=== PATIENT | female | born 1965 | race Caucasian/White ===

== ENCOUNTER 2016-11-06 19:28 | Inpatient (IN) | payer BC ==
[~2016-11-06] VITALS: Ht 154.9 cm; Wt 106.7 kg
[~2016-11-06 19:28] MED LIST: /ADVA50050 IN; /ALEN70TA OR; /PANT40TA OR; ABIL5TAB5 PO; ALBU17IN2 IN; CETI10TA OR; DUONSOL IN; HYDR-4274 PO; HYDR25TAB PO; LIPI20TA OR; LISI20TA5 OR; METF500T PO; MOTR200T4 OR; PAXI40TA OR; PERC5TAB8 OR; PERCOCET PO; TIZA4CAP3 PO; TYLE500T53 OR; VALS1TAB46 PO; XANA0.5T OR; XANA0.5T PO
[2016-11-06] MEDS ORDERED: METOCLOPRAMIDE INJ 10MG/2ML VIAL (J2765) As Ordered ONE (21:33)
[2016-11-06 22:38] LABS: BASO # 0.2 K/mm3 (0.0-0.2); EOS % 0.1 % (0.0-3.0); LARGE UNSTAINED CELL # 0.3 K/mm3 (0.0-0.4); LARGE UNSTAINED CELL % 1.2 % (0.0-4.0); MEAN CORPUSCULAR HGB CONC 33.7 g/dl (32.0-36.5); MEAN CORPUSCULAR VOLUME 89.1 fl (80.0-96.0); MONO # 1.1 K/mm3 (0.0-0.8); MONO % 5.5 % (0.0-5.0); NEUTROPHILS # 16.7 K/mm3 (1.8-7.7); NEUTROPHILS % 83.2 % (36.0-66.0); PLATELET COUNT, AUTOMATED 305 k/mm3 (150-450); RED CELL DISTRIBUTION WIDTH 15.9 % (11.5-14.5)
[2016-11-06 22:46] LABS: ALBUMIN 3.5 GM/DL (3.2-5.2); ALBUMIN/GLOBULIN RATIO 0.97 (1.00-1.93); ALKALINE PHOSPHATASE 103 U/L (45-117); ALT/SGPT 12 U/L (12-78); AMYLASE 31 U/L (25-115); ANION GAP 12 MEQ/L (8-16); AST/SGOT 13 U/L (15-37); BILIRUBIN,DIRECT 0.1 MG/DL (0.0-0.2); BILIRUBIN,TOTAL 0.5 MG/DL (0.2-1.0); BLOOD UREA NITROGEN 13 MG/DL (7-18); CALCIUM LEVEL 9.1 MG/DL (8.5-10.1); CARBON DIOXIDE LEVEL 29 MEQ/L (21-32); CHLORIDE LEVEL 100 MEQ/L (98-107); CREATININE FOR GFR 0.93 MG/DL (0.55-1.02); GLOMERULAR FILTRATION RATE > 60.0 (>51); GLUCOSE, FASTING 121 MG/DL (70-105); POTASSIUM SERUM 2.9 MEQ/L (3.5-5.1); SODIUM LEVEL 141 MEQ/L (136-145); TOTAL PROTEIN 7.1 GM/DL (6.4-8.2)
[2016-11-06] MEDS ORDERED: ISOVUE-370 76% 100ML VIAL (Q9967) As Ordered ONE (22:58)
[2016-11-06 23:04] LABS: MAGNESIUM LEVEL 2.6 MG/DL (1.8-2.4)
[2016-11-07] MEDS ORDERED: KCL 10MEQ IN STERILE WATER 100ML As Ordered ONE (00:27)
--- NOTE | 2016-11-07 00:30 | REPUSA ---
CLINICAL HISTORY: Abdominal pain. TECHNIQUE: Multiple axial, sagittal and coronal CT images were obtained through the abdomen and pelvi s after administration of intravenous contrast material. COMMENTS: Compared to 11/04/16 study. The liver is of uniform attenuation without mass or defect. There is no intra or extrahepatic biliary ductal dilatation. The spleen is normal. The gallbladder is within normal limits. The pancreas is of normal contour and attenuation characteristics. There is no evidence of adrenal mass. Both kidneys demonstrate prompt and equal nephrograms. The kidneys are normal in size, shape and conf iguration. There is no evidence of renal or ureteral mass. No renal or ureteral calculi are identifie d. There is no hydroureter or hydronephrosis. No evidence for appendicitis. There is nodular wall thickening involving sigmoid colon, malignancy i s suspected. Proximal to that the colon is markedly dilated measuring up to 9 cm in caliber compatibl e with mechanical large bowel obstruction. There is marked interval exacerbation. There is no evidence of intrinsic or extrinsic bladder mass. There is pelvic ascites noted. Images of the lung bases show no evidence of pleural or parenchymal mass. There are no pleural effusi ons. The bony structures are free of lytic or blastic lesions. Multilevel degenerative changes are seen in volving the thoracolumbar spine. Scattered calcifications are seen involving the aorta and major bran ches compatible with atherosclerosis. IMPRESSION: Nodular wall thickening involving sigmoid colon, malignancy is suspected. Proximal to that the colon is markedly dilated measuring up to 9 cm in caliber compatible with mechanical large bowel obstructio n. There is marked interval exacerbation. Consider follow up with colonoscopy. Thank you for your kind referral of this patient.
[2016-11-07] MEDS ORDERED: PROT1TAB2 PO (01:34)
[2016-11-07] MEDS ORDERED: FLAG500T PO (01:34)
[2016-11-07] MEDS ORDERED: VALS1TAB47 PO (01:34)
[2016-11-07] MEDS ORDERED: HYDR62TA PO (01:34)
[2016-11-07] MEDS ORDERED: CIPR500T89 PO (01:34)
[2016-11-07] MEDS ORDERED: ATOR1TAB18 PO (01:34)
[2016-11-07] MEDS ORDERED: PAXI40TA2 PO (01:41)
[2016-11-07] MEDS ORDERED: ABIL1TAB5 PO (01:41)
[2016-11-07] MEDS ORDERED: TIZA2CAP3 PO (01:41)
[2016-11-07] MEDS ORDERED: HYDR25TAB PO (01:41)
[2016-11-07] MEDS ORDERED: TIZA4CAP3 PO (01:41)
[2016-11-07] MEDS ORDERED: ADV250INH INH (02:22)
[2016-11-07] MEDS ORDERED: HYDR-4274 PO (02:22)
[2016-11-07] MEDS: LR 1,000 ML IV SCH ×3 (02:48→12:48)
[2016-11-07] MEDS ORDERED: ACETAMINOPHEN TAB 650MG DOSE (2X325MG) PO PRN (03:00)
[2016-11-07] MEDS ORDERED: KCL 10MEQ IN 100ML SWI (KRUN) 10 MEQ in APPROPRIATE DILUENT 1 EA IV ONE ×2 (03:00)
[2016-11-07] MEDS ORDERED: PERCOCET 5MG/325MG TAB As Ordered ONE (04:28)
[2016-11-07] MEDS: metroNIDAZOLE 500 MG in APPROPRIATE DILUENT 1 EA IV SCH ×3 (06:00→21:03)
[2016-11-07 06:20] VITALS: BP 143/73
--- NOTE | 2016-11-07 06:32 | EDDOCDS ---
Nurse's Notes [facility] Name: Georgia Rene Age: 51 yrs Sex: Female : 1965 Arrival Date: 11/06/2016 Time: 19:28 Bed Admit Hold Private MD: Verónica Betancur PA-C Diagnosis: Other and unspecified intestinal obstruction-MECHANICAL LARGE BOWEL OBSTRUCTION;Abnormal findings on diagnostic imaging of other parts of digestive tract-SIGMOID COLON ;Hypokalemia Presentation: 11/06 19:39 Presenting complaint: Patient states: Seen twice on Wednesday for nausea and abdominal jo3 pain. Diagnosed with colitis. Reports intractable vomiting now and is unable to keep medication down. Adult Sepsis Screening: The patient does not have new or worsening altered mentation. Patient's respiratory rate is less than 22. Systolic blood pressure is greater than 100. Patient has a qSOFA score of 0- Negative Sepsis Screen. Suicide/Homicide risk assessment- the patient denies having any suicidal and/or homicidal ideations and does not present with any other emotional, behavioral or mental health complaints. Status: Patient is not a chief of service or dependent. Transition of care: patient was not received from another setting of care. 19:39 Acuity: JOSE MANUEL Level 3 jo3 19:39 Method Of Arrival: Walkin/Carried/Asstd jo3 Triage Assessment: 19:43 General: Appears in no apparent distress, Behavior is cooperative. Pain: Pain currently jo3 is 8 out of 10 on a pain scale. HIV screening NA for this visit Offered previously. The patient is triaged at the bedside. See Assessment in Nurses Notes section of ED record. Neurological: Level of Consciousness is awake, alert, Oriented to person, place, time. Cardiovascular: No deficits noted. Respiratory: Airway is patent. GI: Reports nausea, vomiting. Derm: Skin is pink, warm & dry. SUEDE CLEANER: 19:44 LMP N/A - Hysterectomy jo3 Historical: - Allergies: Bactrim (Swelling); Morphine (Swelling); Zoloft (nightmares); - Home Meds: 1. Cipro 500 mg Oral tab 1 tab every 12 hours (Last dose: 11/06/2016 17:00) 2. Flagyl 500 mg Oral tab 1 tab every 8 hours (Last dose: 11/06/2016 17:00) 3. hydrochlorothiazide 12.5 mg Oral cap 1 cap once daily (Last dose: 11/04/2016) 4. metformin 500 mg Oral tab 1 tab 2 times per day (Last dose: 11/04/2016) 5. Percocet 5-325 mg Oral tab 1 tab three times a day as needed (Last dose: 11/04/2016) 6. Protonix 40 mg Oral TbEC 1 tab once daily (Last dose: 11/04/2016) 7. Reglan 10 mg Oral tab 1 tab every 6 hours (Last dose: 11/04/2016) 8. simvastatin 10 mg Oral tab 1 tab nightly (Last dose: 11/04/2016) 9. valsartan 40 mg oral tab 1 tab once daily (Last dose: 11/04/2016) - PMHx: Chronic Back pain; Diabetes - NIDDM: controlled; Diverticulitis; Hypercholesterolemia; Hypertension; - PSHx: Hysterectomy; - Social history: Smoking status: Patient uses tobacco products, light tobacco smoker. No barriers to communication noted, The patient speaks fluent Fijian, Speaks appropriately for age. - Family history: Not pertinent. - : The pt / caregiver states he / she is not on anticoagulants. Home medication list is obtained from the patient. - Exposure Risk Screening:: None identified. Screenin/31 00:12 Screening information is obtained from the patient. Fall risk: No risks identified. mcp Assistance ADL's: requires no assistance with activities of daily living. Abuse/DV Screen: The patient / caregiver reports he/she is: not in a situation that causes fear, pain or injury. Nutritional screening: No deficits noted. Advance Directives: There is no active DNR order. home support is adequate. Assessment: 11/06 22:01 General: Appears uncomfortable, Behavior is cooperative. Pain: Location: right lower ld5 quadrant and left lower quadrant Pain currently is 8 out of 10 on a pain scale. Neurological: Level of Consciousness is awake, alert. Respiratory: Airway is patent Respiratory effort is even, unlabored. GI: Abdomen is obese, Bowel sounds present X 4 quads. Abd is tender to palpation in left lower quadrant Reports lower abdominal pain, nausea, vomiting, intolerance of food, intolerance of fluids. : Denies burning with urination, pain with urination. Derm: Skin is intact, Skin is dry, flaky Bruising that is dark purple, on dorsum of right hand. 22:24 General: Pt reports several episodes of emesis. Reglan infusion completed. Will ld5 continue to monitor. 23:11 General: Pt returned from CT. Tolerated well. Fluids remain infusing. Will continue to ld5 monitor. 11/07 00:12 General: Appears in no apparent distress, Behavior is cooperative. Neurological: Level mcp of Consciousness is awake, alert. Respiratory: Airway is patent Respiratory effort is even, unlabored. Derm: Skin is pink, warm & dry. 01:39 Reassessment: pt states nausea is slighlty better but just doesn't feel good. General: jp6 Appears uncomfortable, Behavior is appropriate for age, cooperative. Pain: Location: abdomen Pain currently is 4 out of 10 on a pain scale. Neurological: No deficits noted. EENT: No deficits noted. Cardiovascular: Rhythm is sinus rhythm No ectopy. Respiratory: Airway is patent Respiratory effort is even, unlabored, Respiratory pattern is regular, symmetrical. 02:30 Reassessment: Patient states symptoms have improved. General: Appears in no apparent jp6 distress, uncomfortable, Behavior is appropriate for age, cooperative. Neurological: No deficits noted. Cardiovascular: No deficits noted. Rhythm is sinus rhythm No ectopy. Respiratory: Airway is patent Respiratory effort is even, unlabored, Respiratory pattern is regular, symmetrical. GI: Denies vomiting. 03:30 Reassessment: Patient appears in no apparent distress at this time. General: Appears in jp6 no apparent distress. Cardiovascular: No deficits noted. Rhythm is sinus rhythm No ectopy. Respiratory: Airway is patent Respiratory effort is even, unlabored, Respiratory pattern is regular, symmetrical. 04:30 Reassessment: Patient appears in no apparent distress at this time. jp6 05:30 Reassessment: Patient appears in no apparent distress at this time. Patient states jp6 symptoms have improved. General: Appears in no apparent distress, Behavior is appropriate for age, cooperative. Pain: Pain currently is 3 out of 10 on a pain scale. Neurological: No deficits noted. EENT: No deficits noted. Cardiovascular: Rhythm is sinus rhythm No ectopy. Respiratory: Airway Respiratory effort is even, unlabored, Respiratory pattern is regular, symmetrical. GI: Abdomen is obese. : No deficits noted. Derm: Skin is intact, Skin is dry, Skin is pink, warm & dry. Musculoskeletal: No deficits noted. Vital Signs: 11/06 19:29 BP 149 / 84; Pulse 85; Resp 18 S; Temp 98.5(O); Pulse Ox 95% on R/A; Weight 101.6 kg dd6 (R); Height 5 ft. 1 in. (154.94 cm) (R); 11/07 00:12 BP 135 / 78; Pulse 64; Resp 16; Temp 100.1; Pulse Ox 98% ; Pain 5/10; ajs 00:35 BP 122 / 63 (auto/); jp6 00:35 Pulse 76 MON; Pulse Ox 91% ; jp6 00:50 BP 127 / 67 (auto/); jp6 00:50 Pulse 78 MON; Pulse Ox 93% ; jp6 01:05 BP 126 / 68 (auto/); jp6 01:05 Pulse 80 MON; Pulse Ox 88% ; jp6 01:20 BP 127 / 71 (auto/); jp6 01:20 Pulse 70 MON; Pulse Ox 90% ; jp6 01:35 BP 134 / 69 (auto/); jp6 01:35 Pulse Ox 92% ; jp6 01:46 Pulse 70 MON; Pulse Ox 91% ; jp6 01:50 BP 126 / 69 (auto/); jp6 02:05 BP 123 / 63 (auto/); jp6 02:05 Pulse Ox 92% ; jp6 02:07 Pulse 72 MON; Pulse Ox 92% ; jp6 02:20 Pulse 72 MON; Pulse Ox 93% ; jp6 02:20 BP 129 / 68 (auto/); jp6 02:35 BP 128 / 69 (auto/); jp6 02:35 Pulse 68 MON; Pulse Ox 93% ; jp6 02:50 BP 129 / 73 (auto/); jp6 02:50 Pulse 70 MON; Pulse Ox 92% ; jp6 02:58 Pulse 68 MON; Pulse Ox 92% ; jp6 02:59 Pulse 82 MON; Pulse Ox 90% ; jp6 03:05 BP 130 / 68 (auto/); jp6 03:05 Pulse Ox 90% ; jp6 03:20 BP 139 / 74 (auto/); jp6 03:20 Pulse Ox 93% ; jp6 03:35 BP 139 / 74 (auto/); jp6 03:35 Pulse Ox 94% ; jp6 03:49 Pulse Ox 93% ; jp6 03:57 BP 144 / 74 (auto/); jp6 03:59 Pulse 68 MON; jp6 04:35 BP 142 / 79 (auto/); jp6 04:35 Pulse 70 MON; jp6 04:50 BP 152 / 92 (auto/); jp6 04:59 Pulse 92 MON; jp6 05:05 BP 145 / 72 (auto/); jp6 05:13 Pulse 88 MON; jp6 05:20 BP 142 / 69 (auto/); jp6 05:35 Pulse 94 MON; jp6 05:35 Resp 16; Temp 98.8; Pulse Ox 95% on R/A; jp6 11/06 19:29 Body Mass Index 42.32 (101.60 kg, 154.94 cm) dd6 Vitals: 11/06 19:29 Log In Time: November 06, 2016 at 19:27. dd6 ED Course: 19:29 Patient visited by Jeovany Bond PCA. dd6 19:29 Verónica Beatncur is Private Physician. dd6 19:29 Patient moved to Waiting dd6 19:29 Patient moved to Pre RCE dd6 19:40 Triage Initiated jo3 19:45 Patient visited by Tammy Schmitt RN. jo3 21:04 Mendez Earl RPA-C is PHCP. ck7 21:04 Leighton Esqueda DO is Attending Physician. ck7 21:04 Patient visited by Mendez Earl RPA-C. ck7 21:04 Patient moved to I2 / M2 lf1 21:36 Urinalysis Sent. slm 21:36 Urine Culture Sent. slm 21:39 Patient visited by Mendez Earl RPA-C. ck7 22:00 Amylase Sent. ld5 22:00 Basic Metabolic Profile Sent. ld5 22:00 CBC with Diff Sent. ld5 22:00 Lipase Sent. ld5 22:00 Liver Profile Sent. ld5 22:00 Inserted saline lock: 20 gauge in right antecubital area and blood collected. The mcp patient tolerated the procedure well. Labs drawn. (by ED staff). Sent per order to lab. 22:03 Patient visited by Lucy Murray,ARIAN. ld5 22:24 Patient visited by Lucy Murray,ARIAN. ld5 22:55 Patient visited by Mendez Earl RPA-C. ck7 22:56 The patient / caregiver is instructed regarding the plan of care and ED course. ld5 Accompanied by Significant Other, Patient has correct armband on for positive identification. Placed in gown. Bed in low position. Call light in reach. 22:57 Notified physician's web production assistant of K of 2.9. ld5 22:58 Patient visited by Lucy Murray,RN. ld5 23:11 Patient visited by Lucy Murray,ARIAN. ld5 23:44 [facility] Payment Agreement was scanned into [employer] and attached to record. ks16 23:51 Patient visited by Mendez Earl RPA-C. ck7 11/07 00:13 Patient visited by Анна Aguilar. ajs 00:13 Patient visited by Greer Tyson, ARIAN. mcp 00:13 Tram Louise RN is Primary Nurse. jp6 00:13 Patient moved to 17 ld5 00:45 Patient visited by Mendez Earl RPA-C. ck7 00:50 CT ABD & PELVIS: IV Contrast Only Returned. EDMS 01:18 Patient visited by Mendez Earl RPA-C. ck7 01:35 monitor and storage bin tender on. Pulse ox on. NIBP on. jp6 01:35 No procedures done that require assistance. jp6 01:36 Alex Richardson is Hospitalizing Provider. ck7 03:53 Patient moved to Admit Hold kmg1 05:33 T-Sheet-- Draft Copy was scanned into [employer] and attached to record. lja 06:31 Inserted saline lock: 20 gauge in left antecubital area. jp6 Administered Medications: 11/06 21:59 Drug: Metoclopramide 10 mg [metoclopramide 5 mg/mL injection solution] Route: IV; Rate: mcp 40 mg/hr; Infused Over: 15 mins; Site: right antecubital; 22:23 Follow up: IV Status: Completed infusion ld5 21:59 Drug: NS 0.9% 1000 ml [sodium chloride 0.9 % intravenous solution] Route: IV; Rate: mcp bolus; Site: right antecubital; 11/07 01:00 Drug: Potassium Chloride in 100cc sterile water 10 mEq [potassium chloride 10 mEq/100 jp6 mL intravenous piggyback] {Co-Signature: kmg1 (Aleida Ward RN).} Route: IV; Rate: 100 mL/hr; Infused Over: 1 hrs; Site: left wrist; Point of Care Testing: Blood Glucose: 11/06 21:09 Blood Glucose: 120 mg/dL; [facility] Ranges: Order Results: Lab Order: Amylase; [facility] 11/06/16 21:37 Test: AMYLASE; Value: 31; Range: 25-115; Units: U/L; Status: F Lab Order: Basic Metabolic Profile; [facility] 11/06/16 21:37 Test: GLUCOSE, FASTING; Value: 121; Range: 70-105; Abnormal: Above high normal; Units: MG/DL; Status: F Test: BLOOD UREA NITROGEN; Value: 13; Range: 7-18; Units: MG/DL; Status: F Test: CREATININE FOR GFR; Value: 0.93; Range: 0.55-1.02; Units: MG/DL; Status: F Test: GLOMERULAR FILTRATION RATE; Value: > 60.0; Range: >51; Status: F Test: SODIUM LEVEL; Value: 141; Range: 136-145; Units: MEQ/L; Status: F Test: POTASSIUM SERUM; Value: 2.9; Range: 3.5-5.1; Abnormal: Critical Low; Units: MEQ/L; Status: F Test: CHLORIDE LEVEL; Value: 100; Range: 98-107; Units: MEQ/L; Status: F Test: CARBON DIOXIDE LEVEL; Value: 29; Range: 21-32; Units: MEQ/L; Status: F Test: ANION GAP; Value: 12; Range: 8-16; Units: MEQ/L; Status: F Test: CALCIUM LEVEL; Value: 9.1; Range: 8.5-10.1; Units: MG/DL; Status: F Test Note: ; Units are mL/min/1.73 m2 Chronic Kidney Disease Staging per NKF: Stage I & II GFR >=60 Normal to Mildly Decreased Stage III GFR 30-59 Moderately Decreased Stage IV GFR 15-29 Severely Decreased Stage V GFR <15 Very Little GFR Left ESRD GFR <15 on 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 Lab Order: CBC with Diff; [facility] 11/06/16 21:37 Test: WHITE BLOOD COUNT; Value: 20.0; Range: 4.0-10.0; Abnormal: Above high normal; Units: K/mm3; Status: F Test: RED BLOOD COUNT; Value: 4.99; Range: 4.00-5.40; Units: M/mm3; Status: F Test: HEMOGLOBIN; Value: 15.0; Range: 12.0-16.0; Units: g/dl; Status: F Test: HEMATOCRIT; Value: 44.4; Range: 36.0-47.0; Units: %; Status: F Test: MEAN CORPUSCULAR VOLUME; Value: 89.1; Range: 80.0-96.0; Units: fl; Status: F Test: MEAN CORPUSCULAR HEMOGLOBIN; Value: 30.0; Range: 27.0-33.0; Units: pg; Status: F Test: MEAN CORPUSCULAR HGB CONC; Value: 33.7; Range: 32.0-36.5; Units: g/dl; Status: F Test: RED CELL DISTRIBUTION WIDTH; Value: 15.9; Range: 11.5-14.5; Abnormal: Above high normal; Units: %; Status: F Test: PLATELET COUNT, AUTOMATED; Value: 305; Range: 150-450; Units: k/mm3; Status: F Test: NEUTROPHILS %; Value: 83.2; Range: 36.0-66.0; Abnormal: Above high normal; Units: %; Status: F Test: LYMPH %; Value: 9.0; Range: 24.0-44.0; Abnormal: Below low normal; Units: %; Status: F Test: MONO %; Value: 5.5; Range: 0.0-5.0; Abnormal: Above high normal; Units: %; Status: F Test: EOS %; Value: 0.1; Range: 0.0-3.0; Units: %; Status: F Test: BASO %; Value: 1.0; Range: 0.0-1.0; Units: %; Status: F Test: LARGE UNSTAINED CELL %; Value: 1.2; Range: 0.0-4.0; Units: %; Status: F Test: NEUTROPHILS #; Value: 16.7; Range: 1.8-7.7; Abnormal: Above high normal; Units: K/mm3; Status: F Test: LYMPH #; Value: 2.0; Range: 1.5-4.5; Units: K/mm3; Status: F Test: MONO #; Value: 1.1; Range: 0.0-0.8; Abnormal: Above high normal; Units: K/mm3; Status: F Test: EOS #; Value: 0.0; Range: 0.0-0.50; Units: K/mm3; Status: F Test: BASO #; Value: 0.2; Range: 0.0-0.2; Units: K/mm3; Status: F Test: LARGE UNSTAINED CELL #; Value: 0.3; Range: 0.0-0.4; Units: K/mm3; Status: F Lab Order: Lipase; [facility] 11/06/16 21:37 Test: LIPASE; Value: 147; Range: 73-393; Units: U/L; Status: F Lab Order: Liver Profile; [facility] 11/06/16 21:37 Test: AST/SGOT; Value: 13; Range: 15-37; Abnormal: Below low normal; Units: U/L; Status: F Test: ALT/SGPT; Value: 12; Range: 12-78; Units: U/L; Status: F Test: ALKALINE PHOSPHATASE; Value: 103; Range: 45-117; Units: U/L; Status: F Test: BILIRUBIN,TOTAL; Value: 0.5; Range: 0.2-1.0; Units: MG/DL; Status: F Test: BILIRUBIN,DIRECT; Value: 0.1; Range: 0.0-0.2; Units: MG/DL; Status: F Test: TOTAL PROTEIN; Value: 7.1; Range: 6.4-8.2; Units: GM/DL; Status: F Test: ALBUMIN; Value: 3.5; Range: 3.2-5.2; Units: GM/DL; Status: F Test: ALBUMIN/GLOBULIN RATIO; Value: 0.97; Range: 1.00-1.93; Abnormal: Below low normal; Status: F Lab Order: Urinalysis; [facility] 11/06/16 21:34 Test: APPEARANCE, URINE; Value: HAZY; Range: CLEAR; Status: F Test: COLOR, URINE; Value: BRIANA; Range: YELLOW; Status: F Test: PH,URINE; Value: 5.0; Range: 5.0-9.0; Units: UNITS; Status: F Test: SPECIFIC GRAVITY URINE AUTO; Value: 1.029; Range: 1.002-1.035; Status: F Test: PROTEIN, URINE AUTO; Value: 1+; Range: NEGATIVE; Abnormal: Above high normal; Units: mg/dL; Status: F Test: GLUCOSE, URINE (UA) AUTO; Value: NEGATIVE; Range: NEGATIVE; Units: mg/dL; Status: F Test: KETONE, URINE AUTO; Value: TRACE; Range: NEGATIVE; Abnormal: Above high normal; Units: mg/dL; Status: F Test: UROBILINOGEN, URINE AUTO; Value: 4.0; Range: 0.0-2.0; Abnormal: Above high normal; Units: mg/dL; Status: F Test: BILIRUBIN, URINE AUTO; Value: 1+; Range: NEGATIVE; Abnormal: Above high normal; Status: F Test: NITRITE, URINE AUTO; Value: NEGATIVE; Range: NEGATIVE; Status: F Test: LEUKOCYTE ESTERASE, URINE AUTO; Value: 1+; Range: NEGATIVE; Abnormal: Above high normal; Status: F Test: BLOOD, URINE BLOOD; Value: NEGATIVE; Range: NEGATIVE; Status: F Test: WBC, URINE AUTO; Value: 8; Range: 0-3; Abnormal: Above high normal; Units: /HPF; Status: F Test: RBC, URINE AUTO; Value: 18; Range: 0-3; Abnormal: Above high normal; Units: /HPF; Status: F Test: BACTERIA, URINE AUTO; Value: 2+; Range: NEGATIVE; Abnormal: Above high normal; Status: F Test: SQUAMOUS EPITHELIAL CELL UR AU; Value: 3; Range: 0-6; Units: /HPF; Status: F Test: MUCUS, URINE; Value: SMALL; Range: NEGATIVE; Status: F Test: HYALINE CAST, URINE AUTO; Value: 0; Range: 0-1; Units: /LPF; Status: F Test: AMORPHOUS SEDIMENT; Value: SMALL; Range: NEGATIVE; Abnormal: Above high normal; Status: F Lab Order: Fingerstick Blood Sugar; [facility] 11/06/16 21:09 Test: BEDSIDE GLUCOSE; Value: 120; Range: 70-105; Abnormal: Above high normal; Units: MG/DL; Status: F Test Note: ; Doctor Notified Lab Order: MAGNESIUM LEVEL; [facility] 11/06/16 21:37 Test: MAGNESIUM LEVEL; Value: 2.6; Range: 1.8-2.4; Abnormal: Above high normal; Units: MG/DL; Status: F Radiology Order: CT ABD & PELVIS: IV Contrast Only Test: CT ABD & PELVIS: IV Contrast Only REASON FOR EXAMINATION: ABD PAIN, DX WITH COLITIS, PAIN WORSE; ; CLINICAL HISTORY: Abdominal pain.; TECHNIQUE: Multiple axial, sagittal and coronal CT images were obtained through the abdomen and pelvi; s after administration of intravenous contrast material.; COMMENTS: Compared to 11/04/16 study.; The liver is of uniform attenuation without mass or defect. There is no intra or extrahepatic biliary; ductal dilatation. The spleen is normal. The gallbladder is within normal limits. The pancreas is of; normal contour and attenuation characteristics. There is no evidence of adrenal mass.; Both kidneys demonstrate prompt and equal nephrograms. The kidneys are normal in size, shape and conf; iguration. There is no evidence of renal or ureteral mass. No renal or ureteral calculi are identifie; d. There is no hydroureter or hydronephrosis.; No evidence for appendicitis. There is nodular wall thickening involving sigmoid colon, malignancy i; s suspected. Proximal to that the colon is markedly dilated measuring up to 9 cm in caliber compatibl; e with mechanical large bowel obstruction. There is marked interval exacerbation.; There is no evidence of intrinsic or extrinsic bladder mass. There is pelvic ascites noted.; Images of the lung bases show no evidence of pleural or parenchymal mass. There are no pleural effusi; ons.; The bony structures are free of lytic or blastic lesions. Multilevel degenerative changes are seen in; volving the thoracolumbar spine. Scattered calcifications are seen involving the aorta and major bran; ches compatible with atherosclerosis.; IMPRESSION:; Nodular wall thickening involving sigmoid colon, malignancy is suspected. Proximal to that the colon; is markedly dilated measuring up to 9 cm in caliber compatible with mechanical large bowel obstructio; n. There is marked interval exacerbation. Consider follow up with colonoscopy.; Thank you for your kind referral of this patient.; ; Outcome: 11/07 01:37 Decision to Hospitalize by Provider. ck7 05:35 Discharge Assessment: Patient awake, alert and oriented x 3. No cognitive and/or jp6 functional deficits noted. Patient verbalized understanding of disposition instructions. patient administered narcotics - yes. Patient was admitted to the hospital or transferred to another facility. The following High Risk Discharge criteria are identified: None. Admitted to PCU accompanied by nurse, accompanied by tech, on monitor, with chart. Condition: improved. CT Study completed. Property :Personal belongings accompany Pt. 06:32 Patient left the ED. jp6 Signatures: Dispatcher [employer] EDMS Aleida Ward, RN RN kmg1 Greer Tyson, RN RN Tammy Truong,RN RN jon3 Shelbie Field,RN RN lf1 Jeovany Bond, [employer] SALES REPRESENTATIVE [employer] SALES REPRESENTATIVE dd6 Lucy Murray,RN RN ld5 Анна Aguilar Christopher, RPA-C [id number] Vivi Piper,WOOD CHOPPER WOOD CHOPPER slruel Subramanian, Sue Lind, Reg Reg ks16 Tram Louise,RN RN jp6 Aleida Ward RN kmg1 [facility]
--- NOTE | 2016-11-07 06:32 | EDDOCDS ---
Physician Documentation [facility] Name: Georgia Rene Age: 51 yrs Sex: Female : 1965 Arrival Date: 11/06/2016 Time: 19:28 Bed Admit Hold Private MD: Verónica Betancur PA-C Disposition: 11/07/16 01:37 Hospitalization ordered by Alex Richardson for Inpatient Admission. Preliminary diagnosis are Other and unspecified intestinal obstruction - MECHANICAL LARGE BOWEL OBSTRUCTION, Abnormal findings on diagnostic imaging of other parts of digestive tract - SIGMOID COLON , Hypokalemia. - Bed requested for PCU. - Status is Inpatient Admission. jp6 - Condition is Stable. - Problem is new. - Symptoms are unchanged. Historical: - Allergies: Bactrim (Swelling); Morphine (Swelling); Zoloft (nightmares); - Home Meds: 1. Cipro 500 mg Oral tab 1 tab every 12 hours (Last dose: 11/06/2016 17:00) 2. Flagyl 500 mg Oral tab 1 tab every 8 hours (Last dose: 11/06/2016 17:00) 3. hydrochlorothiazide 12.5 mg Oral cap 1 cap once daily (Last dose: 11/04/2016) 4. metformin 500 mg Oral tab 1 tab 2 times per day (Last dose: 11/04/2016) 5. Percocet 5-325 mg Oral tab 1 tab three times a day as needed (Last dose: 11/04/2016) 6. Protonix 40 mg Oral TbEC 1 tab once daily (Last dose: 11/04/2016) 7. Reglan 10 mg Oral tab 1 tab every 6 hours (Last dose: 11/04/2016) 8. simvastatin 10 mg Oral tab 1 tab nightly (Last dose: 11/04/2016) 9. valsartan 40 mg oral tab 1 tab once daily (Last dose: 11/04/2016) - PMHx: Chronic Back pain; Diabetes - NIDDM: controlled; Diverticulitis; Hypercholesterolemia; Hypertension; - PSHx: Hysterectomy; - Social history: Smoking status: Patient uses tobacco products, light tobacco smoker. No barriers to communication noted, The patient speaks fluent [place], Speaks appropriately for age. - Family history: Not pertinent. - : The pt / caregiver states he / she is not on anticoagulants. Home medication list is obtained from the patient. - Exposure Risk Screening:: None identified. FACE BOSS: 11/06 19:44 LMP N/A - Hysterectomy jo3 Vital Signs: 19:29 BP 149 / 84; Pulse 85; Resp 18 S; Temp 98.5(O); Pulse Ox 95% on R/A; Weight 101.6 kg / dd6 223.99 lbs (R); Height 5 ft. 1 in. (154.94 cm) (R); 11/07 00:12 BP 135 / 78; Pulse 64; Resp 16; Temp 100.1; Pulse Ox 98% ; Pain 5/10; ajs 00:35 BP 122 / 63 (auto/); jp6 00:35 Pulse 76 MON; Pulse Ox 91% ; jp6 00:50 BP 127 / 67 (auto/); jp6 00:50 Pulse 78 MON; Pulse Ox 93% ; jp6 01:05 BP 126 / 68 (auto/); jp6 01:05 Pulse 80 MON; Pulse Ox 88% ; jp6 01:20 BP 127 / 71 (auto/); jp6 01:20 Pulse 70 MON; Pulse Ox 90% ; jp6 01:35 BP 134 / 69 (auto/); jp6 01:35 Pulse Ox 92% ; jp6 01:46 Pulse 70 MON; Pulse Ox 91% ; jp6 01:50 BP 126 / 69 (auto/); jp6 02:05 BP 123 / 63 (auto/); jp6 02:05 Pulse Ox 92% ; jp6 02:07 Pulse 72 MON; Pulse Ox 92% ; jp6 02:20 Pulse 72 MON; Pulse Ox 93% ; jp6 02:20 BP 129 / 68 (auto/); jp6 02:35 BP 128 / 69 (auto/); jp6 02:35 Pulse 68 MON; Pulse Ox 93% ; jp6 02:50 BP 129 / 73 (auto/); jp6 02:50 Pulse 70 MON; Pulse Ox 92% ; jp6 02:58 Pulse 68 MON; Pulse Ox 92% ; jp6 02:59 Pulse 82 MON; Pulse Ox 90% ; jp6 03:05 BP 130 / 68 (auto/); jp6 03:05 Pulse Ox 90% ; jp6 03:20 BP 139 / 74 (auto/); jp6 03:20 Pulse Ox 93% ; jp6 03:35 BP 139 / 74 (auto/); jp6 03:35 Pulse Ox 94% ; jp6 03:49 Pulse Ox 93% ; jp6 03:57 BP 144 / 74 (auto/); jp6 03:59 Pulse 68 MON; jp6 04:35 BP 142 / 79 (auto/); jp6 04:35 Pulse 70 MON; jp6 04:50 BP 152 / 92 (auto/); jp6 04:59 Pulse 92 MON; jp6 05:05 BP 145 / 72 (auto/); jp6 05:13 Pulse 88 MON; jp6 05:20 BP 142 / 69 (auto/); jp6 05:35 Pulse 94 MON; jp6 05:35 Resp 16; Temp 98.8; Pulse Ox 95% on R/A; jp6 11/06 19:29 Body Mass Index 42.32 (101.60 kg, 154.94 cm) dd6 MDM: 11/06 20:00 Accucheck ordered. btw 21:14 Undress patient appropriately for examination ordered. ck7 21:14 IV Saline Lock ordered. ck7 21:14 Metoclopramide 10 mg IV at 40 mg/hr once over 15 mins ordered. ck7 21:14 NS 0.9% 1000 ml IV at bolus once ordered. ck7 21:15 Amylase Ordered. EDMS 21:15 Basic Metabolic Profile Ordered. EDMS 21:15 CBC with Diff Ordered. EDMS 21:15 Lipase Ordered. EDMS 21:15 Liver Profile Ordered. EDMS 21:15 Urinalysis Ordered. EDMS 21:15 Urine Culture Ordered. EDMS 21:16 NOTHING BY MOUTH+DIET ordered. EDMS 22:28 Urinalysis Reviewed. ck7 22:28 Fingerstick Blood Sugar Reviewed. ck7 22:43 CBC with Diff Reviewed. ck7 22:45 CT ABD & PELVIS: IV Contrast Only Ordered. EDMS 22:56 Potassium Chloride in 100cc sterile water 10 mEq IV at 100 mL/hr once over 1 hrs ck7 ordered. 22:58 Financial registration complete. gjb 23:01 Basic Metabolic Profile Reviewed. ck7 23:01 Liver Profile Reviewed. ck7 23:01 Amylase Reviewed. ck7 23:01 Lipase Reviewed. ck7 23:01 MAGNESIUM LEVEL Ordered. EDMS 23:04 MAGNESIUM LEVEL Reviewed. ck7 23:04 Basic Metabolic Profile Reviewed. ck7 23:04 Liver Profile Reviewed. ck7 23:04 Amylase Reviewed. ck7 23:04 Lipase Reviewed. ck7 23:08 Clinical Data Associate/Pulse Ox/q 15 min VS ordered. ck7 23:08 Basic Metabolic Profile Reviewed. ck7 23:08 Liver Profile Reviewed. ck7 23:08 MAGNESIUM LEVEL Reviewed. ck7 23:08 Amylase Reviewed. ck7 23:08 Lipase Reviewed. ck7 23:44 [facility] [place] Agreement was scanned into [employer] and attached to record. [email or web address] 11/07 00:51 CT ABD & PELVIS: IV Contrast Only Reviewed. ck7 01:37 BED REQUEST+ADM ordered. EDMS 03:00 BASIC METABOLIC PROFILE Ordered. EDMS 03:00 CBC WITH DIFFERENTIAL Ordered. EDMS 03:02 Abdomen,Flat Plate KUB Ordered. EDMS 03:02 Admission / Observation Status ordered. EDMS 03:02 NPO DIET ordered. EDMS 05:33 T-Sheet-- Draft Copy was scanned into [employer] and attached to record. narayan Point of Care Testing: Blood Glucose: 11/06 21:09 Blood Glucose: 120 mg/dL; mcp Ranges: Administered Medications: 21:59 Drug: Metoclopramide 10 mg [metoclopramide 5 mg/mL injection solution] Route: IV; Rate: mcp 40 mg/hr; Infused Over: 15 mins; Site: right antecubital; 22:23 Follow up: IV Status: Completed infusion ld5 21:59 Drug: NS 0.9% 1000 ml [sodium chloride 0.9 % intravenous solution] Route: IV; Rate: mcp bolus; Site: right antecubital; 11/07 01:00 Drug: Potassium Chloride in 100cc sterile water 10 mEq [potassium chloride 10 mEq/100 jp6 mL intravenous piggyback] {Co-Signature: kmg1 (Aleida Ward RN).} Route: IV; Rate: 100 mL/hr; Infused Over: 1 hrs; Site: left wrist; Signatures: Dispatcher [employer] EDMT Catalina Orozco RN RN Tammy CallahanRN RN jon3 Toan Love PA PA btw Dickerson, Laura, RN RN ld5 Mendez Earl, KIMBER-C [id number]-[id number] Marilynn, Holly Deleon Kimberly, Reg Reg [email or web address] Tram LouiseRN RN jp6 Greer Tyson RN [facility] Aleida Ward RN [email or web address] The chart was reviewed and I authenticate all verbal orders and agree with the evaluation and treatment provided.Corrections: (The following items were deleted from the chart) 11/06 23:00 22:56 MAGNESIUM LEVEL+LAB ordered. EDMS EDMS Attachments: 23:44 [facility] Payment Agreement [email or web address] 11/07 05:33 T-Sheet-- Draft Copy lja MTDD
[2016-11-07] MEDS: CIPROFLOXACIN 400 MG in APPROPRIATE DILUENT 1 EA IV SCH ×2 (06:38→17:17)
[2016-11-07] MEDS: PERCOCET 5MG/325MG TAB PO PRN ×5 (06:48→23:50)
[2016-11-07] MEDS: ONDANSETRON 4MG/2ML VIAL (J2405) IV PRN ×3 (07:47→21:03)
[2016-11-07 08:00] VITALS: BP 140/76
--- NOTE | 2016-11-07 08:29 | REP ---
Clinical: Abdominal distension. Comparison: 04/16/2008. Findings: Distended loops of colon noted throughout the abdomen and pelvis. Small bowel distension cannot definitively be excluded. No obvious pneumoperitoneum. No organomegaly. Skeletal structures demonstrate age-related changes. Contrast within the renal collecting system and bladder from prior CT. Impression: Colonic distension. Cannot exclude small bowel distension. No obvious free air. Signed by Clemente Moreland MD 11/07/2016 08:20 A
[2016-11-07] MEDS: PANTOPRAZOLE 40MG INJ (PROTONIX) (C9113) IV SCH (08:55)
[2016-11-07] MEDS: DOCUSATE SODIUM 100 MG CAP PO SCH ×2 (08:55→21:03)
[2016-11-07 09:30] LABS: BASO % 0.2 % (0.0-1.0); EOS % 0.2 % (0.0-3.0); LARGE UNSTAINED CELL # 0.2 K/mm3 (0.0-0.4); LARGE UNSTAINED CELL % 1.7 % (0.0-4.0); LYMPH # 1.4 K/mm3 (1.5-4.5); LYMPH % 10.1 % (24.0-44.0); MEAN CORPUSCULAR HEMOGLOBIN 31.2 pg (27.0-33.0); MEAN CORPUSCULAR HGB CONC 34.6 g/dl (32.0-36.5); MEAN CORPUSCULAR VOLUME 90.1 fl (80.0-96.0); MONO # 0.8 K/mm3 (0.0-0.8); MONO % 5.3 % (0.0-5.0); NEUTROPHILS # 11.7 K/mm3 (1.8-7.7); NEUTROPHILS % 82.5 % (36.0-66.0); PLATELET COUNT, AUTOMATED 246 k/mm3 (150-450); RED CELL DISTRIBUTION WIDTH 15.1 % (11.5-14.5); WHITE BLOOD COUNT 14.2 K/mm3 (4.0-10.0)
[2016-11-07 10:15] LABS: ANION GAP 9 MEQ/L (8-16); BLOOD UREA NITROGEN 11 MG/DL (7-18); CALCIUM LEVEL 8.3 MG/DL (8.5-10.1); CARBON DIOXIDE LEVEL 29 MEQ/L (21-32); CHLORIDE LEVEL 103 MEQ/L (98-107); CREATININE FOR GFR 0.76 MG/DL (0.55-1.02); GLOMERULAR FILTRATION RATE > 60.0 (>51); GLUCOSE, FASTING 127 MG/DL (70-105); SODIUM LEVEL 141 MEQ/L (136-145)
[2016-11-07 12:00] VITALS: BP 143/72
[2016-11-07 16:00] VITALS: BP 143/88
[2016-11-07] MEDS: POTASSIUM CHLORIDE INJ 40 MEQ in LR 1,000 ML IV SCH (17:17)
[2016-11-07 18:00] VITALS: BP 164/84
[2016-11-07 22:00] VITALS: BP 150/82
[2016-11-08 02:00] VITALS: BP 146/76
[2016-11-08] MEDS: KETOROLAC 30 MG/ML VIAL (J1885) IV PRN (03:07)
[2016-11-08] MEDS: CIPROFLOXACIN 400 MG in APPROPRIATE DILUENT 1 EA IV SCH ×2 (04:20→17:14)
[2016-11-08] MEDS: POTASSIUM CHLORIDE INJ 40 MEQ in LR 1,000 ML IV SCH ×2 (05:23→15:30)
[2016-11-08] MEDS: metroNIDAZOLE 500 MG in APPROPRIATE DILUENT 1 EA IV SCH ×3 (05:23→21:56)
[2016-11-08 06:00] VITALS: BP 132/85
[2016-11-08 06:39] LABS: BASO % 0.2 % (0.0-1.0); EOS # 0.1 K/mm3 (0.0-0.50); EOS % 0.8 % (0.0-3.0); LARGE UNSTAINED CELL # 0.2 K/mm3 (0.0-0.4); LARGE UNSTAINED CELL % 1.7 % (0.0-4.0); LYMPH # 1.8 K/mm3 (1.5-4.5); LYMPH % 13.9 % (24.0-44.0); MEAN CORPUSCULAR HGB CONC 33.1 g/dl (32.0-36.5); MEAN CORPUSCULAR VOLUME 90.6 fl (80.0-96.0); MONO # 0.7 K/mm3 (0.0-0.8); MONO % 5.5 % (0.0-5.0); NEUTROPHILS # 10.2 K/mm3 (1.8-7.7); NEUTROPHILS % 77.9 % (36.0-66.0); PLATELET COUNT, AUTOMATED 243 k/mm3 (150-450); RED CELL DISTRIBUTION WIDTH 15.1 % (11.5-14.5); WHITE BLOOD COUNT 13.1 K/mm3 (4.0-10.0)
[2016-11-08 06:50] LABS: ANION GAP 9 MEQ/L (8-16); BLOOD UREA NITROGEN 12 MG/DL (7-18); CALCIUM LEVEL 8.1 MG/DL (8.5-10.1); CARBON DIOXIDE LEVEL 23 MEQ/L (21-32); CHLORIDE LEVEL 107 MEQ/L (98-107); CREATININE FOR GFR 0.73 MG/DL (0.55-1.02); GLOMERULAR FILTRATION RATE > 60.0 (>51); GLUCOSE, FASTING 89 MG/DL (70-105); SODIUM LEVEL 139 MEQ/L (136-145)
[2016-11-08] MEDS: PANTOPRAZOLE 40MG INJ (PROTONIX) (C9113) IV SCH (08:21)
[2016-11-08] MEDS: PERCOCET 5MG/325MG TAB PO PRN ×4 (08:22→21:56)
[2016-11-08] MEDS: DOCUSATE SODIUM 100 MG CAP PO SCH ×2 (08:22→19:53)
[2016-11-08 10:00] VITALS: BP 169/88
--- NOTE | 2016-11-08 10:13 | REP ---
Clinical: Colonic distension. Comparison: 11/07/2016. Findings: Distended air filled large bowel is appreciated without obvious small bowel obstruction. Findings are unchanged. No organomegaly. Skeletal structures stable. Impression: Large bowel distension cannot exclude obstruction. Findings are essentially unchanged compared to prior examination. Signed by Clemente Moreland MD 11/08/2016 10:04 A
[2016-11-08 14:00] VITALS: BP 154/84
[2016-11-08 18:00] VITALS: BP 142/80
[2016-11-08] MEDS: LR 1,000 ML IV SCH (19:33)
[2016-11-08] MEDS ORDERED: FLEET ENEMA PR ONE (20:00)
[2016-11-08 22:00] VITALS: BP 135/96
[2016-11-09] VITALS (11 sets, daily range): BP systolic 136–168; BP diastolic 76–89
[2016-11-09] MEDS: KETOROLAC 30 MG/ML VIAL (J1885) IV PRN (01:56)
[2016-11-09] MEDS: CIPROFLOXACIN 400 MG in APPROPRIATE DILUENT 1 EA IV SCH ×2 (04:10→16:48)
[2016-11-09] MEDS: metroNIDAZOLE 500 MG in APPROPRIATE DILUENT 1 EA IV SCH ×3 (05:18→21:31)
[2016-11-09] MEDS ORDERED: FLEET ENEMA PR ONE (06:00)
--- NOTE | 2016-11-09 07:33 | EDDOCDS ---
Nurse's Notes [facility] Name: Georgia Rene Age: 51 yrs Sex: Female : 1965 Arrival Date: 11/06/2016 Time: 19:28 Bed Admit Hold Private MD: Verónica Betancur PA-C Diagnosis: Other and unspecified intestinal obstruction-MECHANICAL LARGE BOWEL OBSTRUCTION;Abnormal findings on diagnostic imaging of other parts of digestive tract-SIGMOID COLON ;Hypokalemia Presentation: 11/06 19:39 Presenting complaint: Patient states: Seen twice on Wednesday for nausea and abdominal jo3 pain. Diagnosed with colitis. Reports intractable vomiting now and is unable to keep medication down. Adult Sepsis Screening: The patient does not have new or worsening altered mentation. Patient's respiratory rate is less than 22. Systolic blood pressure is greater than 100. Patient has a qSOFA score of 0- Negative Sepsis Screen. Suicide/Homicide risk assessment- the patient denies having any suicidal and/or homicidal ideations and does not present with any other emotional, behavioral or mental health complaints. Status: Patient is not a emergency medical service manager or dependent. Transition of care: patient was not received from another setting of care. 19:39 Acuity: JOSE MANUEL Level 3 jo3 19:39 Method Of Arrival: Walkin/Carried/Asstd jo3 Triage Assessment: 19:43 General: Appears in no apparent distress, Behavior is cooperative. Pain: Pain currently jo3 is 8 out of 10 on a pain scale. HIV screening NA for this visit Offered previously. The patient is triaged at the bedside. See Assessment in Nurses Notes section of ED record. Neurological: Level of Consciousness is awake, alert, Oriented to person, place, time. Cardiovascular: No deficits noted. Respiratory: Airway is patent. GI: Reports nausea, vomiting. Derm: Skin is pink, warm & dry. RERECORDING MIXER: 19:44 LMP N/A - Hysterectomy jo3 Historical: - Allergies: Bactrim (Swelling); Morphine (Swelling); Zoloft (nightmares); - Home Meds: 1. Cipro 500 mg Oral tab 1 tab every 12 hours (Last dose: 11/06/2016 17:00) 2. Flagyl 500 mg Oral tab 1 tab every 8 hours (Last dose: 11/06/2016 17:00) 3. hydrochlorothiazide 12.5 mg Oral cap 1 cap once daily (Last dose: 11/04/2016) 4. metformin 500 mg Oral tab 1 tab 2 times per day (Last dose: 11/04/2016) 5. Percocet 5-325 mg Oral tab 1 tab three times a day as needed (Last dose: 11/04/2016) 6. Protonix 40 mg Oral TbEC 1 tab once daily (Last dose: 11/04/2016) 7. Reglan 10 mg Oral tab 1 tab every 6 hours (Last dose: 11/04/2016) 8. simvastatin 10 mg Oral tab 1 tab nightly (Last dose: 11/04/2016) 9. valsartan 40 mg oral tab 1 tab once daily (Last dose: 11/04/2016) - PMHx: Chronic Back pain; Diabetes - NIDDM: controlled; Diverticulitis; Hypercholesterolemia; Hypertension; - PSHx: Hysterectomy; - Social history: Smoking status: Patient uses tobacco products, light tobacco smoker. No barriers to communication noted, The patient speaks fluent Japanese, Speaks appropriately for age. - Family history: Not pertinent. - : The pt / caregiver states he / she is not on anticoagulants. Home medication list is obtained from the patient. - Exposure Risk Screening:: None identified. Screenin/31 00:12 Screening information is obtained from the patient. Fall risk: No risks identified. mcp Assistance ADL's: requires no assistance with activities of daily living. Abuse/DV Screen: The patient / caregiver reports he/she is: not in a situation that causes fear, pain or injury. Nutritional screening: No deficits noted. Advance Directives: There is no active DNR order. home support is adequate. Assessment: 11/06 22:01 General: Appears uncomfortable, Behavior is cooperative. Pain: Location: right lower ld5 quadrant and left lower quadrant Pain currently is 8 out of 10 on a pain scale. Neurological: Level of Consciousness is awake, alert. Respiratory: Airway is patent Respiratory effort is even, unlabored. GI: Abdomen is obese, Bowel sounds present X 4 quads. Abd is tender to palpation in left lower quadrant Reports lower abdominal pain, nausea, vomiting, intolerance of food, intolerance of fluids. : Denies burning with urination, pain with urination. Derm: Skin is intact, Skin is dry, flaky Bruising that is dark purple, on dorsum of right hand. 22:24 General: Pt reports several episodes of emesis. Reglan infusion completed. Will ld5 continue to monitor. 23:11 General: Pt returned from CT. Tolerated well. Fluids remain infusing. Will continue to ld5 monitor. 11/07 00:12 General: Appears in no apparent distress, Behavior is cooperative. Neurological: Level mcp of Consciousness is awake, alert. Respiratory: Airway is patent Respiratory effort is even, unlabored. Derm: Skin is pink, warm & dry. 01:39 Reassessment: pt states nausea is slighlty better but just doesn't feel good. General: jp6 Appears uncomfortable, Behavior is appropriate for age, cooperative. Pain: Location: abdomen Pain currently is 4 out of 10 on a pain scale. Neurological: No deficits noted. EENT: No deficits noted. Cardiovascular: Rhythm is sinus rhythm No ectopy. Respiratory: Airway is patent Respiratory effort is even, unlabored, Respiratory pattern is regular, symmetrical. 02:30 Reassessment: Patient states symptoms have improved. General: Appears in no apparent jp6 distress, uncomfortable, Behavior is appropriate for age, cooperative. Neurological: No deficits noted. Cardiovascular: No deficits noted. Rhythm is sinus rhythm No ectopy. Respiratory: Airway is patent Respiratory effort is even, unlabored, Respiratory pattern is regular, symmetrical. GI: Denies vomiting. 03:30 Reassessment: Patient appears in no apparent distress at this time. General: Appears in jp6 no apparent distress. Cardiovascular: No deficits noted. Rhythm is sinus rhythm No ectopy. Respiratory: Airway is patent Respiratory effort is even, unlabored, Respiratory pattern is regular, symmetrical. 04:30 Reassessment: Patient appears in no apparent distress at this time. jp6 05:30 Reassessment: Patient appears in no apparent distress at this time. Patient states jp6 symptoms have improved. General: Appears in no apparent distress, Behavior is appropriate for age, cooperative. Pain: Pain currently is 3 out of 10 on a pain scale. Neurological: No deficits noted. EENT: No deficits noted. Cardiovascular: Rhythm is sinus rhythm No ectopy. Respiratory: Airway Respiratory effort is even, unlabored, Respiratory pattern is regular, symmetrical. GI: Abdomen is obese. : No deficits noted. Derm: Skin is intact, Skin is dry, Skin is pink, warm & dry. Musculoskeletal: No deficits noted. Vital Signs: 11/06 19:29 BP 149 / 84; Pulse 85; Resp 18 S; Temp 98.5(O); Pulse Ox 95% on R/A; Weight 101.6 kg dd6 (R); Height 5 ft. 1 in. (154.94 cm) (R); 11/07 00:12 BP 135 / 78; Pulse 64; Resp 16; Temp 100.1; Pulse Ox 98% ; Pain 5/10; ajs 00:35 BP 122 / 63 (auto/); jp6 00:35 Pulse 76 MON; Pulse Ox 91% ; jp6 00:50 BP 127 / 67 (auto/); jp6 00:50 Pulse 78 MON; Pulse Ox 93% ; jp6 01:05 BP 126 / 68 (auto/); jp6 01:05 Pulse 80 MON; Pulse Ox 88% ; jp6 01:20 BP 127 / 71 (auto/); jp6 01:20 Pulse 70 MON; Pulse Ox 90% ; jp6 01:35 BP 134 / 69 (auto/); jp6 01:35 Pulse Ox 92% ; jp6 01:46 Pulse 70 MON; Pulse Ox 91% ; jp6 01:50 BP 126 / 69 (auto/); jp6 02:05 BP 123 / 63 (auto/); jp6 02:05 Pulse Ox 92% ; jp6 02:07 Pulse 72 MON; Pulse Ox 92% ; jp6 02:20 Pulse 72 MON; Pulse Ox 93% ; jp6 02:20 BP 129 / 68 (auto/); jp6 02:35 BP 128 / 69 (auto/); jp6 02:35 Pulse 68 MON; Pulse Ox 93% ; jp6 02:50 BP 129 / 73 (auto/); jp6 02:50 Pulse 70 MON; Pulse Ox 92% ; jp6 02:58 Pulse 68 MON; Pulse Ox 92% ; jp6 02:59 Pulse 82 MON; Pulse Ox 90% ; jp6 03:05 BP 130 / 68 (auto/); jp6 03:05 Pulse Ox 90% ; jp6 03:20 BP 139 / 74 (auto/); jp6 03:20 Pulse Ox 93% ; jp6 03:35 BP 139 / 74 (auto/); jp6 03:35 Pulse Ox 94% ; jp6 03:49 Pulse Ox 93% ; jp6 03:57 BP 144 / 74 (auto/); jp6 03:59 Pulse 68 MON; jp6 04:35 BP 142 / 79 (auto/); jp6 04:35 Pulse 70 MON; jp6 04:50 BP 152 / 92 (auto/); jp6 04:59 Pulse 92 MON; jp6 05:05 BP 145 / 72 (auto/); jp6 05:13 Pulse 88 MON; jp6 05:20 BP 142 / 69 (auto/); jp6 05:35 Pulse 94 MON; jp6 05:35 Resp 16; Temp 98.8; Pulse Ox 95% on R/A; jp6 11/06 19:29 Body Mass Index 42.32 (101.60 kg, 154.94 cm) dd6 Vitals: 11/06 19:29 Log In Time: November 06, 2016 at 19:27. dd6 ED Course: 19:29 Patient visited by Jeovany Bond PCA. dd6 19:29 Verónica Betancur is Private Physician. dd6 19:29 Patient moved to Waiting dd6 19:29 Patient moved to Pre RCE dd6 19:40 Triage Initiated jo3 19:45 Patient visited by Tammy Schmitt RN. jo3 21:04 Mendez Earl RPA-C is PHCP. ck7 21:04 Leighton Esqueda DO is Attending Physician. ck7 21:04 Patient visited by Mendez Earl RPA-C. ck7 21:04 Patient moved to I2 / M2 lf1 21:36 Urinalysis Sent. slm 21:36 Urine Culture Sent. slm 21:39 Patient visited by Mendez Earl RPA-C. ck7 22:00 Amylase Sent. ld5 22:00 Basic Metabolic Profile Sent. ld5 22:00 CBC with Diff Sent. ld5 22:00 Lipase Sent. ld5 22:00 Liver Profile Sent. ld5 22:00 Inserted saline lock: 20 gauge in right antecubital area and blood collected. The mcp patient tolerated the procedure well. Labs drawn. (by ED staff). Sent per order to lab. 22:03 Patient visited by Lucy Murray,ARIAN. ld5 22:24 Patient visited by Lucy Murray,ARIAN. ld5 22:55 Patient visited by Mendez Earl RPA-C. ck7 22:56 The patient / caregiver is instructed regarding the plan of care and ED course. ld5 Accompanied by Significant Other, Patient has correct armband on for positive identification. Placed in gown. Bed in low position. Call light in reach. 22:57 Notified physician's activity assistant of K of 2.9. ld5 22:58 Patient visited by Lucy Murray,RN. ld5 23:11 Patient visited by Lucy Murray,ARIAN. ld5 23:44 [facility] Payment Agreement was scanned into [employer] and attached to record. ks16 23:51 Patient visited by Mendez Earl RPA-C. ck7 11/07 00:13 Patient visited by Анна Aguilar. ajs 00:13 Patient visited by Greer Tyson, ARIAN. mcp 00:13 Tram Louise RN is Primary Nurse. jp6 00:13 Patient moved to 17 ld5 00:45 Patient visited by Mendez Earl RPA-C. ck7 00:50 CT ABD & PELVIS: IV Contrast Only Returned. EDMS 01:18 Patient visited by Mendez Earl RPA-C. ck7 01:35 secured entrance monitor on. Pulse ox on. NIBP on. jp6 01:35 No procedures done that require assistance. jp6 01:36 Alex Richardson is Hospitalizing Provider. ck7 03:53 Patient moved to Admit Hold kmg1 05:33 T-Sheet-- Draft Copy was scanned into [employer] and attached to record. lja 06:31 Inserted saline lock: 20 gauge in left antecubital area. jp6 Administered Medications: 11/06 21:59 Drug: Metoclopramide 10 mg [metoclopramide 5 mg/mL injection solution] Route: IV; Rate: mcp 40 mg/hr; Infused Over: 15 mins; Site: right antecubital; 22:23 Follow up: IV Status: Completed infusion ld5 21:59 Drug: NS 0.9% 1000 ml [sodium chloride 0.9 % intravenous solution] Route: IV; Rate: mcp bolus; Site: right antecubital; 11/07 01:00 Drug: Potassium Chloride in 100cc sterile water 10 mEq [potassium chloride 10 mEq/100 jp6 mL intravenous piggyback] {Co-Signature: kmg1 (Aleida Ward RN).} Route: IV; Rate: 100 mL/hr; Infused Over: 1 hrs; Site: left wrist; Point of Care Testing: Blood Glucose: 11/06 21:09 Blood Glucose: 120 mg/dL; [facility] Ranges: Order Results: Lab Order: Amylase; [facility]' 11/06/16 21:37 Test: AMYLASE; Value: 31; Range: 25-115; Units: U/L; Status: F Lab Order: Basic Metabolic Profile; [facility] 11/06/16 21:37 Test: GLUCOSE, FASTING; Value: 121; Range: 70-105; Abnormal: Above high normal; Units: MG/DL; Status: F Test: BLOOD UREA NITROGEN; Value: 13; Range: 7-18; Units: MG/DL; Status: F Test: CREATININE FOR GFR; Value: 0.93; Range: 0.55-1.02; Units: MG/DL; Status: F Test: GLOMERULAR FILTRATION RATE; Value: > 60.0; Range: >51; Status: F Test: SODIUM LEVEL; Value: 141; Range: 136-145; Units: MEQ/L; Status: F Test: POTASSIUM SERUM; Value: 2.9; Range: 3.5-5.1; Abnormal: Critical Low; Units: MEQ/L; Status: F Test: CHLORIDE LEVEL; Value: 100; Range: 98-107; Units: MEQ/L; Status: F Test: CARBON DIOXIDE LEVEL; Value: 29; Range: 21-32; Units: MEQ/L; Status: F Test: ANION GAP; Value: 12; Range: 8-16; Units: MEQ/L; Status: F Test: CALCIUM LEVEL; Value: 9.1; Range: 8.5-10.1; Units: MG/DL; Status: F Test Note: ; Units are mL/min/1.73 m2 Chronic Kidney Disease Staging per NKF: Stage I & II GFR >=60 Normal to Mildly Decreased Stage III GFR 30-59 Moderately Decreased Stage IV GFR 15-29 Severely Decreased Stage V GFR <15 Very Little GFR Left ESRD GFR <15 on [employer] Lab Order: CBC with Diff; [facility] 11/06/16 21:37 Test: WHITE BLOOD COUNT; Value: 20.0; Range: 4.0-10.0; Abnormal: Above high normal; Units: K/mm3; Status: F Test: RED BLOOD COUNT; Value: 4.99; Range: 4.00-5.40; Units: M/mm3; Status: F Test: HEMOGLOBIN; Value: 15.0; Range: 12.0-16.0; Units: g/dl; Status: F Test: HEMATOCRIT; Value: 44.4; Range: 36.0-47.0; Units: %; Status: F Test: MEAN CORPUSCULAR VOLUME; Value: 89.1; Range: 80.0-96.0; Units: fl; Status: F Test: MEAN CORPUSCULAR HEMOGLOBIN; Value: 30.0; Range: 27.0-33.0; Units: pg; Status: F Test: MEAN CORPUSCULAR HGB CONC; Value: 33.7; Range: 32.0-36.5; Units: g/dl; Status: F Test: RED CELL DISTRIBUTION WIDTH; Value: 15.9; Range: 11.5-14.5; Abnormal: Above high normal; Units: %; Status: F Test: PLATELET COUNT, AUTOMATED; Value: 305; Range: 150-450; Units: k/mm3; Status: F Test: NEUTROPHILS %; Value: 83.2; Range: 36.0-66.0; Abnormal: Above high normal; Units: %; Status: F Test: LYMPH %; Value: 9.0; Range: 24.0-44.0; Abnormal: Below low normal; Units: %; Status: F Test: MONO %; Value: 5.5; Range: 0.0-5.0; Abnormal: Above high normal; Units: %; Status: F Test: EOS %; Value: 0.1; Range: 0.0-3.0; Units: %; Status: F Test: BASO %; Value: 1.0; Range: 0.0-1.0; Units: %; Status: F Test: LARGE UNSTAINED CELL %; Value: 1.2; Range: 0.0-4.0; Units: %; Status: F Test: NEUTROPHILS #; Value: 16.7; Range: 1.8-7.7; Abnormal: Above high normal; Units: K/mm3; Status: F Test: LYMPH #; Value: 2.0; Range: 1.5-4.5; Units: K/mm3; Status: F Test: MONO #; Value: 1.1; Range: 0.0-0.8; Abnormal: Above high normal; Units: K/mm3; Status: F Test: EOS #; Value: 0.0; Range: 0.0-0.50; Units: K/mm3; Status: F Test: BASO #; Value: 0.2; Range: 0.0-0.2; Units: K/mm3; Status: F Test: LARGE UNSTAINED CELL #; Value: 0.3; Range: 0.0-0.4; Units: K/mm3; Status: F Lab Order: Lipase; [facility] 11/06/16 21:37 Test: LIPASE; Value: 147; Range: 73-393; Units: U/L; Status: F Lab Order: Liver Profile; [facility] 11/06/16 21:37 Test: AST/SGOT; Value: 13; Range: 15-37; Abnormal: Below low normal; Units: U/L; Status: F Test: ALT/SGPT; Value: 12; Range: 12-78; Units: U/L; Status: F Test: ALKALINE PHOSPHATASE; Value: 103; Range: 45-117; Units: U/L; Status: F Test: BILIRUBIN,TOTAL; Value: 0.5; Range: 0.2-1.0; Units: MG/DL; Status: F Test: BILIRUBIN,DIRECT; Value: 0.1; Range: 0.0-0.2; Units: MG/DL; Status: F Test: TOTAL PROTEIN; Value: 7.1; Range: 6.4-8.2; Units: GM/DL; Status: F Test: ALBUMIN; Value: 3.5; Range: 3.2-5.2; Units: GM/DL; Status: F Test: ALBUMIN/GLOBULIN RATIO; Value: 0.97; Range: 1.00-1.93; Abnormal: Below low normal; Status: F Lab Order: Urinalysis; [facility] 11/06/16 21:34 Test: APPEARANCE, URINE; Value: HAZY; Range: CLEAR; Status: F Test: COLOR, URINE; Value: BRIANA; Range: YELLOW; Status: F Test: PH,URINE; Value: 5.0; Range: 5.0-9.0; Units: UNITS; Status: F Test: SPECIFIC GRAVITY URINE AUTO; Value: 1.029; Range: 1.002-1.035; Status: F Test: PROTEIN, URINE AUTO; Value: 1+; Range: NEGATIVE; Abnormal: Above high normal; Units: mg/dL; Status: F Test: GLUCOSE, URINE (UA) AUTO; Value: NEGATIVE; Range: NEGATIVE; Units: mg/dL; Status: F Test: KETONE, URINE AUTO; Value: TRACE; Range: NEGATIVE; Abnormal: Above high normal; Units: mg/dL; Status: F Test: UROBILINOGEN, URINE AUTO; Value: 4.0; Range: 0.0-2.0; Abnormal: Above high normal; Units: mg/dL; Status: F Test: BILIRUBIN, URINE AUTO; Value: 1+; Range: NEGATIVE; Abnormal: Above high normal; Status: F Test: NITRITE, URINE AUTO; Value: NEGATIVE; Range: NEGATIVE; Status: F Test: LEUKOCYTE ESTERASE, URINE AUTO; Value: 1+; Range: NEGATIVE; Abnormal: Above high normal; Status: F Test: BLOOD, URINE BLOOD; Value: NEGATIVE; Range: NEGATIVE; Status: F Test: WBC, URINE AUTO; Value: 8; Range: 0-3; Abnormal: Above high normal; Units: /HPF; Status: F Test: RBC, URINE AUTO; Value: 18; Range: 0-3; Abnormal: Above high normal; Units: /HPF; Status: F Test: BACTERIA, URINE AUTO; Value: 2+; Range: NEGATIVE; Abnormal: Above high normal; Status: F Test: SQUAMOUS EPITHELIAL CELL UR AU; Value: 3; Range: 0-6; Units: /HPF; Status: F Test: MUCUS, URINE; Value: SMALL; Range: NEGATIVE; Status: F Test: HYALINE CAST, URINE AUTO; Value: 0; Range: 0-1; Units: /LPF; Status: F Test: AMORPHOUS SEDIMENT; Value: SMALL; Range: NEGATIVE; Abnormal: Above high normal; Status: F Lab Order: Fingerstick Blood Sugar; SPEC'M 11/06/16 21:09 Test: BEDSIDE GLUCOSE; Value: 120; Range: 70-105; Abnormal: Above high normal; Units: MG/DL; Status: F Test Note: ; Doctor Notified Lab Order: MAGNESIUM LEVEL; SPEC'M 11/06/16 21:37 Test: MAGNESIUM LEVEL; Value: 2.6; Range: 1.8-2.4; Abnormal: Above high normal; Units: MG/DL; Status: F Radiology Order: CT ABD & PELVIS: IV Contrast Only Test: CT ABD & PELVIS: IV Contrast Only REASON FOR EXAMINATION: ABD PAIN, DX WITH COLITIS, PAIN WORSE; ; CLINICAL HISTORY: Abdominal pain.; TECHNIQUE: Multiple axial, sagittal and coronal CT images were obtained through the abdomen and pelvi; s after administration of intravenous contrast material.; COMMENTS: Compared to 11/04/16 study.; The liver is of uniform attenuation without mass or defect. There is no intra or extrahepatic biliary; ductal dilatation. The spleen is normal. The gallbladder is within normal limits. The pancreas is of; normal contour and attenuation characteristics. There is no evidence of adrenal mass.; Both kidneys demonstrate prompt and equal nephrograms. The kidneys are normal in size, shape and conf; iguration. There is no evidence of renal or ureteral mass. No renal or ureteral calculi are identifie; d. There is no hydroureter or hydronephrosis.; No evidence for appendicitis. There is nodular wall thickening involving sigmoid colon, malignancy i; s suspected. Proximal to that the colon is markedly dilated measuring up to 9 cm in caliber compatibl; e with mechanical large bowel obstruction. There is marked interval exacerbation.; There is no evidence of intrinsic or extrinsic bladder mass. There is pelvic ascites noted.; Images of the lung bases show no evidence of pleural or parenchymal mass. There are no pleural effusi; ons.; The bony structures are free of lytic or blastic lesions. Multilevel degenerative changes are seen in; volving the thoracolumbar spine. Scattered calcifications are seen involving the aorta and major bran; ches compatible with atherosclerosis.; IMPRESSION:; Nodular wall thickening involving sigmoid colon, malignancy is suspected. Proximal to that the colon; is markedly dilated measuring up to 9 cm in caliber compatible with mechanical large bowel obstructio; n. There is marked interval exacerbation. Consider follow up with colonoscopy.; Thank you for your kind referral of this patient.; ; Outcome: 11/07 01:37 Decision to Hospitalize by Provider. ck7 05:35 Discharge Assessment: Patient awake, alert and oriented x 3. No cognitive and/or jp6 functional deficits noted. Patient verbalized understanding of disposition instructions. patient administered narcotics - yes. Patient was admitted to the hospital or transferred to another facility. The following High Risk Discharge criteria are identified: None. Admitted to PCU accompanied by nurse, accompanied by tech, on monitor, with chart. Condition: improved. CT Study completed. Property :Personal belongings accompany Pt. 06:32 Patient left the ED. jp6 Signatures: Dispatcher [employer] EDMS Aleida Ward, RN RN kmg1 Greer Tyson, RN RN Tammy Truong,RN RN jo3 Shelbie Field,RN RN lf1 Jeovany Bond, BUSINESS OFFICE ASSISTANT BUSINESS OFFICE ASSISTANT dd6 Lucy Murray,RN RN ld5 Анна Aguilar Christopher, RPA-C [id number] Vivi Piper,TILER'S ASSISTANT TILER'S ASSISTANT slruel Subramanian, Sue Lind, Reg Reg ks16 Tram Louise,RN RN jp6 Aleida Ward RN kmg1 Chart Complete [facility]
--- NOTE | 2016-11-09 07:33 | EDDOCDS ---
Physician Documentation [facility] Name: Georgia Rene Age: 51 yrs Sex: Female : 1965 Arrival Date: 11/06/2016 Time: 19:28 Bed Admit Hold Private MD: Verónica Betancur PA-C Disposition: 11/07/16 01:37 Hospitalization ordered by Alex Richardson for Inpatient Admission. Preliminary diagnosis are Other and unspecified intestinal obstruction - MECHANICAL LARGE BOWEL OBSTRUCTION, Abnormal findings on diagnostic imaging of other parts of digestive tract - SIGMOID COLON , Hypokalemia. - Bed requested for PCU. - Status is Inpatient Admission. jp6 - Condition is Stable. - Problem is new. - Symptoms are unchanged. Historical: - Allergies: Bactrim (Swelling); Morphine (Swelling); Zoloft (nightmares); - Home Meds: 1. Cipro 500 mg Oral tab 1 tab every 12 hours (Last dose: 11/06/2016 17:00) 2. Flagyl 500 mg Oral tab 1 tab every 8 hours (Last dose: 11/06/2016 17:00) 3. hydrochlorothiazide 12.5 mg Oral cap 1 cap once daily (Last dose: 11/04/2016) 4. metformin 500 mg Oral tab 1 tab 2 times per day (Last dose: 11/04/2016) 5. Percocet 5-325 mg Oral tab 1 tab three times a day as needed (Last dose: 11/04/2016) 6. Protonix 40 mg Oral TbEC 1 tab once daily (Last dose: 11/04/2016) 7. Reglan 10 mg Oral tab 1 tab every 6 hours (Last dose: 11/04/2016) 8. simvastatin 10 mg Oral tab 1 tab nightly (Last dose: 11/04/2016) 9. valsartan 40 mg oral tab 1 tab once daily (Last dose: 11/04/2016) - PMHx: Chronic Back pain; Diabetes - NIDDM: controlled; Diverticulitis; Hypercholesterolemia; Hypertension; - PSHx: Hysterectomy; - Social history: Smoking status: Patient uses tobacco products, light tobacco smoker. No barriers to communication noted, The patient speaks fluent Algerian, Speaks appropriately for age. - Family history: Not pertinent. - : The pt / caregiver states he / she is not on anticoagulants. Home medication list is obtained from the patient. - Exposure Risk Screening:: None identified. 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 1 in. (154.94 cm) (R); 11/07 00:12 BP 135 / 78; Pulse 64; Resp 16; Temp 100.1; Pulse Ox 98% ; Pain 5/10; ajs 00:35 BP 122 / 63 (auto/); jp6 00:35 Pulse 76 MON; Pulse Ox 91% ; jp6 00:50 BP 127 / 67 (auto/); jp6 00:50 Pulse 78 MON; Pulse Ox 93% ; jp6 01:05 BP 126 / 68 (auto/); jp6 01:05 Pulse 80 MON; Pulse Ox 88% ; jp6 01:20 BP 127 / 71 (auto/); jp6 01:20 Pulse 70 MON; Pulse Ox 90% ; jp6 01:35 BP 134 / 69 (auto/); jp6 01:35 Pulse Ox 92% ; jp6 01:46 Pulse 70 MON; Pulse Ox 91% ; jp6 01:50 BP 126 / 69 (auto/); jp6 02:05 BP 123 / 63 (auto/); jp6 02:05 Pulse Ox 92% ; jp6 02:07 Pulse 72 MON; Pulse Ox 92% ; jp6 02:20 Pulse 72 MON; Pulse Ox 93% ; jp6 02:20 BP 129 / 68 (auto/); jp6 02:35 BP 128 / 69 (auto/); jp6 02:35 Pulse 68 MON; Pulse Ox 93% ; jp6 02:50 BP 129 / 73 (auto/); jp6 02:50 Pulse 70 MON; Pulse Ox 92% ; jp6 02:58 Pulse 68 MON; Pulse Ox 92% ; jp6 02:59 Pulse 82 MON; Pulse Ox 90% ; jp6 03:05 BP 130 / 68 (auto/); jp6 03:05 Pulse Ox 90% ; jp6 03:20 BP 139 / 74 (auto/); jp6 03:20 Pulse Ox 93% ; jp6 03:35 BP 139 / 74 (auto/); jp6 03:35 Pulse Ox 94% ; jp6 03:49 Pulse Ox 93% ; jp6 03:57 BP 144 / 74 (auto/); jp6 03:59 Pulse 68 MON; jp6 04:35 BP 142 / 79 (auto/); jp6 04:35 Pulse 70 MON; jp6 04:50 BP 152 / 92 (auto/); jp6 04:59 Pulse 92 MON; jp6 05:05 BP 145 / 72 (auto/); jp6 05:13 Pulse 88 MON; jp6 05:20 BP 142 / 69 (auto/); jp6 05:35 Pulse 94 MON; jp6 05:35 Resp 16; Temp 98.8; Pulse Ox 95% on R/A; jp6 11/06 19:29 Body Mass Index 42.32 (101.60 kg, 154.94 cm) dd6 MDM: 11/06 20:00 Accucheck ordered. btw 21:14 Undress patient appropriately for examination ordered. ck7 21:14 IV Saline Lock ordered. ck7 21:14 Metoclopramide 10 mg IV at 40 mg/hr once over 15 mins ordered. ck7 21:14 NS 0.9% 1000 ml IV at bolus once ordered. ck7 21:15 Amylase Ordered. EDMS 21:15 Basic Metabolic Profile Ordered. EDMS 21:15 CBC with Diff Ordered. EDMS 21:15 Lipase Ordered. EDMS 21:15 Liver Profile Ordered. EDMS 21:15 Urinalysis Ordered. EDMS 21:15 Urine Culture Ordered. EDMS 21:16 NOTHING BY MOUTH+DIET ordered. EDMS 22:28 Urinalysis Reviewed. ck7 22:28 Fingerstick Blood Sugar Reviewed. ck7 22:43 CBC with Diff Reviewed. ck7 22:45 CT ABD & PELVIS: IV Contrast Only Ordered. EDMS 22:56 Potassium Chloride in 100cc sterile water 10 mEq IV at 100 mL/hr once over 1 hrs ck7 ordered. 22:58 Financial registration complete. gjb 23:01 Basic Metabolic Profile Reviewed. ck7 23:01 Liver Profile Reviewed. ck7 23:01 Amylase Reviewed. ck7 23:01 Lipase Reviewed. ck7 23:01 MAGNESIUM LEVEL Ordered. EDMS 23:04 MAGNESIUM LEVEL Reviewed. ck7 23:04 Basic Metabolic Profile Reviewed. ck7 23:04 Liver Profile Reviewed. ck7 23:04 Amylase Reviewed. ck7 23:04 Lipase Reviewed. ck7 23:08 Pipeline Welder/Pulse Ox/q 15 min VS ordered. ck7 23:08 Basic Metabolic Profile Reviewed. ck7 23:08 Liver Profile Reviewed. ck7 23:08 MAGNESIUM LEVEL Reviewed. ck7 23:08 Amylase Reviewed. ck7 23:08 Lipase Reviewed. ck7 23:44 [facility] Payment Agreement was scanned into [employer] and attached to record. [email or web address] 11/07 00:51 CT ABD & PELVIS: IV Contrast Only Reviewed. ck7 01:37 BED REQUEST+ADM ordered. EDMS 03:00 BASIC METABOLIC PROFILE Ordered. EDMS 03:00 CBC WITH DIFFERENTIAL Ordered. EDMS 03:02 Abdomen,Flat Plate KUB Ordered. EDMS 03:02 Admission / Observation Status ordered. EDMS 03:02 NPO DIET ordered. EDMS 05:33 T-Sheet-- Draft Copy was scanned into [employer]rooms and attached to record. narayan Point of Care Testing: Blood Glucose: 11/06 21:09 Blood Glucose: 120 mg/dL; mcp Ranges: Administered Medications: 21:59 Drug: Metoclopramide 10 mg [metoclopramide 5 mg/mL injection solution] Route: IV; Rate: mcp 40 mg/hr; Infused Over: 15 mins; Site: right antecubital; 22:23 Follow up: IV Status: Completed infusion ld5 21:59 Drug: NS 0.9% 1000 ml [sodium chloride 0.9 % intravenous solution] Route: IV; Rate: mcp bolus; Site: right antecubital; 11/07 01:00 Drug: Potassium Chloride in 100cc sterile water 10 mEq [potassium chloride 10 mEq/100 jp6 mL intravenous piggyback] {Co-Signature: [email or web address] (Aleida Ward RN).} Route: IV; Rate: 100 mL/hr; Infused Over: 1 hrs; Site: left wrist; Signatures: Dispatcher [employer] EDSD Catalina Orozco RN RN Tammy CallahanRN RN jon3 Toan Love PA PA btw Dickerson, Laura, RN RN ld5 Mendez Earl, KIMBER-C RPA-Cck7 Marilynn, Holly Deleon Kimberly, Reg Reg ks16 Tram LouiseRN RN jp6 Greer Tyson RN [facility] Aleida Ward RN kmg1 The chart was reviewed and I authenticate all verbal orders and agree with the evaluation and treatment provided.Corrections: (The following items were deleted from the chart) 11/06 23:00 22:56 MAGNESIUM LEVEL+LAB ordered. EDMS EDMS Attachments: 23:44 [facility] Payment Agreement [email or web address] 11/07 05:33 T-Sheet-- Draft Copy lja Chart Complete MTDD
--- NOTE | 2016-11-09 07:34 | EDDOCDS ---
Physician Documentation [facility] Name: Georgia Rene Age: 51 yrs Sex: Female : 1965 Arrival Date: 11/06/2016 Time: 19:28 Bed Admit Hold Private MD: Verónica Betancur PA-C Disposition: 11/07/16 01:37 Hospitalization ordered by Alex Richardson for Inpatient Admission. Preliminary diagnosis are Other and unspecified intestinal obstruction - MECHANICAL LARGE BOWEL OBSTRUCTION, Abnormal findings on diagnostic imaging of other parts of digestive tract - SIGMOID COLON , Hypokalemia. - Bed requested for PCU. - Status is Inpatient Admission. jp6 - Condition is Stable. - Problem is new. - Symptoms are unchanged. Historical: - Allergies: Bactrim (Swelling); Morphine (Swelling); Zoloft (nightmares); - Home Meds: 1. Cipro 500 mg Oral tab 1 tab every 12 hours (Last dose: 11/06/2016 17:00) 2. Flagyl 500 mg Oral tab 1 tab every 8 hours (Last dose: 11/06/2016 17:00) 3. hydrochlorothiazide 12.5 mg Oral cap 1 cap once daily (Last dose: 11/04/2016) 4. metformin 500 mg Oral tab 1 tab 2 times per day (Last dose: 11/04/2016) 5. Percocet 5-325 mg Oral tab 1 tab three times a day as needed (Last dose: 11/04/2016) 6. Protonix 40 mg Oral TbEC 1 tab once daily (Last dose: 11/04/2016) 7. Reglan 10 mg Oral tab 1 tab every 6 hours (Last dose: 11/04/2016) 8. simvastatin 10 mg Oral tab 1 tab nightly (Last dose: 11/04/2016) 9. valsartan 40 mg oral tab 1 tab once daily (Last dose: 11/04/2016) - PMHx: Chronic Back pain; Diabetes - NIDDM: controlled; Diverticulitis; Hypercholesterolemia; Hypertension; - PSHx: Hysterectomy; - Social history: Smoking status: Patient uses tobacco products, light tobacco smoker. No barriers to communication noted, The patient speaks fluent Senegalese, Speaks appropriately for age. - Family history: Not pertinent. - : The pt / caregiver states he / she is not on anticoagulants. Home medication list is obtained from the patient. - Exposure Risk Screening:: None identified. 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 1 in. (154.94 cm) (R); 11/07 00:12 BP 135 / 78; Pulse 64; Resp 16; Temp 100.1; Pulse Ox 98% ; Pain 5/10; ajs 00:35 BP 122 / 63 (auto/); jp6 00:35 Pulse 76 MON; Pulse Ox 91% ; jp6 00:50 BP 127 / 67 (auto/); jp6 00:50 Pulse 78 MON; Pulse Ox 93% ; jp6 01:05 BP 126 / 68 (auto/); jp6 01:05 Pulse 80 MON; Pulse Ox 88% ; jp6 01:20 BP 127 / 71 (auto/); jp6 01:20 Pulse 70 MON; Pulse Ox 90% ; jp6 01:35 BP 134 / 69 (auto/); jp6 01:35 Pulse Ox 92% ; jp6 01:46 Pulse 70 MON; Pulse Ox 91% ; jp6 01:50 BP 126 / 69 (auto/); jp6 02:05 BP 123 / 63 (auto/); jp6 02:05 Pulse Ox 92% ; jp6 02:07 Pulse 72 MON; Pulse Ox 92% ; jp6 02:20 Pulse 72 MON; Pulse Ox 93% ; jp6 02:20 BP 129 / 68 (auto/); jp6 02:35 BP 128 / 69 (auto/); jp6 02:35 Pulse 68 MON; Pulse Ox 93% ; jp6 02:50 BP 129 / 73 (auto/); jp6 02:50 Pulse 70 MON; Pulse Ox 92% ; jp6 02:58 Pulse 68 MON; Pulse Ox 92% ; jp6 02:59 Pulse 82 MON; Pulse Ox 90% ; jp6 03:05 BP 130 / 68 (auto/); jp6 03:05 Pulse Ox 90% ; jp6 03:20 BP 139 / 74 (auto/); jp6 03:20 Pulse Ox 93% ; jp6 03:35 BP 139 / 74 (auto/); jp6 03:35 Pulse Ox 94% ; jp6 03:49 Pulse Ox 93% ; jp6 03:57 BP 144 / 74 (auto/); jp6 03:59 Pulse 68 MON; jp6 04:35 BP 142 / 79 (auto/); jp6 04:35 Pulse 70 MON; jp6 04:50 BP 152 / 92 (auto/); jp6 04:59 Pulse 92 MON; jp6 05:05 BP 145 / 72 (auto/); jp6 05:13 Pulse 88 MON; jp6 05:20 BP 142 / 69 (auto/); jp6 05:35 Pulse 94 MON; jp6 05:35 Resp 16; Temp 98.8; Pulse Ox 95% on R/A; jp6 11/06 19:29 Body Mass Index 42.32 (101.60 kg, 154.94 cm) dd6 MDM: 11/06 20:00 Accucheck ordered. btw 21:14 Undress patient appropriately for examination ordered. ck7 21:14 IV Saline Lock ordered. ck7 21:14 Metoclopramide 10 mg IV at 40 mg/hr once over 15 mins ordered. ck7 21:14 NS 0.9% 1000 ml IV at bolus once ordered. ck7 21:15 Amylase Ordered. EDMS 21:15 Basic Metabolic Profile Ordered. EDMS 21:15 CBC with Diff Ordered. EDMS 21:15 Lipase Ordered. EDMS 21:15 Liver Profile Ordered. EDMS 21:15 Urinalysis Ordered. EDMS 21:15 Urine Culture Ordered. EDMS 21:16 NOTHING BY MOUTH+DIET ordered. EDMS 22:28 Urinalysis Reviewed. ck7 22:28 Fingerstick Blood Sugar Reviewed. ck7 22:43 CBC with Diff Reviewed. ck7 22:45 CT ABD & PELVIS: IV Contrast Only Ordered. EDMS 22:56 Potassium Chloride in 100cc sterile water 10 mEq IV at 100 mL/hr once over 1 hrs ck7 ordered. 22:58 Financial registration complete. gjb 23:01 Basic Metabolic Profile Reviewed. ck7 23:01 Liver Profile Reviewed. ck7 23:01 Amylase Reviewed. ck7 23:01 Lipase Reviewed. ck7 23:01 MAGNESIUM LEVEL Ordered. EDMS 23:04 MAGNESIUM LEVEL Reviewed. ck7 23:04 Basic Metabolic Profile Reviewed. ck7 23:04 Liver Profile Reviewed. ck7 23:04 Amylase Reviewed. ck7 23:04 Lipase Reviewed. ck7 23:08 Card Maker/Pulse Ox/q 15 min VS ordered. ck7 23:08 Basic Metabolic Profile Reviewed. ck7 23:08 Liver Profile Reviewed. ck7 23:08 MAGNESIUM LEVEL Reviewed. ck7 23:08 Amylase Reviewed. ck7 23:08 Lipase Reviewed. ck7 23:44 [facility] Payment Agreement was scanned into [employer] and attached to record. [email or web address] 11/07 00:51 CT ABD & PELVIS: IV Contrast Only Reviewed. ck7 01:37 BED REQUEST+ADM ordered. EDMS 03:00 BASIC METABOLIC PROFILE Ordered. EDMS 03:00 CBC WITH DIFFERENTIAL Ordered. EDMS 03:02 Abdomen,Flat Plate KUB Ordered. EDMS 03:02 Admission / Observation Status ordered. EDMS 03:02 NPO DIET ordered. EDMS 05:33 T-Sheet-- Draft Copy was scanned into [employer] and attached to record. narayan Point of Care Testing: Blood Glucose: 11/06 21:09 Blood Glucose: 120 mg/dL; mcp Ranges: Administered Medications: 21:59 Drug: Metoclopramide 10 mg [metoclopramide 5 mg/mL injection solution] Route: IV; Rate: mcp 40 mg/hr; Infused Over: 15 mins; Site: right antecubital; 22:23 Follow up: IV Status: Completed infusion ld5 21:59 Drug: NS 0.9% 1000 ml [sodium chloride 0.9 % intravenous solution] Route: IV; Rate: mcp bolus; Site: right antecubital; 11/07 01:00 Drug: Potassium Chloride in 100cc sterile water 10 mEq [potassium chloride 10 mEq/100 jp6 mL intravenous piggyback] {Co-Signature: kmg1 (Aleida Ward RN).} Route: IV; Rate: 100 mL/hr; Infused Over: 1 hrs; Site: left wrist; Signatures: Dispatcher [employer] EDOR Catalina Orozco RN RN Tammy CallahanRN RN jon3 Toan Love PA PA btw Dickerson, Laura, RN RN ld5 Mendez Earl, KIMBER-C RPA-Cck7 Marilynn, Holly Deleon Kimberly, Reg Reg ks16 Tram LouiseRN RN jp6 Greer Tyson RN [facility] Aleida Ward RN kmg1 The chart was reviewed and I authenticate all verbal orders and agree with the evaluation and treatment provided.Corrections: (The following items were deleted from the chart) 11/06 23:00 22:56 MAGNESIUM LEVEL+LAB ordered. EDMS EDMS Attachments: 23:44 [facility] Payment Agreement [email or web address] 11/07 05:33 T-Sheet-- Draft Copy lja Chart Complete MTDD
--- NOTE | 2016-11-09 08:26 | HPE ---
DATE OF ADMISSION: 11/07/2016 ADMISSION DIAGNOSIS: Partial colonic obstruction most likely secondary to diverticulitis. HISTORY OF PRESENT ILLNESS: The patient is a pleasant 51-year-old woman who presented to the emergency department today with increasing abdominal pain. The patient reports that about 2 weeks ago, she had some diarrhea which lasted for several days at least. This eventually went away perhaps a week ago. She has continued to have some looser bowel movements. She had a bowel movement yesterday. She did pass some flatus yesterday. She had some abdominal pain with some nausea and vomiting which began on November 03. She was seen in the emergency department on the and had a CT scan which was interpreted as showing colitis. She was started on ciprofloxacin and Flagyl orally and discharged home. She was unable to keep medications down and had persistent abdominal pain and vomiting. She returned to the emergency department on Wednesday the . She received some medication for nausea and was again discharged. She has not improved, and in fact, finds that her abdominal discomfort has worsened. She has had continued vomiting and returned to the emergency department on the at 192. She had repeat laboratory studies and had a repeat CT scan of the abdomen and pelvis. CT suggested some increased dilation of the colon which was filled with air and suggested the possibility of an obstruction in the region of the junction of the descending and sigmoid colons. I was consulted to evaluate the patient. She does report a history of diverticulitis about a year ago and had a CT scan at that point. She has not reported fevers or chills. She has had no melena or hematochezia. She denies any history of peptic ulcer disease, hepatitis or pancreatitis. She is unsure if she passed any gas today. ALLERGIES: The patient reports that BACTRIM leads to swelling and hives. MORPHINE causes hives as well and ZOLOFT she reports leads to nightmares. Her medications currently include: - ciprofloxacin 500 mg by mouth twice daily and the Flagyl 500 mg by mouth three times daily that were prescribed on the . Her normal medications include: - hydrochlorothiazide 12.5 mg by mouth daily - metformin 500 mg by mouth twice daily - Percocet 5/325 tablets one tablet three times a day as needed - Protonix 40 mg by mouth daily - Reglan 10 mg by mouth every 6 hours as needed - simvastatin 10 mg by mouth nightly - Valsartan 40 mg by mouth daily SURGICAL HISTORY: Significant for: Hysterectomy done as an open procedure. Her ovaries remain in place. Her medical history is significant for: Diabetes. She has hypercholesterolemia. She has a history of hypertension. She has some chronic back pain. She reports a history of chronic obstructive pulmonary disease and continues to smoke. She has had diverticulitis. SOCIAL HISTORY: The patient is accompanied by her to the emergency department. She does smoke cigarettes daily. She denies excessive alcohol use. FAMILY HISTORY: Is not relevant. REVIEW OF SYSTEMS: Reveals no history of seizure or stroke. She has no history of chest pain, palpitations or shortness of breath. She denies any cough or wheezing currently. She is not having a cough at this time. She denies any melena or hematochezia. She has had no dysuria or hematuria, though the reports that her urine was red the other day. She denies any major bone or joint issues other than her chronic back pain. There is no history of deep venous thrombosis (DVT) or pulmonary embolus. PHYSICAL EXAMINATION: The patient is a pleasant obese woman lying quietly on the hospital stretcher. She is alert, oriented, cooperative. Most recent vital signs show blood pressure of 135/78 with a pulse of 64, respirations 16, temperature of 100.1. Sclerae are anicteric. Mucous membranes are moist. Neck is supple without mass or bruit. Heart: Exam shows a regular rate and rhythm. The lungs are clear though her breath sounds may be slightly distant. Abdomen is somewhat protuberant. She has an old low transverse suprapubic scar. There is no sign of hernia. She does have some bowel sounds present. There is some tympany to percussion, particularly in the right midabdomen and right upper quadrant. There is no tenderness to percussion. On palpation, the abdomen is somewhat full throughout and mildly tender in the left lower quadrant. Extremities: Show palpable radial and dorsalis pedis pulses with no peripheral edema. Her laboratory studies include a CBC showing white count of 20,000 with a hemoglobin of 15, hematocrit of 44 and a platelet count of 305,000. Differential count shows 83% neutrophils, lymphocytes are 9 with monocytes of 5.5. I do note that her white blood cell count was 22,000 with a similar differential on November 04. Her chemistry profile includes a glucose of 121, sodium 141, potassium 2.9, chloride 100, CO2 of 29, BUN of 13 and a creatinine of 0.9. Amylase was 31. Lipase is also normal and her liver function tests are normal. A urinalysis showed maria guadalupe urine with pH of 5.0, specific gravity 1.029, 1+ bilirubin, 1+ leukocyte esterase, 8 white cells and 18 red cells per high-power field with 2+ bacteria. I reviewed her CT scan from the as well as CT scan from today and also looked at her CT scan from October 2015. The radiologist today had been concerned about increased gaseous dilation of the colon all the way from the cecum to the sigmoid. Today the radiologist reported some thickening in the wall of the sigmoid colon and indicated that they felt malignancy was suspected. There seems to be a narrowing in the same area of the sigmoid colon which does not appear significantly changed from a year ago. The diameter of the colon has increased somewhat from the until the and both of these are enlarged relative to 1 year ago when the colon appeared normal. There does appear to be some slight fairly diffuse thickening of the colon wall. There is no small bowel dilation on the current study. There is no free fluid or free air. On the current study, the area of the cecum is dilated to perhaps 9 cm maximally. There is no evidence of pneumatosis intestinalis. IMPRESSION: 1. Partial colonic obstruction at the sigmoid level likely related to diverticulitis. 2. Hypokalemia. 3. Hypertension. 4. Hypercholesterolemia. 6. Chronic back pain. 7. Ongoing tobacco use. 8. Nausea and vomiting. PLAN: The patient will be admitted to the hospital. I suspect that her diarrhea of several weeks ago was due to diverticulitis leading to increased narrowing and now some dilation of her colon. It may be that her diarrhea was actually a manifestation or a result of her narrowing and that this just represents a chronic stricture. I cannot absolutely rule out the possibility of a malignancy, but I believe the CT scan looks very similar to what it did a year ago in this area in particular. She has some significant hypokalemia at this time and this may also contribute. She does not have any small bowel or gastric dilatation so this would not account for her nausea or vomiting. The patient will be hydrated with some Ringer's lactate. She will receive intravenous doses of potassium chloride until such time as her nausea and vomiting resolve. She will be started on intravenous ciprofloxacin and Flagyl to address the possibility of diverticulitis in that abnormal sigmoid segment. I do not think there is any significant evidence for colitis in the sense of a diffuse colonic inflammation. She will have repeat laboratory studies and a repeat KUB obtained approximately 12 hours after her most recent studies. If she shows evidence of progressive dilation of the colon, then we will need to assess the colon with endoscopy. The patient had an opportunity to ask questions. She desires to proceed with the plan as I have outlined it. MTDD
[2016-11-09] MEDS ORDERED: PROPOFOL 500 MG/50 ML VIAL As Ordered ONE (08:33)
[2016-11-09] MEDS ORDERED: PROPOFOL 200 MG/20 ML VIAL As Ordered ONE ×2 (08:57→09:15)
[2016-11-09] MEDS ORDERED: LR 1,000 ML IV SCH (09:45)
[2016-11-09] MEDS ORDERED: ONDANSETRON 4MG/2ML VIAL (J2405) IV PRN (09:45)
--- NOTE | 2016-11-09 10:20 | REP ---
Clinical: Status post colonoscopy with abdominal pain. Comparison: 11/08/2016. Findings: Colonic and small bowel distension is appreciated relatively similar to prior examination. No obvious free air is identified. Skeletal structures are intact and stable. Impression: Small bowel and large bowel distension likely related to colonoscopy and prior obstruction. Findings appear relatively similar to 11/08/2016. No obvious free air. Signed by Clemente Moreland MD 11/09/2016 10:12 A
[2016-11-09] MEDS: DOCUSATE SODIUM 100 MG CAP PO SCH ×2 (10:32→21:00)
[2016-11-09] MEDS: PANTOPRAZOLE 40MG INJ (PROTONIX) (C9113) IV SCH (10:32)
[2016-11-09] MEDS: MIRALAX *UNIT DOSE* 17GM PACKET PO SCH ×3 (10:33→12:51)
[2016-11-09] MEDS: LR 1,000 ML IV SCH (10:33)
--- NOTE | 2016-11-09 11:11 | ROOR ---
Patient Name: Georgia Rene Procedure Date: 11/09/2016 8:09 AM Date of : 1965 Age: 51 Room: Main OR Gender: Female Note Status: Finalized Procedure: Colonoscopy Indications: Colon mass, CT consistent with obstructing mass of sigmoid colon. Colon diffusely distended. Providers: Alex Richardson MD Referring MD: Alex Richardson MD Requesting Provider: Medicines: Monitored Anesthesia Care Complications: No immediate complications. Procedure: Pre-Anesthesia Assessment: - Prior to the procedure, a History and Physical was performed, and patient medications and allergies were reviewed. The patient is competent. The risks and benefits of the procedure and the sedation options and risks were discussed with the patient. All questions were answered and informed consent was obtained. Patient identification and proposed procedure were verified by the physician, the nurse and the missile control pilot in the procedure room. Mental Status Examination: alert and oriented. Airway Examination: normal oropharyngeal airway and neck mobility. Respiratory Examination: clear to auscultation. CV Examination: regular rate and rhythm. Prophylactic Antibiotics: The patient does not require prophylactic antibiotics. Prior Anticoagulants: The patient has taken no previous anticoagulant or antiplatelet agents. ASA Grade Assessment: III - A patient with severe systemic disease. After reviewing the risks and benefits, the patient was deemed in satisfactory condition to undergo the procedure. The anesthesia plan was to use monitored anesthesia care (MAC). Immediately prior to administration of medications, the patient was re-assessed for adequacy to receive sedatives. The heart rate, respiratory rate, oxygen saturations, blood pressure, adequacy of pulmonary ventilation, and response to care were monitored throughout the procedure. The physical status of the patient was re-assessed after the procedure. The Colonoscope was introduced through the anus and advanced to the splenic flexure. The colonoscopy was performed with difficulty due to bowel stenosis, inadequate bowel prep and poor endoscopic visualization. Findings: The perianal and digital rectal examinations were normal. A benign-appearing, intrinsic moderate stenosis was found in the sigmoid colon and was traversed. I was able to advance the scope through the area of narrowing. There was diverticulosis in this area as well as several sessile polyps. There was some patchy redness around some of the tics. I did not see evidence for an obstructing tumor. Above the narrowed area the colon was filled with air and liquid stool. A large amount of semi-liquid stool was found in the descending colon. A few sessile polyps were found in the sigmoid colon. The polyps were 5 to 15 mm in size. Polypectomy was not attempted. Impression: - Stricture in the sigmoid colon. - Stool in the descending colon. - No specimens collected. - Diverticulosis in the sigmoid colon. - A few 5 to 15 mm, non-bleeding polyps in the sigmoid colon, were not addressed. . Recommendation: - [facility]. Attending Participation: I personally performed the entire procedure. Alex Richardson MD 11/09/2016 11:11:18 AM Number of Addenda: 0 Note Initiated On: 11/09/2016 8:09 AM Estimated Blood Loss: Estimated blood loss: none.
[2016-11-09] MEDS: PERCOCET 5MG/325MG TAB PO PRN (13:48)
[2016-11-09] MEDS: ONDANSETRON 4MG/2ML VIAL (J2405) IV PRN (18:26)
[2016-11-09] MEDS: METOCLOPRAMIDE INJ 10MG/2ML VIAL (J2765) IV PRN (19:38)
[2016-11-10] VITALS (7 sets, daily range): BP systolic 116–148; BP diastolic 52–86
[2016-11-10] MEDS: ONDANSETRON 4MG/2ML VIAL (J2405) IV PRN ×2 (01:06→08:36)
[2016-11-10] MEDS: LR 1,000 ML IV SCH ×2 (01:06→12:50)
[2016-11-10] MEDS: METOCLOPRAMIDE INJ 10MG/2ML VIAL (J2765) IV PRN (04:02)
[2016-11-10] MEDS: CIPROFLOXACIN 400 MG in APPROPRIATE DILUENT 1 EA IV SCH ×2 (04:02→17:34)
[2016-11-10] MEDS: metroNIDAZOLE 500 MG in APPROPRIATE DILUENT 1 EA IV SCH ×3 (05:59→22:21)
[2016-11-10] MEDS: DOCUSATE SODIUM 100 MG CAP PO SCH ×2 (10:54→20:11)
[2016-11-10] MEDS: PANTOPRAZOLE 40MG INJ (PROTONIX) (C9113) IV SCH (10:54)
[2016-11-10] MEDS: PERCOCET 5MG/325MG TAB PO PRN (12:51)
[2016-11-10] MEDS ORDERED: BISACODYL 5 MG TAB PO ONE (13:00)
[2016-11-10] MEDS: METOCLOPRAMIDE INJ 10MG/2ML VIAL (J2765) IV SCH ×2 (14:45→20:10)
[2016-11-10] MEDS: D5W/LR 1,000 ML IV SCH (14:45)
[2016-11-10] MEDS: KETOROLAC 30 MG/ML VIAL (J1885) IV PRN (19:37)
[2016-11-11] MEDS: METOCLOPRAMIDE INJ 10MG/2ML VIAL (J2765) IV SCH ×4 (02:18→21:40)
[2016-11-11] MEDS: PERCOCET 5MG/325MG TAB PO PRN ×4 (02:19→21:40)
[2016-11-11] MEDS: CIPROFLOXACIN 400 MG in APPROPRIATE DILUENT 1 EA IV SCH ×2 (04:33→17:35)
[2016-11-11] MEDS: D5W/LR 1,000 ML IV SCH (04:33)
[2016-11-11 05:55] LABS: BASO % 0.3 % (0.0-1.0); EOS # 0.2 K/mm3 (0.0-0.50); EOS % 1.3 % (0.0-3.0); LARGE UNSTAINED CELL # 0.3 K/mm3 (0.0-0.4); LARGE UNSTAINED CELL % 2.2 % (0.0-4.0); LYMPH # 1.6 K/mm3 (1.5-4.5); LYMPH % 12.5 % (24.0-44.0); MEAN CORPUSCULAR HEMOGLOBIN 30.8 pg (27.0-33.0); MEAN CORPUSCULAR HGB CONC 33.9 g/dl (32.0-36.5); MEAN CORPUSCULAR VOLUME 91.1 fl (80.0-96.0); MONO # 0.9 K/mm3 (0.0-0.8); MONO % 7.2 % (0.0-5.0); NEUTROPHILS # 9.9 K/mm3 (1.8-7.7); NEUTROPHILS % 76.6 % (36.0-66.0); PLATELET COUNT, AUTOMATED 269 k/mm3 (150-450); RED CELL DISTRIBUTION WIDTH 15.4 % (11.5-14.5); WHITE BLOOD COUNT 12.9 K/mm3 (4.0-10.0)
[2016-11-11] MEDS: metroNIDAZOLE 500 MG in APPROPRIATE DILUENT 1 EA IV SCH ×3 (05:59→21:40)
[2016-11-11 06:00] VITALS: BP 116/65
[2016-11-11 06:08] LABS: ALBUMIN 2.5 GM/DL (3.2-5.2); ALBUMIN/GLOBULIN RATIO 0.76 (1.00-1.93); ALKALINE PHOSPHATASE 72 U/L (45-117); ALT/SGPT 10 U/L (12-78); ANION GAP 8 MEQ/L (8-16); AST/SGOT 18 U/L (15-37); BILIRUBIN,TOTAL 0.4 MG/DL (0.2-1.0); BLOOD UREA NITROGEN 6 MG/DL (7-18); CALCIUM LEVEL 8.2 MG/DL (8.5-10.1); CARBON DIOXIDE LEVEL 28 MEQ/L (21-32); CHLORIDE LEVEL 105 MEQ/L (98-107); CREATININE FOR GFR 0.87 MG/DL (0.55-1.02); GLOMERULAR FILTRATION RATE > 60.0 (>51); GLUCOSE, FASTING 129 MG/DL (70-105); POTASSIUM SERUM 3.3 MEQ/L (3.5-5.1); SODIUM LEVEL 141 MEQ/L (136-145); TOTAL PROTEIN 5.8 GM/DL (6.4-8.2)
[2016-11-11] MEDS: DOCUSATE SODIUM 100 MG CAP PO SCH ×2 (10:27→21:40)
[2016-11-11] MEDS: PANTOPRAZOLE 40MG INJ (PROTONIX) (C9113) IV SCH (10:28)
[2016-11-11 14:00] VITALS: BP 128/70
[2016-11-11] MEDS ORDERED: BISACODYL 5 MG TAB PO ONE ×2 (14:00→17:00)
[2016-11-11] MEDS: POTASSIUM CHLORIDE 10 MEQ SR TABLET PO SCH ×2 (17:33→19:27)
[2016-11-11 22:00] VITALS: BP 117/67
[2016-11-12 02:00] VITALS: BP 115/70
[2016-11-12] MEDS: METOCLOPRAMIDE INJ 10MG/2ML VIAL (J2765) IV SCH ×4 (02:14→21:24)
[2016-11-12] MEDS: PERCOCET 5MG/325MG TAB PO PRN ×3 (02:14→21:25)
[2016-11-12] MEDS: CIPROFLOXACIN 400 MG in APPROPRIATE DILUENT 1 EA IV SCH ×2 (04:17→17:43)
[2016-11-12] MEDS: metroNIDAZOLE 500 MG in APPROPRIATE DILUENT 1 EA IV SCH ×3 (05:35→21:24)
[2016-11-12 06:00] VITALS: BP 138/78
[2016-11-12 06:54] LABS: ANION GAP 10 MEQ/L (8-16); BLOOD UREA NITROGEN 5 MG/DL (7-18); CALCIUM LEVEL 8.5 MG/DL (8.5-10.1); CARBON DIOXIDE LEVEL 25 MEQ/L (21-32); CHLORIDE LEVEL 107 MEQ/L (98-107); CREATININE FOR GFR 0.85 MG/DL (0.55-1.02); GLOMERULAR FILTRATION RATE > 60.0 (>51); GLUCOSE, FASTING 110 MG/DL (70-105); POTASSIUM SERUM 3.4 MEQ/L (3.5-5.1); SODIUM LEVEL 142 MEQ/L (136-145)
[2016-11-12] MEDS: PANTOPRAZOLE 40MG INJ (PROTONIX) (C9113) IV SCH (09:01)
[2016-11-12] MEDS: DOCUSATE SODIUM 100 MG CAP PO SCH ×2 (09:01→21:23)
[2016-11-12 10:00] VITALS: BP 143/79
--- NOTE | 2016-11-12 11:55 | REP ---
KUB ABDOMEN AND PELVIS: KUB film of abdomen and pelvis is performed. There is diffuse moderate dilatation of the colon which appears similar to the recent exams, most recently 11/09/2016. The right colon has a diameter of 12.8 cm. Mucosal fold thickening is seen of the left colon. There are several mildly dilated small bowel loops in the lower abdomen. There are phleboliths in the pelvis. There are mild degenerative changes of the spine. IMPRESSION: Persistent moderate dilatation of the colon, unchanged. There are several mildly dilated distal small bowel loops. Signed by Jaleel Keys MD 11/12/2016 03:20 P
[2016-11-12] MEDS: LACTULOSE 20 GM/30 ML SYRUP UD PO SCH (13:55)
[2016-11-12 14:00] VITALS: BP 140/88
[2016-11-12 18:00] VITALS: BP 120/90
[2016-11-12 22:00] VITALS: BP 139/87
[2016-11-13 02:00] VITALS: BP 142/90
[2016-11-13] MEDS: METOCLOPRAMIDE INJ 10MG/2ML VIAL (J2765) IV SCH ×3 (02:24→14:22)
[2016-11-13] MEDS: PERCOCET 5MG/325MG TAB PO PRN (02:24)
[2016-11-13] MEDS: CIPROFLOXACIN 400 MG in APPROPRIATE DILUENT 1 EA IV SCH (04:13)
[2016-11-13] MEDS: metroNIDAZOLE 500 MG in APPROPRIATE DILUENT 1 EA IV SCH ×2 (05:17→14:23)
[2016-11-13 06:00] VITALS: BP 138/79
[2016-11-13] MEDS ORDERED: PANTOPRAZOLE 40MG TAB (PROTONIX) PO SCH (09:00)
[2016-11-13] MEDS: DOCUSATE SODIUM 100 MG CAP PO SCH (09:57)
[2016-11-13] MEDS: LACTULOSE 20 GM/30 ML SYRUP UD PO SCH (09:57)
[2016-11-13 10:00] VITALS: BP 135/64
[2016-11-13 14:00] VITALS: BP 152/86
[2016-11-13] MEDS ORDERED: LACT20EL PO (14:39)
== END 2016-11-13 15:50 | disposition home or self-care (01) | DRG 247 ==
LOC: M ED 19:28 → M ED INP 11-07 02:48 → M PCU 11-07 06:17 → M MSPAV 11-07 16:00
PROVIDERS: ADMIT Surgery; ATTEND Surgery
PROC: 0DJD8ZZ Inspection of Lower Intestinal Tract, Via Natural or Artificial Opening Endoscopic (ICD-10-PCS; principal; 2016-11-09 08:00)
DX: K56.60 Unspecified intestinal obstruction (principal); Z68.41 Body mass index [BMI] 40.0-44.9, adult; I10 Essential (primary) hypertension; J44.9 Chronic obstructive pulmonary disease, unspecified; E66.9 Obesity, unspecified; E87.6 Hypokalemia; K57.32 Diverticulitis of large intestine without perforation or abscess without bleeding; Z88.5 Allergy status to narcotic agent; Z88.8 Allergy status to other drugs, medicaments and biological substances; Z79.899 Other long term (current) drug therapy; E11.9 Type 2 diabetes mellitus without complications; E78.00 Pure hypercholesterolemia, unspecified; M54.5 Low back pain; F17.210 Nicotine dependence, cigarettes, uncomplicated; K63.5 Polyp of colon

== ENCOUNTER 2016-11-18 11:57 | Inpatient (IN) | payer BC ==
[~2016-11-18] VITALS: Ht 154.9 cm; Wt 99.7 kg
[~2016-11-18 11:57] MED LIST changes: +ABIL1TAB5 PO; +ADV250INH INH; +ATOR1TAB18 PO; +CIPR500T89 PO; +FLAG500T PO; +HYDR62TA PO; +LACT20EL PO; +PAXI40TA2 PO; +PROT1TAB2 PO; +TIZA2CAP3 PO; +VALS1TAB47 PO
[2016-11-18] MEDS ORDERED: ONDANSETRON 4MG/2ML VIAL (J2405) IV PRN (12:30)
[2016-11-18] MEDS ORDERED: BISACODYL 5 MG TAB PO ONE (12:30)
[2016-11-18 13:00] VITALS: BP 152/90
[2016-11-18] MEDS: DOCUSATE SODIUM 100 MG CAP PO SCH ×2 (13:26→21:10)
[2016-11-18] MEDS: NORCO, ANEXSIA 5/325MG TABLET (HYDROcodone/ACETAMINOPHEN) PO PRN ×3 (13:30→21:59)
[2016-11-18 13:48] LABS: BASO # 0.2 K/mm3 (0.0-0.2); EOS # 0.1 K/mm3 (0.0-0.50); EOS % 0.9 % (0.0-3.0); LARGE UNSTAINED CELL # 0.3 K/mm3 (0.0-0.4); LARGE UNSTAINED CELL % 1.6 % (0.0-4.0); LYMPH # 1.5 K/mm3 (1.5-4.5); MEAN CORPUSCULAR HEMOGLOBIN 31.1 pg (27.0-33.0); MEAN CORPUSCULAR HGB CONC 34.8 g/dl (32.0-36.5); MEAN CORPUSCULAR VOLUME 89.6 fl (80.0-96.0); MONO # 1.2 K/mm3 (0.0-0.8); MONO % 7.9 % (0.0-5.0); NEUTROPHILS # 12.5 K/mm3 (1.8-7.7); NEUTROPHILS % 80.7 % (36.0-66.0); PLATELET COUNT, AUTOMATED 358 k/mm3 (150-450); WHITE BLOOD COUNT 15.5 K/mm3 (4.0-10.0)
[2016-11-18 14:23] LABS: ALBUMIN 3.1 GM/DL (3.2-5.2); ALBUMIN/GLOBULIN RATIO 0.89 (1.00-1.93); ALKALINE PHOSPHATASE 91 U/L (45-117); ALT/SGPT 8 U/L (12-78); ANION GAP 10 MEQ/L (8-16); AST/SGOT 11 U/L (15-37); BILIRUBIN,TOTAL 0.6 MG/DL (0.2-1.0); BLOOD UREA NITROGEN 9 MG/DL (7-18); CARBON DIOXIDE LEVEL 30 MEQ/L (21-32); CHLORIDE LEVEL 98 MEQ/L (98-107); CREATININE FOR GFR 0.76 MG/DL (0.55-1.02); GLOMERULAR FILTRATION RATE > 60.0 (>51); GLUCOSE, FASTING 99 MG/DL (70-105); POTASSIUM SERUM 3.4 MEQ/L (3.5-5.1); SODIUM LEVEL 138 MEQ/L (136-145); TOTAL PROTEIN 6.6 GM/DL (6.4-8.2)
--- NOTE | 2016-11-18 14:40 | REP ---
Clinical: Colonic obstruction. Technique: Supine and upright views of the abdomen and pelvis. Comparison: 11/12/2016. Findings: Air-filled dilated loops of colon as well as small bowel are noted throughout the abdomen and pelvis similar to prior examination. Upright view demonstrates multiple air fluid levels. Normal gas identified at the rectosigmoid. Impression: Dilated loops of both small and large bowel with air-fluid level on the upright view suggests obstruction. Signed by Clemente Moreland MD 11/18/2016 02:31 P
[2016-11-18] MEDS: LR 1,000 ML IV SCH ×2 (15:06→21:27)
[2016-11-18] MEDS: PANTOPRAZOLE 40MG INJ (PROTONIX) (C9113) IV SCH (15:06)
[2016-11-18] MEDS: metroNIDAZOLE 500 MG in APPROPRIATE DILUENT 1 EA IV SCH ×2 (15:06→21:10)
[2016-11-18] MEDS ORDERED: LACT20EL PO (15:56)
[2016-11-18] MEDS ORDERED: DRIS50002 PO (15:56)
[2016-11-18 16:00] VITALS: BP 135/81
[2016-11-18] MEDS: CIPROFLOXACIN 400 MG in APPROPRIATE DILUENT 1 EA IV SCH (16:32)
[2016-11-18 20:00] VITALS: BP 119/78
[2016-11-18] MEDS: hydrOXYzine 50 MG TAB PO SCH (21:10)
[2016-11-18] MEDS: ADVAIR DISKUS 250/50 INH PWD INH SCH (21:10)
[2016-11-18] MEDS: tiZANidine 4 MG TAB PO SCH (21:10)
[2016-11-19] VITALS: BP 103/66
[2016-11-19] MEDS: CIPROFLOXACIN 400 MG in APPROPRIATE DILUENT 1 EA IV SCH ×2 (02:32→14:06)
[2016-11-19] MEDS: LR 1,000 ML IV SCH ×2 (02:32→12:30)
[2016-11-19] MEDS: metroNIDAZOLE 500 MG in APPROPRIATE DILUENT 1 EA IV SCH ×3 (05:10→21:14)
[2016-11-19 05:14] VITALS: BP 162/82
[2016-11-19 08:00] VITALS: BP 130/81
[2016-11-19] MEDS: PANTOPRAZOLE 40MG INJ (PROTONIX) (C9113) IV SCH (08:57)
[2016-11-19] MEDS: DOCUSATE SODIUM 100 MG CAP PO SCH ×2 (08:57→21:14)
[2016-11-19] MEDS: tiZANidine 4 MG TAB PO SCH ×3 (08:58→21:14)
[2016-11-19] MEDS: PARoxetine 20 MG TAB PO SCH (08:58)
[2016-11-19] MEDS: hydrOXYzine 50 MG TAB PO SCH ×2 (08:58→21:14)
[2016-11-19] MEDS: VALSARTAN 80 MG TAB (DIOVAN) PO SCH (09:00)
[2016-11-19] MEDS: ADVAIR DISKUS 250/50 INH PWD INH SCH ×2 (09:14→20:42)
[2016-11-19 12:00] VITALS: BP 167/91
[2016-11-19] MEDS: NORCO, ANEXSIA 5/325MG TABLET (HYDROcodone/ACETAMINOPHEN) PO PRN ×2 (12:47→21:14)
[2016-11-19 16:00] VITALS: BP 136/65
--- NOTE | 2016-11-19 17:41 | HPE ---
DATE OF ADMISSION: 11/18/2016 ADMISSION DIAGNOSIS: Sigmoid colon obstruction. HISTORY OF PRESENT ILLNESS: The patient is a very pleasant 51-year-old woman who was seen in the emergency department on 11/07/2016. She had presented with increasing abdominal pain. On that occasion, she reported that she had had some diarrhea about 2 weeks earlier which lasted for several days at least. This had gone away about a week before her presentation. She continued to have some looser bowel movements. She developed some increasing abdominal pain with some nausea and vomiting on 11/03/2016. She was seen on 11/04/2016 in the emergency department and a CT scan was interpreted as showing colitis. She was started on ciprofloxacin and Flagyl and discharged home, but she was unable to keep down any of the medications and had persistent abdominal pain and vomiting. She returned to the emergency department on 11/04/2016 where she was given some anti-nausea medications and again discharged home. She returned on 11/06/2016 in the evening. She underwent laboratory studies and a CT scan of the abdomen and pelvis which showed distension of her colon all the way from her cecum to the sigmoid colon. There appeared to be a narrowing in the region of the sigmoid colon. I was consulted to evaluate the patient, and she was admitted for management of her sigmoid colon obstruction. I reviewed her CT scans from October as well as a previous CT from October 2015. Even back in 2014, there appeared to be a narrowing in the sigmoid colon. It was clear that the patient's colon diameter had increased significantly from 11/04/2016 to 11/06/2016. There was no free fluid or free air. The patient was admitted to undergo management of her at least partial sigmoid obstruction. She was initially kept nothing by mouth. She had very small amounts of flatus intermittently. She did respond to some extent to some oral laxatives. She was treated with ciprofloxacin and Flagyl intravenously. A colonoscopy was attempted on 11/09/2016. It was possible to advance the scope through the area of narrowing and up to approximately 70 cm. There did appear to be a couple of moderately large polyps just below the level of the narrowing. It was impossible to decompress the colon significantly because of the large amount of soft stool present within the colon. Following this, she seemed to have slightly increased passage of flatus and began to have a few small bowel movements. She received some Dulcolax tablets. She was allowed to take a clear liquid diet which she tolerated and then to try a low residue diet. She appeared to tolerate this well. She was discharged on 11/13/2016 to continue oral ciprofloxacin and Flagyl and follow up in my office in approximately 10 days or sooner as needed. She returned to the office on 11/18/2016 after calling complaining of some nausea and vomiting and increased discomfort. She is now admitted with a persistent colonic obstruction. MEDICATIONS AT THE TIME OF ADMISSION: - atorvastatin 80 mg by mouth daily - hydrochlorothiazide 25 mg by mouth daily - hydroxyzine 50 mg by mouth twice daily - lactulose 30 grams by mouth daily - metformin 500 mg by mouth twice daily - Percocet one tablet by mouth three times daily as needed - Protonix 40 mg by mouth daily - Paxil 40 mg by mouth daily - Advair Diskus 250/50 mcg one puff twice daily - tizanidine 2 mg by mouth twice daily and 4 mg daily at bedtime - vitamin D 50,000 units by mouth every week and valsartan 160 mg by mouth daily ALLERGIES: The patient reports that MORPHINE leads to swelling and hives. BACTRIM has led to hives and she has had confusion from SERTRALINE. SURGICAL HISTORY: Significant for a hysterectomy done as an open procedure. Her ovaries are in place. The patient has undergone a right knee arthroplasty. MEDICAL HISTORY: Significant for chronic back pain. She has been seen through the pain clinic. She has a history of arthritis. She has diabetes mellitus type 2. She has hypercholesterolemia and hypertension. She has some chronic obstructive pulmonary disease. She has a history of sleep apnea and apparently has a continuous positive airway pressure (CPAP) device for home use. SOCIAL HISTORY: The patient is . She smokes daily and denies any significant alcohol intake. FAMILY HISTORY: Family history is not relevant. REVIEW OF SYSTEMS: The patient denies any chest pain, palpitations or shortness of breath. She has had no cough or wheezing recently. She denies any dysuria or hematuria. She has had little or no passage of stool for several days. She denies any flatus on the day of admission. She has been voiding and has been keeping down some liquids but had developed increased abdominal distension and discomfort with some nausea and vomiting. The patient has no history of deep vein thrombosis (DVT) or pulmonary embolus. PHYSICAL EXAMINATION: Reveals a pleasant, obese woman lying quietly on the hospital stretcher. She is alert, oriented and cooperative. She is afebrile. Her vital signs at the time of admission reveal her temperature to be 97.7 with a pulse of 85, respirations of 18 and a blood pressure of 152/90. Pulse oximetry is 94% on room air. The patient is alert, oriented and cooperative. Sclerae are anicteric. Mucous membranes are moist. The neck is supple without mass or bruit. Heart exam shows a regular rate and rhythm. The lungs are clear to auscultation bilaterally. The abdomen is quite distended. The abdomen is fairly firm. She does have some tinkly bowel sounds present. She has tympany to percussion in the mid upper abdomen. She has an old low transverse suprapubic scar. There is no sign of abdominal or inguinal hernia. Extremities: Show some mild pitting edema in both lower extremities from about the midcalf down to the ankle. Her laboratory studies included a CBC showing a white count of 15,500 with a differential showing 81% neutrophils, 8% lymphocytes and 8% monocytes. Hemoglobin is 14 with a hematocrit of 39% and the platelet count is 358,000. Chemistry profile showed a sodium of 138, potassium 3.4, chloride 98, CO2 of 30, BUN of 9, creatinine 0.76 and a glucose of 99. Her liver function tests are normal. Total protein is 6.6 and her albumin is low at 3.1. She had an abdominal x-ray obtained which shows air-filled dilated loops of colon as well as some air-filled small bowel. There were multiple air fluid levels on an upright view. There was a small amount of gas suggested in the rectosigmoid. Her previous CT scan, as noted, had shown a narrowed area in the sigmoid colon. Current films are consistent with a point of obstruction in the sigmoid colon. IMPRESSION: 1. Persistent sigmoid obstruction. 2. Hypertension. 3. Hypercholesterolemia. 4. Diabetes mellitus, type 2. 5. Chronic back pain. 6. Chronic obstructive pulmonary disease. 7. Obstructive sleep apnea. PLAN: The patient is being readmitted to the hospital for further management of her sigmoid obstruction. She has not improved with antibiotic therapy. She had an incomplete colonoscopy during her recent hospital stay that showed some polyps in the sigmoid colon. Though a definite cancer was not seen at the site of obstruction, the area was not well seen because of large amount of residual stool. It is, therefore, possible that this represents cancer rather than scarring from diverticulitis. I have recommended that we proceed with an exploratory laparotomy and resection of the involved area if she does not improve rapidly in the hospital. We will try to continue her usual medications with sips of water but otherwise keep her nothing by mouth. She has declined a nasogastric (NG) tube during her last admission. She will receive intravenous (IV) hydration. If there is no evidence of any improvement, then we will proceed to surgery within the next 1-2 days. TESSA
[2016-11-19] MEDS: POTASSIUM CHLORIDE INJ 20 MEQ in D5W/LR 1,000 ML IV SCH (18:51)
[2016-11-19 20:00] VITALS: BP 145/89
[2016-11-20] VITALS (9 sets, daily range): BP systolic 118–145; BP diastolic 76–90
[2016-11-20] MEDS: CIPROFLOXACIN 400 MG in APPROPRIATE DILUENT 1 EA IV SCH ×2 (01:43→14:00)
[2016-11-20] MEDS: NORCO, ANEXSIA 5/325MG TABLET (HYDROcodone/ACETAMINOPHEN) PO PRN ×2 (01:44→10:47)
[2016-11-20] MEDS: metroNIDAZOLE 500 MG in APPROPRIATE DILUENT 1 EA IV SCH ×3 (05:45→21:16)
[2016-11-20 06:31] LABS: BASO # 0.1 K/mm3 (0.0-0.2); BASO % 0.9 % (0.0-1.0); EOS # 0.1 K/mm3 (0.0-0.50); EOS % 1.6 % (0.0-3.0); LARGE UNSTAINED CELL # 0.2 K/mm3 (0.0-0.4); LARGE UNSTAINED CELL % 2.4 % (0.0-4.0); LYMPH # 1.1 K/mm3 (1.5-4.5); LYMPH % 10.9 % (24.0-44.0); MEAN CORPUSCULAR HEMOGLOBIN 30.6 pg (27.0-33.0); MONO # 0.7 K/mm3 (0.0-0.8); MONO % 8.6 % (0.0-5.0); NEUTROPHILS # 6.3 K/mm3 (1.8-7.7); NEUTROPHILS % 75.5 % (36.0-66.0); PLATELET COUNT, AUTOMATED 286 k/mm3 (150-450); WHITE BLOOD COUNT 8.3 K/mm3 (4.0-10.0)
[2016-11-20 06:51] LABS: ALBUMIN 2.6 GM/DL (3.2-5.2); ALKALINE PHOSPHATASE 78 U/L (45-117); ALT/SGPT 7 U/L (12-78); ANION GAP 8 MEQ/L (8-16); AST/SGOT 8 U/L (15-37); BILIRUBIN,TOTAL 0.4 MG/DL (0.2-1.0); BLOOD UREA NITROGEN 8 MG/DL (7-18); CALCIUM LEVEL 8.4 MG/DL (8.5-10.1); CARBON DIOXIDE LEVEL 28 MEQ/L (21-32); CHLORIDE LEVEL 106 MEQ/L (98-107); CREATININE FOR GFR 0.67 MG/DL (0.55-1.02); GLOMERULAR FILTRATION RATE > 60.0 (>51); GLUCOSE, FASTING 95 MG/DL (70-105); POTASSIUM SERUM 3.3 MEQ/L (3.5-5.1); SODIUM LEVEL 142 MEQ/L (136-145); TOTAL PROTEIN 6.3 GM/DL (6.4-8.2)
[2016-11-20] MEDS: DOCUSATE SODIUM 100 MG CAP PO SCH (08:01)
[2016-11-20] MEDS: VALSARTAN 80 MG TAB (DIOVAN) PO SCH (08:01)
[2016-11-20] MEDS: hydrOXYzine 50 MG TAB PO SCH ×2 (08:01→21:15)
[2016-11-20] MEDS: PANTOPRAZOLE 40MG INJ (PROTONIX) (C9113) IV SCH (08:01)
[2016-11-20] MEDS: PARoxetine 20 MG TAB PO SCH (08:02)
[2016-11-20] MEDS: tiZANidine 4 MG TAB PO SCH ×3 (08:02→21:15)
[2016-11-20] MEDS: ADVAIR DISKUS 250/50 INH PWD INH SCH ×2 (09:01→20:51)
[2016-11-20] MEDS ORDERED: LIDOCAINE 2% INJ 100 MG/5 ML SDV (FOR ANES.) As Ordered ONE (10:02)
[2016-11-20] MEDS ORDERED: PROPOFOL 200 MG/20 ML VIAL As Ordered ONE (10:02)
[2016-11-20] MEDS ORDERED: ONDANSETRON 4MG/2ML VIAL (J2405) As Ordered ONE ×2 (10:02→15:35)
[2016-11-20] MEDS ORDERED: ROCURONIUM BROMIDE 50 MG/5 ML VIAL As Ordered ONE ×2 (10:04→15:13)
[2016-11-20] MEDS ORDERED: fentaNYL 100 MCG/2 ML INJECTION (J3010) As Ordered ONE ×5 (10:07→18:35)
[2016-11-20] MEDS ORDERED: MIDAZOLAM INJ 2 MG/2 ML VIAL (J2250) As Ordered ONE ×2 (10:07→13:31)
[2016-11-20] MEDS: POTASSIUM CHLORIDE INJ 20 MEQ in D5W/LR 1,000 ML IV SCH (10:48)
--- NOTE | 2016-11-20 11:43 | ECGEPIP ---
Stationary ECG Study [facility] Test Date: 2016-11-20 Pat Name: IVON DAVID Department: Room: [place] [address] Gender: F Md Physician Dermatologist: JIM : 1965 Requested By: SUSU Miguel Order Number: [id number] Reading MD: Ryan Avila Measurements Intervals [place] Rate: 72 P: 53 MI: 171 QRS: 93 QRSD: 103 T: 118 QT: 445 QTc: 487 Interpretive Statements SINUS RHYTHM Prolonged QTc BORDERLINE RIGHT AXIS DEVIATION Comparison tracing not on file Electronically Signed On 11-20-2016 11:43:32 EST by Ryan Avila
[2016-11-20] MEDS ORDERED: SUCCINYLCHOLINE 100 MG/5 ML SYRINGE (J0330) As Ordered ONE (13:17)
[2016-11-20] MEDS ORDERED: ALBUTEROL SULFATE 2.5 MG/0.5 ML INH NEB SOLN As Ordered ONE (13:40)
[2016-11-20] MEDS ORDERED: ALBUTEROL SULFATE 2.5 MG/0.5 ML INH NEB SOLN INH ONE (14:30)
[2016-11-20] MEDS ORDERED: MIDAZOLAM INJ 2 MG/2 ML VIAL (J2250) IV ONE (14:30)
[2016-11-20] MEDS ORDERED: fentaNYL 100 MCG/2 ML INJECTION (J3010) IV ONE (14:30)
[2016-11-20] MEDS ORDERED: CIPROFLOXACIN/D5W 400 MG/200 ML BAG (J0744) As Ordered ONE (14:40)
[2016-11-20] MEDS ORDERED: BUPIVACAINE HCL 0.25% 30 ML VIAL As Ordered ONE (15:03)
[2016-11-20] MEDS ORDERED: NEOSTIGMINE 1MG/ML 5 ML SYRINGE (J2710) As Ordered ONE (15:35)
[2016-11-20] MEDS ORDERED: GLYCOPYRROLATE INJ 0.2 MG/ML 2 ML VIAL As Ordered ONE (15:36)
[2016-11-20] MEDS ORDERED: FENTANYL 2MCG/ML BUPIVACAINE 0.0625% NACL 250ML CADD As Ordered ONE (17:26)
[2016-11-20] MEDS ORDERED: FENTANYL/BUPIVACAINE/NACL CADD 250 ML EPIDURAL SCH (17:45)
[2016-11-20] MEDS ORDERED: WALLBOXKEY XX PRN (17:45)
[2016-11-20] MEDS ORDERED: ONDANSETRON 4MG/2ML VIAL (J2405) IV PRN ×2 (17:45→19:00)
[2016-11-20] MEDS ORDERED: NALOXONE INJ 0.4 MG/1 ML VIAL (J2310) IV PRN (17:45)
[2016-11-20] MEDS ORDERED: EPIDURAL/PCA KEYS XX PRN (17:45)
[2016-11-20] MEDS ORDERED: METOCLOPRAMIDE INJ 10MG/2ML VIAL (J2765) IV PRN ×2 (17:45→19:00)
[2016-11-20] MEDS ORDERED: diphenhydrAMINE INJ 50MG/ML VIAL (J1200) IV PRN (17:45)
[2016-11-20] MEDS: fentaNYL 100 MCG/2 ML INJECTION (J3010) IV PRN ×4 (18:35→18:50)
[2016-11-20] MEDS ORDERED: LR 1,000 ML IV SCH (19:00)
[2016-11-20] MEDS: KETOROLAC 30 MG/ML VIAL (J1885) IV PRN (21:16)
[2016-11-21] VITALS (8 sets, daily range): BP systolic 72–143; BP diastolic 40–80
[2016-11-21] MEDS: CIPROFLOXACIN 400 MG in APPROPRIATE DILUENT 1 EA IV SCH ×2 (02:07→14:25)
[2016-11-21] MEDS ORDERED: CIPROFLOXACIN 400 MG in APPROPRIATE DILUENT 1 EA IV SCH (03:00)
[2016-11-21] MEDS: metroNIDAZOLE 500 MG in APPROPRIATE DILUENT 1 EA IV SCH (04:08)
[2016-11-21] MEDS: ENOXAPARIN 40 MG/0.4 ML SYRINGE (J1650) SC SCH (05:07)
[2016-11-21 05:50] LABS: BASO % 0.2 % (0.0-1.0); EOS % 0.2 % (0.0-3.0); LARGE UNSTAINED CELL # 0.2 K/mm3 (0.0-0.4); LARGE UNSTAINED CELL % 1.5 % (0.0-4.0); LYMPH # 0.7 K/mm3 (1.5-4.5); LYMPH % 7.1 % (24.0-44.0); MEAN CORPUSCULAR HEMOGLOBIN 31.6 pg (27.0-33.0); MEAN CORPUSCULAR HGB CONC 34.4 g/dl (32.0-36.5); MONO # 0.7 K/mm3 (0.0-0.8); MONO % 7.2 % (0.0-5.0); NEUTROPHILS # 8.3 K/mm3 (1.8-7.7); NEUTROPHILS % 83.8 % (36.0-66.0); PLATELET COUNT, AUTOMATED 311 k/mm3 (150-450); RED CELL DISTRIBUTION WIDTH 15.1 % (11.5-14.5); WHITE BLOOD COUNT 9.9 K/mm3 (4.0-10.0)
[2016-11-21 06:08] LABS: ALBUMIN 2.1 GM/DL (3.2-5.2); ALBUMIN/GLOBULIN RATIO 0.66 (1.00-1.93); ALKALINE PHOSPHATASE 57 U/L (45-117); ALT/SGPT < 6 U/L (12-78); ANION GAP 9 MEQ/L (8-16); AST/SGOT 11 U/L (15-37); BILIRUBIN,TOTAL 0.4 MG/DL (0.2-1.0); BLOOD UREA NITROGEN 6 MG/DL (7-18); CALCIUM LEVEL 7.6 MG/DL (8.5-10.1); CARBON DIOXIDE LEVEL 29 MEQ/L (21-32); CHLORIDE LEVEL 103 MEQ/L (98-107); GLOMERULAR FILTRATION RATE > 60.0 (>51); GLUCOSE, FASTING 104 MG/DL (70-105); POTASSIUM SERUM 3.6 MEQ/L (3.5-5.1); SODIUM LEVEL 141 MEQ/L (136-145); TOTAL PROTEIN 5.3 GM/DL (6.4-8.2)
[2016-11-21] MEDS: hydrOXYzine 50 MG TAB PO SCH ×2 (07:28→21:33)
[2016-11-21] MEDS: PARoxetine 20 MG TAB PO SCH (07:28)
[2016-11-21] MEDS: ACETAMINOPHEN TAB 650MG DOSE (2X325MG) PO PRN (07:28)
[2016-11-21] MEDS: PANTOPRAZOLE 40MG INJ (PROTONIX) (C9113) IV SCH (07:28)
[2016-11-21] MEDS: tiZANidine 4 MG TAB PO SCH ×3 (07:29→21:00)
[2016-11-21] MEDS: VALSARTAN 80 MG TAB (DIOVAN) PO SCH (07:29)
[2016-11-21] MEDS: KETOROLAC 30 MG/ML VIAL (J1885) IV PRN ×2 (07:30→15:00)
[2016-11-21] MEDS: ADVAIR DISKUS 250/50 INH PWD INH SCH ×2 (09:12→19:38)
[2016-11-21] MEDS: POTASSIUM CHLORIDE INJ 20 MEQ in D5W/LR 1,000 ML IV SCH ×3 (14:25)
--- NOTE | 2016-11-21 15:17 | RO ---
DATE OF PROCEDURE: 11/20/2016 PREOPERATIVE DIAGNOSIS: Sigmoid colon obstruction. POSTOPERATIVE DIAGNOSIS: Sigmoid colon obstruction. PROCEDURE PERFORMED: 1. Exploratory laparotomy with lysis of adhesions. 2. Sigmoid resection with end colostomy and oversewing of rectal stump. 3. Decompression of small and large bowel. SURGEON: Dr. Alxe Richardson NAIL ASSEMBLY MACHINE OPERATOR: Dr. Chencho Garcia ANESTHESIA: General and epidural. INDICATIONS FOR PROCEDURE: The patient is a 51-year-old woman with a history of previous diverticulitis who had presented to the emergency department on or about November 07, 2016, with abdominal discomfort and distension. Imaging showed a distended colon and a suggestion of a narrowing in the sigmoid. She was treated nonoperatively and seemed to improve for a time and was discharged home on some antibiotics. She subsequently returned with continuing signs of obstruction and is now for exploratory laparotomy and resection of her obstructing sigmoid. DESCRIPTION OF PROCEDURE: The patient had an epidural catheter placed preoperatively for postoperative analgesia. She was moved to the operating room and placed under general endotracheal anesthesia. A nasogastric tube and Hendricks catheter were inserted. Sequential stockings were applied. The patient was moved into a low lithotomy position with her lower extremities in padded leg holders. The patient's abdomen was prepped and draped in a sterile fashion. The abdomen was entered through a low midline incision extending from the umbilicus to pubis. On opening the abdomen, there was a small amount of serous fluid identified. The dilated cecum was directly beneath the incision. This was dilated to at least 11 cm and inspection showed an area that appeared to be a healed seromuscular tear on one side of the cecum. This was clearly not fresh. Palpation and inspection revealed some adhesions of the omentum down into the left lower pelvis. Exposure was achieved with some packing of the bowel into the upper abdomen and the patient was tilted to a Trendelenburg position. Some of the adhesions of the omentum were lysed, and this was moved out of the pelvis. By palpation, there was a firm area in the sigmoid colon. This was adherent to the left anterior pelvic wall. Inspection showed that the left ovary was adherent to the lateral aspect of this, and the omentum had been adherent anteriorly and medially. It was unclear by palpation if this represented cancer or a benign inflammatory process. There were a few filmy adhesions down in the pelvis between the rectum and surrounding tissues, suggesting previous inflammation. These were broken apart by blunt finger dissection. The entire small and large bowel were quite dilated with air and fluid. There was some liquid and semi solid stool within the colon. Attention was first turned to freeing up the sigmoid colon. The attachments anteriorly were freed. I used the cautery to excise a small amount of the peritoneum of the pelvic wall, leaving this attached to the colon. The ovary was dissected away. In the course of dissection, it was clear that there were some surgical jeane in the region of the ovary, presumably from her previous hysterectomy. Once the colon had been freed, it was clear that there was an approximately 3 cm narrowed area with fibrosis. It was still unclear if this could represent a small malignancy or just a benign stricture. Dissection distally was performed to create an opening through the mesentery in the region of the rectosigmoid, approximately 10 cm distal to the stricture. This portion of the bowel was then doubly stapled with a TX60G stapler. The bowel was divided between these staple lines. In the course of dividing the bowel, the distal staple line was opened in the central portion. There was no spillage of stool. The small opening was oversewn with several interrupted #2-0 Prolene sutures. The pelvis was then irrigated with a large amount of saline. At this point, I placed a small pursestring suture in the cecum and a long pool suction was inserted. Air was suctioned from the right side of the colon, though stool could not be aspirated. The suction was then advanced through the ileocecal valve and the dilated distal half of the small bowel was aspirated to reduce the volume so that dissection would be easier. The suction was then removed, and the small opening was oversewn in two layers with #3-0 Vicryl. Attention was then returned to the dissection of the sigmoid. The mesentery was divided at its base, moving from distal to proximal, using the Harmonic scalpel. There was a small amount of bleeding from a large vein at the base of the mesentery, and this was controlled with hemoclips. A point for the proximal division was then selected and the colon was divided approximately 10 cm to 12 cm proximal to the stenosis. The bowel was initially stapled with a TX60G stapler and clamped distally and the bowel was then divided and the specimen removed. I elected to open the specimen. This was done off the field with scissors. The proximal and distal portions of the bowel were divided and by palpation, there did not appear to be an intraluminal mass. The stenosis appeared to be benign. I did not open the portion directly at the stricture to avoid disruption in the event that a malignancy was identified. The specimen was sent for permanent pathology. I then changed gown and gloves and returned to the abdominal portion of the procedure. The descending colon was mobilized by dividing its lateral attachments and the medial peritoneum. This was freed most of the way to the splenic flexure to allow for the dilated colon to be delivered for a colostomy. The site for the colostomy was fashioned in the left upper quadrant approximately 5 cm above the umbilicus. A disk of skin was excised, and the subcutaneous tissues were divided in a cruciate fashion with cautery. The anterior fascia was divided longitudinally and the muscle fibers were spread. The posterior fascia was then divided longitudinally to about three fingerbreadths and the dilated colon was then delivered through the abdominal wall. There was excellent length for a colostomy. I had palpated the stomach and identified that the nasogastric (NG) tube was nicely positioned in the midbody of the stomach. The operative areas were then copiously irrigated with warm saline. The irrigation was removed and the areas were inspected for hemostasis, which was excellent. The sponge count was reported as correct. A 19-Japanese Rogelio drain was inserted through a stab wound in the right lower quadrant and directed down into the pelvis across the area of the rectal closure. The cecum, which was actually quite mobile, was placed down into the upper pelvis and the small bowel was returned to the abdomen in anatomic fashion. The omentum was pulled down over the small bowel. Any final irrigation was removed from the abdomen. The peritoneum in the lower two-thirds of the incision was closed with a running suture of #0 chromic. The fascia was closed with interrupted simple sutures of #1 Vicryl. I would note that the incision had been extended to approximately 5 cm above the umbilicus in the course of the procedure. The skin incision was closed loosely with skin jeane. The wound was covered with Adaptic and gauze. I then turned my attention to the maturation of the stoma. The staple line was cut off the end of the bowel. There was excellent vascularity noted. Four corner everting sutures of #3-0 Vicryl were placed. The end of the bowel wall was then sutured to the skin circumferentially with simple sutures of #3-0 Vicryl. This gave a nice everted stoma that protruded several centimeters from the abdominal wall. An ostomy appliance was placed. The drain had been sutured to the skin with #2-0 silk. The drain site was dressed with a CHG OpSite. This was connected to a Mann-Marsh bulb. The patient tolerated the procedure well without apparent complication. I did move down to the rectum and clear some semi-solid stool from the rectal stump. The patient was then awakened in the operating room, extubated and moved to the recovery room in stable condition. TESSA
[2016-11-21] MEDS ORDERED: NS 1,000 ML IV SCH (16:00)
[2016-11-21] MEDS ORDERED: FENTANYL/BUPIVACAINE/NACL CADD 250 ML EPIDURAL SCH (16:32)
[2016-11-21] MEDS: LR 1,000 ML IV SCH ×2 (17:45→22:45)
[2016-11-21] MEDS ORDERED: PERCOCET 5MG/325MG TAB PO PRN (18:30)
[2016-11-21] MEDS: PERCOCET 5MG/325MG TAB PO PRN (19:30)
[2016-11-21 21:34] LABS: MEAN CORPUSCULAR HEMOGLOBIN 30.4 pg (27.0-33.0); MEAN CORPUSCULAR HGB CONC 32.1 g/dl (32.0-36.5); MEAN CORPUSCULAR VOLUME 94.8 fl (80.0-96.0); WHITE BLOOD COUNT 13.2 K/mm3 (4.0-10.0)
[2016-11-21 21:54] LABS: ANION GAP 9 MEQ/L (8-16); BLOOD UREA NITROGEN 12 MG/DL (7-18); CALCIUM LEVEL 7.5 MG/DL (8.5-10.1); CARBON DIOXIDE LEVEL 24 MEQ/L (21-32); CHLORIDE LEVEL 108 MEQ/L (98-107); CREATININE FOR GFR 2.06 MG/DL (0.55-1.02); GLOMERULAR FILTRATION RATE 27.1 (>51); GLUCOSE, FASTING 106 MG/DL (70-105); POTASSIUM SERUM 3.5 MEQ/L (3.5-5.1); SODIUM LEVEL 141 MEQ/L (136-145)
[2016-11-22] VITALS (7 sets, daily range): BP systolic 86–133; BP diastolic 48–75
[2016-11-22] MEDS: PERCOCET 5MG/325MG TAB PO PRN ×5 (01:36→22:53)
[2016-11-22] MEDS: LR 1,000 ML IV SCH ×2 (03:45→09:07)
[2016-11-22 05:45] LABS: BASO % 0.2 % (0.0-1.0); EOS # 0.2 K/mm3 (0.0-0.50); EOS % 1.7 % (0.0-3.0); LARGE UNSTAINED CELL # 0.2 K/mm3 (0.0-0.4); LARGE UNSTAINED CELL % 1.4 % (0.0-4.0); LYMPH # 1.2 K/mm3 (1.5-4.5); LYMPH % 9.4 % (24.0-44.0); MEAN CORPUSCULAR HEMOGLOBIN 30.6 pg (27.0-33.0); MEAN CORPUSCULAR HGB CONC 32.4 g/dl (32.0-36.5); MEAN CORPUSCULAR VOLUME 94.5 fl (80.0-96.0); MONO # 0.8 K/mm3 (0.0-0.8); MONO % 6.1 % (0.0-5.0); NEUTROPHILS # 9.9 K/mm3 (1.8-7.7); NEUTROPHILS % 81.1 % (36.0-66.0); PLATELET COUNT, AUTOMATED 262 k/mm3 (150-450); WHITE BLOOD COUNT 12.2 K/mm3 (4.0-10.0)
[2016-11-22 05:58] LABS: CALCIUM LEVEL 7.9 MG/DL (8.5-10.1); CREATININE FOR GFR 1.46 MG/DL (0.55-1.02); GLOMERULAR FILTRATION RATE 40.4 (>51); POTASSIUM SERUM 3.2 MEQ/L (3.5-5.1)
[2016-11-22] MEDS: ENOXAPARIN 40 MG/0.4 ML SYRINGE (J1650) SC SCH (06:14)
[2016-11-22] MEDS: ADVAIR DISKUS 250/50 INH PWD INH SCH ×2 (07:24→19:57)
[2016-11-22] MEDS: tiZANidine 4 MG TAB PO SCH ×3 (09:00→21:38)
[2016-11-22] MEDS: hydrOXYzine 50 MG TAB PO SCH ×2 (09:00→21:38)
[2016-11-22] MEDS: VALSARTAN 80 MG TAB (DIOVAN) PO SCH (09:00)
[2016-11-22] MEDS: PANTOPRAZOLE 40MG INJ (PROTONIX) (C9113) IV SCH (09:05)
[2016-11-22] MEDS: PARoxetine 20 MG TAB PO SCH (09:05)
[2016-11-22] MEDS: KETOROLAC 30 MG/ML VIAL (J1885) IV PRN ×2 (11:40→18:10)
[2016-11-22] MEDS: POTASSIUM CHLORIDE 10 MEQ SR TABLET PO SCH (11:51)
[2016-11-22] MEDS: KCL 40MEQ IN D5/0.45NS 1000ML 1,000 ML IV SCH ×3 (11:51→21:38)
[2016-11-23] MEDS: KETOROLAC 30 MG/ML VIAL (J1885) IV PRN (01:26)
[2016-11-23 06:00] VITALS: BP 110/61
[2016-11-23] MEDS: ENOXAPARIN 40 MG/0.4 ML SYRINGE (J1650) SC SCH (06:42)
[2016-11-23] MEDS: PERCOCET 5MG/325MG TAB PO PRN ×4 (06:43→22:59)
[2016-11-23 06:57] LABS: CALCIUM LEVEL 7.7 MG/DL (8.5-10.1); CREATININE FOR GFR 1.14 MG/DL (0.55-1.02); GLOMERULAR FILTRATION RATE 53.7 (>51); POTASSIUM SERUM 3.7 MEQ/L (3.5-5.1)
[2016-11-23] MEDS: ADVAIR DISKUS 250/50 INH PWD INH SCH ×2 (08:20→19:52)
[2016-11-23] MEDS: VALSARTAN 80 MG TAB (DIOVAN) PO SCH (09:00)
[2016-11-23] MEDS: POTASSIUM CHLORIDE 10 MEQ SR TABLET PO SCH (09:36)
[2016-11-23] MEDS: PARoxetine 20 MG TAB PO SCH (09:39)
[2016-11-23] MEDS: hydroCHLOROthiazide 25 MG TAB PO SCH (09:39)
[2016-11-23] MEDS: PANTOPRAZOLE 40MG TAB (PROTONIX) PO SCH (09:39)
[2016-11-23] MEDS: hydrOXYzine 50 MG TAB PO SCH ×2 (09:39→20:46)
[2016-11-23] MEDS: tiZANidine 4 MG TAB PO SCH ×3 (09:40→20:46)
[2016-11-23 14:00] VITALS: BP 86/54
[2016-11-23 20:00] VITALS: BP 80/48
[2016-11-23 22:00] VITALS: BP 80/48
[2016-11-24] MEDS: PERCOCET 5MG/325MG TAB PO PRN ×4 (03:37→20:11)
[2016-11-24 04:07] VITALS: BP 85/53
[2016-11-24 04:22] VITALS: BP 98/62
[2016-11-24] MEDS: ENOXAPARIN 40 MG/0.4 ML SYRINGE (J1650) SC SCH (06:01)
[2016-11-24 06:17] VITALS: BP 103/59
[2016-11-24 06:44] LABS: BASO % 0.3 % (0.0-1.0); EOS # 0.3 K/mm3 (0.0-0.50); EOS % 2.8 % (0.0-3.0); LARGE UNSTAINED CELL # 0.4 K/mm3 (0.0-0.4); LYMPH # 1.2 K/mm3 (1.5-4.5); LYMPH % 10.1 % (24.0-44.0); MEAN CORPUSCULAR HEMOGLOBIN 30.9 pg (27.0-33.0); MEAN CORPUSCULAR HGB CONC 32.8 g/dl (32.0-36.5); MEAN CORPUSCULAR VOLUME 94.4 fl (80.0-96.0); MONO # 0.6 K/mm3 (0.0-0.8); MONO % 4.8 % (0.0-5.0); NEUTROPHILS # 9.1 K/mm3 (1.8-7.7); PLATELET COUNT, AUTOMATED 315 k/mm3 (150-450); RED CELL DISTRIBUTION WIDTH 14.9 % (11.5-14.5); WHITE BLOOD COUNT 11.5 K/mm3 (4.0-10.0)
[2016-11-24 06:48] LABS: ANION GAP 9 MEQ/L (8-16); BLOOD UREA NITROGEN 10 MG/DL (7-18); CALCIUM LEVEL 8.4 MG/DL (8.5-10.1); CARBON DIOXIDE LEVEL 24 MEQ/L (21-32); CHLORIDE LEVEL 107 MEQ/L (98-107); CREATININE FOR GFR 0.99 MG/DL (0.55-1.02); GLOMERULAR FILTRATION RATE > 60.0 (>51); GLUCOSE, FASTING 98 MG/DL (70-105); POTASSIUM SERUM 3.5 MEQ/L (3.5-5.1); SODIUM LEVEL 140 MEQ/L (136-145)
[2016-11-24] MEDS: ADVAIR DISKUS 250/50 INH PWD INH SCH ×2 (08:02→19:27)
[2016-11-24] MEDS: VALSARTAN 80 MG TAB (DIOVAN) PO SCH (09:00)
[2016-11-24] MEDS: PANTOPRAZOLE 40MG TAB (PROTONIX) PO SCH (09:32)
[2016-11-24] MEDS: PARoxetine 20 MG TAB PO SCH (09:32)
[2016-11-24] MEDS: hydroCHLOROthiazide 25 MG TAB PO SCH (09:32)
[2016-11-24] MEDS: hydrOXYzine 50 MG TAB PO SCH ×2 (09:32→20:11)
[2016-11-24] MEDS: POTASSIUM CHLORIDE 10 MEQ SR TABLET PO SCH (09:32)
[2016-11-24] MEDS: tiZANidine 4 MG TAB PO SCH ×3 (09:33→20:11)
[2016-11-24 14:00] VITALS: BP 155/85
[2016-11-24] MEDS: ACETAMINOPHEN TAB 650MG DOSE (2X325MG) PO PRN (15:49)
[2016-11-24 22:00] VITALS: BP 113/56
[2016-11-25] MEDS: PERCOCET 5MG/325MG TAB PO PRN ×4 (00:43→20:11)
--- NOTE | 2016-11-25 05:57 | REP ---
Clinical: Postoperative cough. Technique: AP and lateral views. Findings: Mild pulmonary venous congestion and interstitial edema is suggested. Trace left basilar atelectasis cannot be excluded. No definite effusion. No pneumothorax. Mediastinum and cardiac silhouette normal. Skeletal structures intact. Impression: Findings suggest mild pulmonary venous congestion and minimal trace left basilar atelectasis. Signed by Clemente Moreland MD 11/25/2016 05:49 A
[2016-11-25 06:00] VITALS: BP 141/77
[2016-11-25] MEDS: ENOXAPARIN 40 MG/0.4 ML SYRINGE (J1650) SC SCH (06:03)
[2016-11-25] MEDS: ADVAIR DISKUS 250/50 INH PWD INH SCH ×2 (07:26→20:37)
[2016-11-25] MEDS ORDERED: FUROSEMIDE 40 MG TAB PO ONE ×2 (07:45→16:30)
--- NOTE | 2016-11-25 07:52 | REP ---
Clinical: Bilateral pain and swelling . Technique: Keys scale and color Doppler evaluation using linear high frequency transducer. Findings: Ultrasound examination of the right and left lower extremity deep venous structures from the common femoral vein to the popliteal vein (excluding right popliteal vein due to swelling) demonstrates normal compressibility flow and wave patterns in response to respiration and augmentation. There is no evidence for deep venous thrombosis. Impression: Right popliteal vein was incompletely evaluated due to swelling. The remainder of the examination appears normal and without the venous thrombosis. Signed by Clemente Moreland MD 11/25/2016 07:43 A
[2016-11-25] MEDS: POTASSIUM CHLORIDE 10 MEQ SR TABLET PO SCH (08:51)
[2016-11-25] MEDS: tiZANidine 4 MG TAB PO SCH ×3 (08:52→20:11)
[2016-11-25] MEDS: PANTOPRAZOLE 40MG TAB (PROTONIX) PO SCH (08:52)
[2016-11-25] MEDS: hydrOXYzine 50 MG TAB PO SCH ×2 (08:53→20:11)
[2016-11-25] MEDS: PARoxetine 20 MG TAB PO SCH (08:53)
[2016-11-25] MEDS: VALSARTAN 80 MG TAB (DIOVAN) PO SCH (08:54)
[2016-11-25 14:00] VITALS: BP 126/67
[2016-11-25] MEDS ORDERED: POTASSIUM CHLORIDE 10 MEQ SR TABLET PO ONE (16:30)
[2016-11-25 22:00] VITALS: BP 129/73
[2016-11-26] MEDS: PERCOCET 5MG/325MG TAB PO PRN ×5 (00:20→23:20)
[2016-11-26 06:00] VITALS: BP 126/63
[2016-11-26] MEDS: ENOXAPARIN 40 MG/0.4 ML SYRINGE (J1650) SC SCH (06:45)
[2016-11-26 06:51] LABS: BASO % 0.3 % (0.0-1.0); EOS # 0.3 K/mm3 (0.0-0.50); EOS % 3.8 % (0.0-3.0); LARGE UNSTAINED CELL # 0.2 K/mm3 (0.0-0.4); LARGE UNSTAINED CELL % 2.9 % (0.0-4.0); LYMPH # 1.2 K/mm3 (1.5-4.5); LYMPH % 14.5 % (24.0-44.0); MEAN CORPUSCULAR HGB CONC 32.7 g/dl (32.0-36.5); MEAN CORPUSCULAR VOLUME 91.7 fl (80.0-96.0); MONO # 0.8 K/mm3 (0.0-0.8); MONO % 9.5 % (0.0-5.0); NEUTROPHILS # 5.7 K/mm3 (1.8-7.7); PLATELET COUNT, AUTOMATED 372 k/mm3 (150-450); RED CELL DISTRIBUTION WIDTH 14.7 % (11.5-14.5); WHITE BLOOD COUNT 8.2 K/mm3 (4.0-10.0)
[2016-11-26 07:23] LABS: ALBUMIN 2.1 GM/DL (3.2-5.2); ALBUMIN/GLOBULIN RATIO 0.57 (1.00-1.93); ALKALINE PHOSPHATASE 99 U/L (45-117); ALT/SGPT 13 U/L (12-78); ANION GAP 11 MEQ/L (8-16); AST/SGOT 23 U/L (15-37); BILIRUBIN,TOTAL 0.3 MG/DL (0.2-1.0); BLOOD UREA NITROGEN 6 MG/DL (7-18); CALCIUM LEVEL 8.5 MG/DL (8.5-10.1); CARBON DIOXIDE LEVEL 30 MEQ/L (21-32); CHLORIDE LEVEL 101 MEQ/L (98-107); CREATININE FOR GFR 0.88 MG/DL (0.55-1.02); GLOMERULAR FILTRATION RATE > 60.0 (>51); GLUCOSE, FASTING 99 MG/DL (70-105); POTASSIUM SERUM 3.6 MEQ/L (3.5-5.1); SODIUM LEVEL 142 MEQ/L (136-145); TOTAL PROTEIN 5.8 GM/DL (6.4-8.2)
[2016-11-26] MEDS: ADVAIR DISKUS 250/50 INH PWD INH SCH ×2 (07:57→20:38)
[2016-11-26] MEDS: PARoxetine 20 MG TAB PO SCH (09:57)
[2016-11-26] MEDS: PANTOPRAZOLE 40MG TAB (PROTONIX) PO SCH (09:57)
[2016-11-26] MEDS: POTASSIUM CHLORIDE 10 MEQ SR TABLET PO SCH (09:57)
[2016-11-26] MEDS: FUROSEMIDE 40 MG TAB PO SCH ×2 (09:58→16:44)
[2016-11-26] MEDS: tiZANidine 4 MG TAB PO SCH ×3 (09:58→20:27)
[2016-11-26] MEDS: VALSARTAN 80 MG TAB (DIOVAN) PO SCH (09:58)
[2016-11-26] MEDS: hydrOXYzine 50 MG TAB PO SCH ×2 (09:58→20:26)
[2016-11-26 14:00] VITALS: BP 93/55
[2016-11-26 22:00] VITALS: BP 92/55
[2016-11-27 06:00] VITALS: BP 143/76
[2016-11-27] MEDS: PERCOCET 5MG/325MG TAB PO PRN ×3 (06:25→20:19)
[2016-11-27] MEDS: ENOXAPARIN 40 MG/0.4 ML SYRINGE (J1650) SC SCH (06:26)
[2016-11-27 06:58] LABS: BASO % 0.3 % (0.0-1.0); EOS # 0.3 K/mm3 (0.0-0.50); EOS % 3.4 % (0.0-3.0); LARGE UNSTAINED CELL # 0.2 K/mm3 (0.0-0.4); LARGE UNSTAINED CELL % 2.6 % (0.0-4.0); LYMPH % 11.7 % (24.0-44.0); MEAN CORPUSCULAR HEMOGLOBIN 29.6 pg (27.0-33.0); MEAN CORPUSCULAR HGB CONC 32.4 g/dl (32.0-36.5); MEAN CORPUSCULAR VOLUME 91.2 fl (80.0-96.0); MONO # 0.7 K/mm3 (0.0-0.8); MONO % 7.7 % (0.0-5.0); NEUTROPHILS # 6.3 K/mm3 (1.8-7.7); NEUTROPHILS % 74.3 % (36.0-66.0); PLATELET COUNT, AUTOMATED 392 k/mm3 (150-450); RED CELL DISTRIBUTION WIDTH 14.7 % (11.5-14.5); WHITE BLOOD COUNT 8.4 K/mm3 (4.0-10.0)
[2016-11-27] MEDS: ADVAIR DISKUS 250/50 INH PWD INH SCH ×2 (07:24→16:41)
[2016-11-27] MEDS: POTASSIUM CHLORIDE 10 MEQ SR TABLET PO SCH (09:25)
[2016-11-27] MEDS: PANTOPRAZOLE 40MG TAB (PROTONIX) PO SCH (09:25)
[2016-11-27] MEDS: PARoxetine 20 MG TAB PO SCH (09:26)
[2016-11-27] MEDS: VALSARTAN 80 MG TAB (DIOVAN) PO SCH (09:26)
[2016-11-27] MEDS: tiZANidine 4 MG TAB PO SCH ×3 (09:26→20:18)
[2016-11-27] MEDS: hydrOXYzine 50 MG TAB PO SCH ×2 (09:26→20:18)
[2016-11-27] MEDS: hydroCHLOROthiazide 25 MG TAB PO SCH (10:10)
[2016-11-27 14:00] VITALS: BP 118/64
[2016-11-27 22:00] VITALS: BP 125/70
[2016-11-28] MEDS: PERCOCET 5MG/325MG TAB PO PRN ×3 (00:51→16:25)
[2016-11-28 06:00] VITALS: BP 115/62
[2016-11-28] MEDS: ENOXAPARIN 40 MG/0.4 ML SYRINGE (J1650) SC SCH (06:02)
[2016-11-28 06:34] LABS: BASO % 0.4 % (0.0-1.0); EOS # 0.3 K/mm3 (0.0-0.50); LARGE UNSTAINED CELL # 0.2 K/mm3 (0.0-0.4); LARGE UNSTAINED CELL % 2.3 % (0.0-4.0); LYMPH # 1.1 K/mm3 (1.5-4.5); LYMPH % 15.2 % (24.0-44.0); MEAN CORPUSCULAR HEMOGLOBIN 29.3 pg (27.0-33.0); MEAN CORPUSCULAR HGB CONC 32.2 g/dl (32.0-36.5); MONO # 0.6 K/mm3 (0.0-0.8); MONO % 7.8 % (0.0-5.0); NEUTROPHILS # 5.2 K/mm3 (1.8-7.7); NEUTROPHILS % 70.3 % (36.0-66.0); PLATELET COUNT, AUTOMATED 440 k/mm3 (150-450); RED CELL DISTRIBUTION WIDTH 14.7 % (11.5-14.5); WHITE BLOOD COUNT 7.4 K/mm3 (4.0-10.0)
[2016-11-28 06:42] LABS: ANION GAP 8 MEQ/L (8-16); BLOOD UREA NITROGEN 6 MG/DL (7-18); CALCIUM LEVEL 8.9 MG/DL (8.5-10.1); CARBON DIOXIDE LEVEL 32 MEQ/L (21-32); CHLORIDE LEVEL 102 MEQ/L (98-107); CREATININE FOR GFR 0.71 MG/DL (0.55-1.02); GLOMERULAR FILTRATION RATE > 60.0 (>51); GLUCOSE, FASTING 106 MG/DL (70-105); POTASSIUM SERUM 2.3 MEQ/L (3.5-5.1); SODIUM LEVEL 142 MEQ/L (136-145)
[2016-11-28] MEDS: ADVAIR DISKUS 250/50 INH PWD INH SCH (07:29)
[2016-11-28] MEDS: hydroCHLOROthiazide 25 MG TAB PO SCH (07:48)
[2016-11-28] MEDS: tiZANidine 4 MG TAB PO SCH ×2 (07:48→16:25)
[2016-11-28] MEDS: hydrOXYzine 50 MG TAB PO SCH (07:48)
[2016-11-28 07:49] VITALS: BP 115/62
[2016-11-28] MEDS: VALSARTAN 80 MG TAB (DIOVAN) PO SCH (07:49)
[2016-11-28] MEDS: PARoxetine 20 MG TAB PO SCH (07:51)
[2016-11-28] MEDS: POTASSIUM CHLORIDE 10 MEQ SR TABLET PO SCH (07:51)
[2016-11-28] MEDS: PANTOPRAZOLE 40MG TAB (PROTONIX) PO SCH (07:51)
[2016-11-28] MEDS ORDERED: POTASSIUM CHLORIDE 10 MEQ SR TABLET PO ONE ×3 (08:00→10:00)
[2016-11-28 14:00] VITALS: BP 115/70
[2016-11-28] MEDS ORDERED: DIOV80TA3 PO (15:53)
[2016-11-28] MEDS ORDERED: PERCOCET PO (15:53)
[2016-11-28] MEDS ORDERED: K-TA1TAB PO (15:53)
--- NOTE | 2016-12-12 08:56 | DSES ---
DATE OF ADMISSION: 11/18/2016 DATE OF DISCHARGE: 11/28/2016 ADMITTING DIAGNOSIS: Sigmoid colon obstruction. HISTORY OF PRESENT ILLNESS: The patient is a pleasant 51-year-old woman who was initially seen in the emergency department on 11/07/2016. She presented with increasing abdominal pain and distention and had reported a history of some diarrhea. Imaging studies showed a dilated colon which extended all the way down to the sigmoid where she had a narrowed area. She was admitted to the hospital and treated for presumptive diagnosis of diverticulitis with a sigmoid stricture. She underwent a colonoscopy which could be advanced past the narrowing with some difficulty. The colon above this was quite dilated and full of stool. She was treated with additional stool softeners and laxatives and was able to tolerate a liquid diet and then a low residue diet. She was discharged home on 11/13/2016 to continue oral ciprofloxacin and Flagyl and follow up in my office. She returned to the office on 11/18/2016 complaining of worsening abdominal pain and distention with nausea and vomiting. She was felt to have a persistent sigmoid obstruction and is now admitted for management. HOSPITAL COURSE: The patient was admitted and initially kept nothing by mouth (n.p.o.). She received some IV hydration. The patient was counseled that her obstruction does not seem to have improved enough to allow consideration of a bowel preparation and more elective surgery. She was counseled that a more urgent approach to her surgery seemed appropriate. She was therefore scheduled for surgery on 11/20/2016. On the , she was taken to the operating room where she underwent an exploratory laparotomy. Some adhesions were lysed. She was found to have a markedly scarred strictured area in the sigmoid colon. A sigmoid colectomy was performed with oversewing of her rectal stump and an end descending colostomy. The colon and small bowel were decompressed as well. A Rogelio drain was left in the patient's pelvis postoperatively because of a small amount of fecal spillage. She also had a Hendricks catheter and nasogastric (NG) tube in place at the end of the procedure. The patient was continued on antibiotics postoperatively. An epidural catheter was utilized for postoperative pain management. She had some mild hypotension postoperatively which was felt to be at least partially due to the epidural. She received additional fluid boluses. Her BUN and creatinine did rise somewhat. Her epidural catheter was discontinued on the 15th. By postoperative day #3, her blood pressure was improved as was her urine output and her renal function. She had a small amount of fluid out her drain and this was continued. She was noted to have some edema of her thighs and lower extremities. She had a low grade temperature on postoperative day #4. Her pathology report returned indicating that she had a benign colonic stricture secondary to diverticulitis. Her ostomy began to function better. With her lower extremity swelling and development of some coughing on postoperative day #4, a duplex scan of the lower extremity was obtained and this showed no sign of deep vein thrombosis. Her incision remained clean. She had some lightly cloudy yellow fluid from her pelvic drain and this was continued. She was started on some Lasix for diuresis. She had some hypokalemia and this was repleted with supplemental potassium. Her drain had minimal output and this was discontinued on the . Her lower extremity edema diminished with diuresis. She used Percocet for pain management. Her acute kidney injury noted on 11/21/2016 in the setting of hypotension had completely resolved. She was instructed in ostomy care and on 11/28/2016 was felt to be doing well and was discharged home. FINAL DIAGNOSES: 1. Sigmoid colon obstruction secondary to scarring from diverticulitis. 2. Acute kidney injury secondary to hypotension, resolved. 3. Diabetes mellitus type 2. 4. Hypertension. 5. Hypercholesterolemia. 6. Chronic obstructive pulmonary disease. 7. Obstructive sleep apnea. 8. Osteoarthritis. 9. Chronic back pain. 10. Hypokalemia, resolved after potassium supplementation. PROCEDURE PERFORMED: Exploratory laparotomy with lysis of adhesions, sigmoid colectomy, oversewing of rectal stump and end descending colostomy. DISPOSITION: She was discharged home on 11/28/2016. She was to follow up in my office in 1 week. She was to follow up with Verónica Betancur in the next 7-10 days for followup of her medical issues. She was advised against any strenuous activity or lifting greater than 25-30 pounds. She could take a diet as tolerated and shower as desired. She was to change her ostomy appliance as needed. She was provided with prescription for Percocet to take on an as-needed basis for pain. She was prescribed potassium chloride 20 mEq by mouth twice daily. She was to continue her atorvastatin, hydrochlorothiazide, hydroxyzine, pantoprazole, paroxetine, Advair Diskus, tizanidine and vitamin D as before. She was to take one half a tablet of her 160 mg Valsartan tablets daily instead of her usual dose of 160 mg. She was to call my office for any problems with fevers, chills, wound drainage or other issues felt to be associated with her surgery.
== END 2016-11-28 17:20 | disposition home or self-care (01) | DRG 221 ==
LOC: M PED 12:30 → M MS5PR 11-20 17:19
PROVIDERS: ADMIT Surgery; ATTEND Surgery
PROC: 0D1M0Z4 Bypass Descending Colon to Cutaneous, Open Approach (ICD-10-PCS; 2016-11-20)
PROC: 0DTN0ZZ Resection of Sigmoid Colon, Open Approach (ICD-10-PCS; principal; 2016-11-20 12:15)
PROC: 0D9 Gastrointestinal System, Drainage (ICD-10-PCS; 2016-11-20 12:15)
DX: K57.32 Diverticulitis of large intestine without perforation or abscess without bleeding (principal); N17.9 Acute kidney failure, unspecified; K56.60 Unspecified intestinal obstruction; J44.9 Chronic obstructive pulmonary disease, unspecified; I10 Essential (primary) hypertension; E78.00 Pure hypercholesterolemia, unspecified; E11.9 Type 2 diabetes mellitus without complications; F17.200 Nicotine dependence, unspecified, uncomplicated; G47.33 Obstructive sleep apnea (adult) (pediatric); D12.5 Benign neoplasm of sigmoid colon; Z79.84 Long term (current) use of oral hypoglycemic drugs; Z90.710 Acquired absence of both cervix and uterus; Z99.89 Dependence on other enabling machines and devices; Z88.1 Allergy status to other antibiotic agents; Z88.5 Allergy status to narcotic agent; Z88.8 Allergy status to other drugs, medicaments and biological substances; E87.6 Hypokalemia; Z79.899 Other long term (current) drug therapy

== ENCOUNTER → 2016-12-04 | Outpatient (REF) | payer BC ==
[~2016-12-04] MED LIST changes: +DIOV80TA3 PO; +DRIS50002 PO; +K-TA1TAB PO
== END ==
LOC: M LAB REF 12-04 09:14
PROVIDERS: ATTEND Surgery
DX: E78.00 Pure hypercholesterolemia, unspecified (principal); I10 Essential (primary) hypertension; E87.6 Hypokalemia; E11.9 Type 2 diabetes mellitus without complications; E66.9 Obesity, unspecified

== ENCOUNTER → 2016-12-15 | Outpatient (REF) | payer BC ==
[2016-12-15 18:39] LABS: ANION GAP 11 MEQ/L (8-16); BLOOD UREA NITROGEN 12 MG/DL (7-18); CALCIUM LEVEL 9.5 MG/DL (8.5-10.1); CARBON DIOXIDE LEVEL 32 MEQ/L (21-32); CHLORIDE LEVEL 99 MEQ/L (98-107); CREATININE FOR GFR 0.74 MG/DL (0.55-1.02); GLOMERULAR FILTRATION RATE > 60.0 (>51); GLUCOSE, FASTING 114 MG/DL (70-105); MAGNESIUM LEVEL 1.9 MG/DL (1.8-2.4); POTASSIUM SERUM 3.5 MEQ/L (3.5-5.1); SODIUM LEVEL 142 MEQ/L (136-145)
== END ==
LOC: M SFHCADAM 07:29
PROVIDERS: ATTEND Physician Assistant
DX: Z09 Encounter for follow-up examination after completed treatment for conditions other than malignant neoplasm (principal); Z87.19 Personal history of other diseases of the digestive system; Z87.898 Personal history of other specified conditions

== ENCOUNTER → 2017-01-11 | Outpatient (CLI) | payer BC ==
--- NOTE | 2017-01-11 23:57 | ECWPNPC ---
PATIENT NAME: IVON DAVID : 1965 GENDER: FEMALE VISIT DATE: 01/11/2017 DISCHARGE DATE: 01/11/17 1530 VISIT LOCKED DATE TIME: PHYSICIAN: IVON KANG RESOURCE: IVON KANG REASON FOR APPOINTMENT 1. FOLLOW UP HISTORY OF PRESENT ILLNESS HISTORY OF PRESENT ILLNESS: PAIN THE PATIENT DESCRIBES THE PAIN... FALL RISK SCREENING: SCREENING :NO FALLS IN THE PAST YEAR TODAY'S VISIT: NOTES: HAD EPISODE OF DIVERTICULITUS WHICH DEVELOPED INTO BOWEL OBSTRUCTION AND THEN RQUIRED COLOSTOMY 11/20/16. . THEN HAD THE FLU AND WAS SICK. RATESBBACK PAIN 02/15. PAIN CENTERED IN LOW BACKLEFT SIDE.. CURRENT MEDICATIONS TAKING ZYRTEC ALLERGY 10 MG TABLET 1 TABLET ORALLY ONCE A DAY TAKING TIZANIDINE HCL 4 MG TABLET 1/2 - 1 TABLET ORALLY TAKE 1/2 TAB Q AM AND MIDDAY TAKE 1 TAB AT HS TAKING IPRATROPIUM-ALBUTEROL 0.5-2.5 (3) MG/3ML SOLUTION 3 ML INHALATION FOUR TIMES A DAY NEEDED TAKING PERCOCET 5-325 MG TABLET 1 TABLET NEEDED ORALLY EVERY 4 - 6 HRS PRN PAIN MDD=4 TAKING ADVAIR DISKUS 250-50 MCG/DOSE AEROSOL POWDER BREATH ACTIVATED 1 PUFF INHALATION TWICE A DAY TAKING HYDROXYZINE HCL 50 MG TABLET 1 TAB(S) ORALLY BID PRN TAKING PROTONIX 40 MG TABLET DELAYED RELEASE 1 TABLET ORALLY ONCE A DAY TAKING PAXIL 40 MG TABLET 1 TABLET IN THE MORNING ORALLY ONCE A DAY TAKING HYDROCHLOROTHIAZIDE 25 MG TABLET 1 TABLET ORALLY ONCE A DAY TAKING METFORMIN HCL 500 MG TABLET 1 TABLET WITH MEALS ORALLY TWICE A DAY TAKING ATORVASTATIN CALCIUM 80 MG TABLET 1 TABLET ORALLY ONCE A DAY TAKING VITAMIN D (ERGOCALCIFEROL) 82151 UNIT CAPSULE TAKE 1 CAPSULE BY MOUTH WEEKLY ORALLY WEEKLY TAKING VALSARTAN 160 MG TABLET 1 TABLET ORALLY ONCE A DAY DISCONTINUED PREDNISONE 20 MG TABLET 2 TABLET ORALLY ONCE A DAY MEDICATION LIST REVIEWED AND RECONCILED WITH THE PATIENT PAST MEDICAL HISTORY CHRONIC LOW BACK PAIN - FOLLOWED BY [facility] OSTEOARTHRITIS BILATERAL KNEES ASTHMA HYPERLIPIDEMIA DEPRESSION GENERALIZED ANXIETY DISORDER HYPERTENSION DM II LEFT PULMONARY NODULE - CT 2009 AND 2013 WITH NO CHANGE - NO FURTHER WORK UP NEEDED PER [facility]. VARICOSE VEINS OSTEOPOROSIS - LAST DEXA 04/21, NORMAL - AP SPINE T-SCORE -0.4. NORMAL BONE DENSITY - REPEAT [address] 08/2014 - STABLE PULMONARY NODULE - FIBROTIC CHANGES - FOLLOWED BY [facility] COPD - FEV1 = 1.98/FVC = 2.38 PER PFTS PER PULMONARY 09/2015 VITAMIN D DEFICIENCY ADALGISA DIAGNOSED 07/2015 - ON CPAP LUMBAR FACET ARTHROPATHY LUMBAR SPONDYLOSIS ADMITTED 11/2016 FOR BOWEL OBSTRUCTION SECONDARY TO DIVERTICULITIS - REQUIRED PARTIAL BOWEL RESECTION WITH OSTOMY PLACED. ALLERGIES MORPHINE SULFATE: HIVES: ALLERGY ZOLOFT: CONFUSION: LACK OF THERAPEUTIC EFFECT BACTRIM: HIVES: ALLERGY SULFA (FOR ALLERGY USE ONLY): HIVES: ALLERGY SOCIAL HISTORY GENERAL: TOBACCO USE ARE YOU A:NONSMOKER LEARNING BARRIERS / SPECIAL NEEDS ORIENTED TO PLAN OF CARE: PATIENT, PAIN MANAGEMENT PATIENT, ORIENTED TO PLAN OF CARE: PATIENT, PAIN MANAGEMENT PATIENT. NEW PATIENT PAIN DIARY TODAY'S VISITNOTES FROM 0-10, WHAT LEVEL IS YOUR PAIN TODAY?0 PAIN CLINIC PFS, CLERGY, PUBLIC HEALTH REFERRALS PFS REFERRAL NEEDED?NO CLERGY REFERRAL NEEDED?NO PUBLIC HEALTH REFERRAL NEEDED?NO WAS THE PROVIDER NOTIFIED OF ANY PERTINENT INFO?NO PFS REFERRAL NEEDED?NO CLERGY REFERRAL NEEDED?NO PUBLIC HEALTH REFERRAL NEEDED?NO WAS THE PROVIDER NOTIFIED OF ANY PERTINENT INFO?NO REVIEW OF SYSTEMS CONSTITUTIONAL: ANY CHANGE IN YOUR MEDICAL CONDITION? YES PT HAD EPISODE OF DIVERTICULITIS AND HOSPITALIZED 11/03. HAD A COLOSTOMY DONE 11/20/16 . CHILLS NO . FEVER NO . INFECTION: DO YOU HAVE NEW INFECTIONS? NO . DO YOU HAVE HISTORY OF MRSA? NO . MUSCULOSKELETAL: ANY NEW PATTERNS OF PAIN OR NUMBNESS? NO . GASTROENTEROLOGY: ANY NEW CHANGE IN BOWEL CONTROL? YES R/TF COLOSTOMY DONE IN NOVEMBER . GENITOURINARY: ANY NEW CHANGE IN BLADDER CONTROL? NO . IS THERE A CHANCE YOU COULD BE ? NO . HEMATOLOGY/LYMPH: DO YOU TAKE ANY BLOOD THINNERS? (FOR EXAMPLE- COUMADIN, PLAVIX, AGGRENOX, PLATEL, PRADAXA, OR XARELTO) NO . WHEN WAS YOUR LAST DOSE? DATE: TIME: . NEUROLOGY: HAVE YOU FALLEN IN THE PAST 6 MONTHS? NO . ANY NEW EXTREMITY NUMBNESS OR WEAKNESS? NO . CARDIOLOGY: DO YOU HAVE A PACEMAKER OR DEFIBRILLATOR? NO . RESPIRATORY: HAVE YOU BEEN SICK IN THE PAST WEEK? NO . FEVER NO . FLU LIKE SYMPTOMS? NO . COUGH NO . INTEGUMENTARY: DO YOU HAVE ANY RASHES OR OPEN SORES? NO . ALLERGIC/IMMUNO: ARE YOU ALLERGIC TO SHELLFISH OR IV DYE? NO . ANY NEW ALLERGIES? NO . PSYCHIATRIC: DO YOU HAVE THOUGHTS OF HURTING YOURSELF OR SOMEONE ELSE? NO . ARE YOU ABUSED, NEGLECTED, OR IN AN UNSAFE ENVIRONMENT? NO . ENDOCRINOLOGY: ARE YOU DIABETIC? YES . OTHER: DO YOU NEED ANY PRESCRIPTIONS? YES TIZANIDINE, NEEDS TO HAVE DONE BY [facility], NO LONGER SANDY'S&NBSP;. IF YES, PLEASE LIST: &NBSP;&NBSP; ____&NBSP;. ANY NEW PROBLEMS WITH YOUR MEDICATIONS? &NBSP;&NBSP; NO&NBSP;. WHEN DID YOU LAST EAT? &NBSP;&NBSP; ____&NBSP;. WHEN DID YOU LAST DRINK? &NBSP;&NBSP; ____&NBSP;. WHAT DID YOU LAST DRINK? &NBSP;&NBSP; ____&NBSP;. NAME OF PERSON DRIVING YOU HOME? &NBSP;&NBSP; ____&NBSP;. DO YOU HAVE ANY OTHER QUESTIONS OR CONCERNS &NBSP;&NBSP; NO&NBSP;. REVIEWED BY: PROVIDER: IVON ARELLANOP . VITAL SIGNS WT 207.8 LBS, HT 61 IN, BMI 39.26 INDEX, BP 118/79 MM HG, HR 84 /MIN, RR 16 /MIN, TEMP 97.1 F, OXYGEN SAT % 96%, SAFE IN ENV? (Y/N) YES, NA INITIALS SC 14:57, REVIEWED BY: LIBERTY. EXAMINATION GENERAL EXAMINATION: PSYCHALERT , APPROPRIATE MOOD AND AFFECT , ORIENTED X 3 , SMILING AND TALKATIVE. LUNGS:CLEAR TO AUSCULTATION BILATERALLY. NONPRODUCTIVE COUGH WITH DEEP BREATH. HEART:HEART RATE REGULAR. ABDOMEN:SOFT, BOWEL SOUNDS PRESENT. COLOSTOMY PRESENT RLQ WITH STOOL VISIBLE IN BAG. MUSCULOSKELETAL:MUSCLE STRENGTH TESTING 5/5 BILATERAL, PALPATION: POSITIVE FOR TENDERNESS OVER L/S SPINE LEFT SIDE ONLY. . ABLE TO RISE TO STANDING POSITION WITHOUT DIFFICULTY. POSTURE UPRIGHT, GAIT NONANTALGIC. ASSESSMENTS SPONDYLOSIS WITHOUT MYELOPATHY OR RADICULOPATHY, LUMBAR REGION - M47.816 (PRIMARY) SPONDYLOSIS WITHOUT MYELOPATHY OR RADICULOPATHY, LUMBOSACRAL REGION - M47.817 CHRONIC PRESCRIPTION OPIATE USE - Z79.891 TREATMENT SPONDYLOSIS WITHOUT MYELOPATHY OR RADICULOPATHY, LUMBAR REGION REFILL TIZANIDINE HCL TABLET, 4 MG, 1/2 - 1 TABLET, ORALLY, TAKE 1/2 TAB Q AM AND MIDDAY TAKE 1 TAB AT HS, 90 DAY(S), 180, REFILLS 3 NOTES: CONTINUE CURRENT MEDS. USE A LITTLE PAIN MED POSSIBLEWALK TOLERATED. WATCH FOR CONSTIPATION WITH PAIN MEDS. PROCEDURE CODES FA211 ESTABILISHED PATIENT [facility] CHARGE DISPOSITION & COMMUNICATION FOLLOW UP 3 MONTHS ELECTRONICALLY SIGNED BY MATTIE AGUAYO ON 01/11/2017 AT 06:58 PM EST DISCLAIMER : THIS IS A VISIT SUMMARY EXTRACTED FROM THE [employer] CHART. IT IS NOT A COPY OF THE [employer] PROGRESS NOTE. TESSA
== END ==
LOC: M PAIN 14:20
PROVIDERS: ATTEND Nurse Practitioner Family
DX: Z09 Encounter for follow-up examination after completed treatment for conditions other than malignant neoplasm (principal); G89.29 Other chronic pain; M47.816 Spondylosis without myelopathy or radiculopathy, lumbar region; M47.817 Spondylosis without myelopathy or radiculopathy, lumbosacral region; M17.0 Bilateral primary osteoarthritis of knee; I12.9 Hypertensive chronic kidney disease with stage 1 through stage 4 chronic kidney disease, or unspecified chronic kidney disease; E11.9 Type 2 diabetes mellitus without complications; J45.909 Unspecified asthma, uncomplicated; E78.5 Hyperlipidemia, unspecified; E55.9 Vitamin D deficiency, unspecified; G47.33 Obstructive sleep apnea (adult) (pediatric); M81.0 Age-related osteoporosis without current pathological fracture; F32.9 Major depressive disorder, single episode, unspecified; F41.1 Generalized anxiety disorder; Z88.5 Allergy status to narcotic agent; Z88.8 Allergy status to other drugs, medicaments and biological substances; Z88.1 Allergy status to other antibiotic agents; Z88.2 Allergy status to sulfonamides; Z79.891 Long term (current) use of opiate analgesic; Z79.51 Long term (current) use of inhaled steroids; Z79.84 Long term (current) use of oral hypoglycemic drugs; Z79.899 Other long term (current) drug therapy; Z98.890 Other specified postprocedural states

== ENCOUNTER → 2017-01-27 | Outpatient (REF) | payer BC ==
[2017-01-27 13:03] LABS: ALBUMIN 3.5 GM/DL (3.2-5.2); ALBUMIN/GLOBULIN RATIO 1.09 (1.00-1.93); ALKALINE PHOSPHATASE 118 U/L (45-117); ALT/SGPT 12 U/L (12-78); ANION GAP 7 MEQ/L (8-16); AST/SGOT 8 U/L (15-37); BILIRUBIN,TOTAL 0.3 MG/DL (0.2-1.0); BLOOD UREA NITROGEN 9 MG/DL (7-18); CALCIUM LEVEL 9.3 MG/DL (8.5-10.1); CARBON DIOXIDE LEVEL 31 MEQ/L (21-32); CHLORIDE LEVEL 101 MEQ/L (98-107); CHOLESTEROL LEVEL 176 MG/DL (<200); CREATININE FOR GFR 0.77 MG/DL (0.55-1.02); GLOMERULAR FILTRATION RATE > 60.0 (>51); GLUCOSE, FASTING 107 MG/DL (70-105); POTASSIUM SERUM 4.5 MEQ/L (3.5-5.1); SODIUM LEVEL 139 MEQ/L (136-145); TOTAL PROTEIN 6.7 GM/DL (6.4-8.2); TRIGLYCERIDES LEVEL 187 MG/DL (<150)
== END ==
LOC: M SFHCADAM 09:40
PROVIDERS: ATTEND Physician Assistant
DX: E11.9 Type 2 diabetes mellitus without complications (principal); E78.5 Hyperlipidemia, unspecified

== ENCOUNTER → 2017-03-16 | Outpatient (CLI) | payer BC ==
[~2017-03-16] VITALS: Ht 154.9 cm; Wt 94.3 kg
[~2017-03-16] MED LIST changes: +HYDR25TA6 PO; -HYDR62TA PO; +LR 1,000 ML IV SCH; +PROPOFOL 200 MG/20 ML VIAL As Ordered ONE
--- NOTE | 2017-03-16 13:29 | ROOR ---
Patient Name: Georgia Rene Procedure Date: 03/16/2017 12:47 PM Date of : 1965 Age: 51 Room: [facility] Gender: Female Note Status: Finalized Procedure: Colonoscopy Indications: Preoperative assessment Providers: Alex Richardson MD Referring MD: VALENTINO Parekh Requesting Provider: Medicines: Monitored Anesthesia Care Complications: No immediate complications. Procedure: Pre-Anesthesia Assessment: - Prior to the procedure, a History and Physical was performed, and patient medications and allergies were reviewed. The patient is competent. The risks and benefits of the procedure and the sedation options and risks were discussed with the patient. All questions were answered and informed consent was obtained. Patient identification and proposed procedure were verified by the physician, the nurse and the anesthesiologist in the procedure room. Mental Status Examination: alert and oriented. Airway Examination: normal oropharyngeal airway and neck mobility. CV Examination: regular rate and rhythm. Prophylactic Antibiotics: The patient does not require prophylactic antibiotics. Prior Anticoagulants: The patient has taken no previous anticoagulant or antiplatelet agents. ASA Grade Assessment: III - A patient with severe systemic disease. After reviewing the risks and benefits, the patient was deemed in satisfactory condition to undergo the procedure. The anesthesia plan was to use monitored anesthesia care (MAC). Immediately prior to administration of medications, the patient was re-assessed for adequacy to receive sedatives. The heart rate, respiratory rate, oxygen saturations, blood pressure, adequacy of pulmonary ventilation, and response to care were monitored throughout the procedure. The physical status of the patient was re-assessed after the procedure. The was introduced through the descending colostomy and advanced to the cecum, identified by appendiceal orifice and ileocecal valve. The colonoscopy was performed without difficulty. The patient tolerated the procedure well. The quality of the bowel preparation was good. The was introduced through the anus and advanced to the rectum for evaluation. This was the intended extent. Findings: Multiple medium-mouthed diverticula were found in the descending colon. A 5 mm polyp was found in the ascending colon. The polyp was sessile. The polyp was removed with a cold snare. Resection was complete, but the polyp tissue was not retrieved. A foreign body was found in the proximal rectum. A prolene suture was noted in the end of the rectal stump. Impression: - Diverticulosis in the descending colon. - One 5 mm polyp in the ascending colon, removed with a cold snare. Complete resection. Polyp tissue not retrieved. - Foreign body in the proximal rectum. Recommendation: - Discharge patient to home. - Resume previous diet. - Continue present medications. - Return to endoscopist in 10 days. Alex Richardson MD 03/16/2017 1:29:09 PM Number of Addenda: 0 Note Initiated On: 03/16/2017 12:47 PM Estimated Blood Loss: Estimated blood loss was minimal.
[2017-03-16 13:50] VITALS: BP 119/71
== END | disposition home or self-care (01) ==
LOC: M OPP 11:10
PROVIDERS: ATTEND Surgery
DX: Z09 Encounter for follow-up examination after completed treatment for conditions other than malignant neoplasm (principal); D12.2 Benign neoplasm of ascending colon; K57.30 Diverticulosis of large intestine without perforation or abscess without bleeding; Z93.3 Colostomy status; T18.5XXA Foreign body in anus and rectum, initial encounter; I10 Essential (primary) hypertension; E11.9 Type 2 diabetes mellitus without complications; R12 Heartburn; J44.9 Chronic obstructive pulmonary disease, unspecified; F41.9 Anxiety disorder, unspecified; F32.9 Major depressive disorder, single episode, unspecified; G47.30 Sleep apnea, unspecified; R06.83 Snoring; F17.210 Nicotine dependence, cigarettes, uncomplicated; Z87.19 Personal history of other diseases of the digestive system; Z88.5 Allergy status to narcotic agent; Z88.8 Allergy status to other drugs, medicaments and biological substances; Z79.899 Other long term (current) drug therapy

== ENCOUNTER → 2017-04-28 | Outpatient (REF) | payer BC ==
[~2017-04-28] MED LIST changes: +ALBU17IN2 INH; -LR 1,000 ML IV SCH; -PROPOFOL 200 MG/20 ML VIAL As Ordered ONE
[2017-04-28 20:01] LABS: ALBUMIN 3.5 GM/DL (3.2-5.2); ALBUMIN/GLOBULIN RATIO 0.97 (1.00-1.93); ALKALINE PHOSPHATASE 116 U/L (45-117); ALT/SGPT 12 U/L (12-78); ANION GAP 6 MEQ/L (8-16); AST/SGOT 8 U/L (15-37); BILIRUBIN,TOTAL 0.3 MG/DL (0.2-1.0); BLOOD UREA NITROGEN 17 MG/DL (7-18); CALCIUM LEVEL 9.3 MG/DL (8.5-10.1); CARBON DIOXIDE LEVEL 32 MEQ/L (21-32); CHLORIDE LEVEL 103 MEQ/L (98-107); CREATININE FOR GFR 0.79 MG/DL (0.55-1.02); GLOMERULAR FILTRATION RATE > 60.0 (>51); GLUCOSE, FASTING 126 MG/DL (70-105); POTASSIUM SERUM 3.3 MEQ/L (3.5-5.1); SODIUM LEVEL 141 MEQ/L (136-145); TOTAL PROTEIN 7.1 GM/DL (6.4-8.2)
[2017-04-28 20:02] LABS: BASO % 0.4 % (0.0-1.0); EOS # 0.2 K/mm3 (0.0-0.50); EOS % 1.6 % (0.0-3.0); LARGE UNSTAINED CELL # 0.1 K/mm3 (0.0-0.4); LARGE UNSTAINED CELL % 1.2 % (0.0-4.0); LYMPH # 2.4 K/mm3 (1.5-4.5); LYMPH % 21.5 % (24.0-44.0); MEAN CORPUSCULAR HEMOGLOBIN 30.9 pg (27.0-33.0); MEAN CORPUSCULAR HGB CONC 33.9 g/dl (32.0-36.5); MEAN CORPUSCULAR VOLUME 91.1 fl (80.0-96.0); MONO # 0.5 K/mm3 (0.0-0.8); MONO % 4.5 % (0.0-5.0); NEUTROPHILS # 7.5 K/mm3 (1.8-7.7); NEUTROPHILS % 70.8 % (36.0-66.0); PLATELET COUNT, AUTOMATED 273 k/mm3 (150-450); RED CELL DISTRIBUTION WIDTH 15.7 % (11.5-14.5); WHITE BLOOD COUNT 10.6 K/mm3 (4.0-10.0)
== END ==
LOC: M SFHCADAM 13:32
PROVIDERS: ATTEND Family Medicine
DX: Z01.818 Encounter for other preprocedural examination (principal)

== ENCOUNTER 2017-04-30 07:29 | Inpatient (IN) | payer BC ==
--- NOTE | 2017-04-29 23:05 | HPE ---
DATE OF ADMISSION: 04/30/2017 ADMISSION DIAGNOSIS: Elective colostomy closure. HISTORY OF PRESENT ILLNESS: The patient is a very pleasant 51-year-old woman who is being admitted to undergo an elective laparoscopic closure of her descending colostomy. She had been admitted to the hospital on 11/07/2016 with evidence for a sigmoid colon obstruction. She had been having problems with some diarrhea and then developed significant abdominal distension with some nausea and vomiting. She presented with several days of symptoms of obstruction. She was started on antibiotics. Ultimately she gradually improved somewhat. A colonoscopy revealed a stenotic area with dilated colon above this. We had discussed possible surgery at that time but as she improved and was able to pass some stool we elected to follow her up in the office. She returned to the hospital on 11/18/2016, with recurrent obstruction. On this admission we elected to proceed with surgery. She underwent exploratory laparotomy on 11/20/2016. At surgery she was found to have markedly dilated and thickened colon above the level of the stricture. For this reason she did not undergo an anastomosis. Also she had not been bowel prepped in any way. A sigmoid resection was performed with an end colostomy and oversewing of her rectal stump. She did well following surgery. She was discharged on 11/28/2016. She has done quite well following the surgery. She mastered care of her colostomy. She underwent a followup colonoscopy on 03/16/2017 which revealed a single small polyp in the ascending colon which was removed with a cold snare but the polyp was not recovered. She was noted to have some Prolene sutures in the end of her rectal stump. She still had some diverticulosis in the descending colon. She is now being admitted approximately 5 to 5-1/2 months postoperative from her colostomy for a laparoscopic colostomy closure. MEDICATIONS: The patient's current medications include: - Advair Diskus 250/50 mcg one puff twice a day - tizanidine 2 mg by mouth twice daily with 4 mg by mouth at bedtime - valsartan 160 mg by mouth daily - Paxil 40 mg by mouth daily - hydrochlorothiazide 25 mg by mouth daily - hydroxyzine 50 mg one tablet by mouth twice daily - metformin 500 mg one tablet by mouth twice daily - pantoprazole 40 mg by mouth daily She is to perform a mechanical and antibiotic bowel preparation with neomycin and Flagyl and Suprep on 04/29/2017. ALLERGIES: Are reported to MORPHINE, BACTRIM, ZOLOFT and SULFA. MEDICAL HISTORY: Is significant for diabetes mellitus type 2. She has a history of hypertension. She has anxiety and depression. She has been troubled with significant back pain as a more chronic issue. She has a history of hypercholesterolemia. She has chronic obstructive pulmonary disease. She has a history of obstructive sleep apnea. SURGICAL HISTORY: The patient had a hysterectomy done as an open procedure. She has undergone a right knee arthroplasty. Her knee replacement was on the right. She has had surgical treatment for hammer toes and a varicose vein stripping. In November 2016 she underwent laparotomy with a sigmoid colectomy with colostomy. FAMILY HISTORY: Noncontributory. SOCIAL HISTORY: The patient smokes approximately one pack per day. She denies any significant alcohol intake. She is . REVIEW OF SYSTEMS: Reveals no history of severe headaches, seizure or stroke. She denies any shortness of breath currently. She has had no cough or sputum production. She denies chest pain or palpitations. She is not having any abdominal pain. Her ostomy is working well. She has not noticed any passage of blood. She has chronic back issues. She denies any extremity problems currently. She has had no fevers or chills. PHYSICAL EXAMINATION: Reveals a very pleasant woman in no acute distress. Her height is 61 inches with a weight of 96 kg giving her a BMI of approximately 40. She is alert, oriented and cooperative. Sclerae are anicteric. Mucous membranes are moist. The neck is supple without mass or bruit. Heart exam shows a regular rate and rhythm. The lungs are clear to auscultation bilaterally. The abdomen is obese. She has a well-healed midline scar. Her ostomy is noted in the left side of the abdomen and has matured well. There are several obvious diverticula in the end of the stoma. She does appear to have a peristomal hernia of moderate size as well. The abdomen is otherwise without palpable mass. Extremities show no peripheral edema. She has intact radial and pedal pulses. She had laboratory studies obtained on 04/28/2017. A CBC showed a white count of 10.6 with a hemoglobin of 13, hematocrit of 39 and platelet count 273,000. Her chemistry profile showed a sodium of 141, potassium 3.3, chloride 103, CO2 of 32 , BUN of 17, creatinine 0.79 and a glucose of 126. Liver function tests are normal with a total protein of 7.1 and albumin of 3.5. ADMISSION DIAGNOSES: 1. Colostomy for elective closure status post sigmoid colectomy for obstructing diverticular stricture. 2. Diabetes mellitus type 2. 3. Hypertension. 4. Hypercholesterolemia. 5. Chronic obstructive pulmonary disease. 6. Obstructive sleep apnea. 7. Osteoarthritis. 8. Chronic back pain. 9. Anxiety. PLAN: The patient is being admitted on the morning of 04/30/2017, to undergo a laparoscopic closure of her colostomy. The patient is performing an antibiotic and mechanical bowel preparation on 04/29/2017. She will receive a dose of Invanz preoperatively as well as an oral dose of Entereg. Thromboembolism deterrents (TEDs) and sequentials will be used intraoperatively for deep venous thrombosis (DVT) prophylaxis. A Hendricks catheter will be inserted at the time of anesthesia. I counseled her that we will approach the surgery laparoscopically. She was also counseled that there is always a chance that it will be necessary to convert to an open procedure. It is impossible to know how much scar tissue she may have developed following her prior surgery. She was counseled for the risks of the procedure which include but are not limited to bleeding, infection, scarring, adverse drug reaction, need for further surgery, injury of internal organ, an anastomotic leak, and hernia. She had an opportunity to ask questions. She desires to proceed with the surgery as I have outlined it. TESSA
[~2017-04-30] VITALS: Ht 154.9 cm; Wt 96.2 kg
[2017-04-30] VITALS (7 sets, daily range): BP systolic 126–142; BP diastolic 75–83
[~2017-04-30 07:29] MED LIST changes: +ABIL10TA9 PO; +ABIL1TAB11 PO; -ABIL1TAB5 PO; -ABIL5TAB5 PO; -ATOR1TAB18 PO; +ATOR80TA59 PO; +CIPR-249 PO; -CIPR500T89 PO; -HYDR-4274 PO; +HYDR50TA70 PO; -METF500T PO; +METF500T13 PO; +PAXI40TA10 PO; -PAXI40TA2 PO
[2017-04-30] MEDS ORDERED: LR 1,000 ML IV SCH ×2 (07:45→16:00)
[2017-04-30] MEDS ORDERED: ERTAPENEM SODIUM 1 GM in NS MINI-BAG PLUS 50 ML IV ONE (07:45)
[2017-04-30] MEDS ORDERED: ALVIMOPAN 12 MG CAPSULE (ENTEREG) PO ONE (07:45)
[2017-04-30] MEDS ORDERED: LR 1,000 ML IV ONE (07:45)
[2017-04-30] MEDS ORDERED: PROPOFOL 200 MG/20 ML VIAL As Ordered ONE (08:28)
[2017-04-30] MEDS ORDERED: ROCURONIUM BROMIDE 50 MG/5 ML VIAL/SYRINGE As Ordered ONE ×3 (08:28→13:47)
[2017-04-30] MEDS ORDERED: LIDOCAINE 2% INJ 100 MG/5 ML SDV (FOR ANES.) As Ordered ONE (08:28)
[2017-04-30] MEDS ORDERED: fentaNYL 250 MCG/5 ML INJECTION (J3010) As Ordered ONE (08:28)
[2017-04-30] MEDS ORDERED: MIDAZOLAM INJ 2 MG/2 ML VIAL (J2250) As Ordered ONE (08:29)
[2017-04-30] MEDS ORDERED: BUPIVACAINE HCL 0.25% 30 ML VIAL As Ordered ONE (08:54)
[2017-04-30] MEDS ORDERED: PHENYLephrine HCL 500 MCG/5 ML (100MCG/ML) SYRINGE (J2370) As Ordered ONE (09:32)
[2017-04-30] MEDS ORDERED: ePHEDrine SULFATE 25 MG/5 ML(5MG/ML) SYRINGE As Ordered ONE (09:32)
[2017-04-30] MEDS ORDERED: dexameTHASONE 4 MG/ML 1ML VIAL (J1100) As Ordered ONE (10:26)
[2017-04-30] MEDS ORDERED: LABETALOL HCL 100 MG/20 ML VIAL As Ordered ONE ×2 (10:39→14:48)
[2017-04-30] MEDS ORDERED: REMIFENTANIL 1MG 3ML VIAL As Ordered ONE ×4 (10:40→13:51)
[2017-04-30] MEDS ORDERED: GLYCOPYRROLATE INJ 0.2 MG/ML 2 ML VIAL As Ordered ONE (13:41)
[2017-04-30] MEDS ORDERED: NEOSTIGMINE 1MG/ML 5 ML SYRINGE (J2710) As Ordered ONE (13:41)
[2017-04-30] MEDS ORDERED: HYDROmorphone HCL 2 MG/ML 1ML VIAL (J1170) As Ordered ONE (13:41)
[2017-04-30] MEDS ORDERED: ONDANSETRON 4MG/2ML VIAL (J2405) As Ordered ONE (13:43)
[2017-04-30] MEDS ORDERED: NORCO, ANEXSIA 5/325MG TABLET (HYDROcodone/ACETAMINOPHEN) PO PRN ×2 (15:45)
[2017-04-30] MEDS ORDERED: ACETAMINOPHEN TAB 650MG DOSE (2X325MG) PO PRN (15:45)
[2017-04-30] MEDS ORDERED: ONDANSETRON 4MG/2ML VIAL (J2405) IV PRN ×2 (15:45→16:00)
[2017-04-30] MEDS ORDERED: METOCLOPRAMIDE INJ 10MG/2ML VIAL (J2765) IV PRN ×2 (15:45→16:00)
[2017-04-30] MEDS ORDERED: MORPHINE 2 MG/ML 1ML SYRINGE IV PRN (15:45)
[2017-04-30] MEDS ORDERED: MORPHINE 4 MG/ML 1ML SYRINGE IV PRN (15:45)
[2017-04-30] MEDS ORDERED: fentaNYL 100 MCG/2 ML INJECTION (J3010) IV PRN (16:00)
[2017-04-30] MEDS ORDERED: HYDROmorphone HCL 1 MG/ML SYRINGE (J1170) IV PRN (16:00)
[2017-04-30] MEDS: LR 1,000 ML IV SCH (17:21)
[2017-04-30] MEDS: HumaLOG INSULIN (NovoLOG) PER UNIT SC SCH ×2 (17:54→21:00)
[2017-04-30] MEDS: KETOROLAC 30 MG/ML VIAL (J1885) IV SCH ×2 (17:54→23:37)
[2017-04-30] MEDS: ADVAIR DISKUS 250/50 INH PWD INH SCH (19:52)
[2017-04-30] MEDS: ALVIMOPAN 12 MG CAPSULE (ENTEREG) PO SCH (20:45)
[2017-04-30] MEDS: tiZANidine 4 MG TAB PO SCH (20:45)
[2017-04-30] MEDS: ENOXAPARIN 40 MG/0.4 ML SYRINGE (J1650) SC SCH (23:38)
[2017-05-01 02:00] VITALS: BP 121/68
[2017-05-01] MEDS: LR 1,000 ML IV SCH ×3 (02:22→22:09)
[2017-05-01] MEDS: tiZANidine 4 MG TAB PO SCH ×3 (05:35→21:31)
[2017-05-01] MEDS: KETOROLAC 30 MG/ML VIAL (J1885) IV SCH ×4 (05:35→23:20)
[2017-05-01 06:00] VITALS: BP 124/70
[2017-05-01 07:13] LABS: BASO % 0.1 % (0.0-1.0); EOS % 0.1 % (0.0-3.0); LARGE UNSTAINED CELL # 0.1 K/mm3 (0.0-0.4); LARGE UNSTAINED CELL % 0.8 % (0.0-4.0); LYMPH # 1.4 K/mm3 (1.5-4.5); LYMPH % 8.1 % (24.0-44.0); MEAN CORPUSCULAR HEMOGLOBIN 31.2 pg (27.0-33.0); MEAN CORPUSCULAR HGB CONC 34.8 g/dl (32.0-36.5); MEAN CORPUSCULAR VOLUME 89.8 fl (80.0-96.0); MONO # 0.9 K/mm3 (0.0-0.8); MONO % 5.5 % (0.0-5.0); NEUTROPHILS # 13.6 K/mm3 (1.8-7.7); NEUTROPHILS % 85.4 % (36.0-66.0); PLATELET COUNT, AUTOMATED 273 k/mm3 (150-450); RED CELL DISTRIBUTION WIDTH 15.7 % (11.5-14.5); WHITE BLOOD COUNT 15.9 K/mm3 (4.0-10.0)
[2017-05-01 07:20] LABS: ANION GAP 8 MEQ/L (8-16); BLOOD UREA NITROGEN 12 MG/DL (7-18); CALCIUM LEVEL 8.6 MG/DL (8.5-10.1); CARBON DIOXIDE LEVEL 30 MEQ/L (21-32); CHLORIDE LEVEL 102 MEQ/L (98-107); CREATININE FOR GFR 0.69 MG/DL (0.55-1.02); GLOMERULAR FILTRATION RATE > 60.0 (>51); GLUCOSE, FASTING 127 MG/DL (70-105); POTASSIUM SERUM 3.2 MEQ/L (3.5-5.1); SODIUM LEVEL 140 MEQ/L (136-145)
[2017-05-01] MEDS: ADVAIR DISKUS 250/50 INH PWD INH SCH ×2 (07:48→19:34)
[2017-05-01] MEDS: PARoxetine 20 MG TAB PO SCH (08:33)
[2017-05-01] MEDS: HumaLOG INSULIN (NovoLOG) PER UNIT SC SCH ×4 (08:33→21:00)
[2017-05-01] MEDS: hydroCHLOROthiazide 25 MG TAB PO SCH (08:33)
[2017-05-01] MEDS: PANTOPRAZOLE 40MG TAB (PROTONIX) PO SCH (08:33)
[2017-05-01] MEDS: ALVIMOPAN 12 MG CAPSULE (ENTEREG) PO SCH ×2 (08:33→21:31)
[2017-05-01] MEDS: VALSARTAN 80 MG TAB (DIOVAN) PO SCH (08:34)
[2017-05-01 10:00] VITALS: BP 128/72
[2017-05-01] MEDS ORDERED: PERCOCET 5MG/325MG TAB PO PRN (11:00)
[2017-05-01 14:00] VITALS: BP 123/76
[2017-05-01] MEDS: PERCOCET 5MG/325MG TAB PO PRN (14:25)
[2017-05-01 22:00] VITALS: BP 114/65
[2017-05-01] MEDS: ENOXAPARIN 40 MG/0.4 ML SYRINGE (J1650) SC SCH (23:21)
[2017-05-02 02:00] VITALS: BP 105/59
[2017-05-02] MEDS: tiZANidine 4 MG TAB PO SCH ×3 (05:32→22:03)
[2017-05-02] MEDS: KETOROLAC 30 MG/ML VIAL (J1885) IV SCH ×2 (05:32→12:01)
[2017-05-02 06:00] VITALS: BP 145/82
[2017-05-02] MEDS: ADVAIR DISKUS 250/50 INH PWD INH SCH ×2 (07:26→19:36)
[2017-05-02] MEDS: HumaLOG INSULIN (NovoLOG) PER UNIT SC SCH ×4 (08:14→21:00)
[2017-05-02] MEDS: LR 1,000 ML IV SCH (08:14)
[2017-05-02] MEDS: PANTOPRAZOLE 40MG TAB (PROTONIX) PO SCH (08:14)
[2017-05-02] MEDS: PARoxetine 20 MG TAB PO SCH (08:14)
[2017-05-02] MEDS: VALSARTAN 80 MG TAB (DIOVAN) PO SCH (08:14)
[2017-05-02] MEDS: hydroCHLOROthiazide 25 MG TAB PO SCH (08:14)
[2017-05-02] MEDS: ALVIMOPAN 12 MG CAPSULE (ENTEREG) PO SCH ×2 (08:14→19:58)
--- NOTE | 2017-05-02 09:36 | RO ---
DATE OF PROCEDURE: 04/30/2017 PREOPERATIVE DIAGNOSIS: Descending colostomy for elective closure. POSTOPERATIVE DIAGNOSES: 1. Descending colostomy for elective closure. 2. Extensive abdominal and pelvic adhesions. 3. Parastomal hernia. 4. Diverticulosis. PROCEDURE PERFORMED: Laparoscopic colostomy closure, extensive lysis of adhesions, resection of proximal rectum and repair of hernia. SURGEON: Dr. Alex Richardson PRESCRIPTION CLERK: Dr. Garcia ANESTHESIA: General. INDICATIONS FOR PROCEDURE: The patient is a 51-year-old woman who had been admitted earlier in 2017 with a sigmoid obstruction secondary to stricture from diverticulosis and diverticulitis. She underwent a sigmoid resection with end colostomy. She has done well. Followup colonoscopy revealed persistent diverticulosis of the descending colon with a short rectal stump with some Prolene sutures noted in the distal end of the rectal stump. The patient is now for a laparoscopic colostomy closure. OPERATIVE PROCEDURE: The patient was placed on the operating table in a supine position. She was placed under general endotracheal anesthesia. Thromboembolic deterrent stockings (TEDS) and sequentials were utilized. A Hendricks catheter was inserted. I performed a digital rectal exam and some hard fragments of congealed mucus were removed. The patient's ostomy appliance was removed and her stoma was closed with two pursestring sutures of #2-0 silk. The patient's abdomen was then prepped and draped in a sterile fashion. Initial entry to the abdomen was obtained in the right lower quadrant several centimeters below the umbilicus at approximately the midclavicular line. Local anesthesia was achieved with 0.25% Marcaine and a small incision was made. A Veress needle was inserted and the abdomen was inflated with carbon dioxide gas. A 5 mm port was placed over a 5 mm scope and this was advanced through the abdominal wall without difficulty. Inspection revealed extensive adhesions of the omentum to the anterior abdominal wall. There were some free areas in the right lower quadrant and in the lateral aspect of the abdomen on the right extending up to a point where portions of the liver were visible. A second 5 mm trocar was placed lower in the right lower quadrant and then extensive dissection of adhesions was then performed. Some of the adhesions looked quite filmy, but it was not possible to break these apart bluntly and these were divided using the harmonic scalpel. An extensive dissection of adhesions across the lower and mid abdominal wall extending up into the upper abdomen was performed. As dissection proceeded, there were areas where the omentum had been freed, but was now adherent to the underlying small bowel and this required additional lysis of adhesions, elevating the omentum and freeing this from the underlying bowel. An additional 10 mm trocar was placed just below the umbilicus along her old midline scar. Ultimately, the site of the stoma in her left upper quadrant was identified and tissues adherent up into an obvious parastomal hernia were also freed and reduced. The patient was tilted to a Trendelenburg position. The cecum was found to be densely adherent down into the mid pelvis. A slow and steady lysis of adhesions was performed to free the cecum and proximal ascending colon so that this could be elevated out of the pelvis. The appendix was found to be adherent along the lateral aspect of the pelvis on the left. There was a nodule of what appeared to be fibrotic or necrotic omentum adherent over a portion of the terminal ileum in the left lower quadrant which required some persistent dissection to free this and the loop of bowel. Ultimately, the terminal ileum which found to cross completely across the pelvis into the left lower quadrant. This was freed so that the cecum and the terminal ileum could be freed up out of the pelvis. This dissection of adhesions and freeing of the bowel took at least 2-3 hours. Attention was then turned to the freeing of the stoma. An elliptical incision was made about the stoma and this was then carried through the abdominal wall freeing the bowel from the subcutaneous tissues. Once this had been freed, the descending colon was delivered through the ostomy site. Some adhesions between the colon and the surrounding omentum and mesentery were then freed to gain additional length to the descending colon so that this could be brought down into the pelvis. The end of the colon at the sutured stoma was excised. The patient was noted to have some persistent significant diverticulosis and care was taken to try to avoid diverticula in the course of dissection. Some fibrotic tissue at the end of the colon was excised. The colon dilated readily. A 29 mm EEA stapler was selected. A pursestring suture of #2-0 Prolene was placed in the end of the colon and the anvil of the stapler was inserted and the pursestring tied down. An additional suture was placed to pull a diverticulum in toward the center post of the stapler. This end of the colon was then irrigated and returned to the abdomen. The layers of the abdominal wall appeared to be fused. I cleared some of the hernia sac from the subcutaneous tissues down to the level of the fascia and this was excised. The stoma was sent as a pathologic specimen. The parastomal hernia sac was also sent as a separate specimen. I then closed the abdominal wall in a single layer with interrupted simple sutures of #1 Vicryl. The stoma site wound was filled with a moistened lap pad. Attention was then turned back to the pelvis. The patient was returned to a steep Trendelenburg position. In the pelvis, the short rectal stump was identified but had been thoroughly reperitonealized. The tip of the stump was grasped and dissection was performed circumferentially using the harmonic scalpel to free the rectum. Dissection proceeded distally perhaps 5 cm to reach an area of soft and pliable tissue. The end of the rectal stump was quite fibrotic and nodular with a lot of scarring evident. The infraumbilical trocar was converted to a 12 and an echelon stapler was inserted. It was possible to staple across the rectum with two loads of the echelon stapler. The small portion of rectum that was resected was placed in an Endopouch. The anvil of the stapler was grasped with the anvil grasper and the descending colon would pull down readily into the pelvis without significant tension. I moved down to the rectum and advanced the stapler into the anus and up to the end of the rectal stump. This appeared to lie close to 10 cm up. The stapler was positioned and the post of the stapler was advanced out the end of the rectum. The anvil was attached and the stapler was then closed and fired. The stapler was removed and inspection revealed two intact donuts of tissue. The suture line of the pursestring in the proximal donut was intact. There was an eccentric portion of mucosa primarily in the distal donut, but the donut was also intact. I then proceeded with a flexible sigmoidoscopic exam. The bowel was clamped internally by Dr. Garcia. With insufflation of air, there were no air bubbles identified coming from the area of the anastomosis. Inspection showed what appeared to be an intact anastomosis with no bleeding. The scope was then removed. I would note that we had changed gown and gloves and converted to the closing tray of instruments after the end of the descending colon had been returned to the abdomen and before closing the stoma site. I now changed gown and gloves again and returned to the abdomen. The abdomen was irrigated and inspection showed no evidence of bleeding. The areas of the adhesiolysis were inspected and there was no sign of any bowel perforation or leakage. A small amount of retained irrigation in the left upper quadrant was removed. The patient was returned to a flat position. The abdomen was deflated and the trocars were removed. The portion of rectum in the Endopouch was recovered through the infraumbilical site. This necessitated extending the incision perhaps to 2-3 cm in length. This portion of rectum was sent as a third pathology specimen. The incision at the infraumbilical site was closed with #0 Vicryl. The three small trocar site incisions were closed with buried #4-0 Vicryl and Steri-Strips. The ostomy site was closed with interrupted simple sutures of #4-0 nylon closing the skin and subcutaneous tissues. Three small segments of Mauricio drain were placed between the sutures into the subcutaneous space and the wound was dressed with Adaptic and a bulky bandage. The patient tolerated the procedure well. The procedure had taken nearly 5 hours, but there were no serious problems identified. The patient was awakened in the operating room, extubated and transported to the recovery room in stable condition. TESSA
[2017-05-02] MEDS: PERCOCET 5MG/325MG TAB PO PRN ×2 (12:44→19:58)
[2017-05-02 14:00] VITALS: BP 116/79
[2017-05-02 22:00] VITALS: BP 109/63
[2017-05-02] MEDS: ENOXAPARIN 40 MG/0.4 ML SYRINGE (J1650) SC SCH (23:32)
[2017-05-03] MEDS: PERCOCET 5MG/325MG TAB PO PRN ×3 (04:33→18:18)
[2017-05-03] MEDS: tiZANidine 4 MG TAB PO SCH ×3 (05:50→21:32)
[2017-05-03 06:00] VITALS: BP 113/62
[2017-05-03] MEDS: ADVAIR DISKUS 250/50 INH PWD INH SCH ×2 (07:34→21:00)
[2017-05-03] MEDS: VALSARTAN 80 MG TAB (DIOVAN) PO SCH (08:13)
[2017-05-03] MEDS: PANTOPRAZOLE 40MG TAB (PROTONIX) PO SCH (08:13)
[2017-05-03] MEDS: PARoxetine 20 MG TAB PO SCH (08:14)
[2017-05-03] MEDS: ALVIMOPAN 12 MG CAPSULE (ENTEREG) PO SCH ×2 (08:14→21:33)
[2017-05-03] MEDS: hydroCHLOROthiazide 25 MG TAB PO SCH (08:14)
[2017-05-03] MEDS: HumaLOG INSULIN (NovoLOG) PER UNIT SC SCH ×2 (08:15→13:38)
[2017-05-03 10:00] VITALS: BP 115/77
[2017-05-03 14:00] VITALS: BP 132/84
[2017-05-03] MEDS: metFORMIN (GLUCOPHAGE) 500 MG TAB PO SCH (18:17)
[2017-05-03] MEDS: ENOXAPARIN 40 MG/0.4 ML SYRINGE (J1650) SC SCH (21:32)
[2017-05-03 22:00] VITALS: BP 133/72
[2017-05-04] MEDS: PERCOCET 5MG/325MG TAB PO PRN ×2 (00:08→09:23)
[2017-05-04 06:00] VITALS: BP 120/68
[2017-05-04] MEDS: tiZANidine 4 MG TAB PO SCH (06:49)
[2017-05-04 07:32] LABS: BASO % 0.3 % (0.0-1.0); EOS # 0.2 K/mm3 (0.0-0.50); EOS % 2.2 % (0.0-3.0); LARGE UNSTAINED CELL # 0.1 K/mm3 (0.0-0.4); LARGE UNSTAINED CELL % 1.4 % (0.0-4.0); LYMPH # 1.3 K/mm3 (1.5-4.5); LYMPH % 13.6 % (24.0-44.0); MEAN CORPUSCULAR HEMOGLOBIN 30.6 pg (27.0-33.0); MEAN CORPUSCULAR HGB CONC 33.2 g/dl (32.0-36.5); MEAN CORPUSCULAR VOLUME 92.3 fl (80.0-96.0); MONO # 0.5 K/mm3 (0.0-0.8); MONO % 6.2 % (0.0-5.0); NEUTROPHILS # 6.8 K/mm3 (1.8-7.7); NEUTROPHILS % 76.4 % (36.0-66.0); PLATELET COUNT, AUTOMATED 293 k/mm3 (150-450); RED CELL DISTRIBUTION WIDTH 15.6 % (11.5-14.5); WHITE BLOOD COUNT 8.8 K/mm3 (4.0-10.0)
[2017-05-04 07:43] LABS: ANION GAP 7 MEQ/L (8-16); BLOOD UREA NITROGEN 10 MG/DL (7-18); CALCIUM LEVEL 9.2 MG/DL (8.5-10.1); CARBON DIOXIDE LEVEL 32 MEQ/L (21-32); CHLORIDE LEVEL 100 MEQ/L (98-107); GLOMERULAR FILTRATION RATE > 60.0 (>51); GLUCOSE, FASTING 99 MG/DL (70-105); POTASSIUM SERUM 3.1 MEQ/L (3.5-5.1); SODIUM LEVEL 139 MEQ/L (136-145)
[2017-05-04 09:21] VITALS: BP 120/68
[2017-05-04] MEDS: VALSARTAN 80 MG TAB (DIOVAN) PO SCH (09:21)
[2017-05-04] MEDS: hydroCHLOROthiazide 25 MG TAB PO SCH (09:21)
[2017-05-04] MEDS: PARoxetine 20 MG TAB PO SCH (09:22)
[2017-05-04] MEDS: PANTOPRAZOLE 40MG TAB (PROTONIX) PO SCH (09:22)
[2017-05-04] MEDS: ALVIMOPAN 12 MG CAPSULE (ENTEREG) PO SCH (09:22)
[2017-05-04] MEDS: metFORMIN (GLUCOPHAGE) 500 MG TAB PO SCH (09:22)
[2017-05-04] MEDS ORDERED: POTASSIUM CHLORIDE 10 MEQ SR TABLET PO ONE (09:30)
[2017-05-04] MEDS ORDERED: PERCOCET PO (09:33)
--- NOTE | 2017-06-04 21:15 | DSES ---
DATE OF ADMISSION: 04/30/2017 DATE OF DISCHARGE: 05/04/2017 ADMISSION DIAGNOSIS: Elective colostomy closure. HISTORY OF PRESENT ILLNESS: The patient is a pleasant 51-year-old woman who was admitted on 04/30 to undergo an elective laparoscopic closure of her descending colostomy. She had been admitted to the hospital on 11/07/2016, with evidence for a sigmoid colon obstruction. A colonoscopy revealed a stenotic area with dilated colon proximal to that. The narrowing was in the sigmoid colon. The patient had improved somewhat with antibiotic therapy and dietary management and was discharged home to followup in the office. She returned to the hospital on 11/18 with recurrent obstruction. She underwent an exploratory laparotomy on 11/20 and was found to have markedly dilated and thickened colon above the level of the stricture. For this reason, she underwent an end colostomy with oversewing of her rectal stump. She did quite well. She is now being readmitted to undergo closure of her colostomy. A colonoscopy was performed on 03/16 which revealed a single small polyp in the ascending colon. She was noted to have some Prolene sutures evident in the end of her rectal stump and still had some diverticulosis in her remaining descending colon. HOSPITAL COURSE: The patient was admitted on the morning of 04/30. She had performed a mechanical and antibiotic bowel preparation utilizing SuPrep, neomycin, and Flagyl the day before admission. She was taken to the operating room where she underwent a laparoscopic colostomy closure with extensive lysis of adhesions and resection of the proximal rectum, as well as repair of a ventral parastomal hernia. She did very well following surgery. She was readily advanced back to a regular diet. She tolerated this well with return of bowel function. Several small [place]wood drains had been left in her ostomy site wound at the conclusion of her procedure , and these were removed on postoperative day three. She was tolerating oral pain medications and was discharged home on postoperative day four, which was 05/04/2017. FINAL DIAGNOSES: 1. Colostomy for elective closure. 2. Diabetes mellitus type 2. 3. Hypertension. 4. Hypercholesterolemia. 5. Chronic obstructive pulmonary disease. 6. Obstructive sleep apnea. 7. Osteoarthritis. 8. Chronic back pain. 9. Anxiety. 10. Ventral (parastomal) hernia. 11. Hypokalemia. PROCEDURE PERFORMED: Laparoscopic closure of colostomy, lysis of adhesions, repair of ventral (parastomal) hernia, and resection of proximal rectum. DISPOSITION: She was discharged home on 05/04 in good condition. She was advised against any strenuous physical activity and advised to avoid any lifting greater than 25-30 pounds. She was to followup in one week for removal of her sutures with one of the office staff and was to followup with me in approximately two weeks. She was advised that she could shower as desired and was to change the dressing on her ostomy site wound daily. She was provided a prescription for Percocet to take on an as-needed basis for pain. She was to continue all of her usual preadmission medications including albuterol inhaler, atorvastatin, hydrochlorothiazide, hydroxyzine, metformin, pantoprazole, paroxetine, Advair Diskus, tizanidine hydrochloride, valsartan, and vitamin D. She was to followup with her primary physician regarding her low potassium identified at the time of her hospital admission. TESSA
== END 2017-05-04 11:05 | disposition home or self-care (01) | DRG 221 ==
LOC: M OR 07:29 → M MS5PR 16:45
PROVIDERS: ADMIT Surgery; ATTEND Surgery
PROC: 0DNW4ZZ Release Peritoneum, Percutaneous Endoscopic Approach (ICD-10-PCS; 2017-04-30)
PROC: 0DN84ZZ Release Small Intestine, Percutaneous Endoscopic Approach (ICD-10-PCS; 2017-04-30)
PROC: 0DNH4ZZ Release Cecum, Percutaneous Endoscopic Approach (ICD-10-PCS; 2017-04-30)
PROC: 0DNB4ZZ Release Ileum, Percutaneous Endoscopic Approach (ICD-10-PCS; 2017-04-30)
PROC: 0DTP4ZZ Resection of Rectum, Percutaneous Endoscopic Approach (ICD-10-PCS; 2017-04-30)
PROC: 0WQF4ZZ Repair Abdominal Wall, Percutaneous Endoscopic Approach (ICD-10-PCS; principal; 2017-04-30 09:00)
DX: Z43.3 Encounter for attention to colostomy (principal); J44.9 Chronic obstructive pulmonary disease, unspecified; I10 Essential (primary) hypertension; K43.5 Parastomal hernia without obstruction or gangrene; E11.9 Type 2 diabetes mellitus without complications; E78.00 Pure hypercholesterolemia, unspecified; G47.33 Obstructive sleep apnea (adult) (pediatric); F41.9 Anxiety disorder, unspecified; E87.6 Hypokalemia; M19.90 Unspecified osteoarthritis, unspecified site; M54.5 Low back pain; Z79.899 Other long term (current) drug therapy; Z88.2 Allergy status to sulfonamides; Z88.5 Allergy status to narcotic agent; Z88.8 Allergy status to other drugs, medicaments and biological substances; F17.200 Nicotine dependence, unspecified, uncomplicated; N73.6 Female pelvic peritoneal adhesions (postinfective); K57.30 Diverticulosis of large intestine without perforation or abscess without bleeding

== ENCOUNTER → 2017-05-25 | Outpatient (CLI) | payer BC ==
--- NOTE | 2017-06-13 23:47 | ECWPNPC ---
PATIENT NAME: IVON DAVID : 1965 GENDER: FEMALE VISIT DATE: 05/25/2017 DISCHARGE DATE: 05/25/17 1206 VISIT LOCKED DATE TIME: PHYSICIAN: IVON KANG RESOURCE: IVON KANG REASON FOR APPOINTMENT 1. INCREASING PAIN HISTORY OF PRESENT ILLNESS HISTORY OF PRESENT ILLNESS: PAIN THE PATIENT DESCRIBES THE PAIN... FALL RISK SCREENING: SCREENING :NO FALLS IN THE PAST YEAR TODAY'S VISIT: NOTES: RATES PAIN TODAY -05/17 NOTING RIGHT SIDED HIP AND GROIN AREA PAIN WITH RADIATION TO RIGHT THIGH AND NUMBNESS IN THIS AREA. IS S/P BOWEL SECTION REVERSAAL 05/02/17 WITH GOOD HEALING OF SURGICAL SITE. . CURRENT MEDICATIONS TAKING ZYRTEC ALLERGY 10 MG TABLET 1 TABLET ORALLY ONCE A DAY TAKING HYDROXYZINE HCL 50 MG TABLET 1 TAB(S) ORALLY BID PRN TAKING PROTONIX 40 MG TABLET DELAYED RELEASE 1 TABLET ORALLY ONCE A DAY TAKING PAXIL 40 MG TABLET 1 TABLET IN THE MORNING ORALLY ONCE A DAY TAKING HYDROCHLOROTHIAZIDE 25 MG TABLET 1 TABLET ORALLY ONCE A DAY TAKING VITAMIN D (ERGOCALCIFEROL) 08962 UNIT CAPSULE TAKE 1 CAPSULE BY MOUTH WEEKLY ORALLY WEEKLY TAKING TIZANIDINE HCL 4 MG TABLET 1/2 - 1 TABLET ORALLY TAKE 1/2 TAB Q AM AND MIDDAY TAKE 1 TAB AT HS TAKING METFORMIN HCL 500 MG TABLET 1 TABLET WITH MEALS ORALLY TWICE A DAY TAKING ATORVASTATIN CALCIUM 80 MG TABLET 1 TABLET ORALLY ONCE A DAY TAKING VALSARTAN 160 MG TABLET 1 TABLET ORALLY ONCE A DAY TAKING ADVAIR DISKUS 250-50 MCG/DOSE AEROSOL POWDER BREATH ACTIVATED 1 PUFF INHALATION TWICE A DAY TAKING IPRATROPIUM-ALBUTEROL 0.5-2.5 (3) MG/3ML SOLUTION 3 ML INHALATION FOUR TIMES A DAY NEEDED TAKING POTASSIUM CHLORIDE DASIA ER 20 MEQ TABLET EXTENDED RELEASE 1 TABLET WITH FOOD ORALLY ONCE A DAY TAKING PERCOCET 5-325 MG TABLET 1 TABLET NEEDED ORALLY EVERY 4 - 6 HRS PRN PAIN MDD=4 NOT-TAKING PREDNISONE 20 MG TABLET 2 TABLET ORALLY ONCE A DAY NOT-TAKING DOXYCYCLINE MONOHYDRATE 100 MG TABLET 1 TABLET ORALLY EVERY 12 HRS NOT-TAKING FLONASE ALLERGY RELIEF 50 MCG/ACT SUSPENSION 1 SPRAY IN EACH NOSTRIL NASALLY ONCE A DAY MEDICATION LIST REVIEWED AND RECONCILED WITH THE PATIENT PAST MEDICAL HISTORY CHRONIC LOW BACK PAIN - FOLLOWED BY [facility] OSTEOARTHRITIS BILATERAL KNEES ASTHMA HYPERLIPIDEMIA DEPRESSION GENERALIZED ANXIETY DISORDER HYPERTENSION DM II LEFT PULMONARY NODULE - CT 2009 AND 2013 WITH NO CHANGE - NO FURTHER WORK UP NEEDED PER [facility]. VARICOSE VEINS OSTEOPOROSIS - LAST DEXA 04/21, NORMAL - AP SPINE T-SCORE -0.4. NORMAL BONE DENSITY - REPEAT [address] 08/2014 - STABLE PULMONARY NODULE - FIBROTIC CHANGES - FOLLOWED BY [facility] COPD - FEV1 = 1.98/FVC = 2.38 PER PFTS PER PULMONARY 09/2015 VITAMIN D DEFICIENCY ADALGISA DIAGNOSED 07/2015 - ON CPAP LUMBAR FACET ARTHROPATHY LUMBAR SPONDYLOSIS ADMITTED 11/2016 FOR BOWEL OBSTRUCTION SECONDARY TO DIVERTICULITIS - REQUIRED PARTIAL BOWEL RESECTION WITH OSTOMY PLACED. ALLERGIES MORPHINE SULFATE: HIVES: ALLERGY ZOLOFT: CONFUSION: LACK OF THERAPEUTIC EFFECT BACTRIM: HIVES: ALLERGY SULFA (FOR ALLERGY USE ONLY): HIVES: ALLERGY SURGICAL HISTORY HYSTERECTOMY (STILL HAS OVARIES) 03/12 CYST REMOVED FROM OVARY 2003 LLE VARICOSE VEIN REMOVAL AND LASER ABLATION OF LEFT GREAT SAPHENOUS VEIN () 09/15 LEFT KNEE ARTHROSCOPY (DR. ALEX RAMIRES) RIGHT TKA - ([facility]) 01/2014 REMOVAL OF CYST LEFT ARM 2010 REPAIR HAMMERTOES LEFT FOOT 2009 BOWEL RESECTION 11/20/16 COLOSTOMY REVERSAL 04/2017 HOSPITALIZATION/MAJOR DIAGNOSTIC PROCEDURE SURGERIES BOWEL BLOCKAGE 11/03/16-11/28/16 REVIEW OF SYSTEMS REVIEWED BY: PROVIDER: IVON TAN . CONSTITUTIONAL: ANY CHANGE IN YOUR MEDICAL CONDITION? LAST MONTH (APRIL) REVERSAL OF COLOSTOMY (AFTER 6 MONTHS) . CHILLS NO . FEVER NO . INFECTION: DO YOU HAVE NEW INFECTIONS? NO . DO YOU HAVE HISTORY OF MRSA? NO . MUSCULOSKELETAL: ANY NEW PATTERNS OF PAIN OR NUMBNESS? YES, RIGHT SI AREA FOR PAST 1-1/2 WEEK MORE PAIN AND MAKES TOP OF RIGHT LEG NUMB . GASTROENTEROLOGY: ANY NEW CHANGE IN BOWEL CONTROL? NO . GENITOURINARY: ANY NEW CHANGE IN BLADDER CONTROL? NO . IS THERE A CHANCE YOU COULD BE ? NO . HEMATOLOGY/LYMPH: DO YOU TAKE ANY BLOOD THINNERS? (FOR EXAMPLE- COUMADIN, PLAVIX, AGGRENOX, PLATEL, PRADAXA, OR XARELTO) NO . WHEN WAS YOUR LAST DOSE? DATE: TIME: . NEUROLOGY: HAVE YOU FALLEN IN THE PAST 6 MONTHS? NO . ANY NEW EXTREMITY NUMBNESS OR WEAKNESS? NO . CARDIOLOGY: DO YOU HAVE A PACEMAKER OR DEFIBRILLATOR? NO . RESPIRATORY: HAVE YOU BEEN SICK IN THE PAST WEEK? NO . FEVER NO . FLU LIKE SYMPTOMS? NO . COUGH NO . INTEGUMENTARY: DO YOU HAVE ANY RASHES OR OPEN SORES? NO . ALLERGIC/IMMUNO: ARE YOU ALLERGIC TO SHELLFISH OR IV DYE? NO . ANY NEW ALLERGIES? NO . PSYCHIATRIC: DO YOU HAVE THOUGHTS OF HURTING YOURSELF OR SOMEONE ELSE? NO . ARE YOU ABUSED, NEGLECTED, OR IN AN UNSAFE ENVIRONMENT? NO . ENDOCRINOLOGY: ARE YOU DIABETIC? YES . OTHER: DO YOU NEED ANY PRESCRIPTIONS? NO . IF YES, PLEASE LIST: ____ . ANY NEW PROBLEMS WITH YOUR MEDICATIONS? NO . WHEN DID YOU LAST EAT? ____ . WHEN DID YOU LAST DRINK? ____ . WHAT DID YOU LAST DRINK? ____ . NAME OF PERSON DRIVING YOU HOME? ____ . DO YOU HAVE ANY OTHER QUESTIONS OR CONCERNS NO . VITAL SIGNS WT 212.0 LBS, HT 61 IN, BMI 40.05 INDEX, BP 116/82 MM HG, HR 79 /MIN, RR 18 /MIN, TEMP 97.8 F, OXYGEN SAT % 99%, NA INITIALS TL 1149. EXAMINATION GENERAL EXAMINATION: PSYCHALERT , APPROPRIATE MOOD AND AFFECT , ORIENTED X 3 , SMILING AND TALKATIVE. LUNGS:CLEAR TO AUSCULTATION BILATERALLY. . HEART:HEART RATE REGULAR. ABDOMEN:SOFT, BOWEL SOUNDS PRESENT.. WELL HEALED ABD INCISION - NO DRAINAGE, NO ERYTHEMA. MUSCULOSKELETAL:MUSCLE STRENGTH TESTING 5/5 BILATERAL, PALPATION: POSITIVE FOR TENDERNESS OVER L/S SPINE LEFT SIDE ONLY. . ABLE TO RISE TO STANDING POSITION SLOWLY POSTURE UPRIGHT, GAIT NONANTALGIC. ASSESSMENTS SPONDYLOSIS WITHOUT MYELOPATHY OR RADICULOPATHY, LUMBAR REGION - M47.816 (PRIMARY) SPONDYLOSIS WITHOUT MYELOPATHY OR RADICULOPATHY, LUMBOSACRAL REGION - M47.817 CHRONIC PRESCRIPTION OPIATE USE - Z79.891 TREATMENT SPONDYLOSIS WITHOUT MYELOPATHY OR RADICULOPATHY, LUMBAR REGION INJECTION FACET JOINT/NERVE ISAEL/SACRALIVON KANG 05/25/2017 11:55:31 AM > THERAPEUTIC RIGHT LUMBAR FACET BLOCK L4-5, L5-S1 NOTES: FACET JOINT INJECTION MATERIAL WAS PRINTED. CLINICAL NOTES: ISTOP REGISTRY REVIEWED AND DEMNOSTRATES COMPLLIANCE. BRINGS IN MEDICATIONS WHICH IS APPROPRIATE FOR WHAT WAS DISPENSED. DR AYAH DID TEMPRARILY INCREASE HER OXYCODONE AFTER HER SURGERY. RECENT URINE TOXICOLOGY REVIEWED. NO UNAUTHORIZED MEDICATIONS. NO ILLICIT SUBSTANCES AND PRESCRIBED MEDICATIONS WERE PRESENT. PREVENTIVE MEDICINE DISCUSSED PREPROCEDURE CARE AND THE FACET INJECTION AND PT VERBALIZED UNDERSTANDING. PROCEDURE CODES FA211 ESTABILISHED PATIENT [facility] CHARGE DISPOSITION & COMMUNICATION FOLLOW UP AFTER INJECTION - PLEASE CANCEL 06/08 APPT (REASON: REQUEST AUTH THERAPEUTIC RIGHT LUMBAR FACET BLOCK L4-5, L5-S1) ELECTRONICALLY SIGNED BY MATTIE AGUAYO ON 06/13/2017 AT 01:25 PM EDT DISCLAIMER : THIS IS A VISIT SUMMARY EXTRACTED FROM THE [employer] CHART. IT IS NOT A COPY OF THE [employer] PROGRESS NOTE. TESSA
== END ==
LOC: M PAIN 11:40
PROVIDERS: ATTEND Nurse Practitioner Family
DX: G89.29 Other chronic pain (principal); M47.816 Spondylosis without myelopathy or radiculopathy, lumbar region; M47.817 Spondylosis without myelopathy or radiculopathy, lumbosacral region; M17.0 Bilateral primary osteoarthritis of knee; J44.9 Chronic obstructive pulmonary disease, unspecified; E78.5 Hyperlipidemia, unspecified; F32.9 Major depressive disorder, single episode, unspecified; F41.1 Generalized anxiety disorder; I10 Essential (primary) hypertension; E11.9 Type 2 diabetes mellitus without complications; F17.200 Nicotine dependence, unspecified, uncomplicated; E55.9 Vitamin D deficiency, unspecified; G47.33 Obstructive sleep apnea (adult) (pediatric); Z88.5 Allergy status to narcotic agent; Z88.1 Allergy status to other antibiotic agents; Z88.2 Allergy status to sulfonamides; Z88.8 Allergy status to other drugs, medicaments and biological substances; Z79.84 Long term (current) use of oral hypoglycemic drugs; Z79.891 Long term (current) use of opiate analgesic; Z79.899 Other long term (current) drug therapy

== ENCOUNTER → 2017-06-09 | Outpatient (CLI) | payer BC ==
[~2017-06-09] MED LIST changes: +BUPIVACAINE HCL 0.25% 30 ML VIAL As Ordered ONE; +ISOVUE-M 300 61% 15ML VIAL (Q9967) As Ordered ONE; +LIDOCAINE 1% SDV INJ 30 ML VIAL As Ordered ONE; +TRIAMCINOLONE ACETONIDE SUSP 40 MG/ML VIAL (J3301) As Ordered ONE
--- NOTE | 2017-06-09 16:54 | REP ---
FACET BLOCK: The images were reviewed with Dr. Courtney. The patient has a history of low back pain. The portable C-ARM was provided in the OR for Dr. Watson for fluoroscopic guidance. 2 intraoperative fluoroscopic spot films were obtained using last image hold technology for needle placement verification for right lumbar facet injection. The films are on the PACs system and are available for review. 28 seconds of fluoroscopic time was utilized for this procedure. Reviewed by SHARON Arriaza 06/10/2017 05:43 PEdited and Signed by Artur Corutney MD 06/10/2017 06:48 P
--- NOTE | 2017-06-28 00:15 | ECWPNPC ---
PATIENT NAME: IVON DAVID : 1965 GENDER: FEMALE VISIT DATE: 06/09/2017 DISCHARGE DATE: 06/09/17 1012 VISIT LOCKED DATE TIME: PHYSICIAN: MOHAMUD RIGGINS RESOURCE: MOHAMUD RIGGINS REASON FOR APPOINTMENT 1. LUMBAR FACET HISTORY OF PRESENT ILLNESS HISTORY OF PRESENT ILLNESS: PAIN THE PATIENT DESCRIBES THE PAIN... FALL RISK SCREENING: SCREENING :NO FALLS IN THE PAST YEAR CURRENT MEDICATIONS TAKING ZYRTEC ALLERGY 10 MG TABLET 1 TABLET ORALLY ONCE A DAY, NOTES: 06/08/17 TAKING HYDROXYZINE HCL 50 MG TABLET 1 TAB(S) ORALLY BID PRN, NOTES: 06/07/17 TAKING PROTONIX 40 MG TABLET DELAYED RELEASE 1 TABLET ORALLY ONCE A DAY, NOTES: 06/08/17 TAKING PAXIL 40 MG TABLET 1 TABLET IN THE MORNING ORALLY ONCE A DAY, NOTES: 06/08/17 TAKING HYDROCHLOROTHIAZIDE 25 MG TABLET 1 TABLET ORALLY ONCE A DAY, NOTES: 06/08/17 TAKING VITAMIN D (ERGOCALCIFEROL) 81212 UNIT CAPSULE TAKE 1 CAPSULE BY MOUTH WEEKLY ORALLY WEEKLY, NOTES: 1 WEEK AGO TAKING TIZANIDINE HCL 4 MG TABLET 1/2 - 1 TABLET ORALLY TAKE 1/2 TAB Q AM AND MIDDAY TAKE 1 TAB AT HS, NOTES: 06/08/17 TAKING METFORMIN HCL 500 MG TABLET 1 TABLET WITH MEALS ORALLY TWICE A DAY, NOTES: 06/08/17 TAKING ATORVASTATIN CALCIUM 80 MG TABLET 1 TABLET ORALLY ONCE A DAY, NOTES: 06/08/17 TAKING VALSARTAN 160 MG TABLET 1 TABLET ORALLY ONCE A DAY, NOTES: 06/08/17 TAKING ADVAIR DISKUS 250-50 MCG/DOSE AEROSOL POWDER BREATH ACTIVATED 1 PUFF INHALATION TWICE A DAY, NOTES: @1500 TAKING IPRATROPIUM-ALBUTEROL 0.5-2.5 (3) MG/3ML SOLUTION 3 ML INHALATION FOUR TIMES A DAY NEEDED, NOTES: 06/07/17@1199 TAKING POTASSIUM CHLORIDE DASIA ER 20 MEQ TABLET EXTENDED RELEASE 1 TABLET WITH FOOD ORALLY ONCE A DAY, NOTES: 06/08/1708 TAKING PERCOCET 5-325 MG TABLET 1 TABLET NEEDED ORALLY EVERY 4 - 6 HRS PRN PAIN MDD=4, NOTES: 06/08/17@1800 NOT-TAKING PREDNISONE 20 MG TABLET 2 TABLET ORALLY ONCE A DAY NOT-TAKING DOXYCYCLINE MONOHYDRATE 100 MG TABLET 1 TABLET ORALLY EVERY 12 HRS NOT-TAKING FLONASE ALLERGY RELIEF 50 MCG/ACT SUSPENSION 1 SPRAY IN EACH NOSTRIL NASALLY ONCE A DAY MEDICATION LIST REVIEWED AND RECONCILED WITH THE PATIENT PAST MEDICAL HISTORY CHRONIC LOW BACK PAIN - FOLLOWED BY [facility] PAIN [facility]INIC OSTEOARTHRITIS BILATERAL KNEES ASTHMA HYPERLIPIDEMIA DEPRESSION GENERALIZED ANXIETY DISORDER HYPERTENSION DM II LEFT PULMONARY NODULE - CT 2009 AND 2013 WITH NO CHANGE - NO FURTHER WORK UP NEEDED PER [facility] CR[facility]. VARICOSE VEINS OSTEOPOROSIS - LAST DEXA 04/21, NORMAL - AP SPINE T-SCORE -0.4. NORMAL BONE DENSITY - REPEAT [address] 08/2014 - STABLE PULMONARY NODULE - FIBROTIC CHANGES - FOLLOWED BY [facility] COPD - FEV1 = 1.98/FVC = 2.38 PER PFTS PER PULMONARY 09/2015 VITAMIN D DEFICIENCY ADALGISA DIAGNOSED 07/2015 - ON CPAP LUMBAR FACET ARTHROPATHY LUMBAR SPONDYLOSIS ADMITTED 11/2016 FOR BOWEL OBSTRUCTION SECONDARY TO DIVERTICULITIS - REQUIRED PARTIAL BOWEL RESECTION WITH OSTOMY PLACED. ALLERGIES MORPHINE SULFATE: HIVES: ALLERGY ZOLOFT: CONFUSION: LACK OF THERAPEUTIC EFFECT BACTRIM: HIVES: ALLERGY SULFA (FOR ALLERGY USE ONLY): HIVES: ALLERGY SOCIAL HISTORY GENERAL: TOBACCO USE ARE YOU A:CURRENT SMOKER HOW MANY CIGARETTES A DAY DO YOU SMOKE?5 OR LESS HOW SOON AFTER YOU WAKE UP DO YOU SMOKE YOUR FIRST CIGARETTE?6-30 MIN HOW OFTEN DO YOU SMOKE CIGARETTES?EVERY DAY PATIENT COUNSELED ON THE DANGERS OF TOBACCO USE AND URGED TO QUIT:06/09/2017 ARE YOU INTERESTED IN QUITTING?NOT READY TO QUIT COUNSELED THE PATIENT ON SMOKING EFFECTS, EDUCATION GIFHDLNY21/02/2017 LUNG CANCER SCREENING SMOKING STATUS:CURRENT SMOKER BMI CARE GOAL FOLLOW-UP ABOVE NORMAL BMI FOLLOW-UPDIETARY MANAGEMENT EDUCATION, GUIDANCE, AND COUNSELING ALCOHOL SCREENING DID YOU HAVE A DRINK CONTAINING ALCOHOL IN THE PAST YEAR?NO POINTS0 INTERPRETATIONNEGATIVE RECREATIONAL DRUG USE DRUG USE?NO CAFFEINE CAFFEINE USE?YES HOW OFTEN AND HOW MUCH? 4 CUPS DAILY DIET: REGULAR. MARITAL STATUS: . DENOMINATIONAL DENOMINATIONAL NO YAZIDISM BELIEFS THAT WOULD IMPACT HEALTH CARE. LANGUAGE LANGUAGES SPOKEN:SAUDI ARABIAN LEARNING BARRIERS / SPECIAL NEEDS CHANGE FROM LAST VISIT?NO BARRIERS TO LEARNING?NO HEARING IMPAIRED?NO VISION IMPAIRED?YES :CORRECTIVE LENSES COGNITIVELY IMPAIRED?NO READINESS TO LEARN?YES LEARNING PREFERENCES?NO LEARNING CAPABILITIES PRESENT?YES EMOTIONAL BARRIERS?NO SPECIAL DEVICES?NO APPAREL DESIGNER NEEDED?NO NEW PATIENT PAIN DIARY TODAY'S VISIT NOTES, FROM 0-10, WHAT LEVEL IS YOUR PAIN TODAY? 0. PAIN CLINIC PFS, CLERGY, PUBLIC HEALTH REFERRALS PFS REFERRAL NEEDED? NO, CLERGY REFERRAL NEEDED? NO, PUBLIC HEALTH REFERRAL NEEDED? NO, WAS THE PROVIDER NOTIFIED OF ANY PERTINENT INFO? NO, PFS REFERRAL NEEDED? NO, CLERGY REFERRAL NEEDED? NO, PUBLIC HEALTH REFERRAL NEEDED? NO, WAS THE PROVIDER NOTIFIED OF ANY PERTINENT INFO? NO. DR. SHEA FOR ROUTINE SANDER AND POLISHER CARE AND SCREENINGS. REVIEW OF SYSTEMS REVIEWED BY: PROVIDER: . CONSTITUTIONAL: ANY CHANGE IN YOUR MEDICAL CONDITION? NO . CHILLS NO . FEVER NO . INFECTION: DO YOU HAVE NEW INFECTIONS? NO . DO YOU HAVE HISTORY OF MRSA? NO . MUSCULOSKELETAL: ANY NEW PATTERNS OF PAIN OR NUMBNESS? NO . GASTROENTEROLOGY: ANY NEW CHANGE IN BOWEL CONTROL? NO . GENITOURINARY: ANY NEW CHANGE IN BLADDER CONTROL? NO . IS THERE A CHANCE YOU COULD BE ? NO . HEMATOLOGY/LYMPH: DO YOU TAKE ANY BLOOD THINNERS? (FOR EXAMPLE- COUMADIN, PLAVIX, AGGRENOX, PLATEL, PRADAXA, OR XARELTO) NO . WHEN WAS YOUR LAST DOSE? DATE: TIME: . NEUROLOGY: HAVE YOU FALLEN IN THE PAST 6 MONTHS? NO . ANY NEW EXTREMITY NUMBNESS OR WEAKNESS? NO . CARDIOLOGY: DO YOU HAVE A PACEMAKER OR DEFIBRILLATOR? NO . RESPIRATORY: HAVE YOU BEEN SICK IN THE PAST WEEK? NO . FEVER NO . FLU LIKE SYMPTOMS? NO . COUGH NO . INTEGUMENTARY: DO YOU HAVE ANY RASHES OR OPEN SORES? NO . ALLERGIC/IMMUNO: ARE YOU ALLERGIC TO SHELLFISH OR IV DYE? NO . ANY NEW ALLERGIES? NO . PSYCHIATRIC: DO YOU HAVE THOUGHTS OF HURTING YOURSELF OR SOMEONE ELSE? NO . ARE YOU ABUSED, NEGLECTED, OR IN AN UNSAFE ENVIRONMENT? NO . ENDOCRINOLOGY: ARE YOU DIABETIC? YES . OTHER: DO YOU NEED ANY PRESCRIPTIONS? NO . IF YES, PLEASE LIST: ____ . ANY NEW PROBLEMS WITH YOUR MEDICATIONS? NO . WHEN DID YOU LAST EAT? ____06/08/17 . WHEN DID YOU LAST DRINK? ____06/08/17 . WHAT DID YOU LAST DRINK? ____COFFEE . NAME OF PERSON DRIVING YOU HOME? ____ANNALISA DAVID . DO YOU HAVE ANY OTHER QUESTIONS OR CONCERNS NO . VITAL SIGNS WT 212 LBS, HT 61 IN, BMI 40.05 INDEX, BP 105/55 MM HG, HR 72 /MIN, RR 18 /MIN, TEMP 97.8 F, OXYGEN SAT % 96%, NA INITIALS AW 0904, REVIEWED BY: VD. ASSESSMENTS SPONDYLOSIS WITHOUT MYELOPATHY OR RADICULOPATHY, LUMBAR REGION - M47.816 (PRIMARY) SPONDYLOSIS WITHOUT MYELOPATHY OR RADICULOPATHY, LUMBOSACRAL REGION - M47.817 PROCEDURES PN LUMBAR FACET BLOCK THERAPEUTIC PRE PROCEDURE DIAGNOSIS LUMBAR SPONDYLOSIS, LUMBOSACRAL SPONDYLOSIS POST PROCEDURE DIAGNOSIS LUMBAR SPONDYLOSIS, LUMBOSACRAL SPONDYLOSIS PROCEDURE RIGHT L4-L5 AND RIGHT L5-S1 LUMBAR FACET THERAPEUTIC BLOCK SURGEON DR. MOHAMUD RIGGINS EGG BREAKING MACHINE OPERATOR NONE ANESTHESIA LOCAL PRE PROCEDURE NOTE THE PATIENT HAS A HISTORY OF CHRONIC LOW BACK PAIN. I EVALUATE THE PATIENT AND REVIEWED THE CHART. I WENT OVER THE RISKS, ALTERNATIVES, AND BENEFITS ASSOCIATED WITH THIS PROCEDURE. THE PATIENT WOULD LIKE TO PROCEED AND GIVE CONSENT TO PERFORMED THE PROCEDURE. THE PATIENT DENIES UNEXPLAINABLE WEIGHT LOSS, FEVER, CHILLS, OR NEW CHANGES IN URINARY OR BOWEL CONTROL DESCRIPTION OF PROCEDURE THE PATIENT WAS BROUGHT TO THE PROCEDURE ROOM AND PLACED IN THE PRONE POSITION. THE LUMBOSACRAL AREA WAS CLEANED WITH CHLORAPREP SOLUTION AND DRAPED ASEPTICALLY. THE PROCEDURE WAS DONE UNDER STERILE CONDITIONS. I CHECKED LATERALITY AND THE LEVEL WHERE THE PROCEDURE WAS GOING TO BE PERFORMED WITH THE PATIENT AND THE SUPPORTING STAFF AT THE MOMENT OF THE TIME OUT IN THE PROCEDURE ROOM. UNDER FLUOROSCOPIC GUIDANCE, THE TARGET POINT WAS SELECTED AT THE RIGHT L4-L5 AND RIGHT L5-S1 FACET JOINT. TARGET POINT WAS SELECTED AFTER LATERAL ROTATION AND TILT OF THE MAGNIFIER OF THE C-ARM. LIDOCAINE 0.5% WAS USED TO NUMB THE SKIN AND THE SUBCUTANEOUS TISSUE BELOW IT. SPINAL NEEDLES, 22-GAUGE, WERE ADVANCED UNDER FLUOROSCOPIC GUIDANCE AND FOLLOWING PATIENT FEEDBACK UNTIL THE TARGETS WERE TOUCHED. THE POSITION OF THE NEEDLES WAS VERIFIED WITH AP AND LATERAL VIEWS. AFTER PROPER POSITION OF THE NEEDLES WAS ACHIEVED, ISOVUE-M DYE 30% 0.1 ML WAS INJECTED SHOWING ADEQUATE SPREAD OF THE DYE. THEN A SOLUTION OF 1.9 ML OF BUPIVACAINE 0.125% OF KENALOG 10 MG WAS INJECTED AT EACH SITE. THERE WAS NO EVIDENCE OF BLOOD, PARESTHESIA OR CEREBROSPINAL FLUID DURING THE PROCEDURE. THE PATIENT WAS SENT TO THE RECOVERY ROOM. THE PATIENT WAS MOVING THE EXTREMITIES AND DOING WELL. THERE WAS NO COMPLICATION DURING THE PROCEDURE. FLUOROSCOPY TIME WAS 28 SECONDS POST PROCEDURE NOTE THE PATIENT WILL BE SEEN IN A FOLLOW UP IN THE NEXT FEW WEEKS. INSTRUCTIONS WERE GIVEN, QUESTIONS WERE ANSWERED, AND THE PATIENT EXPRESSED UNDERSTANDING AND AGREES WITH THE PLAN. I, CARMELITA SUTTON, DOCUMENTED THE ABOVE INFORMATION ACTING A SCRIBE FOR DR. RIGGINS. I HAVE REVIEWED THE ABOVE DOCUMENT, WRITTEN BY CARMELITA SUTTON [place] AND I VERIFY THAT IT IS ACCURATE DIAGNOSTIC IMAGING [facility] FACET BLOCK (PAIN)[id number] PROCEDURE CODES 12551 INJ PARAVERT F JNT L/S 1 LEV 62762 INJ PARAVERT F JNT L/S 2 LEV 6045F RADXPS IN END [id number] PXD DISPOSITION & COMMUNICATION FOLLOW UP 3 WEEKS ELECTRONICALLY SIGNED BY MOHAMUD RIGGINS MD ON 06/27/2017 AT 12:00 PM EDT DISCLAIMER : THIS IS A VISIT SUMMARY EXTRACTED FROM THE [employer] CHART. IT IS NOT A COPY OF THE [employer] PROGRESS NOTE. MTDD
== END ==
LOC: M PAIN 09:00
PROVIDERS: ATTEND Anesthesiology
DX: G89.29 Other chronic pain (principal); M47.816 Spondylosis without myelopathy or radiculopathy, lumbar region; M47.817 Spondylosis without myelopathy or radiculopathy, lumbosacral region; M17.0 Bilateral primary osteoarthritis of knee; J45.909 Unspecified asthma, uncomplicated; E78.5 Hyperlipidemia, unspecified; F32.9 Major depressive disorder, single episode, unspecified; I10 Essential (primary) hypertension; E11.9 Type 2 diabetes mellitus without complications; F17.210 Nicotine dependence, cigarettes, uncomplicated; Z88.5 Allergy status to narcotic agent; Z88.1 Allergy status to other antibiotic agents; Z88.2 Allergy status to sulfonamides; Z88.8 Allergy status to other drugs, medicaments and biological substances; Z79.84 Long term (current) use of oral hypoglycemic drugs; Z79.891 Long term (current) use of opiate analgesic; Z79.899 Other long term (current) drug therapy
CPT/HCPCS: 64493; 64494; J3301; Q9967

== ENCOUNTER → 2017-06-25 | Outpatient (CLI) | payer BC ==
[~2017-06-25] MED LIST changes: -BUPIVACAINE HCL 0.25% 30 ML VIAL As Ordered ONE; -ISOVUE-M 300 61% 15ML VIAL (Q9967) As Ordered ONE; -LIDOCAINE 1% SDV INJ 30 ML VIAL As Ordered ONE; -TRIAMCINOLONE ACETONIDE SUSP 40 MG/ML VIAL (J3301) As Ordered ONE
--- NOTE | 2017-07-11 23:49 | ECWPNPC ---
PATIENT NAME: IVON DAVID : 1965 GENDER: FEMALE VISIT DATE: 06/25/2017 DISCHARGE DATE: 06/25/17 0953 VISIT LOCKED DATE TIME: PHYSICIAN: IVON KANG RESOURCE: IVON KANG REASON FOR APPOINTMENT 1. POST PROCEDURE HISTORY OF PRESENT ILLNESS HISTORY OF PRESENT ILLNESS: PAIN THE PATIENT DESCRIBES THE PAIN... FALL RISK SCREENING: SCREENING :NO FALLS IN THE PAST YEAR TODAY'S VISIT: NOTES: IS S/P RIGHT THERAPEUTIC LUMBAR FACET BLOCK COMPLETED ON 06/09/17. PAIN LEVEL 6/10 PRIOR TO INJECTION AND HAS BEEN DOWN TO 2/10. REPORTS THIS HAS ABLE INCLEASE STANDING AND WALKING. PAIN IS NO LONGER RADIATING TO RIGHT LEG. . CURRENT MEDICATIONS TAKING ZYRTEC ALLERGY 10 MG TABLET 1 TABLET ORALLY ONCE A DAY TAKING HYDROXYZINE HCL 50 MG TABLET 1 TAB(S) ORALLY BID PRN TAKING PROTONIX 40 MG TABLET DELAYED RELEASE 1 TABLET ORALLY ONCE A DAY TAKING PAXIL 40 MG TABLET 1 TABLET IN THE MORNING ORALLY ONCE A DAY TAKING HYDROCHLOROTHIAZIDE 25 MG TABLET 1 TABLET ORALLY ONCE A DAY TAKING VITAMIN D (ERGOCALCIFEROL) 37142 UNIT CAPSULE TAKE 1 CAPSULE BY MOUTH WEEKLY ORALLY WEEKLY TAKING TIZANIDINE HCL 4 MG TABLET 1/2 - 1 TABLET ORALLY TAKE 1/2 TAB Q AM AND MIDDAY TAKE 1 TAB AT HS TAKING METFORMIN HCL 500 MG TABLET 1 TABLET WITH MEALS ORALLY TWICE A DAY TAKING ATORVASTATIN CALCIUM 80 MG TABLET 1 TABLET ORALLY ONCE A DAY TAKING VALSARTAN 160 MG TABLET 1 TABLET ORALLY ONCE A DAY TAKING ADVAIR DISKUS 250-50 MCG/DOSE AEROSOL POWDER BREATH ACTIVATED 1 PUFF INHALATION TWICE A DAY TAKING IPRATROPIUM-ALBUTEROL 0.5-2.5 (3) MG/3ML SOLUTION 3 ML INHALATION FOUR TIMES A DAY NEEDED TAKING POTASSIUM CHLORIDE DASIA ER 20 MEQ TABLET EXTENDED RELEASE 1 TABLET WITH FOOD ORALLY ONCE A DAY TAKING PERCOCET 5-325 MG TABLET 1 TABLET NEEDED ORALLY EVERY 4 - 6 HRS PRN PAIN MDD=4 TAKING OXYCODONE-ACETAMINOPHEN 5-325 MG TABLET 1 TABLET NEEDED ORALLY EVERY 6 HRS PRN PAIN MDD=4 DISCONTINUED PREDNISONE 20 MG TABLET 2 TABLET ORALLY ONCE A DAY DISCONTINUED DOXYCYCLINE MONOHYDRATE 100 MG TABLET 1 TABLET ORALLY EVERY 12 HRS DISCONTINUED FLONASE ALLERGY RELIEF 50 MCG/ACT SUSPENSION 1 SPRAY IN EACH NOSTRIL NASALLY ONCE A DAY MEDICATION LIST REVIEWED AND RECONCILED WITH THE PATIENT PAST MEDICAL HISTORY CHRONIC LOW BACK PAIN - FOLLOWED BY [facility] PAIN CLINIC OSTEOARTHRITIS BILATERAL KNEES ASTHMA HYPERLIPIDEMIA DEPRESSION GENERALIZED ANXIETY DISORDER HYPERTENSION DM II LEFT PULMONARY NODULE - CT 2009 AND 2013 WITH NO CHANGE - NO FURTHER WORK UP NEEDED PER [facility] CRITER[facility]. VARICOSE VEINS OSTEOPOROSIS - LAST DEXA 04/21, NORMAL - AP SPINE T-SCORE -0.4. NORMAL BONE DENSITY - REPEAT [address] 08/2014 - STABLE PULMONARY NODULE - FIBROTIC CHANGES - FOLLOWED BY [facility] COPD - FEV1 = 1.98/FVC = 2.38 PER PFTS PER PULMONARY 09/2015 VITAMIN D DEFICIENCY ADALGISA DIAGNOSED 07/2015 - ON CPAP LUMBAR FACET ARTHROPATHY LUMBAR SPONDYLOSIS ADMITTED 11/2016 FOR BOWEL OBSTRUCTION SECONDARY TO DIVERTICULITIS - REQUIRED PARTIAL BOWEL RESECTION WITH OSTOMY PLACED. ALLERGIES MORPHINE SULFATE: HIVES: ALLERGY ZOLOFT: CONFUSION: LACK OF THERAPEUTIC EFFECT BACTRIM: HIVES: ALLERGY SULFA (FOR ALLERGY USE ONLY): HIVES: ALLERGY REVIEW OF SYSTEMS REVIEWED BY: PROVIDER: IVON ARELLANOP . CONSTITUTIONAL: ANY CHANGE IN YOUR MEDICAL CONDITION? YES, COLOSTOMY REVERSAL ON 04/30/17 . CHILLS NO . FEVER NO . INFECTION: DO YOU HAVE NEW INFECTIONS? NO . DO YOU HAVE HISTORY OF MRSA? NO . MUSCULOSKELETAL: ANY NEW PATTERNS OF PAIN OR NUMBNESS? NO . GASTROENTEROLOGY: ANY NEW CHANGE IN BOWEL CONTROL? NO . GENITOURINARY: ANY NEW CHANGE IN BLADDER CONTROL? NO . IS THERE A CHANCE YOU COULD BE ? NO . HEMATOLOGY/LYMPH: DO YOU TAKE ANY BLOOD THINNERS? (FOR EXAMPLE- COUMADIN, PLAVIX, AGGRENOX, PLATEL, PRADAXA, OR XARELTO) NO . WHEN WAS YOUR LAST DOSE? DATE: TIME: . NEUROLOGY: HAVE YOU FALLEN IN THE PAST 6 MONTHS? NO . ANY NEW EXTREMITY NUMBNESS OR WEAKNESS? NO . CARDIOLOGY: DO YOU HAVE A PACEMAKER OR DEFIBRILLATOR? NO . RESPIRATORY: HAVE YOU BEEN SICK IN THE PAST WEEK? NO . FEVER NO . FLU LIKE SYMPTOMS? NO . COUGH NO . INTEGUMENTARY: DO YOU HAVE ANY RASHES OR OPEN SORES? NO . ALLERGIC/IMMUNO: ARE YOU ALLERGIC TO SHELLFISH OR IV DYE? NO . ANY NEW ALLERGIES? NO . PSYCHIATRIC: DO YOU HAVE THOUGHTS OF HURTING YOURSELF OR SOMEONE ELSE? NO . ARE YOU ABUSED, NEGLECTED, OR IN AN UNSAFE ENVIRONMENT? NO . ENDOCRINOLOGY: ARE YOU DIABETIC? YES . OTHER: DO YOU NEED ANY PRESCRIPTIONS? YES . IF YES, PLEASE LIST: PERCOCET . ANY NEW PROBLEMS WITH YOUR MEDICATIONS? NO . WHEN DID YOU LAST EAT? ____ . WHEN DID YOU LAST DRINK? ____ . WHAT DID YOU LAST DRINK? ____ . NAME OF PERSON DRIVING YOU HOME? ____ . DO YOU HAVE ANY OTHER QUESTIONS OR CONCERNS NO . VITAL SIGNS WT 212 LBS, HT 61 IN, BMI 40.05 INDEX, BP 113/75 MM HG, HR 71 /MIN, RR 18 /MIN, TEMP 97.6 F, OXYGEN SAT % 95%, NA INITIALS AW 0911, REVIEWED BY: CM. EXAMINATION GENERAL EXAMINATION: PSYCHALERT , APPROPRIATE MOOD AND AFFECT , ORIENTED X 3 , SMILING AND TALKATIVE. LUNGS:CLEAR TO AUSCULTATION BILATERALLY. . HEART:HEART RATE REGULAR. ABDOMEN:SOFT, BOWEL SOUNDS PRESENT.. WELL HEALED ABD INCISION - NO DRAINAGE, NO ERYTHEMA. MUSCULOSKELETAL:MUSCLE STRENGTH TESTING 5/5 BILATERAL, PALPATION: MINIMAL TENDERNESS OVER L/S SPINE LEFT SIDE ONLY. . ABLE TO RISE TO STANDING POSITION SLOWLY POSTURE UPRIGHT, GAIT NONANTALGIC. ASSESSMENTS SPONDYLOSIS WITHOUT MYELOPATHY OR RADICULOPATHY, LUMBAR REGION - M47.816 (PRIMARY) SPONDYLOSIS WITHOUT MYELOPATHY OR RADICULOPATHY, LUMBOSACRAL REGION - M47.817 TREATMENT SPONDYLOSIS WITHOUT MYELOPATHY OR RADICULOPATHY, LUMBAR REGION NOTES: USE MINIMAL PAIN MEDS AT THIS TIME. WALK EVERY DAY. CLINICAL NOTES: ISTOP REGISTRY REVIEWED AND DEMNOSTRATES COMPLLIANCE. BRINGS IN MEDICATIONS WHICH IS APPROPRIATE FOR WHAT WAS DISPENSED. RECENT URINE TOXICOLOGY REVIEWED. NO UNAUTHORIZED MEDICATIONS. NO ILLICIT SUBSTANCES AND PRESCRIBED MEDICATIONS WERE PRESENT. PROCEDURE CODES FA211 ESTABILISHED PATIENT [facility] CHARGE DISPOSITION & COMMUNICATION FOLLOW UP 2 MONTHS (REASON: BACK PAIN) ELECTRONICALLY SIGNED BY MATTIE AGUAYO ON 07/11/2017 AT 01:41 PM EDT DISCLAIMER : THIS IS A VISIT SUMMARY EXTRACTED FROM THE [employer] CHART. IT IS NOT A COPY OF THE [employer] PROGRESS NOTE. TESSA
== END ==
LOC: M PAIN 09:00
PROVIDERS: ATTEND Nurse Practitioner Family
DX: Z79.891 Long term (current) use of opiate analgesic (principal); G89.29 Other chronic pain; M47.816 Spondylosis without myelopathy or radiculopathy, lumbar region; M47.817 Spondylosis without myelopathy or radiculopathy, lumbosacral region; E55.9 Vitamin D deficiency, unspecified; E11.9 Type 2 diabetes mellitus without complications; F32.9 Major depressive disorder, single episode, unspecified; I10 Essential (primary) hypertension; F17.200 Nicotine dependence, unspecified, uncomplicated; J44.1 Chronic obstructive pulmonary disease with (acute) exacerbation; Z88.5 Allergy status to narcotic agent; Z88.1 Allergy status to other antibiotic agents; Z88.8 Allergy status to other drugs, medicaments and biological substances; Z88.2 Allergy status to sulfonamides; Z79.84 Long term (current) use of oral hypoglycemic drugs; Z79.899 Other long term (current) drug therapy

== ENCOUNTER → 2017-07-29 | Outpatient (REF) | payer BC ==
[2017-07-29 14:02] LABS: BLOOD UREA NITROGEN 11 MG/DL (7-18); CREATININE FOR GFR 0.78 MG/DL (0.55-1.02); GLOMERULAR FILTRATION RATE > 60.0 (>51)
== END ==
LOC: M LABDRAW1 10:18
PROVIDERS: ATTEND Internal Medicine Pulmonary Disease
DX: R91.8 Other nonspecific abnormal finding of lung field (principal)

== ENCOUNTER → 2017-08-11 | Outpatient (REF) | payer BC ==
[2017-08-11 20:35] LABS: ALBUMIN 3.7 GM/DL (3.2-5.2); ALKALINE PHOSPHATASE 121 U/L (45-117); ALT/SGPT 15 U/L (12-78); ANION GAP 9 MEQ/L (8-16); AST/SGOT 8 U/L (15-37); BILIRUBIN,TOTAL 0.2 MG/DL (0.2-1.0); BLOOD UREA NITROGEN 15 MG/DL (7-18); CALCIUM LEVEL 9.8 MG/DL (8.5-10.1); CARBON DIOXIDE LEVEL 30 MEQ/L (21-32); CHLORIDE LEVEL 101 MEQ/L (98-107); CREATININE FOR GFR 0.74 MG/DL (0.55-1.02); FREE T4 1.18 NG/DL (0.76-1.46); GLOMERULAR FILTRATION RATE > 60.0 (>51); GLUCOSE, FASTING 84 MG/DL (70-105); SODIUM LEVEL 140 MEQ/L (136-145); TOTAL PROTEIN 7.4 GM/DL (6.4-8.2)
[2017-08-11 21:17] LABS: FOLLICLE STIMULATING HORMONE 43.9 mIU/mL
== END ==
LOC: M SFHCADAM 14:39
PROVIDERS: ATTEND Physician Assistant
DX: E78.5 Hyperlipidemia, unspecified (principal); E11.9 Type 2 diabetes mellitus without complications; N95.1 Menopausal and female climacteric states

== ENCOUNTER → 2017-09-14 | Outpatient (CLI) | payer BC ==
--- NOTE | 2017-10-07 01:37 | ECWPNPC ---
PATIENT NAME: IVON DAVID : 1965 GENDER: FEMALE VISIT DATE: 09/14/2017 DISCHARGE DATE: 09/14/17 1245 VISIT LOCKED DATE TIME: PHYSICIAN: IVON KANG RESOURCE: IVON KANG REASON FOR APPOINTMENT 1. BACK PAIN HISTORY OF PRESENT ILLNESS HISTORY OF PRESENT ILLNESS: PAIN THE PATIENT DESCRIBES THE PAIN... FALL RISK SCREENING: SCREENING :NO FALLS IN THE PAST YEAR TODAY'S VISIT: NOTES: RATES PAIN TODAY 02/15. CURRENT MEDICATIONS TAKING ZYRTEC ALLERGY 10 MG TABLET 1 TABLET ORALLY ONCE A DAY TAKING PROTONIX 40 MG TABLET DELAYED RELEASE 1 TABLET ORALLY ONCE A DAY TAKING PAXIL 40 MG TABLET 1 TABLET IN THE MORNING ORALLY ONCE A DAY TAKING HYDROCHLOROTHIAZIDE 25 MG TABLET 1 TABLET ORALLY ONCE A DAY TAKING VITAMIN D (ERGOCALCIFEROL) 78289 UNIT CAPSULE TAKE 1 CAPSULE BY MOUTH WEEKLY ORALLY WEEKLY TAKING TIZANIDINE HCL 4 MG TABLET 1/2 - 1 TABLET ORALLY TAKE 1/2 TAB Q AM AND MIDDAY TAKE 1 TAB AT HS TAKING METFORMIN HCL 500 MG TABLET 1 TABLET WITH MEALS ORALLY TWICE A DAY TAKING ATORVASTATIN CALCIUM 80 MG TABLET 1 TABLET ORALLY ONCE A DAY TAKING VALSARTAN 160 MG TABLET 1 TABLET ORALLY ONCE A DAY TAKING HYDROXYZINE HCL 50 MG TABLET 1 TAB(S) ORALLY BID PRN TAKING PREMARIN 0.625 MG TABLET 1 TABLET ORALLY DAILY TAKING PREDNISONE 20 MG TABLET 2 TABLET ORALLY ONCE A DAY TAKING ADVAIR DISKUS 250-50 MCG/DOSE AEROSOL POWDER BREATH ACTIVATED 1 PUFF INHALATION TWICE A DAY TAKING IPRATROPIUM-ALBUTEROL 0.5-2.5 (3) MG/3ML SOLUTION 3 ML INHALATION FOUR TIMES A DAY NEEDED TAKING PERCOCET 5-325 MG TABLET 1 TABLET NEEDED ORALLY EVERY 4 - 6 HRS PRN PAIN MDD=4 NOT-TAKING DOXYCYCLINE HYCLATE 100 MG TABLET 1 TABLET ORALLY EVERY 12 HRS NOT-TAKING TUSSIONEX PENNKINETIC ER 10-8 MG/5ML SUSPENSION EXTENDED RELEASE 5 ML NEEDED ORALLY EVERY 12 HRS NEEDED FOR COUGH MDD = 10 ML MEDICATION LIST REVIEWED AND RECONCILED WITH THE PATIENT PAST MEDICAL HISTORY CHRONIC LOW BACK PAIN - FOLLOWED BY [facility]IN [facility] OSTEOARTHRITIS BILATERAL KNEES ASTHMA HYPERLIPIDEMIA DEPRESSION GENERALIZED ANXIETY DISORDER HYPERTENSION DM II LEFT PULMONARY NODULE - CT 2009 AND 2013 WITH NO CHANGE - NO FURTHER WORK UP NEEDED PER [facility] CR[facility]. VARICOSE VEINS OSTEOPOROSIS - LAST DEXA 04/21, NORMAL - AP SPINE T-SCORE -0.4. NORMAL BONE DENSITY - REPEAT [address] 08/2014 - STABLE PULMONARY NODULE - FIBROTIC CHANGES - FOLLOWED BY [facility] VITAMIN D DEFICIENCY ADALGISA DIAGNOSED 07/2015 - ON CPAP LUMBAR FACET ARTHROPATHY LUMBAR SPONDYLOSIS ADMITTED 11/2016 FOR BOWEL OBSTRUCTION SECONDARY TO DIVERTICULITIS - REQUIRED PARTIAL BOWEL RESECTION WITH OSTOMY PLACED. ALLERGIES MORPHINE SULFATE: HIVES: ALLERGY ZOLOFT: CONFUSION: LACK OF THERAPEUTIC EFFECT BACTRIM: HIVES: ALLERGY SULFA (FOR ALLERGY USE ONLY): HIVES: ALLERGY SURGICAL HISTORY HYSTERECTOMY (STILL HAS OVARIES) 03/12 CYST REMOVED FROM OVARY 2003 LLE VARICOSE VEIN REMOVAL AND LASER ABLATION OF LEFT GREAT SAPHENOUS VEIN () 09/15 LEFT KNEE ARTHROSCOPY (DR. ALEX RAMIRES) RIGHT TKA - ([facility]) 01/2014 REMOVAL OF CYST LEFT ARM 2010 REPAIR HAMMERTOES LEFT FOOT 2010 BOWEL RESECTION 11/20/16 COLOSTOMY REVERSAL 04/2017 SOCIAL HISTORY GENERAL: TOBACCO USE ARE YOU A:CURRENT SMOKER ARE YOU INTERESTED IN QUITTING?NOT READY TO QUIT COUNSELED THE PATIENT ON SMOKING EFFECTS, EDUCATION [id number]/07/2017 HOW MANY CIGARETTES A DAY DO YOU SMOKE?5 OR LESS HOW SOON AFTER YOU WAKE UP DO YOU SMOKE YOUR FIRST CIGARETTE?6-30 MIN HOW OFTEN DO YOU SMOKE CIGARETTES?EVERY DAY PATIENT COUNSELED ON THE DANGERS OF TOBACCO USE AND URGED TO QUIT:09/14/2017 LUNG CANCER SCREENING SMOKING STATUS:CURRENT SMOKER IS THE PATIENT BETWEEN THE AGE OF 56 AND 78?NO BMI CARE GOAL FOLLOW-UP ABOVE NORMAL BMI FOLLOW-UPDIETARY MANAGEMENT EDUCATION, GUIDANCE, AND COUNSELING ALCOHOL SCREENING DID YOU HAVE A DRINK CONTAINING ALCOHOL IN THE PAST YEAR?NO POINTS0 INTERPRETATIONNEGATIVE RECREATIONAL DRUG USE DRUG USE?NO CAFFEINE CAFFEINE USE?YES HOW OFTEN AND HOW MUCH? 4 CUPS DAILY SEXUAL HX HAD SEX IN THE LAST 12 MONTHS (VAGINAL, ORAL, OR ANAL)?YES WITHMEN ONLY USE PROTECTION?NO HAVE YOU EVER HAD AN STD?NO LMP:HYSTER HIV / HEP-C SCREENING HIV TEST OFFERED TO PATIENT:YES DATE OFFERED:08/17/2017 TEST ACCEPTED:NO REASON:PATIENT DECLINED HEP-C TEST OFFERED TO PATIENT:YES DATE OFFERED:08/17/2017 TEST ACCEPTED:NO REASON:PATIENT DECLINED DIET: REGULAR. MARITAL STATUS: . YAZIDI [id number] LUTHERAN NO WORSHIP BELIEFS THAT WOULD IMPACT HEALTH CARE. LANGUAGE LANGUAGES SPOKEN:SETSWANA LEARNING BARRIERS / SPECIAL NEEDS CHANGE FROM LAST VISIT?NO BARRIERS TO LEARNING?NO HEARING IMPAIRED?NO VISION IMPAIRED?YES :CORRECTIVE LENSES COGNITIVELY IMPAIRED?NO READINESS TO LEARN?YES LEARNING PREFERENCES?NO LEARNING CAPABILITIES PRESENT?YES EMOTIONAL BARRIERS?NO SPECIAL DEVICES?NO WEB EDITOR NEEDED?NO NEW PATIENT PAIN DIARY TODAY'S VISIT NOTES, FROM 0-10, WHAT LEVEL IS YOUR PAIN TODAY? 0. PAIN CLINIC PFS, CLERGY, PUBLIC HEALTH REFERRALS HAS THE PATIENT BEEN EDUCATED REGARDING HIS/HER PLAN OF CARE?YES HAS THE PATIENT BEEN EDUCATED REGARDING PAIN, THE RISK FOR PAIN, THE IMPORTANCE OF EFFECTIVE PAIN MANAGEMENT, AND THE PAIN ASSESSMENT PROCESS?YES ADVANCE DIRECTIVES HEALTH CARE PROXY?NO WOULD YOU LIKE MORE INFORMATION?NO DO YOU HAVE A DNR?NO WOULD YOU LIKE MORE INFORMATION?NO LIVING WILL?NO WOULD YOU LIKE MORE INFORMATION?NO POWER OF ADDICTION THERAPIST?NO WOULD YOU LIKE MORE INFORMATION?NO DR. SHEA FOR ROUTINE SCRAP BREAKER CARE AND SCREENINGS. HOSPITALIZATION/MAJOR DIAGNOSTIC PROCEDURE SURGERIES BOWEL BLOCKAGE 11/03/16-11/28/16 REVIEW OF SYSTEMS REVIEWED BY: PROVIDER: . CONSTITUTIONAL: ANY CHANGE IN YOUR MEDICAL CONDITION? NO . CHILLS NO . FEVER NO . INFECTION: DO YOU HAVE NEW INFECTIONS? NO . DO YOU HAVE HISTORY OF MRSA? NO . MUSCULOSKELETAL: ANY NEW PATTERNS OF PAIN OR NUMBNESS? NO . GASTROENTEROLOGY: ANY NEW CHANGE IN BOWEL CONTROL? NO . GENITOURINARY: ANY NEW CHANGE IN BLADDER CONTROL? NO . IS THERE A CHANCE YOU COULD BE ? NO . HEMATOLOGY/LYMPH: DO YOU TAKE ANY BLOOD THINNERS? (FOR EXAMPLE- COUMADIN, PLAVIX, AGGRENOX, PLATEL, PRADAXA, OR XARELTO) NO . WHEN WAS YOUR LAST DOSE? DATE: TIME: . NEUROLOGY: HAVE YOU FALLEN IN THE PAST 6 MONTHS? NO . ANY NEW EXTREMITY NUMBNESS OR WEAKNESS? NO . CARDIOLOGY: DO YOU HAVE A PACEMAKER OR DEFIBRILLATOR? NO . RESPIRATORY: HAVE YOU BEEN SICK IN THE PAST WEEK? NO . FEVER NO . FLU LIKE SYMPTOMS? NO . COUGH NO . INTEGUMENTARY: DO YOU HAVE ANY RASHES OR OPEN SORES? NO . ALLERGIC/IMMUNO: ARE YOU ALLERGIC TO SHELLFISH OR IV DYE? NO . ANY NEW ALLERGIES? NO . PSYCHIATRIC: DO YOU HAVE THOUGHTS OF HURTING YOURSELF OR SOMEONE ELSE? NO . ARE YOU ABUSED, NEGLECTED, OR IN AN UNSAFE ENVIRONMENT? NO . ENDOCRINOLOGY: ARE YOU DIABETIC? YES . OTHER: DO YOU NEED ANY PRESCRIPTIONS? NO . IF YES, PLEASE LIST: ____ . ANY NEW PROBLEMS WITH YOUR MEDICATIONS? NO . WHEN DID YOU LAST EAT? ____ . WHEN DID YOU LAST DRINK? ____ . WHAT DID YOU LAST DRINK? ____ . NAME OF PERSON DRIVING YOU HOME? ____ . DO YOU HAVE ANY OTHER QUESTIONS OR CONCERNS NO . VITAL SIGNS WT 226.8 LBS, HT 61 IN, BMI 42.85 INDEX, BP 125/72 MM HG, HR 75 /MIN, RR 18 /MIN, TEMP 97.7 F, OXYGEN SAT % 94%, NA INITIALS SC 11:53, REVIEWED BY: RASHI. EXAMINATION GENERAL EXAMINATION: LUNGS:WHEEZES RIGHT LOWER LOBE - OTHERWISE CLEAR. . MUSCULOSKELETAL:MUSCLE STRENGTH TESTING 5/5 BILATERAL LOWER EXTREMTIES. TENDER OVER LEFT LOWER LSA. ASSESSMENTS SPONDYLOSIS WITHOUT MYELOPATHY OR RADICULOPATHY, LUMBAR REGION - M47.816 (PRIMARY) SPONDYLOSIS WITHOUT MYELOPATHY OR RADICULOPATHY, LUMBOSACRAL REGION - M47.817 CHRONIC PRESCRIPTION OPIATE USE - Z79.891 TREATMENT SPONDYLOSIS WITHOUT MYELOPATHY OR RADICULOPATHY, LUMBAR REGION NOTES: UTOX TODAYUPDATE NARCOTIC AGREEMENTCUT DOWN TO 5 CIGARETTES PER DAY. PROCEDURE CODES FA211 ESTABILISHED PATIENT [facility] CHARGE DISPOSITION & COMMUNICATION FOLLOW UP 2 MONTHS (REASON: LOW BACK ) ELECTRONICALLY SIGNED BY MATTIE AGUAYO ON 10/05/2017 AT 08:30 AM EST DISCLAIMER : THIS IS A VISIT SUMMARY EXTRACTED FROM THE [employer] CHART. IT IS NOT A COPY OF THE [employer] PROGRESS NOTE. DEBBIED
== END ==
LOC: M PAIN 11:15
PROVIDERS: ATTEND Nurse Practitioner Family
DX: G89.29 Other chronic pain (principal); M47.816 Spondylosis without myelopathy or radiculopathy, lumbar region; M47.817 Spondylosis without myelopathy or radiculopathy, lumbosacral region; Z79.891 Long term (current) use of opiate analgesic; M17.0 Bilateral primary osteoarthritis of knee; J45.909 Unspecified asthma, uncomplicated; E78.5 Hyperlipidemia, unspecified; F32.9 Major depressive disorder, single episode, unspecified; F41.1 Generalized anxiety disorder; I10 Essential (primary) hypertension; E11.9 Type 2 diabetes mellitus without complications; M81.0 Age-related osteoporosis without current pathological fracture; I83.90 Asymptomatic varicose veins of unspecified lower extremity; E55.9 Vitamin D deficiency, unspecified; F17.210 Nicotine dependence, cigarettes, uncomplicated; Z90.49 Acquired absence of other specified parts of digestive tract; Z96.651 Presence of right artificial knee joint; Z88.2 Allergy status to sulfonamides; Z88.1 Allergy status to other antibiotic agents; Z88.8 Allergy status to other drugs, medicaments and biological substances; Z88.5 Allergy status to narcotic agent

== ENCOUNTER → 2017-11-15 | Outpatient (CLI) | payer BC | LOC: M PAIN 10:00 | DX: M47.816 Spondylosis without myelopathy or radiculopathy, lumbar region (principal); M47.817 Spondylosis without myelopathy or radiculopathy, lumbosacral region; E78.5 Hyperlipidemia, unspecified; I10 Essential (primary) hypertension; E11.9 Type 2 diabetes mellitus without complications; F32.9 Major depressive disorder, single episode, unspecified; F41.9 Anxiety disorder, unspecified; J45.909 Unspecified asthma, uncomplicated; F17.210 Nicotine dependence, cigarettes, uncomplicated; Z79.891 Long term (current) use of opiate analgesic; Z79.84 Long term (current) use of oral hypoglycemic drugs; Z79.899 Other long term (current) drug therapy; Z88.0 Allergy status to penicillin; Z88.1 Allergy status to other antibiotic agents; Z88.5 Allergy status to narcotic agent; Z88.2 Allergy status to sulfonamides | CPT/HCPCS: G0463 ==

== ENCOUNTER → 2017-12-14 | Outpatient (CLI) | payer BC ==
[~2017-12-14] MED LIST changes: -/ADVA50050 IN; -/ALEN70TA OR; -/PANT40TA OR; -ABIL10TA9 PO; -ABIL1TAB11 PO; -ADV250INH INH; -ALBU17IN2 IN; -ALBU17IN2 INH; -ATOR80TA59 PO; +BUPIVACAINE HCL 0.25% 30 ML VIAL As Ordered; -CETI10TA OR; -CIPR-249 PO; -DIOV80TA3 PO; -DRIS50002 PO; -DUONSOL IN; -FLAG500T PO; -HYDR25TA6 PO; -HYDR25TAB PO; -HYDR50TA70 PO; +ISOVUE-M 300 61% 15ML VIAL (Q9967) As Ordered; -K-TA1TAB PO; -LACT20EL PO; +LIDOCAINE 1% SDV INJ 30 ML VIAL As Ordered; -LIPI20TA OR; -LISI20TA5 OR; -METF500T13 PO; -MOTR200T4 OR; -PAXI40TA OR; -PAXI40TA10 PO; -PERC5TAB8 OR; -PERCOCET PO; -PROT1TAB2 PO; -TIZA2CAP3 PO; -TIZA4CAP3 PO; -TYLE500T53 OR; -VALS1TAB46 PO; -VALS1TAB47 PO; -XANA0.5T OR; -XANA0.5T PO
== END ==
LOC: M PAIN 13:00
DX: G89.29 Other chronic pain (principal); M47.816 Spondylosis without myelopathy or radiculopathy, lumbar region; M47.817 Spondylosis without myelopathy or radiculopathy, lumbosacral region; M17.0 Bilateral primary osteoarthritis of knee; J45.909 Unspecified asthma, uncomplicated; E78.5 Hyperlipidemia, unspecified; F32.9 Major depressive disorder, single episode, unspecified; F41.1 Generalized anxiety disorder; I10 Essential (primary) hypertension; E11.9 Type 2 diabetes mellitus without complications; E55.9 Vitamin D deficiency, unspecified; G47.33 Obstructive sleep apnea (adult) (pediatric); Z79.899 Other long term (current) drug therapy; Z88.1 Allergy status to other antibiotic agents; Z88.2 Allergy status to sulfonamides; Z88.6 Allergy status to analgesic agent; Z88.8 Allergy status to other drugs, medicaments and biological substances
CPT/HCPCS: Q9967

== ENCOUNTER → 2017-12-29 | Outpatient (CLI) | payer BC | LOC: M PAIN 10:45 | DX: M47.816 Spondylosis without myelopathy or radiculopathy, lumbar region (principal); M47.817 Spondylosis without myelopathy or radiculopathy, lumbosacral region; I10 Essential (primary) hypertension; E11.9 Type 2 diabetes mellitus without complications; E78.5 Hyperlipidemia, unspecified; J45.909 Unspecified asthma, uncomplicated; E55.9 Vitamin D deficiency, unspecified; F17.210 Nicotine dependence, cigarettes, uncomplicated; Z79.891 Long term (current) use of opiate analgesic; Z79.899 Other long term (current) drug therapy; Z79.84 Long term (current) use of oral hypoglycemic drugs; Z88.8 Allergy status to other drugs, medicaments and biological substances | CPT/HCPCS: G0463 ==

== ENCOUNTER → 2018-02-01 | Outpatient (CLI) | payer BC | LOC: M ADAMS 13:46 | DX: M79.1 Myalgia (principal) | CPT/HCPCS: 73030 ==

== ENCOUNTER → 2018-02-10 | Outpatient (CLI) | payer BC ==
[~2018-02-10] MED LIST changes: +TRIAMCINOLONE ACETONIDE SUSP 40 MG/ML VIAL (J3301) As Ordered
== END ==
LOC: M PAIN 14:00
DX: G89.29 Other chronic pain (principal); M47.816 Spondylosis without myelopathy or radiculopathy, lumbar region; M47.817 Spondylosis without myelopathy or radiculopathy, lumbosacral region; M17.0 Bilateral primary osteoarthritis of knee; J45.909 Unspecified asthma, uncomplicated; E78.5 Hyperlipidemia, unspecified; F32.9 Major depressive disorder, single episode, unspecified; F41.9 Anxiety disorder, unspecified; I10 Essential (primary) hypertension; E11.9 Type 2 diabetes mellitus without complications; I83.90 Asymptomatic varicose veins of unspecified lower extremity; E55.9 Vitamin D deficiency, unspecified; G47.33 Obstructive sleep apnea (adult) (pediatric); Z72.0 Tobacco use; Z79.84 Long term (current) use of oral hypoglycemic drugs; Z79.899 Other long term (current) drug therapy; Z88.1 Allergy status to other antibiotic agents; Z88.2 Allergy status to sulfonamides; Z88.5 Allergy status to narcotic agent; Z88.8 Allergy status to other drugs, medicaments and biological substances; Z96.651 Presence of right artificial knee joint
CPT/HCPCS: J3301

== ENCOUNTER → 2018-02-18 | Outpatient (REF) | payer BC ==
[2018-02-18 19:08] LABS: ALBUMIN 3.8 GM/DL (3.2-5.2); ALBUMIN/GLOBULIN RATIO 0.95 (1.00-1.93); ALKALINE PHOSPHATASE 127 U/L (45-117); ALT/SGPT 14 U/L (12-78); ANION GAP 7 MEQ/L (8-16); AST/SGOT 10 U/L (7-37); BILIRUBIN,TOTAL 0.3 MG/DL (0.2-1.0); BLOOD UREA NITROGEN 20 MG/DL (7-18); CALCIUM LEVEL 9.5 MG/DL (8.5-10.1); CARBON DIOXIDE LEVEL 29 MEQ/L (21-32); CHLORIDE LEVEL 105 MEQ/L (98-107); CREATININE FOR GFR 1.11 MG/DL (0.55-1.30); GLOMERULAR FILTRATION RATE 55.2 (>51); GLUCOSE, FASTING 128 MG/DL (70-100); POTASSIUM SERUM 3.9 MEQ/L (3.5-5.1); SODIUM LEVEL 141 MEQ/L (136-145); TOTAL PROTEIN 7.8 GM/DL (6.4-8.2)
[2018-02-18 19:16] LABS: ESTIMATED AVERAGE GLUCOSE 154 MG/DL (60-110)
[2018-02-18 19:30] LABS: MALB URINE SIEMENS 72.1 MG/L; MAU/CREAT RATIO 31.9 MCG/MG (0.0-30.0)
== END ==
LOC: M SFHCADAM 16:20
DX: E11.9 Type 2 diabetes mellitus without complications (principal); I10 Essential (primary) hypertension
CPT/HCPCS: 80053

== ENCOUNTER → 2018-03-04 | Outpatient (CLI) | payer BC | END | disposition home or self-care (01) | LOC: M PAIN 08:45 | DX: G89.29 Other chronic pain (principal); M47.816 Spondylosis without myelopathy or radiculopathy, lumbar region; M47.817 Spondylosis without myelopathy or radiculopathy, lumbosacral region; J45.909 Unspecified asthma, uncomplicated; E78.5 Hyperlipidemia, unspecified; F33.9 Major depressive disorder, recurrent, unspecified; F41.1 Generalized anxiety disorder; I10 Essential (primary) hypertension; E11.9 Type 2 diabetes mellitus without complications; E55.9 Vitamin D deficiency, unspecified; G47.33 Obstructive sleep apnea (adult) (pediatric); Z99.89 Dependence on other enabling machines and devices; Z79.899 Other long term (current) drug therapy; Z79.51 Long term (current) use of inhaled steroids; Z79.84 Long term (current) use of oral hypoglycemic drugs; F17.210 Nicotine dependence, cigarettes, uncomplicated; Z88.2 Allergy status to sulfonamides; Z88.3 Allergy status to other anti-infective agents; Z88.5 Allergy status to narcotic agent; Z88.8 Allergy status to other drugs, medicaments and biological substances | CPT/HCPCS: G0463 ==

== ENCOUNTER → 2018-05-12 | Outpatient (CLI) | payer BC | LOC: M RAD 14:58 | DX: R60.0 Localized edema (principal) | CPT/HCPCS: 93971 ==

== ENCOUNTER → 2018-06-03 | Outpatient (CLI) | payer BC | LOC: M PAIN 09:15 | DX: M25.572 Pain in left ankle and joints of left foot (principal); M47.816 Spondylosis without myelopathy or radiculopathy, lumbar region; M47.817 Spondylosis without myelopathy or radiculopathy, lumbosacral region; M17.0 Bilateral primary osteoarthritis of knee; J45.909 Unspecified asthma, uncomplicated; E78.5 Hyperlipidemia, unspecified; F32.9 Major depressive disorder, single episode, unspecified; F41.1 Generalized anxiety disorder; I10 Essential (primary) hypertension; E11.9 Type 2 diabetes mellitus without complications; E55.9 Vitamin D deficiency, unspecified; G47.33 Obstructive sleep apnea (adult) (pediatric); F17.210 Nicotine dependence, cigarettes, uncomplicated; Z79.84 Long term (current) use of oral hypoglycemic drugs; Z79.899 Other long term (current) drug therapy; Z88.1 Allergy status to other antibiotic agents; Z88.2 Allergy status to sulfonamides; Z88.5 Allergy status to narcotic agent; Z88.8 Allergy status to other drugs, medicaments and biological substances; Z96.651 Presence of right artificial knee joint | CPT/HCPCS: G0463 ==

== ENCOUNTER → 2018-06-06 | Outpatient (CLI) | payer BC | LOC: M RAD 13:50 | DX: M25.572 Pain in left ankle and joints of left foot (principal) | CPT/HCPCS: 73600 ==

== ENCOUNTER → 2018-07-06 | Outpatient (CLI) | payer BC | LOC: M PAIN 14:15 | DX: Z53.8 Procedure and treatment not carried out for other reasons (principal) ==

== ENCOUNTER → 2018-07-14 | Outpatient (REF) | payer BC ==
[2018-07-14 13:24] LABS: ALBUMIN 3.5 GM/DL (3.2-5.2); ALBUMIN/GLOBULIN RATIO 0.85 (1.00-1.93); ALKALINE PHOSPHATASE 115 U/L (45-117); ALT/SGPT 15 U/L (12-78); ANION GAP 10 MEQ/L (8-16); AST/SGOT 8 U/L (7-37); BILIRUBIN,TOTAL 0.5 MG/DL (0.2-1.0); BLOOD UREA NITROGEN 12 MG/DL (7-18); CALCIUM LEVEL 9.8 MG/DL (8.5-10.1); CARBON DIOXIDE LEVEL 28 MEQ/L (21-32); CHLORIDE LEVEL 103 MEQ/L (98-107); CREATININE FOR GFR 0.73 MG/DL (0.55-1.30); GLOMERULAR FILTRATION RATE > 60.0 (>51); GLUCOSE, FASTING 107 MG/DL (70-100); POTASSIUM SERUM 3.9 MEQ/L (3.5-5.1); SODIUM LEVEL 141 MEQ/L (136-145); TOTAL PROTEIN 7.6 GM/DL (6.4-8.2)
[2018-07-14 15:33] LABS: ESTIMATED AVERAGE GLUCOSE 140 MG/DL (60-110); HEMOGLOBIN A1c 6.5 %
== END ==
LOC: M SFHCADAM 08:27
DX: E11.9 Type 2 diabetes mellitus without complications (principal); I10 Essential (primary) hypertension
CPT/HCPCS: 80053

== ENCOUNTER → 2018-07-25 | Outpatient (CLI) | payer BC ==
[~2018-07-25] MED LIST changes: +BUPIVACAINE HCL 0.25% 10 ML VIAL As Ordered; -ISOVUE-M 300 61% 15ML VIAL (Q9967) As Ordered; -LIDOCAINE 1% SDV INJ 30 ML VIAL As Ordered; +oxyCODONE 5MG TAB As Ordered
== END ==
LOC: M PAIN 13:30
DX: M79.1 Myalgia (principal); M54.5 Low back pain; J45.909 Unspecified asthma, uncomplicated; E78.5 Hyperlipidemia, unspecified; F32.9 Major depressive disorder, single episode, unspecified; F41.1 Generalized anxiety disorder; I10 Essential (primary) hypertension; E11.9 Type 2 diabetes mellitus without complications; M81.0 Age-related osteoporosis without current pathological fracture; E55.9 Vitamin D deficiency, unspecified; G47.33 Obstructive sleep apnea (adult) (pediatric); M47.896 Other spondylosis, lumbar region; F17.210 Nicotine dependence, cigarettes, uncomplicated; Z90.49 Acquired absence of other specified parts of digestive tract; Z93.3 Colostomy status; Z79.84 Long term (current) use of oral hypoglycemic drugs; Z79.899 Other long term (current) drug therapy; Z88.2 Allergy status to sulfonamides; Z88.5 Allergy status to narcotic agent; Z88.8 Allergy status to other drugs, medicaments and biological substances
CPT/HCPCS: J3301

== ENCOUNTER → 2018-08-18 | Outpatient (CLI) | payer BC | LOC: M PAIN 14:15 | DX: M47.816 Spondylosis without myelopathy or radiculopathy, lumbar region (principal); M47.817 Spondylosis without myelopathy or radiculopathy, lumbosacral region; M17.0 Bilateral primary osteoarthritis of knee; J45.909 Unspecified asthma, uncomplicated; E78.5 Hyperlipidemia, unspecified; F32.9 Major depressive disorder, single episode, unspecified; F41.1 Generalized anxiety disorder; I10 Essential (primary) hypertension; E11.9 Type 2 diabetes mellitus without complications; M81.0 Age-related osteoporosis without current pathological fracture; F17.210 Nicotine dependence, cigarettes, uncomplicated; E55.9 Vitamin D deficiency, unspecified; G47.33 Obstructive sleep apnea (adult) (pediatric); Z96.651 Presence of right artificial knee joint; Z79.891 Long term (current) use of opiate analgesic; Z90.49 Acquired absence of other specified parts of digestive tract; Z79.84 Long term (current) use of oral hypoglycemic drugs; Z79.899 Other long term (current) drug therapy; Z88.5 Allergy status to narcotic agent; Z88.2 Allergy status to sulfonamides; Z88.8 Allergy status to other drugs, medicaments and biological substances | CPT/HCPCS: G0463 ==

== ENCOUNTER → 2018-09-19 | Outpatient (CLI) | payer BC ==
[~2018-09-19] MED LIST changes: -BUPIVACAINE HCL 0.25% 10 ML VIAL As Ordered; +ISOVUE-M 300 61% 15ML VIAL (Q9967) As Ordered; +LIDOCAINE 1% SDV INJ 30 ML VIAL As Ordered; -TRIAMCINOLONE ACETONIDE SUSP 40 MG/ML VIAL (J3301) As Ordered; -oxyCODONE 5MG TAB As Ordered
== END ==
LOC: M PAIN 11:15
DX: G89.29 Other chronic pain (principal); M47.816 Spondylosis without myelopathy or radiculopathy, lumbar region; M47.817 Spondylosis without myelopathy or radiculopathy, lumbosacral region; M17.0 Bilateral primary osteoarthritis of knee; J45.909 Unspecified asthma, uncomplicated; I10 Essential (primary) hypertension; E11.9 Type 2 diabetes mellitus without complications; E78.5 Hyperlipidemia, unspecified; F32.9 Major depressive disorder, single episode, unspecified; F41.1 Generalized anxiety disorder; G47.33 Obstructive sleep apnea (adult) (pediatric); E66.01 Morbid (severe) obesity due to excess calories; Z68.41 Body mass index [BMI] 40.0-44.9, adult; Z79.51 Long term (current) use of inhaled steroids; Z79.84 Long term (current) use of oral hypoglycemic drugs; Z79.899 Other long term (current) drug therapy; Z88.1 Allergy status to other antibiotic agents; Z88.2 Allergy status to sulfonamides; Z88.5 Allergy status to narcotic agent; Z88.8 Allergy status to other drugs, medicaments and biological substances
CPT/HCPCS: Q9967

== ENCOUNTER → 2018-10-06 | Outpatient (CLI) | payer BC | LOC: M PAIN 14:45 | DX: M46.96 Unspecified inflammatory spondylopathy, lumbar region (principal); E11.9 Type 2 diabetes mellitus without complications; J45.909 Unspecified asthma, uncomplicated; E78.5 Hyperlipidemia, unspecified; I10 Essential (primary) hypertension; E55.9 Vitamin D deficiency, unspecified; F32.9 Major depressive disorder, single episode, unspecified; F41.1 Generalized anxiety disorder; M17.0 Bilateral primary osteoarthritis of knee; G47.33 Obstructive sleep apnea (adult) (pediatric); F17.210 Nicotine dependence, cigarettes, uncomplicated; Z79.84 Long term (current) use of oral hypoglycemic drugs; Z79.899 Other long term (current) drug therapy; Z88.1 Allergy status to other antibiotic agents; Z88.2 Allergy status to sulfonamides; Z88.5 Allergy status to narcotic agent; Z88.8 Allergy status to other drugs, medicaments and biological substances | CPT/HCPCS: G0463 ==

== ENCOUNTER → 2018-10-23 | Outpatient (CLI) | payer BC ==
[~2018-10-23] MED LIST changes: +/ADVA50050 IN; +/ALEN70TA OR; +/PANT40TA OR; +ABIL10TA9 PO; +ABIL1TAB11 PO; +ADV250INH INH; +ALBU17IN2 IN; +ALBU17IN2 INH; +ATOR80TA59 PO; -BUPIVACAINE HCL 0.25% 30 ML VIAL As Ordered; +CETI10TA OR; +CIPR-249 PO; +DIOV80TA3 PO; +DRIS50003 PO; +DUONSOL IN; +FLAG500T PO; +HYDR25TA6 PO; +HYDR25TAB PO; +HYDR50TA70 PO; -ISOVUE-M 300 61% 15ML VIAL (Q9967) As Ordered; +K-TA1TAB PO; +LACT20EL PO; -LIDOCAINE 1% SDV INJ 30 ML VIAL As Ordered; +LIPI20TA OR; +LISI20TA5 OR; +METF500T13 PO; +MOTR200T4 OR; +PAXI40TA OR; +PAXI40TA10 PO; +PERC5TAB8 OR; +PERCOCET PO; +PROT1TAB2 PO; +TIZA2CAP PO; +TIZA4CAP PO; +TYLE500T53 OR; +VALS1TAB46 PO; +VALS1TAB47 PO; +XANA0.5T OR; +XANA0.5T PO
--- NOTE | 2018-10-23 12:36 | REP ---
FOUR VIEWS OF THE LEFT ANKLE: REASON: Trauma. There is an oblique fracture of the distal fibula with associated soft tissue swelling. Plantar and retrocalcaneal heel spurs are present. IMPRESSION: Distal fibular fracture. Electronically Signed by Santi Costello DO 10/23/2018 12:37 P
== END ==
LOC: M ADAMS 11:21
PROVIDERS: ATTEND Physician Assistant Medical
DX: S82.832A Other fracture of upper and lower end of left fibula, initial encounter for closed fracture (principal); X58.XXXA Exposure to other specified factors, initial encounter; Y92.89 Other specified places as the place of occurrence of the external cause

== ENCOUNTER → 2019-01-14 | Outpatient (CLI) | payer BC | LOC: M ADAMS 12:33 | PROVIDERS: ATTEND Physician Assistant | DX: G47.10 Hypersomnia, unspecified (principal); I10 Essential (primary) hypertension; E11.9 Type 2 diabetes mellitus without complications; E78.49 Other hyperlipidemia ==

== ENCOUNTER → 2019-01-14 | Outpatient (REF) | payer BC ==
[2019-01-14 18:44] LABS: HEMATOCRIT 39.9 % (36.0-47.0); HEMOGLOBIN 13.4 g/dl (12.0-15.5); MEAN CORPUSCULAR HEMOGLOBIN 29.7 pg (27.0-33.0); MEAN CORPUSCULAR HGB CONC 33.6 g/dl (32.0-36.5); MEAN CORPUSCULAR VOLUME 88.5 fl (80.0-96.0); PLATELET COUNT, AUTOMATED 354 10^3/uL (150-450); RED BLOOD COUNT 4.51 10^6/uL (4.00-5.40); WHITE BLOOD COUNT 12.8 10^3/uL (4.0-10.0)
[2019-01-14 19:01] LABS: ALBUMIN 3.3 GM/DL (3.2-5.2); ALT/SGPT 10 U/L (12-78); BILIRUBIN,TOTAL 0.4 MG/DL (0.2-1.0); BLOOD UREA NITROGEN 10 MG/DL (7-18); CALCIUM LEVEL 8.7 MG/DL (8.5-10.1); CARBON DIOXIDE LEVEL 27 MEQ/L (21-32); CHLORIDE LEVEL 102 MEQ/L (98-107); CHOLESTEROL LEVEL 136 MG/DL (<200); CHOLESTEROL RISK RATIO 2.615 (<5); CREATININE FOR GFR 0.87 MG/DL (0.55-1.30); FREE T4 1.34 NG/DL (0.76-1.46); GLOMERULAR FILTRATION RATE > 60.0 (>51); GLUCOSE, FASTING 96 MG/DL (70-100); HDL CHOLESTEROL 52 MG/DL (>40); LDL CHOLESTEROL 56 MG/DL (<100); NON-HDL-C 84 MG/DL; POTASSIUM SERUM 3.4 MEQ/L (3.5-5.1); SODIUM LEVEL 139 MEQ/L (136-145); TRIGLYCERIDES LEVEL 142 MG/DL (<150)
[2019-01-14 19:47] LABS: MAU/CREAT RATIO 10.5 MCG/MG (0.0-30.0)
[2019-01-14 20:03] LABS: HEMOGLOBIN A1c 6.4 %
[2019-01-16 11:01] LABS: TOTAL 25(OH) VITAMIN D 52.8 NG/ML (30.0-100.0)
== END ==
LOC: M SFHCADAM 11:29
PROVIDERS: ATTEND Physician Assistant
DX: I10 Essential (primary) hypertension (principal); E78.5 Hyperlipidemia, unspecified; E11.9 Type 2 diabetes mellitus without complications

== ENCOUNTER → 2019-03-14 | Outpatient (CLI) | payer BC ==
[~2019-03-14] MED LIST changes: -/ADVA50050 IN; -/PANT40TA OR; +ADVA1AER2 IN; +BUPIVACAINE HCL 0.25% 30 ML VIAL As Ordered ONE; +HYDR-2541 PO; +LACT10SO7 PO; -LACT20EL PO; +LIDOCAINE 1% SDV INJ 30 ML VIAL As Ordered ONE; +PROT1TAB2 OR; +TRIAMCINOLONE ACETONIDE SUSP 40 MG/ML VIAL (J3301) As Ordered ONE; -VALS1TAB46 PO; -VALS1TAB47 PO; +VALS1TAB66 PO; +VALS1TAB67 PO
--- NOTE | 2019-03-15 09:19 | REP ---
Partial lumbar spine series: Three views . History: Injection procedure for pain. 62 seconds of fluoroscopy time is reported. Findings: A sequence of three fluoroscopically obtained last image hold procedural spot radiographs of the lumbar spine document needle position and contrast injection associated with injection procedure. Electronically Signed by Raj Layton MD 03/15/2019 09:10 A
--- NOTE | 2019-03-27 00:18 | ECWPNPC ---
PATIENT NAME: IVON DAVID : 1965 GENDER: FEMALE VISIT DATE: 03/14/2019 DISCHARGE DATE: 03/14/19 1620 VISIT LOCKED DATE TIME: PHYSICIAN: MOHAMUD RIGGINS MD RESOURCE: MOHAMUD RIGGINS MD REASON FOR APPOINTMENT 1. LEFT L4/5-L5/S1 RADIOFREQUENCY HISTORY OF PRESENT ILLNESS HISTORY OF PRESENT ILLNESS: PAIN THE PATIENT DESCRIBES THE PAIN... FALL RISK SCREENING: SCREENING :NO FALLS REPORTED IN THE LAST YEAR CURRENT MEDICATIONS TAKING ADVAIR DISKUS 250-50 MCG/DOSE AEROSOL POWDER BREATH ACTIVATED 1 PUFF INHALATION TWICE A DAY, NOTES: 729 TAKING METFORMIN HCL 1000 MG TABLET 1 TABLET WITH MEALS ORALLY TWICE A DAY, NOTES: 03/13/192029 TAKING HYDROCHLOROTHIAZIDE 25MG TABLET TAKE 1 TABLET DAILY , NOTES: 729 TAKING ATORVASTATIN CALCIUM 80MG TABLET TAKE 1 TABLET DAILY , NOTES: 729 TAKING ZYRTEC ALLERGY 10 MG TABLET 1 TABLET ORALLY ONCE A DAY, NOTES: 729 TAKING VITAMIN D (ERGOCALCIFEROL) 93621 UNIT CAPSULE TAKE 1 CAPSULE BY MOUTH WEEKLY ORALLY WEEKLY, NOTES: 03/08/19 TAKING PROTONIX 40 MG TABLET DELAYED RELEASE 1 TABLET ORALLY ONCE A DAY, NOTES: 729 TAKING PAXIL 40 MG TABLET 1 TABLET IN THE MORNING ORALLY ONCE A DAY, NOTES: 729 TAKING HYDROXYZINE HCL 50MG TABLET TAKE 1 TABLET TWICE A DAY , NOTES: 03/13/192029 TAKING PREMARIN 0.625MG TABLET TAKE 1 TABLET DAILY , NOTES: 729 TAKING TIZANIDINE HCL 4 MG TABLET 1/2 - 1 TABLET ORALLY TAKE 1/2 TAB Q AM AND MIDDAY TAKE 1 TAB AT HS, NOTES: 03/13/192029 TAKING IRBESARTAN 150 MG TABLET 1 TABLET ORALLY ONCE A DAY, NOTES: 729 TAKING PERCOCET 5-325 MG TABLET 1-2 ORALLY Q 4-6H PRN PAIN MDD6, NOTES: 03/13/19 1600 NOT-TAKING VITAMIN D (ERGOCALCIFEROL) 50,000U CAPSULE TAKE 1 CAPSULE WEEKLY , NOTES: DUPLICATE NOT-TAKING PAROXETINE HCL 40MG TABLET TAKE 1 TABLET DAILY IN THE MORNING , NOTES: DUPLICATE NOT-TAKING PANTOPRAZOLE SODIUM 40MG TABLET DELAYED RELEASE TAKE 1 TABLET DAILY , NOTES: DUPLICATE MEDICATION LIST REVIEWED AND RECONCILED WITH THE PATIENT PAST MEDICAL HISTORY CHRONIC LOW BACK PAIN - FOLLOWED BY [facility]IN [facility]IN[facility] OSTEOARTHRITIS BILATERAL KNEES ASTHMA NORMAL SPIROMETRY AT PULMONARY 11/2017 HYPERLIPIDEMIA DEPRESSION GENERALIZED ANXIETY DISORDER HYPERTENSION DM II LEFT PULMONARY NODULE - CT 2009 AND 2013 WITH NO CHANGE - NO FURTHER WORK UP NEEDED PER [facility]. (FOLLOWED BY PULMONARY) VARICOSE VEINS OSTEOPOROSIS - LAST DEXA 04/21, NORMAL - AP SPINE T-SCORE -0.4. NORMAL BONE DENSITY - REPEAT 2019 SMOKER VITAMIN D DEFICIENCY ADALGISA DIAGNOSED 07/2015 - ON CPAP LUMBAR FACET ARTHROPATHY LUMBAR SPONDYLOSIS ADMITTED 11/2016 FOR BOWEL OBSTRUCTION SECONDARY TO DIVERTICULITIS - REQUIRED PARTIAL BOWEL RESECTION WITH OSTOMY PLACED. ALLERGIES MORPHINE SULFATE: HIVES - ALLERGY ZOLOFT: CONFUSION - LACK OF THERAPEUTIC EFFECT BACTRIM: HIVES - ALLERGY SULFA (FOR ALLERGY USE ONLY): HIVES - ALLERGY SURGICAL HISTORY HYSTERECTOMY (STILL HAS OVARIES) 03/12 CYST REMOVED FROM OVARY 2003 LLE VARICOSE VEIN REMOVAL AND LASER ABLATION OF LEFT GREAT SAPHENOUS VEIN () 09/15 LEFT KNEE ARTHROSCOPY (DR. ALEX RAMIRES) RIGHT TKA - ([facility]) 01/2014 REMOVAL OF CYST LEFT ARM 2010 REPAIR HAMMERTOES LEFT FOOT 2009 BOWEL RESECTION 11/20/16 COLOSTOMY REVERSAL 04/2017 COLONOSCOPY _ DR. POON - DIVERTICULOSIS, POLYP RESECTED, BUT NOT RETRIEVED FOR PATHOLOGY 03/2017 FAMILY HISTORY FATHER: 65 YRS, DIAGNOSED WITH CANCER MOTHER: 74 YRS, CANCER 2 BROTHER(S) , 2 SISTER(S) - HEALTHY. 2 SON(S) . FATHER-LUNG CA\NMOTHER-LUNG CA\NBROTHER AT 5YRS OLD COLON CANCER\NSON HAS IDDM ON INSULIN PUMP. SOCIAL HISTORY GENERAL: TOBACCO USE ARE YOU A:CURRENT SMOKER ARE YOU INTERESTED IN QUITTING?NOT READY TO QUIT COUNSELED THE PATIENT ON SMOKING EFFECTS, EDUCATION [id number]/07/2019 HOW MANY CIGARETTES A DAY DO YOU SMOKE?6-10 HOW SOON AFTER YOU WAKE UP DO YOU SMOKE YOUR FIRST CIGARETTE?6-30 MIN HOW OFTEN DO YOU SMOKE CIGARETTES?EVERY DAY PATIENT COUNSELED ON THE DANGERS OF TOBACCO USE AND URGED TO QUIT:03/14/2019 HIV / HEP-C SCREENING HIV TEST OFFERED TO PATIENT:YES DATE OFFERED:08/17/2017 TEST ACCEPTED:NO HEP-C TEST OFFERED TO PATIENT:YES DATE OFFERED:08/17/2017 REASON:PATIENT DECLINED TEST ACCEPTED:NO REASON:PATIENT DECLINED EDUCATION LEVEL OF EDUCATION:NOT FINISHED HIGH SCHOOL COMPLETED 11TH GRADE DIET: REGULAR. LANGUAGE LANGUAGES SPOKEN:KOREAN DOMESTIC VIOLENCE DO YOU FEEL SAFE IN YOUR ENVIRONMENT?YES NEW PATIENT PAIN DIARY TODAY'S VISITNOTES BMI CARE GOAL FOLLOW-UP ABOVE NORMAL BMI FOLLOW-UPDIETARY MANAGEMENT EDUCATION, GUIDANCE, AND COUNSELING RECREATIONAL DRUG USE DRUG USE?NO LEARNING BARRIERS / SPECIAL NEEDS CHANGE FROM LAST VISIT?NO BARRIERS TO LEARNING?NO HEARING IMPAIRED?NO VISION IMPAIRED?YES COGNITIVELY IMPAIRED?NO :CORRECTIVE LENSES READINESS TO LEARN?YES LEARNING PREFERENCES?NO LEARNING CAPABILITIES PRESENT?YES EMOTIONAL BARRIERS?NO SPECIAL DEVICES?NO COMMUNITY RELATIONS OFFICER NEEDED?NO LUNG CANCER SCREENING SMOKING STATUS:CURRENT SMOKER IS THE PATIENT BETWEEN THE AGE OF 56 AND 78?NO PAIN CLINIC PFS, CLERGY, PUBLIC HEALTH REFERRALS HAS THE PATIENT BEEN EDUCATED REGARDING HIS/HER PLAN OF CARE?YES HAS THE PATIENT BEEN EDUCATED REGARDING PAIN, THE RISK FOR PAIN, THE IMPORTANCE OF EFFECTIVE PAIN MANAGEMENT, AND THE PAIN ASSESSMENT PROCESS?YES LATEX QUESTIONNAIRE LATEX ALLERGY : HAVE YOU EVER DEVELOPED ANY TYPE OF REACTION AFTER HANDLING LATEX PRODUCTS SUCH RUBBER GLOVES, CONDOMS, DIAPHRAGMS, BALLOONS, SOCKS, OR UNDERWEAR?NO LATEX ALLERGY : HAVE YOU EVER DEVELOPED ANY TYPE OF REACTION DURING OR AFTER DENTAL APPOINTMENT, VAGINAL/RECTAL EXAMINATION, SURGICAL PROCEDURE, OR ANY OTHER EXPOSURE?NO LATEX RISK : HAVE YOU EVER HAD ANY DIFFICULTY BREATHING OR HIVES AFTER EATING OR HANDLING ANY FRUITS, OR VEGETABLES; SUCH KIWI, BANANAS, STONE FRUITS, OR CHESTNUTSNO LATEX RISK : DO YOU HAVE A PREVIOUS PERSONAL HISTORY OF MORE THAN NINE SURGERIES, SPINA BIFIDA, OR REPEATED CATHERTIZATIONS? NO LATEX RISK : ARE YOU FREQUENTLY EXPOSED TO LATEX PRODUCTS IN YOUR OCCUPATION?NO DATE ASKED : 03/14/2019 CAFFEINE CAFFEINE USE?YES HOW OFTEN AND HOW MUCH? 4 CUPS DAILY ADVANCE DIRECTIVE ADVANCE DIRECTIVE DISCUSSED WITH PATIENT:YES HCP ANNALISA DAVID [phone] RELIGIOUS [id number] UATSDIN NO TENRIISM BELIEFS THAT WOULD IMPACT HEALTH CARE. MARITAL STATUS: . ALCOHOL SCREENING DID YOU HAVE A DRINK CONTAINING ALCOHOL IN THE PAST YEAR?NO POINTS0 INTERPRETATIONNEGATIVE SEXUAL HX HAD SEX IN THE LAST 12 MONTHS (VAGINAL, ORAL, OR ANAL)?YES WITHMEN ONLY USE PROTECTION?NO LMP:HYSTER HAVE YOU EVER HAD AN STD?NO DR. SHEA FOR ROUTINE MARKETING TECHNOLOGY SPECIALIST CARE AND SCREENINGS. REVIEWED WITH PT 07/25/18 BVREVIEWED WITH PT 08/18/18 1522 LAS10/06/18 1510 REVIEWED WITH PT. ADREVIEWED WITH PATIENT 03/14/19 1417 JS. HOSPITALIZATION/MAJOR DIAGNOSTIC PROCEDURE SURGERIES BOWEL BLOCKAGE 11/03/16-11/28/16 REVIEW OF SYSTEMS REVIEWED BY: PROVIDER: . CONSTITUTIONAL: ANY CHANGE IN YOUR MEDICAL CONDITION? NO . CHILLS NO . FEVER NO . INFECTION: DO YOU HAVE NEW INFECTIONS? NO . DO YOU HAVE HISTORY OF MRSA? NO . MUSCULOSKELETAL: ANY NEW PATTERNS OF PAIN OR NUMBNESS? NO . GASTROENTEROLOGY: ANY NEW CHANGE IN BOWEL CONTROL? NO . GENITOURINARY: ANY NEW CHANGE IN BLADDER CONTROL? NO . IS THERE A CHANCE YOU COULD BE ? NO . HEMATOLOGY/LYMPH: DO YOU TAKE ANY BLOOD THINNERS? (FOR EXAMPLE- COUMADIN, PLAVIX, AGGRENOX, PLATEL, PRADAXA, OR XARELTO) NO . WHEN WAS YOUR LAST DOSE? DATE: TIME: . NEUROLOGY: HAVE YOU FALLEN IN THE PAST 12 MONTHS? YES, FALL IN OCTOBER, DISCUSSED AT PREVIOUS VISIT . ANY NEW EXTREMITY NUMBNESS OR WEAKNESS? NO . CARDIOLOGY: DO YOU HAVE A PACEMAKER OR DEFIBRILLATOR? NO . RESPIRATORY: HAVE YOU BEEN SICK IN THE PAST WEEK? NO . FEVER NO . FLU LIKE SYMPTOMS? NO . COUGH NO . INTEGUMENTARY: DO YOU HAVE ANY RASHES OR OPEN SORES? NO . ALLERGIC/IMMUNO: ARE YOU ALLERGIC TO IV DYE? NO . ANY NEW ALLERGIES? NO . PSYCHIATRIC: DO YOU HAVE THOUGHTS OF HURTING YOURSELF OR SOMEONE ELSE? NO . ARE YOU ABUSED, NEGLECTED, OR IN AN UNSAFE ENVIRONMENT? NO . ENDOCRINOLOGY: ARE YOU DIABETIC? YES, FSBS 109 THIS AM . OTHER: DO YOU NEED ANY PRESCRIPTIONS? YES . IF YES, PLEASE LIST: PERCOCET . ANY NEW PROBLEMS WITH YOUR MEDICATIONS? NO . WHEN DID YOU LAST EAT? 03-13-190 . WHEN DID YOU LAST DRINK? 03-14-19 0530 . WHAT DID YOU LAST DRINK? BLACK COFFEE . NAME OF PERSON DRIVING YOU HOME? DARRELL (BROTHER) . DO YOU HAVE ANY OTHER QUESTIONS OR CONCERNS NO . VITAL SIGNS WT 209.8 LBS, HT 61 IN, BMI 39.64 INDEX, BP 113/60 MM HG, HR 90 /MIN, RR 18 /MIN, TEMP 96.1 F, OXYGEN SAT % 93%, SAFE IN ENV? (Y/N) YES, NA INITIALS SC 13:02, REVIEWED BY: JS. 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 LUMBAR SPONDYLOSIS. 2. LUMBOSACRAL SPONDYLOSIS POST PROCEDURE DIAGNOSES 1. LUMBAR SPONDYLOSIS. 2. LUMBOSACRAL SPONDYLOSIS PROCEDURE LEFT L4-L5 AND LEFT L5-S1 LUMBAR FACET RADIOFREQUENCY SURGEON DR. MOHAMUD RIGGINS SHEAR OPERATOR HELPER NONE ANESTHESIA LOCAL PRE PROCEDURE REPORT THE PATIENT HAS HISTORY OF CHRONIC LOW BACK PAIN. I EVALUATE THE PATIENT AND REVIEWED THE CHART. I WENT OVER THE RISKS, ALTERNATIVES, AND BENEFITS ASSOCIATED WITH THIS PROCEDURE. THE PATIENT WOULD LIKE TO PROCEED AND GIVE CONSENT TO PERFORMED THE PROCEDURE. THE PATIENT DENIES UNEXPLAINABLE WEIGHT LOSS, FEVER, CHILLS, OR NEW CHANGES IN URINARY OR BOWEL CONTROL DESCRIPTION OF PROCEDURE THE PATIENT WAS BROUGHT TO THE PROCEDURE ROOM AND PLACED IN THE PRONE POSITION. THE LUMBOSACRAL AREA WAS CLEANED WITH CHLORAPREP SOLUTION AND DRAPED ASEPTICALLY. THE PROCEDURE WAS DONE UNDER STERILE CONDITIONS. I CHECKED LATERALITY AND THE LEVEL WHERE THE PROCEDURE WAS GOING TO BE PERFORMED WITH THE PATIENT AND THE SUPPORTING STAFF AT THE MOMENT OF THE TIME OUT IN THE PROCEDURE ROOM. UNDER FLUOROSCOPIC GUIDANCE, TARGETS WERE SELECTED AT THE INTERSECTION OF THE LEFT TRANSVERSE PROCESS OF L4, L5 AND ALA OF S1 WITH ITS RESPECTIVE SUPERIOR ARTICULAR PROCESS. LIDOCAINE WAS USED TO NUMB THE SKIN AND THE SUBCUTANEOUS TISSUE BELOW IT. RADIOFREQUENCY NEEDLES 22-GAUGE 15 CM LONG WITH 10 MM ACTIVE CURVE TIP WERE ADVANCED UNDER FLUOROSCOPIC GUIDANCE AND FOLLOWING PATIENT FEEDBACK UNTIL THE TARGET AREA WAS REACHED. POSITION OF THE NEEDLES WAS VERIFIED WITH AP AND LATERAL VIEWS. AFTER PROPER POSITION OF THE NEEDLE WAS ACHIEVED, WE WORKED WITH THE LEFT SELECTED MEDIAN BRANCHES OF L3, L4 AND THE DORSAL RAMI OF L5. WE MEASURED THE CORRESPONDING IMPEDANCES, SENSORY STIMULATION AND MOTOR RESPONSES INDICATED IN THE RADIOFREQUENCY WORKSHEET. POSITION OF THE NEEDLES WAS VERIFIED AGAIN WITH AP AND LATERAL VIEWS. LIDOCAINE 1%, 2 ML, WAS INJECTED AT EACH LEVEL. RADIOFREQUENCY WAS DONE AT EACH LEVEL AT 80 DEGREES FOR 90 SECONDS. AFTER RADIOFREQUENCY WAS DONE, THE PATIENT RECEIVED BUPIVACAINE 0.125% 1 CC WITH KENALOG 5 MG AT EACH SITE. THERE WAS NO EVIDENCE OF BLOOD, PARESTHESIA OR CEREBROSPINAL FLUID DURING THE PROCEDURE. THE PATIENT WAS SENT TO THE RECOVERY ROOM. THE PATIENT WAS MOVING THE EXTREMITIES AND DOING WELL. THERE WAS NO COMPLICATION DURING THE PROCEDURE. FLUOROSCOPY TIME WAS 62 SECONDS POST PROCEDURE NOTE THE PATIENT WILL BE SEEN IN A FOLLOW UP IN THE NEXT FEW WEEKS. INSTRUCTIONS WERE GIVEN, QUESTIONS WERE ANSWERED, AND THE PATIENT EXPRESSED UNDERSTANDING AND AGREES WITH THE PLAN. I, LOUANN CHOUDHARY, DOCUMENTED THE ABOVE INFORMATION ACTING A SCRIBE FOR DR. RIGGINS. I HAVE REVIEWED THE ABOVE DOCUMENT, WRITTEN BY LOUANN PALACIOSIBAngeles AND I VERIFY THAT IT IS ACCURATE. DIAGNOSTIC IMAGING [facility] FACET BLOCK (PAIN)[id number] PROCEDURE CODES 6045F RADXPS IN END [id number] PXD [id number] DESTROY LUMB/SAC F[place] J[place], [place]: [place] [id number] DESTROY L/S FACET JNT ADDL, MODIFIERS: LT DISPOSITION & COMMUNICATION FOLLOW UP 3 WEEKS ELECTRONICALLY SIGNED BY MOHAMUD RIGGINS MD, MD ON 03/26/2019 AT 07:39 PM EDT DISCLAIMER : THIS IS A VISIT SUMMARY EXTRACTED FROM THE [employer] CHART. IT IS NOT A COPY OF THE [employer] PROGRESS NOTE. MTDD
== END ==
LOC: M PAIN 13:00
PROVIDERS: ATTEND Anesthesiology
DX: G89.29 Other chronic pain (principal); M47.816 Spondylosis without myelopathy or radiculopathy, lumbar region; M47.817 Spondylosis without myelopathy or radiculopathy, lumbosacral region; I10 Essential (primary) hypertension; E11.9 Type 2 diabetes mellitus without complications; M17.0 Bilateral primary osteoarthritis of knee; J45.909 Unspecified asthma, uncomplicated; E78.5 Hyperlipidemia, unspecified; F32.9 Major depressive disorder, single episode, unspecified; F41.9 Anxiety disorder, unspecified; E55.9 Vitamin D deficiency, unspecified; G47.33 Obstructive sleep apnea (adult) (pediatric); F17.210 Nicotine dependence, cigarettes, uncomplicated; Z79.84 Long term (current) use of oral hypoglycemic drugs; Z79.891 Long term (current) use of opiate analgesic; Z79.899 Other long term (current) drug therapy; Z88.1 Allergy status to other antibiotic agents; Z88.2 Allergy status to sulfonamides; Z88.5 Allergy status to narcotic agent; Z88.8 Allergy status to other drugs, medicaments and biological substances
CPT/HCPCS: 64635; 64636; J3301

== ENCOUNTER → 2019-04-05 | Outpatient (CLI) | payer BC ==
[~2019-04-05] MED LIST changes: -BUPIVACAINE HCL 0.25% 30 ML VIAL As Ordered ONE; -LIDOCAINE 1% SDV INJ 30 ML VIAL As Ordered ONE; -TRIAMCINOLONE ACETONIDE SUSP 40 MG/ML VIAL (J3301) As Ordered ONE
--- NOTE | 2019-04-17 00:16 | ECWPNPC ---
PATIENT NAME: IVON DAVID : 1965 GENDER: FEMALE VISIT DATE: 04/05/2019 DISCHARGE DATE: 04/05/19 1225 VISIT LOCKED DATE TIME: PHYSICIAN: DIANA COREA RESOURCE: DIANA COREA REASON FOR APPOINTMENT 1. POST RF HISTORY OF PRESENT ILLNESS HISTORY OF PRESENT ILLNESS: HERE FOR POST PROCEDURE F/U.HAD RF L4/5-L5/S1 LEFT ON 03/14/19.REPORTING LESS PAIN INTENSITY AND IMPROVED ACTIVITY TOLERANCE SINCE PROCEDURE.RECOUPING FROM LEFT FOOT FX IN OCTOBER THAT IS PUTTING STRAIN ON LOW BACK.RATING PAIN VAS 4/10.CHIEF AREA OF PAIN IS LOW BACK. PAIN THE PATIENT DESCRIBES THE PAIN... FALL RISK SCREENING: SCREENING :NO FALLS REPORTED IN THE LAST YEAR CURRENT MEDICATIONS TAKING ADVAIR DISKUS 250-50 MCG/DOSE AEROSOL POWDER BREATH ACTIVATED 1 PUFF INHALATION TWICE A DAY TAKING METFORMIN HCL 1000 MG TABLET 1 TABLET WITH MEALS ORALLY TWICE A DAY TAKING HYDROCHLOROTHIAZIDE 25MG TABLET TAKE 1 TABLET DAILY TAKING ATORVASTATIN CALCIUM 80MG TABLET TAKE 1 TABLET DAILY TAKING ZYRTEC ALLERGY 10 MG TABLET 1 TABLET ORALLY ONCE A DAY TAKING VITAMIN D (ERGOCALCIFEROL) 10231 UNIT CAPSULE TAKE 1 CAPSULE BY MOUTH WEEKLY ORALLY WEEKLY TAKING PROTONIX 40 MG TABLET DELAYED RELEASE 1 TABLET ORALLY ONCE A DAY TAKING PAXIL 40 MG TABLET 1 TABLET IN THE MORNING ORALLY ONCE A DAY TAKING HYDROXYZINE HCL 50MG TABLET TAKE 1 TABLET TWICE A DAY TAKING PREMARIN 0.625MG TABLET TAKE 1 TABLET DAILY TAKING TIZANIDINE HCL 4 MG TABLET 1/2 - 1 TABLET ORALLY TAKE 1/2 TAB Q AM AND MIDDAY TAKE 1 TAB AT HS TAKING IRBESARTAN 150 MG TABLET 1 TABLET ORALLY ONCE A DAY TAKING PERCOCET 5-325 MG TABLET 1-2 ORALLY Q 4-6H PRN PAIN MDD6 NOT-TAKING VITAMIN D (ERGOCALCIFEROL) 50,000U CAPSULE TAKE 1 CAPSULE WEEKLY , NOTES: DUPLICATE NOT-TAKING PAROXETINE HCL 40MG TABLET TAKE 1 TABLET DAILY IN THE MORNING , NOTES: DUPLICATE NOT-TAKING PANTOPRAZOLE SODIUM 40MG TABLET DELAYED RELEASE TAKE 1 TABLET DAILY , NOTES: DUPLICATE MEDICATION LIST REVIEWED AND RECONCILED WITH THE PATIENT PAST MEDICAL HISTORY CHRONIC LOW BACK PAIN - FOLLOWED BY [facility] PAIN CLINIC OSTEOARTHRITIS BILATERAL KNEES ASTHMA NORMAL SPIROMETRY AT PULMONARY 11/2017 HYPERLIPIDEMIA DEPRESSION GENERALIZED ANXIETY DISORDER HYPERTENSION DM II LEFT PULMONARY NODULE - CT 2009 AND 2013 WITH NO CHANGE - NO FURTHER WORK UP NEEDED PER [facility] CR[facility]. (FOLLOWED BY PULMONARY) VARICOSE VEINS OSTEOPOROSIS - LAST DEXA 04/21, NORMAL - AP SPINE T-SCORE -0.4. NORMAL BONE DENSITY - REPEAT 2019 SMOKER VITAMIN D DEFICIENCY ADALGISA DIAGNOSED 07/2015 - ON CPAP LUMBAR FACET ARTHROPATHY LUMBAR SPONDYLOSIS ADMITTED 11/2016 FOR BOWEL OBSTRUCTION SECONDARY TO DIVERTICULITIS - REQUIRED PARTIAL BOWEL RESECTION WITH OSTOMY PLACED. LEFT ANKLE FX S/P FALL ALLERGIES MORPHINE SULFATE: HIVES - ALLERGY ZOLOFT: CONFUSION - LACK OF THERAPEUTIC EFFECT BACTRIM: HIVES - ALLERGY SULFA (FOR ALLERGY USE ONLY): HIVES - ALLERGY SURGICAL HISTORY HYSTERECTOMY (STILL HAS OVARIES) 03/12 CYST REMOVED FROM OVARY 2003 LLE VARICOSE VEIN REMOVAL AND LASER ABLATION OF LEFT GREAT SAPHENOUS VEIN () 09/15 LEFT KNEE ARTHROSCOPY (DR. ALEX RAMIRES) RIGHT TKA - ([facility]) 01/2014 REMOVAL OF CYST LEFT ARM 2010 REPAIR HAMMERTOES LEFT FOOT 2009 BOWEL RESECTION 11/20/16 COLOSTOMY REVERSAL 04/2017 COLONOSCOPY _ DR. POON - DIVERTICULOSIS, POLYP RESECTED, BUT NOT RETRIEVED FOR PATHOLOGY 03/2017 FAMILY HISTORY FATHER: 65 YRS, DIAGNOSED WITH CANCER MOTHER: 74 YRS, CANCER 2 BROTHER(S) , 2 SISTER(S) - HEALTHY. 2 SON(S) . FATHER-LUNG CA\NMOTHER-LUNG CA\NBROTHER AT 5YRS OLD COLON CANCER\NSON HAS IDDM ON INSULIN PUMP. SOCIAL HISTORY GENERAL: TOBACCO USE ARE YOU A:CURRENT SMOKER ARE YOU INTERESTED IN QUITTING?NOT READY TO QUIT COUNSELED THE PATIENT ON SMOKING EFFECTS, EDUCATION [id number]/29/2019 HOW MANY CIGARETTES A DAY DO YOU SMOKE?6-10 HOW SOON AFTER YOU WAKE UP DO YOU SMOKE YOUR FIRST CIGARETTE?6-30 MIN HOW OFTEN DO YOU SMOKE CIGARETTES?EVERY DAY PATIENT COUNSELED ON THE DANGERS OF TOBACCO USE AND URGED TO QUIT:03/14/2019 HIV / HEP-C SCREENING HIV TEST OFFERED TO PATIENT:YES DATE OFFERED:08/17/2017 TEST ACCEPTED:NO HEP-C TEST OFFERED TO PATIENT:YES DATE OFFERED:08/17/2017 REASON:PATIENT DECLINED TEST ACCEPTED:NO REASON:PATIENT DECLINED EDUCATION LEVEL OF EDUCATION:NOT FINISHED HIGH SCHOOL COMPLETED 11TH GRADE DIET: REGULAR. LANGUAGE LANGUAGES SPOKEN:MACANESE DOMESTIC VIOLENCE DO YOU FEEL SAFE IN YOUR ENVIRONMENT?YES NEW PATIENT PAIN DIARY TODAY'S VISITNOTES BMI CARE GOAL FOLLOW-UP ABOVE NORMAL BMI FOLLOW-UPDIETARY MANAGEMENT EDUCATION, GUIDANCE, AND COUNSELING RECREATIONAL DRUG USE DRUG USE?NO LEARNING BARRIERS / SPECIAL NEEDS CHANGE FROM LAST VISIT?NO BARRIERS TO LEARNING?NO HEARING IMPAIRED?NO VISION IMPAIRED?YES COGNITIVELY IMPAIRED?NO :CORRECTIVE LENSES READINESS TO LEARN?YES LEARNING PREFERENCES?NO LEARNING CAPABILITIES PRESENT?YES EMOTIONAL BARRIERS?NO SPECIAL DEVICES?NO DISH CLOTH INSPECTOR NEEDED?NO LUNG CANCER SCREENING SMOKING STATUS:CURRENT SMOKER IS THE PATIENT BETWEEN THE AGE OF 56 AND 78?NO PAIN CLINIC PFS, CLERGY, PUBLIC HEALTH REFERRALS HAS THE PATIENT BEEN EDUCATED REGARDING HIS/HER PLAN OF CARE?YES HAS THE PATIENT BEEN EDUCATED REGARDING PAIN, THE RISK FOR PAIN, THE IMPORTANCE OF EFFECTIVE PAIN MANAGEMENT, AND THE PAIN ASSESSMENT PROCESS?YES LATEX QUESTIONNAIRE LATEX ALLERGY : HAVE YOU EVER DEVELOPED ANY TYPE OF REACTION AFTER HANDLING LATEX PRODUCTS SUCH RUBBER GLOVES, CONDOMS, DIAPHRAGMS, BALLOONS, SOCKS, OR UNDERWEAR?NO LATEX ALLERGY : HAVE YOU EVER DEVELOPED ANY TYPE OF REACTION DURING OR AFTER DENTAL APPOINTMENT, VAGINAL/RECTAL EXAMINATION, SURGICAL PROCEDURE, OR ANY OTHER EXPOSURE?NO DATE ASKED : 03/14/2019 LATEX RISK : HAVE YOU EVER HAD ANY DIFFICULTY BREATHING OR HIVES AFTER EATING OR HANDLING ANY FRUITS, OR VEGETABLES; SUCH KIWI, BANANAS, STONE FRUITS, OR CHESTNUTSNO LATEX RISK : DO YOU HAVE A PREVIOUS PERSONAL HISTORY OF MORE THAN NINE SURGERIES, SPINA BIFIDA, OR REPEATED CATHERTIZATIONS? NO LATEX RISK : ARE YOU FREQUENTLY EXPOSED TO LATEX PRODUCTS IN YOUR OCCUPATION?NO CAFFEINE CAFFEINE USE?YES HOW OFTEN AND HOW MUCH? 4 CUPS DAILY ADVANCE DIRECTIVE ADVANCE DIRECTIVE DISCUSSED WITH PATIENT:YES HCP ANNALISA DAVID [phone] RESTORATIONIST [id number] HO[employer]ISM NO SIKH BELIEFS THAT WOULD IMPACT HEALTH CARE. MARITAL STATUS: . ALCOHOL SCREENING DID YOU HAVE A DRINK CONTAINING ALCOHOL IN THE PAST YEAR?NO POINTS0 INTERPRETATIONNEGATIVE SEXUAL HX HAD SEX IN THE LAST 12 MONTHS (VAGINAL, ORAL, OR ANAL)?YES WITHMEN ONLY USE PROTECTION?NO LMP:HYSTER HAVE YOU EVER HAD AN STD?NO DR. SHEA FOR ROUTINE AVIATION OPERATIONS SPECIALIST CARE AND SCREENINGS. REVIEWED WITH PT 07/25/18 BVREVIEWED WITH PT 08/18/18 1522 LAS10/06/18 1510 REVIEWED WITH PT. ADREVIEWED WITH PATIENT 03/14/19 1417 JS. HOSPITALIZATION/MAJOR DIAGNOSTIC PROCEDURE SURGERIES BOWEL BLOCKAGE 11/03/16-11/28/16 REVIEW OF SYSTEMS REVIEWED BY: PROVIDER: DIANA TAN . CONSTITUTIONAL: ANY CHANGE IN YOUR MEDICAL CONDITION? NO . CHILLS NO . FEVER NO . INFECTION: DO YOU HAVE NEW INFECTIONS? NO . DO YOU HAVE HISTORY OF MRSA? NO . MUSCULOSKELETAL: ANY NEW PATTERNS OF PAIN OR NUMBNESS? NO . GASTROENTEROLOGY: ANY NEW CHANGE IN BOWEL CONTROL? NO . GENITOURINARY: ANY NEW CHANGE IN BLADDER CONTROL? NO . IS THERE A CHANCE YOU COULD BE ? NO . HEMATOLOGY/LYMPH: DO YOU TAKE ANY BLOOD THINNERS? (FOR EXAMPLE- COUMADIN, PLAVIX, AGGRENOX, PLATEL, PRADAXA, OR XARELTO) NO . WHEN WAS YOUR LAST DOSE? DATE: TIME: . NEUROLOGY: HAVE YOU FALLEN IN THE PAST 12 MONTHS? YES, LEFT BROKEN ANKLE 10/2018, TX'D W CAST . ANY NEW EXTREMITY NUMBNESS OR WEAKNESS? YES, PAIN ON TOP OF LEFT FOOT . CARDIOLOGY: DO YOU HAVE A PACEMAKER OR DEFIBRILLATOR? NO . RESPIRATORY: HAVE YOU BEEN SICK IN THE PAST WEEK? NO . FEVER NO . FLU LIKE SYMPTOMS? NO . COUGH NO . INTEGUMENTARY: DO YOU HAVE ANY RASHES OR OPEN SORES? NO . ALLERGIC/IMMUNO: ARE YOU ALLERGIC TO IV DYE? NO . ANY NEW ALLERGIES? NO . PSYCHIATRIC: DO YOU HAVE THOUGHTS OF HURTING YOURSELF OR SOMEONE ELSE? NO . ARE YOU ABUSED, NEGLECTED, OR IN AN UNSAFE ENVIRONMENT? NO . ENDOCRINOLOGY: ARE YOU DIABETIC? YES . OTHER: DO YOU NEED ANY PRESCRIPTIONS? NO . IF YES, PLEASE LIST: ____ . ANY NEW PROBLEMS WITH YOUR MEDICATIONS? NO . WHEN DID YOU LAST EAT? ____ . WHEN DID YOU LAST DRINK? ____ . WHAT DID YOU LAST DRINK? ____ . NAME OF PERSON DRIVING YOU HOME? ____ . DO YOU HAVE ANY OTHER QUESTIONS OR CONCERNS YES, PT STATES SINCE SHE FRACTURED LEFT ANKLE SHE HAS HAD LBP L>R. . VITAL SIGNS WT 209.0 LBS, HT 61 IN, BMI 39.49 INDEX, BP 108/65 MM HG, HR 78 /MIN, RR 18 /MIN, TEMP 96.7 F, OXYGEN SAT % 94, NA INITIALS MP 1113, REVIEWED BY: EM. EXAMINATION GENERAL EXAMINATION: GENERAL APPEARANCE: AWAKE,ALERT ,PLEAASANT . PSYCH AFFECT NORMAL . LUNGS: LUNG MILLER ARE CLEAR TO AUSCULTATION BILATERALLY. GOOD MOVEMENT OF AIR . HEART: S1, S2 IN A REGULAR RATE AND RHYTHM. NO SIGNIFICANT MURMURS, RUBS OR GALLOPS NOTED . MUSCULOSKELETAL: MUSCLE STRENGTH TESTING 4/5 BILATERAL LOWER EXTREMITIES. LUMBAR SACRAL SPINE TRIGGER POINTS:, ELICITED WITH PALPATION OVER LEFT LUMBAR PARAVERTEBRAL MUSCLES AND RESTRICTION OF ROM IN THIS AREA NOTED.TENDER OVER LEFT SIJ. ASSESSMENTS MYALGIA, OTHER SITE - M79.18 (PRIMARY) TREATMENT MYALGIA, OTHER SITE NOTES: TPI LEFT LUMBAR. PREVENTIVE MEDICINE PAIN CLINIC TEACHING: PROCEDURE TEACHING PT GIVEN WRITTEN AND VERBAL EDUCATION ON TRIGGER POINT INJECTIONS. PT ALSO GIVEN WRITTEN AND VERBAL PRE-PROCEDURE INSTRUCTIONS. PT VERBALIZES UNDERSTANDING OF ALL EDUCATION AND INSTRUCTIONS. GREGORY ESPOSITO 04/05/2019 12:25:50 PM > . PROCEDURE CODES FA211 ESTABILISHED PATIENT [facility] FACILITY CHARGE DISPOSITION & COMMUNICATION FOLLOW UP POST (REASON: TPI LEFT LUMBAR ) ELECTRONICALLY SIGNED BY DOMINICK ZAPATA ON 04/16/2019 AT 09:58 AM EDT DISCLAIMER : THIS IS A VISIT SUMMARY EXTRACTED FROM THE [employer] CHART. IT IS NOT A COPY OF THE [employer] PROGRESS NOTE. [place]
== END ==
LOC: M PAIN 11:15
PROVIDERS: ATTEND Nurse Practitioner Family
DX: M79.18 Myalgia, other site (principal); M19.90 Unspecified osteoarthritis, unspecified site; E78.5 Hyperlipidemia, unspecified; Z86.59 Personal history of other mental and behavioral disorders; I10 Essential (primary) hypertension; E11.9 Type 2 diabetes mellitus without complications; E55.9 Vitamin D deficiency, unspecified; G47.33 Obstructive sleep apnea (adult) (pediatric); F17.210 Nicotine dependence, cigarettes, uncomplicated; Z88.1 Allergy status to other antibiotic agents; Z88.2 Allergy status to sulfonamides; Z88.5 Allergy status to narcotic agent; Z88.8 Allergy status to other drugs, medicaments and biological substances; Z79.84 Long term (current) use of oral hypoglycemic drugs; Z79.891 Long term (current) use of opiate analgesic; Z79.899 Other long term (current) drug therapy

== ENCOUNTER → 2019-05-18 | Outpatient (CLI) | payer BC ==
[~2019-05-18] MED LIST changes: +BUPIVACAINE HCL 0.25% 10 ML VIAL As Ordered ONE; +BUPIVACAINE HCL 0.25% 30 ML VIAL As Ordered ONE; +TRIAMCINOLONE ACETONIDE SUSP 40 MG/ML VIAL (J3301) As Ordered ONE
--- NOTE | 2019-05-25 00:25 | ECWPNPC ---
PATIENT NAME: IVON DAVID : 1965 GENDER: FEMALE VISIT DATE: 05/18/2019 DISCHARGE DATE: 05/18/19 1140 VISIT LOCKED DATE TIME: PHYSICIAN: MOHAMUD RIGGINS MD RESOURCE: MOHAMUD RIGGINS MD REASON FOR APPOINTMENT 1. TPI LB HISTORY OF PRESENT ILLNESS HISTORY OF PRESENT ILLNESS: PAIN THE PATIENT DESCRIBES THE PAIN... FALL RISK SCREENING: SCREENING :NO FALLS REPORTED IN THE LAST YEAR CURRENT MEDICATIONS TAKING ADVAIR DISKUS 250-50 MCG/DOSE AEROSOL POWDER BREATH ACTIVATED 1 PUFF INHALATION TWICE A DAY, NOTES: 05/18/19 AM TAKING METFORMIN HCL 1000 MG TABLET 1 TABLET WITH MEALS ORALLY TWICE A DAY, NOTES: 05/17/19 PM TAKING HYDROCHLOROTHIAZIDE 25MG TABLET TAKE 1 TABLET DAILY , NOTES: 05/17/19 TAKING ATORVASTATIN CALCIUM 80MG TABLET TAKE 1 TABLET DAILY , NOTES: 05/17/19 TAKING ZYRTEC ALLERGY 10 MG TABLET 1 TABLET ORALLY ONCE A DAY, NOTES: 05/18/19 AM TAKING VITAMIN D (ERGOCALCIFEROL) 86160 UNIT CAPSULE TAKE 1 CAPSULE BY MOUTH WEEKLY ORALLY WEEKLY, NOTES: 05/17/19 TAKING PROTONIX 40 MG TABLET DELAYED RELEASE 1 TABLET ORALLY ONCE A DAY, NOTES: 05/17/19 TAKING PAXIL 40 MG TABLET 1 TABLET IN THE MORNING ORALLY ONCE A DAY, NOTES: 05/17/19 TAKING PREMARIN 0.625MG TABLET TAKE 1 TABLET DAILY , NOTES: 05/17/19 TAKING TIZANIDINE HCL 4 MG TABLET 1/2 - 1 TABLET ORALLY TAKE 1/2 TAB Q AM AND MIDDAY TAKE 1 TAB AT HS, NOTES: 05/17/19 TAKING IRBESARTAN 150 MG TABLET 1 TABLET ORALLY ONCE A DAY, NOTES: 05/17/19 TAKING HYDROXYZINE HCL 50 MG TABLET TAKE 1 TABLET TWICE A DAY , NOTES: 05/17/19 TAKING PERCOCET 5-325 MG TABLET 1-2 ORALLY Q 4-6H PRN PAIN MDD6, NOTES: 05/17/19 NOT-TAKING VITAMIN D (ERGOCALCIFEROL) 50,000U CAPSULE TAKE 1 CAPSULE WEEKLY , NOTES: DUPLICATE NOT-TAKING PAROXETINE HCL 40MG TABLET TAKE 1 TABLET DAILY IN THE MORNING , NOTES: DUPLICATE NOT-TAKING PANTOPRAZOLE SODIUM 40MG TABLET DELAYED RELEASE TAKE 1 TABLET DAILY , NOTES: DUPLICATE MEDICATION LIST REVIEWED AND RECONCILED WITH THE PATIENT PAST MEDICAL HISTORY CHRONIC LOW BACK PAIN - FOLLOWED BY [facility] OSTEOARTHRITIS BILATERAL KNEES ASTHMA NORMAL SPIROMETRY AT PULMONARY 11/2017 HYPERLIPIDEMIA DEPRESSION GENERALIZED ANXIETY DISORDER HYPERTENSION DM II LEFT PULMONARY NODULE - CT 2009 AND 2013 WITH NO CHANGE - NO FURTHER WORK UP NEEDED PER [facility] CR[facility]. (FOLLOWED BY PULMONARY) VARICOSE VEINS OSTEOPOROSIS - LAST DEXA 04/21, NORMAL - AP SPINE T-SCORE -0.4. NORMAL BONE DENSITY - REPEAT 2018 SMOKER VITAMIN D DEFICIENCY ADALGISA DIAGNOSED 07/2015 - ON CPAP LUMBAR FACET ARTHROPATHY LUMBAR SPONDYLOSIS ADMITTED 11/2016 FOR BOWEL OBSTRUCTION SECONDARY TO DIVERTICULITIS - REQUIRED PARTIAL BOWEL RESECTION WITH OSTOMY PLACED. LEFT ANKLE FX S/P FALL ALLERGIES MORPHINE SULFATE: HIVES - ALLERGY ZOLOFT: CONFUSION - LACK OF THERAPEUTIC EFFECT BACTRIM: HIVES - ALLERGY SULFA (FOR ALLERGY USE ONLY): HIVES - ALLERGY SURGICAL HISTORY HYSTERECTOMY (STILL HAS OVARIES) 03/12 CYST REMOVED FROM OVARY 2003 LLE VARICOSE VEIN REMOVAL AND LASER ABLATION OF LEFT GREAT SAPHENOUS VEIN () 09/15 LEFT KNEE ARTHROSCOPY (DR. ALEX RAMIRES) RIGHT TKA - ([facility]) 01/2014 REMOVAL OF CYST LEFT ARM 2010 REPAIR HAMMERTOES LEFT FOOT 2009 BOWEL RESECTION 11/20/16 COLOSTOMY REVERSAL 04/2017 COLONOSCOPY _ DR. POON - DIVERTICULOSIS, POLYP RESECTED, BUT NOT RETRIEVED FOR PATHOLOGY 03/2017 FAMILY HISTORY FATHER: 65 YRS, DIAGNOSED WITH CANCER MOTHER: 74 YRS, CANCER 2 BROTHER(S) , 2 SISTER(S) - HEALTHY. 2 SON(S) . FATHER-LUNG CA\NMOTHER-LUNG CA\NBROTHER AT 5YRS OLD COLON CANCER\NSON HAS IDDM ON INSULIN PUMP. SOCIAL HISTORY GENERAL: TOBACCO USE ARE YOU A:CURRENT SMOKER ARE YOU INTERESTED IN QUITTING?NOT READY TO QUIT COUNSELED THE PATIENT ON SMOKING EFFECTS, EDUCATION [id number]/11/2019 HOW MANY CIGARETTES A DAY DO YOU SMOKE?6-10 HOW SOON AFTER YOU WAKE UP DO YOU SMOKE YOUR FIRST CIGARETTE?6-30 MIN HOW OFTEN DO YOU SMOKE CIGARETTES?EVERY DAY PATIENT COUNSELED ON THE DANGERS OF TOBACCO USE AND URGED TO QUIT:03/14/2019 HIV / HEP-C SCREENING HIV TEST OFFERED TO PATIENT:YES DATE OFFERED:08/17/2017 TEST ACCEPTED:NO HEP-C TEST OFFERED TO PATIENT:YES DATE OFFERED:08/17/2017 REASON:PATIENT DECLINED TEST ACCEPTED:NO REASON:PATIENT DECLINED EDUCATION LEVEL OF EDUCATION:NOT FINISHED HIGH SCHOOL COMPLETED 11TH GRADE DIET: REGULAR. LANGUAGE LANGUAGES SPOKEN:POLISH DOMESTIC VIOLENCE DO YOU FEEL SAFE IN YOUR ENVIRONMENT?YES NEW PATIENT PAIN DIARY TODAY'S VISITNOTES BMI CARE GOAL FOLLOW-UP ABOVE NORMAL BMI FOLLOW-UPDIETARY MANAGEMENT EDUCATION, GUIDANCE, AND COUNSELING RECREATIONAL DRUG USE DRUG USE?NO LEARNING BARRIERS / SPECIAL NEEDS CHANGE FROM LAST VISIT?NO BARRIERS TO LEARNING?NO HEARING IMPAIRED?NO VISION IMPAIRED?YES COGNITIVELY IMPAIRED?NO :CORRECTIVE LENSES READINESS TO LEARN?YES LEARNING PREFERENCES?NO LEARNING CAPABILITIES PRESENT?YES EMOTIONAL BARRIERS?NO SPECIAL DEVICES?NO TELECOMMUNICATION SYSTEMS DESIGNER NEEDED?NO LUNG CANCER SCREENING SMOKING STATUS:CURRENT SMOKER IS THE PATIENT BETWEEN THE AGE OF 56 AND 78?NO PAIN CLINIC PFS, CLERGY, PUBLIC HEALTH REFERRALS HAS THE PATIENT BEEN EDUCATED REGARDING HIS/HER PLAN OF CARE?YES HAS THE PATIENT BEEN EDUCATED REGARDING PAIN, THE RISK FOR PAIN, THE IMPORTANCE OF EFFECTIVE PAIN MANAGEMENT, AND THE PAIN ASSESSMENT PROCESS?YES LATEX QUESTIONNAIRE LATEX ALLERGY : HAVE YOU EVER DEVELOPED ANY TYPE OF REACTION AFTER HANDLING LATEX PRODUCTS SUCH RUBBER GLOVES, CONDOMS, DIAPHRAGMS, BALLOONS, SOCKS, OR UNDERWEAR?NO LATEX ALLERGY : HAVE YOU EVER DEVELOPED ANY TYPE OF REACTION DURING OR AFTER DENTAL APPOINTMENT, VAGINAL/RECTAL EXAMINATION, SURGICAL PROCEDURE, OR ANY OTHER EXPOSURE?NO DATE ASKED : 03/14/2019 LATEX RISK : HAVE YOU EVER HAD ANY DIFFICULTY BREATHING OR HIVES AFTER EATING OR HANDLING ANY FRUITS, OR VEGETABLES; SUCH KIWI, BANANAS, STONE FRUITS, OR CHESTNUTSNO LATEX RISK : DO YOU HAVE A PREVIOUS PERSONAL HISTORY OF MORE THAN NINE SURGERIES, SPINA BIFIDA, OR REPEATED CATHERTIZATIONS? NO LATEX RISK : ARE YOU FREQUENTLY EXPOSED TO LATEX PRODUCTS IN YOUR OCCUPATION?NO CAFFEINE CAFFEINE USE?YES HOW OFTEN AND HOW MUCH? 4 CUPS DAILY ADVANCE DIRECTIVE ADVANCE DIRECTIVE DISCUSSED WITH PATIENT:YES HCP ANNALISA DAVID [phone] SCIENTOLOGY [id number] CONGREGATIONAL NO SCIENTOLOGY BELIEFS THAT WOULD IMPACT HEALTH CARE. MARITAL STATUS: . ALCOHOL SCREENING DID YOU HAVE A DRINK CONTAINING ALCOHOL IN THE PAST YEAR?NO POINTS0 INTERPRETATIONNEGATIVE SEXUAL HX HAD SEX IN THE LAST 12 MONTHS (VAGINAL, ORAL, OR ANAL)?YES WITHMEN ONLY USE PROTECTION?NO LMP:HYSTER HAVE YOU EVER HAD AN STD?NO DR. SHEA FOR ROUTINE HEALTH PROGRAM MANAGER CARE AND SCREENINGS. REVIEWED WITH PT 07/25/18 BVREVIEWED WITH PT 08/18/18 1522 LAS10/06/18 1510 REVIEWED WITH PT. ADREVIEWED WITH PATIENT 03/14/19 1417 JS. HOSPITALIZATION/MAJOR DIAGNOSTIC PROCEDURE SURGERIES BOWEL BLOCKAGE 11/03/16-11/28/16 REVIEW OF SYSTEMS REVIEWED BY: PROVIDER: . CONSTITUTIONAL: ANY CHANGE IN YOUR MEDICAL CONDITION? NO . CHILLS NO . FEVER NO . INFECTION: DO YOU HAVE NEW INFECTIONS? NO . DO YOU HAVE HISTORY OF MRSA? NO . MUSCULOSKELETAL: ANY NEW PATTERNS OF PAIN OR NUMBNESS? NO . GASTROENTEROLOGY: ANY NEW CHANGE IN BOWEL CONTROL? NO . GENITOURINARY: ANY NEW CHANGE IN BLADDER CONTROL? NO . IS THERE A CHANCE YOU COULD BE ? NO . HEMATOLOGY/LYMPH: DO YOU TAKE ANY BLOOD THINNERS? (FOR EXAMPLE- COUMADIN, PLAVIX, AGGRENOX, PLATEL, PRADAXA, OR XARELTO) NO . WHEN WAS YOUR LAST DOSE? DATE: TIME: . NEUROLOGY: HAVE YOU FALLEN IN THE PAST 12 MONTHS? NO . ANY NEW EXTREMITY NUMBNESS OR WEAKNESS? NO . CARDIOLOGY: DO YOU HAVE A PACEMAKER OR DEFIBRILLATOR? NO . RESPIRATORY: HAVE YOU BEEN SICK IN THE PAST WEEK? NO . FEVER NO . FLU LIKE SYMPTOMS? NO . COUGH NO . INTEGUMENTARY: DO YOU HAVE ANY RASHES OR OPEN SORES? NO . ALLERGIC/IMMUNO: ARE YOU ALLERGIC TO IV DYE? NO . ANY NEW ALLERGIES? NO . PSYCHIATRIC: DO YOU HAVE THOUGHTS OF HURTING YOURSELF OR SOMEONE ELSE? NO . ARE YOU ABUSED, NEGLECTED, OR IN AN UNSAFE ENVIRONMENT? NO . ENDOCRINOLOGY: ARE YOU DIABETIC? NO . OTHER: DO YOU NEED ANY PRESCRIPTIONS? NO . IF YES, PLEASE LIST: ____ . ANY NEW PROBLEMS WITH YOUR MEDICATIONS? NO . WHEN DID YOU LAST EAT? 05/17/19 1900 . WHEN DID YOU LAST DRINK? 05/18/19 0530 . WHAT DID YOU LAST DRINK? BLACK COFFEE . NAME OF PERSON DRIVING YOU HOME? DARRELL . DO YOU HAVE ANY OTHER QUESTIONS OR CONCERNS NO . VITAL SIGNS WT 208 LBS, HT 61 IN, BMI 39.30 INDEX, BP 116/75 MM HG, HR 67 /MIN, RR 18 /MIN, TEMP 97.6 F, OXYGEN SAT % 94%, NA INITIALS SC 10:03, REVIEWED BY: BING. ASSESSMENTS MYALGIA, OTHER SITE - M79.18 (PRIMARY) PROCEDURES PN TRIGGER POINT INJECTION WITH STEROIDS PRE PROCEDURE DIAGNOSIS 1. MYALGIA 2. PAIN AT BILATERAL LOWER BACK AREA. POST PROCEDURE DIAGNOSIS 1. MYALGIA 2. PAIN AT BILATERAL LOWER BACK AREA. PROCEDURE TRIGGER POINT INJECTION AT RIGHT AND LEFT LOWER BACK AREA. SURGEON DR. MOHAMUD RIGGINS LOBBY ATTENDANT NONE ANESTHESIA LOCAL PRE PROCEDURE NOTE THE PATIENT HAS A HISTORY OF CHRONIC PAIN AT THE RIGHT AND LEFT LOWER BACK AREA. I EVALUATED THE PATIENT AND REVIEWED THE CHART. THERE IS EVIDENCE OF BANDS OF TISSUE WITH RESTRICTION OF MOVEMENT AND PRESENCE OF TRIGGER POINT AT THE AFFECTED AREA. I WENT OVER THE RISKS, ALTERNATIVES, AND BENEFITS ASSOCIATED WITH THIS PROCEDURE. THE PATIENT WOULD LIKE TO PROCEED AND GIVE CONSENT TO PERFORMED THE PROCEDURE. THE PATIENT DENIES UNEXPLAINABLE WEIGHT LOSS, FEVER, CHILLS, OR NEW CHANGES IN URINARY OR BOWEL CONTROL DESCRIPTION OF PROCEDURE THE PATIENT WAS BROUGHT TO THE PROCEDURE ROOM AND PLACED IN THE SITTING POSITION. THE AREA WAS CLEANED WITH ALCOHOL. THE PROCEDURE WAS DONE USING ASEPTIC STERILE TECHNIQUE. I CHECKED LATERALITY AND THE LEVEL WHERE THE PROCEDURE WAS GOING TO BE PERFORMED WITH THE PATIENT AND THE SUPPORTING STAFF AT THE MOMENT OF THE TIME OUT IN THE PROCEDURE ROOM. USING A 25-GAUGE NEEDLE, TRIGGER POINTS WERE INJECTED AT THE RIGHT AND LEFT LOWER BACK AREA WITH A TOTAL OF 40 ML OF BUPIVACAINE 0.25% AND KENALOG 40 MG. THERE WAS NO EVIDENCE OF BLOOD, PARESTHESIA OR CEREBROSPINAL FLUID DURING THE PROCEDURE. THE PATIENT WAS SENT TO THE RECOVERY ROOM. THE PATIENT WAS MOVING THE EXTREMITIES AND DOING WELL. THERE WAS NO COMPLICATION DURING THE PROCEDURE POST PROCEDURE NOTE THE PATIENT WILL BE SEEN IN A FOLLOW UP IN THE NEXT FEW WEEKS. INSTRUCTIONS WERE GIVEN, QUESTIONS WERE ANSWERED, AND THE PATIENT EXPRESSED UNDERSTANDING AND AGREES WITH THE PLAN. I, ИВАН BRAXTON, DOCUMENTED THE ABOVE INFORMATION ACTING A SCRIBE FOR DR. RIGGINS. I HAVE REVIEWED THE ABOVE DOCUMENT, WRITTEN BY ИВАН TINOCO AND I VERIFY THAT IT IS ACCURATE. PROCEDURE CODES 91593 INJ TRIGGER POINT / [facility] DISPOSITION & COMMUNICATION FOLLOW UP 3 WEEKS ELECTRONICALLY SIGNED BY MOHAMUD RIGGINS MD, MD ON 05/24/2019 AT 10:14 AM EDT DISCLAIMER : THIS IS A VISIT SUMMARY EXTRACTED FROM THE [employer] CHART. IT IS NOT A COPY OF THE [employer] PROGRESS NOTE. [facility]
== END ==
LOC: M PAIN 10:00
PROVIDERS: ATTEND Anesthesiology
DX: M79.18 Myalgia, other site (principal); M54.5 Low back pain; M17.0 Bilateral primary osteoarthritis of knee; J45.909 Unspecified asthma, uncomplicated; E78.5 Hyperlipidemia, unspecified; F32.9 Major depressive disorder, single episode, unspecified; F41.1 Generalized anxiety disorder; I10 Essential (primary) hypertension; E11.9 Type 2 diabetes mellitus without complications; R91.1 Solitary pulmonary nodule; I83.90 Asymptomatic varicose veins of unspecified lower extremity; M81.0 Age-related osteoporosis without current pathological fracture; E55.9 Vitamin D deficiency, unspecified; G47.33 Obstructive sleep apnea (adult) (pediatric); M47.816 Spondylosis without myelopathy or radiculopathy, lumbar region; F17.210 Nicotine dependence, cigarettes, uncomplicated; Z79.84 Long term (current) use of oral hypoglycemic drugs; Z79.891 Long term (current) use of opiate analgesic; Z79.899 Other long term (current) drug therapy; Z96.651 Presence of right artificial knee joint; Z90.49 Acquired absence of other specified parts of digestive tract; Z88.2 Allergy status to sulfonamides; Z88.5 Allergy status to narcotic agent; Z88.8 Allergy status to other drugs, medicaments and biological substances
CPT/HCPCS: 20552; J3301

== ENCOUNTER → 2019-06-26 | Outpatient (CLI) | payer BC ==
[~2019-06-26] MED LIST changes: -BUPIVACAINE HCL 0.25% 10 ML VIAL As Ordered ONE; -BUPIVACAINE HCL 0.25% 30 ML VIAL As Ordered ONE; -TRIAMCINOLONE ACETONIDE SUSP 40 MG/ML VIAL (J3301) As Ordered ONE
--- NOTE | 2019-07-13 03:05 | ECWPNPC ---
PATIENT NAME: IVON DAVID : 1965 GENDER: FEMALE VISIT DATE: 06/26/2019 DISCHARGE DATE: 06/26/19 1123 VISIT LOCKED DATE TIME: PHYSICIAN: DIANA COREA RESOURCE: DIANA COREA DISCLAIMER : THIS IS A VISIT SUMMARY EXTRACTED FROM THE [facility] CHART. IT IS NOT A COPY OF THE [employer] PROGRESS NOTE. [place]
== END ==
LOC: M PAIN 10:30
PROVIDERS: ATTEND Nurse Practitioner Family
DX: M79.18 Myalgia, other site (principal); F17.210 Nicotine dependence, cigarettes, uncomplicated; Z79.84 Long term (current) use of oral hypoglycemic drugs; Z79.891 Long term (current) use of opiate analgesic; Z79.899 Other long term (current) drug therapy; Z88.5 Allergy status to narcotic agent; Z88.1 Allergy status to other antibiotic agents; Z88.2 Allergy status to sulfonamides; Z88.8 Allergy status to other drugs, medicaments and biological substances

== ENCOUNTER → 2019-06-28 | Outpatient (REF) | payer BC ==
[2019-06-28 20:44] LABS: ALBUMIN 3.4 GM/DL (3.2-5.2); ALT/SGPT 10 U/L (12-78); BILIRUBIN,TOTAL 0.2 MG/DL (0.2-1.0); BLOOD UREA NITROGEN 15 MG/DL (7-18); CALCIUM LEVEL 9.4 MG/DL (8.5-10.1); CARBON DIOXIDE LEVEL 29 MEQ/L (21-32); CHLORIDE LEVEL 100 MEQ/L (98-107); CHOLESTEROL LEVEL 179 MG/DL (<200); CHOLESTEROL RISK RATIO 2.983 (<5); FREE T4 1.21 NG/DL (0.76-1.46); GLOMERULAR FILTRATION RATE > 60.0 (>51); GLUCOSE, FASTING 86 MG/DL (70-100); HDL CHOLESTEROL 60 MG/DL (>40); LDL CHOLESTEROL 83 MG/DL (<100); NON-HDL-C 119 MG/DL; POTASSIUM SERUM 3.7 MEQ/L (3.5-5.1); SODIUM LEVEL 137 MEQ/L (136-145); TOTAL PROTEIN 7.2 GM/DL (6.4-8.2); TRIGLYCERIDES LEVEL 179 MG/DL (<150)
[2019-06-28 20:45] LABS: HEMATOCRIT 41.9 % (36.0-47.0); HEMOGLOBIN 14.1 g/dl (12.0-15.5); MEAN CORPUSCULAR HEMOGLOBIN 30.1 pg (27.0-33.0); MEAN CORPUSCULAR HGB CONC 33.7 g/dl (32.0-36.5); MEAN CORPUSCULAR VOLUME 89.3 fl (80.0-96.0); PLATELET COUNT, AUTOMATED 406 10^3/uL (150-450); RED BLOOD COUNT 4.69 10^6/uL (4.00-5.40); TOTAL 25(OH) VITAMIN D 51.8 NG/ML (30.0-100.0); WHITE BLOOD COUNT 14.6 10^3/uL (4.0-10.0)
[2019-06-28 21:06] LABS: MALB URINE SIEMENS 24.1 MG/L; MAU/CREAT RATIO 11.2 MCG/MG (0.0-30.0)
== END ==
LOC: M SFHCADAM 15:24
PROVIDERS: ATTEND Physician Assistant
DX: N95.9 Unspecified menopausal and perimenopausal disorder (principal); R53.82 Chronic fatigue, unspecified; F17.200 Nicotine dependence, unspecified, uncomplicated; I10 Essential (primary) hypertension

== ENCOUNTER → 2019-07-27 | Outpatient (CLI) | payer BC | LOC: M PAIN 10:15 | PROVIDERS: ATTEND Nurse Practitioner Family | DX: M46.1 Sacroiliitis, not elsewhere classified (principal); M17.0 Bilateral primary osteoarthritis of knee; J45.909 Unspecified asthma, uncomplicated; E78.5 Hyperlipidemia, unspecified; Z86.59 Personal history of other mental and behavioral disorders; I10 Essential (primary) hypertension; E11.9 Type 2 diabetes mellitus without complications; M81.0 Age-related osteoporosis without current pathological fracture; E55.9 Vitamin D deficiency, unspecified; G47.33 Obstructive sleep apnea (adult) (pediatric); F17.210 Nicotine dependence, cigarettes, uncomplicated; Z88.1 Allergy status to other antibiotic agents; Z88.2 Allergy status to sulfonamides; Z88.5 Allergy status to narcotic agent; Z88.8 Allergy status to other drugs, medicaments and biological substances; Z79.891 Long term (current) use of opiate analgesic; Z79.899 Other long term (current) drug therapy ==

== ENCOUNTER → 2019-08-08 | Outpatient (CLI) | payer BC ==
[~2019-08-08] MED LIST changes: +BUPIVACAINE HCL 0.25% 30 ML VIAL As Ordered ONE; +ISOVUE-M 300 61% 15ML VIAL (Q9967) As Ordered ONE; +LIDOCAINE 1% SDV INJ 30 ML VIAL As Ordered ONE; +TRIAMCINOLONE ACETONIDE SUSP 40 MG/ML VIAL (J3301) As Ordered ONE
--- NOTE | 2019-08-09 08:10 | REP ---
LIMITED SI JOINT SERIES, 08/08/2019: HISTORY: Left sided sacroiliac joint block for pain. 13 seconds of fluoroscopy time is reported. FINDINGS: A sequence of three last image hold fluoroscopically obtained spot radiographs of the left SI joint document needle position and contrast injection associated with left SI joint injection procedure. Electronically Signed by Raj Layton MD 08/09/2019 12:58 P
== END ==
LOC: M PAIN 14:45
PROVIDERS: ATTEND Anesthesiology
DX: M46.1 Sacroiliitis, not elsewhere classified (principal); M17.0 Bilateral primary osteoarthritis of knee; M54.5 Low back pain; J45.909 Unspecified asthma, uncomplicated; E78.5 Hyperlipidemia, unspecified; F32.9 Major depressive disorder, single episode, unspecified; F41.1 Generalized anxiety disorder; I10 Essential (primary) hypertension; E11.9 Type 2 diabetes mellitus without complications; R91.1 Solitary pulmonary nodule; M81.0 Age-related osteoporosis without current pathological fracture; E55.9 Vitamin D deficiency, unspecified; G47.33 Obstructive sleep apnea (adult) (pediatric); F17.210 Nicotine dependence, cigarettes, uncomplicated; I83.90 Asymptomatic varicose veins of unspecified lower extremity; Z96.651 Presence of right artificial knee joint; Z90.49 Acquired absence of other specified parts of digestive tract; Z79.891 Long term (current) use of opiate analgesic; Z79.899 Other long term (current) drug therapy; Z88.2 Allergy status to sulfonamides; Z88.5 Allergy status to narcotic agent; Z88.8 Allergy status to other drugs, medicaments and biological substances
CPT/HCPCS: G0260; J3301; Q9967

== ENCOUNTER → 2019-08-22 | Outpatient (CLI) | payer BC ==
[~2019-08-22] MED LIST changes: -BUPIVACAINE HCL 0.25% 30 ML VIAL As Ordered ONE; -ISOVUE-M 300 61% 15ML VIAL (Q9967) As Ordered ONE; -LIDOCAINE 1% SDV INJ 30 ML VIAL As Ordered ONE; -TRIAMCINOLONE ACETONIDE SUSP 40 MG/ML VIAL (J3301) As Ordered ONE
--- NOTE | 2019-08-22 16:30 | REPMRS ---
Patient History The patient states she has not had a clinical breast exam in over a year. No known family history of cancer. Taking unspecified hormones for 2 years 11 months. Digital Woman Screen Mammo: August 22, 2019 - Exam #: [id number] Bilateral CC and MLO view(s) were taken. Technologist: Maliha Madden Technologist Prior study comparison: September 10, 2017, digital woman screen mammo performed at [facility]. March 03, 2007, bilateral screening mammogram performed at [facility]. FINDINGS: There are scattered fibroglandular densities. There are multiple stable nodular densities and scattered areas of calcification noted bilaterally unchanged from the comparison studies. There is a moderate amount of residual fibroglandular tissue which is fairly symmetric. There is no interval development of dominant mass, architectural distortion, or grouped microcalcification typical of malignancy. There has been no change in the appearance of the mammogram from the prior studies. 3-D tomosynthesis shows no additional findings. Assessment: BI-RADS/ACR category 2 mammogram. Benign Findings. Recommendation Routine screening mammogram of both breasts in 1 year (for women over age 40). This patient's Lifetime Breast Cancer RIsk is estimated at 7.8 %. This mammogram was interpreted with the aid of an FDA-approved computer-aided dectection system. Electronically Signed By: Demetrio Layton MD 08/22/19 8140
== END ==
LOC: M WHC 13:58
PROVIDERS: ATTEND Physician Assistant
DX: Z12.31 Encounter for screening mammogram for malignant neoplasm of breast (principal)

== ENCOUNTER → 2019-08-24 | Outpatient (CLI) | payer BC ==
--- NOTE | 2019-09-07 01:28 | ECWPNPC ---
PATIENT NAME: IVON DAVID : 1965 GENDER: FEMALE VISIT DATE: 08/24/2019 DISCHARGE DATE: 08/24/19 1120 VISIT LOCKED DATE TIME: PHYSICIAN: DIANA COREA RESOURCE: DIANA COREA REASON FOR APPOINTMENT 1. POST PROC HISTORY OF PRESENT ILLNESS HISTORY OF PRESENT ILLNESS: HERE FOR POST PROCEDURE F/U.HAD LEFT SIJ ON 08/18/19.CONTINUES TO BENEFIT TODAY FROM INJECTIONS.RATING PAIN VAS 3/10. PAIN THE PATIENT DESCRIBES THE PAIN... THE PATIENT DESCRIBES THE PAIN... FALL RISK SCREENING: SCREENING :NO FALLS REPORTED IN THE LAST YEAR CURRENT MEDICATIONS TAKING ADVAIR DISKUS 250-50 MCG/DOSE AEROSOL POWDER BREATH ACTIVATED 1 PUFF INHALATION TWICE A DAY TAKING VITAMIN D (ERGOCALCIFEROL) 42583 UNIT CAPSULE TAKE 1 CAPSULE BY MOUTH WEEKLY ORALLY WEEKLY TAKING PROTONIX 40 MG TABLET DELAYED RELEASE 1 TABLET ORALLY ONCE A DAY TAKING PAXIL 40 MG TABLET 1 TABLET IN THE MORNING ORALLY ONCE A DAY TAKING HYDROXYZINE HCL 50 MG TABLET TAKE 1 TABLET TWICE A DAY TAKING ALBUTEROL SULFATE HFA 108 (90 BASE) MCG/ACT AEROSOL SOLUTION 2 PUFFS NEEDED INHALATION EVERY 6 HRS TAKING ZYRTEC ALLERGY 10 MG TABLET 1 TABLET ORALLY ONCE A DAY TAKING PREMARIN 0.3 MG TABLET 1 TABLET ORALLY ONCE A DAY TAKING TIZANIDINE HCL 4 MG TABLET 1/2 - 1 TABLET ORALLY TAKE 1/2 TAB Q AM AND MIDDAY TAKE 1 TAB AT HS TAKING METFORMIN HCL 1000 MG TABLET 1 TABLET WITH MEALS ORALLY TWICE A DAY TAKING HYDROCHLOROTHIAZIDE 25MG TABLET TAKE 1 TABLET DAILY TAKING ATORVASTATIN CALCIUM 80MG TABLET TAKE 1 TABLET DAILY TAKING IRBESARTAN 150 MG TABLET 1 TABLET ORALLY ONCE A DAY TAKING PERCOCET 5-325 MG TABLET 1-2 ORALLY Q 4-6H PRN PAIN MDD6 NOT-TAKING FLUTICASONE PROPIONATE 50 MCG/ACT SUSPENSION 1 SPRAY IN EACH NOSTRIL NASALLY ONCE A DAY MEDICATION LIST REVIEWED AND RECONCILED WITH THE PATIENT PAST MEDICAL HISTORY CHRONIC LOW BACK PAIN - FOLLOWED BY [facility] OSTEOARTHRITIS BILATERAL KNEES ASTHMA NORMAL SPIROMETRY AT PULMONARY 11/2017 HYPERLIPIDEMIA DEPRESSION GENERALIZED ANXIETY DISORDER HYPERTENSION DM II LEFT PULMONARY NODULE - CT 2009 AND 2013 WITH NO CHANGE - NO FURTHER WORK UP NEEDED PER [facility] CRITER[facility]. (FOLLOWED BY PULMONARY) VARICOSE VEINS OSTEOPOROSIS - LAST DEXA 04/21, NORMAL - AP SPINE T-SCORE -0.4. NORMAL BONE DENSITY - REPEAT 2019 SMOKER VITAMIN D DEFICIENCY ADALGISA DIAGNOSED 07/2015 - ON CPAP LUMBAR FACET ARTHROPATHY LUMBAR SPONDYLOSIS ADMITTED 11/2016 FOR BOWEL OBSTRUCTION SECONDARY TO DIVERTICULITIS - REQUIRED PARTIAL BOWEL RESECTION WITH OSTOMY PLACED. LEFT ANKLE FX S/P FALL ALLERGIES MORPHINE SULFATE: HIVES - ALLERGY ZOLOFT: CONFUSION - LACK OF THERAPEUTIC EFFECT BACTRIM: HIVES - ALLERGY SULFA (FOR ALLERGY USE ONLY): HIVES - ALLERGY SURGICAL HISTORY HYSTERECTOMY (STILL HAS OVARIES) 03/12 CYST REMOVED FROM OVARY 2003 LLE VARICOSE VEIN REMOVAL AND LASER ABLATION OF LEFT GREAT SAPHENOUS VEIN () 09/15 LEFT KNEE ARTHROSCOPY (DR. ALEX RAMIRES) RIGHT TKA - ([facility]) 01/2014 REMOVAL OF CYST LEFT ARM 2010 REPAIR HAMMERTOES LEFT FOOT 2010 BOWEL RESECTION 11/20/16 COLOSTOMY REVERSAL 04/2017 COLONOSCOPY _ DR. POON - DIVERTICULOSIS, POLYP RESECTED, BUT NOT RETRIEVED FOR PATHOLOGY 03/2017 FAMILY HISTORY FATHER: 65 YRS, DIAGNOSED WITH OTHER MALIGNANT NEOPLASM OF UNSPECIFIED SITE MOTHER: 74 YRS, OTHER MALIGNANT NEOPLASM OF UNSPECIFIED SITE 2 BROTHER(S) , 2 SISTER(S) - HEALTHY. 2 SON(S) . FATHER-LUNG CA\NMOTHER-LUNG CA\NBROTHER AT 5YRS OLD COLON CANCER\NSON HAS IDDM ON INSULIN PUMP. SOCIAL HISTORY GENERAL: TOBACCO USE ARE YOU A:CURRENT SMOKER ARE YOU INTERESTED IN QUITTING?NOT READY TO QUIT COUNSELED THE PATIENT ON SMOKING EFFECTS, EDUCATION [id number]/19/2019 HOW MANY CIGARETTES A DAY DO YOU SMOKE?6-10 HOW SOON AFTER YOU WAKE UP DO YOU SMOKE YOUR FIRST CIGARETTE?6-30 MIN HOW OFTEN DO YOU SMOKE CIGARETTES?EVERY DAY PATIENT COUNSELED ON THE DANGERS OF TOBACCO USE AND URGED TO QUIT:07/27/2019 SMOKING CESSATION INFORMATION GIVEN08/24/2019 HIV / HEP-C SCREENING HIV TEST OFFERED TO PATIENT:YES DATE OFFERED:08/17/2017 TEST ACCEPTED:NO HEP-C TEST OFFERED TO PATIENT:YES DATE OFFERED:08/17/2017 REASON:PATIENT DECLINED TEST ACCEPTED:NO REASON:PATIENT DECLINED EDUCATION LEVEL OF EDUCATION:NOT FINISHED HIGH SCHOOL COMPLETED 11TH GRADE DIET: REGULAR. LANGUAGE LANGUAGES SPOKEN:MONGOLIAN DOMESTIC VIOLENCE DO YOU FEEL SAFE IN YOUR ENVIRONMENT?YES NEW PATIENT PAIN DIARY TODAY'S VISITNOTES BMI CARE GOAL FOLLOW-UP ABOVE NORMAL BMI FOLLOW-UPDIETARY MANAGEMENT EDUCATION, GUIDANCE, AND COUNSELING RECREATIONAL DRUG USE DRUG USE?NO LEARNING BARRIERS / SPECIAL NEEDS CHANGE FROM LAST VISIT?NO BARRIERS TO LEARNING?NO HEARING IMPAIRED?NO VISION IMPAIRED?YES COGNITIVELY IMPAIRED?NO :CORRECTIVE LENSES READINESS TO LEARN?YES LEARNING PREFERENCES?NO LEARNING CAPABILITIES PRESENT?YES EMOTIONAL BARRIERS?NO SPECIAL DEVICES?NO LEATHER GOODS I ASSEMBLER NEEDED?NO LUNG CANCER SCREENING SMOKING STATUS:CURRENT SMOKER IS THE PATIENT BETWEEN THE AGE OF 56 AND 78?NO PAIN CLINIC PFS, CLERGY, PUBLIC HEALTH REFERRALS HAS THE PATIENT BEEN EDUCATED REGARDING HIS/HER PLAN OF CARE?YES HAS THE PATIENT BEEN EDUCATED REGARDING PAIN, THE RISK FOR PAIN, THE IMPORTANCE OF EFFECTIVE PAIN MANAGEMENT, AND THE PAIN ASSESSMENT PROCESS?YES LATEX QUESTIONNAIRE LATEX ALLERGY : HAVE YOU EVER DEVELOPED ANY TYPE OF REACTION AFTER HANDLING LATEX PRODUCTS SUCH RUBBER GLOVES, CONDOMS, DIAPHRAGMS, BALLOONS, SOCKS, OR UNDERWEAR?NO LATEX ALLERGY : HAVE YOU EVER DEVELOPED ANY TYPE OF REACTION DURING OR AFTER DENTAL APPOINTMENT, VAGINAL/RECTAL EXAMINATION, SURGICAL PROCEDURE, OR ANY OTHER EXPOSURE?NO DATE ASKED : 03/14/2019 LATEX RISK : HAVE YOU EVER HAD ANY DIFFICULTY BREATHING OR HIVES AFTER EATING OR HANDLING ANY FRUITS, OR VEGETABLES; SUCH KIWI, BANANAS, STONE FRUITS, OR CHESTNUTSNO LATEX RISK : DO YOU HAVE A PREVIOUS PERSONAL HISTORY OF MORE THAN NINE SURGERIES, SPINA BIFIDA, OR REPEATED CATHERIZATIONS? NO LATEX RISK : ARE YOU FREQUENTLY EXPOSED TO LATEX PRODUCTS IN YOUR OCCUPATION?NO CAFFEINE CAFFEINE USE?YES HOW OFTEN AND HOW MUCH? 4 CUPS DAILY ADVANCE DIRECTIVE ADVANCE DIRECTIVE DISCUSSED WITH PATIENT:YES HCP ANNALISA DAVID [phone] ANABAPTISM [id number] [place] NO ANABAPTISM BELIEFS THAT WOULD IMPACT HEALTH CARE. MARITAL STATUS: . ALCOHOL SCREENING DID YOU HAVE A DRINK CONTAINING ALCOHOL IN THE PAST YEAR?NO POINTS0 INTERPRETATIONNEGATIVE SEXUAL HX HAD SEX IN THE LAST 12 MONTHS (VAGINAL, ORAL, OR ANAL)?YES WITHMEN ONLY USE PROTECTION?NO LMP:HYSTER HAVE YOU EVER HAD AN STD?NO DR. SHEA FOR ROUTINE COMMERCIAL FRONT LOAD OPERATOR CARE AND SCREENINGS. REVIEWED WITH PT 07/25/18 BVREVIEWED WITH PT 08/18/18 1522 LAS10/06/18 1510 REVIEWED WITH PT. ADREVIEWED WITH PATIENT 03/14/19 1417 JSREVIEWED WITH PATIENT 08/08/19 LASREVIEWED WITH PATIENT 07/27/19 1104 JSREVIEWED WITH PATIENT 08/24/19 1026 NLJ. HOSPITALIZATION/MAJOR DIAGNOSTIC PROCEDURE SURGERIES BOWEL BLOCKAGE 11/03/16-11/28/16 REVIEW OF SYSTEMS REVIEWED BY: PROVIDER: DIANA TAN . CONSTITUTIONAL: ANY CHANGE IN YOUR MEDICAL CONDITION? NO . CHILLS NO . FEVER NO . INFECTION: DO YOU HAVE NEW INFECTIONS? NO . DO YOU HAVE HISTORY OF MRSA? NO . MUSCULOSKELETAL: ANY NEW PATTERNS OF PAIN OR NUMBNESS? NO- STATES THAT THE LEFT SIJMWORKED WELL AND SHE CONTINUES TO FEEL RELIEF . GASTROENTEROLOGY: ANY NEW CHANGE IN BOWEL CONTROL? NO . GENITOURINARY: ANY NEW CHANGE IN BLADDER CONTROL? NO . IS THERE A CHANCE YOU COULD BE ? NO . HEMATOLOGY/LYMPH: DO YOU TAKE ANY BLOOD THINNERS? (FOR EXAMPLE- COUMADIN, PLAVIX, AGGRENOX, PLATEL, PRADAXA, OR XARELTO) NO . WHEN WAS YOUR LAST DOSE? DATE: TIME: . NEUROLOGY: HAVE YOU FALLEN IN THE PAST 12 MONTHS? NO . ANY NEW EXTREMITY NUMBNESS OR WEAKNESS? NO . CARDIOLOGY: DO YOU HAVE A PACEMAKER OR DEFIBRILLATOR? NO . RESPIRATORY: HAVE YOU BEEN SICK IN THE PAST WEEK? NO . FEVER NO . FLU LIKE SYMPTOMS? NO . COUGH NO . INTEGUMENTARY: DO YOU HAVE ANY RASHES OR OPEN SORES? NO . ALLERGIC/IMMUNO: ARE YOU ALLERGIC TO IV DYE? NO . ANY NEW ALLERGIES? NO . PSYCHIATRIC: DO YOU HAVE THOUGHTS OF HURTING YOURSELF OR SOMEONE ELSE? NO . ARE YOU ABUSED, NEGLECTED, OR IN AN UNSAFE ENVIRONMENT? NO . ENDOCRINOLOGY: ARE YOU DIABETIC? YES . OTHER: DO YOU NEED ANY PRESCRIPTIONS? NO . IF YES, PLEASE LIST: ____ . ANY NEW PROBLEMS WITH YOUR MEDICATIONS? NO . WHEN DID YOU LAST EAT? ____ . WHEN DID YOU LAST DRINK? ____ . WHAT DID YOU LAST DRINK? ____ . NAME OF PERSON DRIVING YOU HOME? ____ . DO YOU HAVE ANY OTHER QUESTIONS OR CONCERNS YES- STATES SHE HAD THE FLU SHOT 08/21/19 . VITAL SIGNS WT 208.8 LBS, HT 61 IN, BMI 39.45 INDEX, BP 106/69 MM HG, HR 77 /MIN, RR 18 /MIN, TEMP 96.8 F, OXYGEN SAT % 96%, SAFE IN ENV? (Y/N) YES, NA INITIALS AW 1038, REVIEWED BY: HÉCTOR. EXAMINATION GENERAL EXAMINATION: GENERAL AWAKE,ALERT ,PLEASANT . PSYCH AFFECT NORMAL . LUNGS: LUNG MILLER ARE CLEAR TO AUSCULTATION BILATERALLY. GOOD MOVEMENT OF AIR . HEART: S1, S2 IN A REGULAR RATE AND RHYTHM. NO SIGNIFICANT MURMURS, RUBS OR GALLOPS NOTED . ASSESSMENTS SACROILIITIS, NOT ELSEWHERE CLASSIFIED - M46.1 (PRIMARY) TREATMENT SACROILIITIS, NOT ELSEWHERE CLASSIFIED CONTINUE PERCOCET TABLET, 5-325 MG, 1-2, ORALLY, Q 4-6H PRN PAIN MDD6 NOTES: START PRIFORMIS STRETCHING X10 REPS AM AND PM, ISTOP REGISTRY REVIEWED AND DEMONSTRATES COMPLLIANCE. BRINGS IN MEDICATIONS WHICH IS APPROPRIATE FOR WHAT WAS DISPENSED. RECENT URINE TOXICOLOGY REVIEWED. NO UNAUTHORIZED MEDICATIONS. NO ILLICIT SUBSTANCES AND PRESCRIBED MEDICATIONS WERE PRESENT. , RISKS AND BENEFITS OF NARCOTIC/OPIOD MEDICATIONS WERE REVIEWED WITH PATIENT - THIS INCLUDES BUT IS NOT LIMITED TO RISK OF DEPENDANCE/DEVELOPMENT OF ADDICTION, MOOD DISTURBANCE AND DEPRESSION, OSTEOPOROSIS, HORMONAL AND LABIDAL CHANGES, RESPIRATORY DEPRESSION AND . PATIENT IS ADVISED NOT TO DRIVE OR DRINK ALCOHOL WHILE ON THESE MEDICATIONS. PROCEDURE CODES [id number] ESTABILISHED PATIENT [facility] CHARGE DISPOSITION & COMMUNICATION FOLLOW UP 3 MONTHS (REASON: LBP) ELECTRONICALLY SIGNED BY DOMINICK ZAPATA ON 09/06/2019 AT 02:11 PM EDT DISCLAIMER : THIS IS A VISIT SUMMARY EXTRACTED FROM THE [employer] CHART. IT IS NOT A COPY OF THE [employer] PROGRESS NOTE. [place]
== END ==
LOC: M PAIN 10:30
PROVIDERS: ATTEND Nurse Practitioner Family
DX: M46.1 Sacroiliitis, not elsewhere classified (principal); E78.5 Hyperlipidemia, unspecified; I10 Essential (primary) hypertension; E11.9 Type 2 diabetes mellitus without complications; F17.210 Nicotine dependence, cigarettes, uncomplicated; Z79.84 Long term (current) use of oral hypoglycemic drugs; Z79.891 Long term (current) use of opiate analgesic; Z79.899 Other long term (current) drug therapy; Z88.2 Allergy status to sulfonamides; Z88.5 Allergy status to narcotic agent; Z88.8 Allergy status to other drugs, medicaments and biological substances

== ENCOUNTER → 2019-11-24 | Outpatient (CLI) | payer BC ==
--- NOTE | 2019-12-12 05:50 | ECWPNPC ---
PATIENT NAME: IVON DAVID : 1965 GENDER: FEMALE VISIT DATE: 11/24/2019 DISCHARGE DATE: 11/24/19 1349 VISIT LOCKED DATE TIME: PHYSICIAN: DIANA COREA RESOURCE: DIANA COREA REASON FOR APPOINTMENT 1. LOW BACK HISTORY OF PRESENT ILLNESS HISTORY OF PRESENT ILLNESS: HERE FOR F/U OF CHRONIC LOW BACK PAIN.HAS HAD A FLARE UP OF RIGHT LOW BACK PAIN.RATING PAIN VAS 5-6/10. DESCRIBES PAIN IS CONTINUOUS AND ACHING. PAIN THE PATIENT DESCRIBES THE PAIN... FALL RISK SCREENING: SCREENING :NO FALLS REPORTED IN THE LAST YEAR CURRENT MEDICATIONS TAKING ADVAIR DISKUS 250-50 MCG/DOSE AEROSOL POWDER BREATH ACTIVATED 1 PUFF INHALATION TWICE A DAY TAKING VITAMIN D (ERGOCALCIFEROL) 10724 UNIT CAPSULE TAKE 1 CAPSULE BY MOUTH WEEKLY ORALLY WEEKLY TAKING PROTONIX 40 MG TABLET DELAYED RELEASE 1 TABLET ORALLY ONCE A DAY TAKING PAXIL 40 MG TABLET 1 TABLET IN THE MORNING ORALLY ONCE A DAY TAKING HYDROXYZINE HCL 50 MG TABLET TAKE 1 TABLET TWICE A DAY TAKING ALBUTEROL SULFATE HFA 108 (90 BASE) MCG/ACT AEROSOL SOLUTION 2 PUFFS NEEDED INHALATION EVERY 6 HRS TAKING ZYRTEC ALLERGY 10 MG TABLET 1 TABLET ORALLY ONCE A DAY TAKING TIZANIDINE HCL 4 MG TABLET 1/2 - 1 TABLET ORALLY TAKE 1/2 TAB Q AM AND MIDDAY TAKE 1 TAB AT HS TAKING METFORMIN HCL 1000 MG TABLET 1 TABLET WITH MEALS ORALLY TWICE A DAY TAKING HYDROCHLOROTHIAZIDE 25MG TABLET TAKE 1 TABLET DAILY TAKING ATORVASTATIN CALCIUM 80MG TABLET TAKE 1 TABLET DAILY TAKING IRBESARTAN 150 MG TABLET 1 TABLET ORALLY ONCE A DAY TAKING PREMARIN 0.3 MG TABLET 1 TABLET ORALLY ONCE A DAY TAKING PERCOCET 5-325 MG TABLET 1-2 ORALLY Q 4-6H PRN PAIN MDD6 NOT-TAKING FLUTICASONE PROPIONATE 50 MCG/ACT SUSPENSION 1 SPRAY IN EACH NOSTRIL NASALLY ONCE A DAY MEDICATION LIST REVIEWED AND RECONCILED WITH THE PATIENT PAST MEDICAL HISTORY CHRONIC LOW BACK PAIN - FOLLOWED BY [facility] OSTEOARTHRITIS BILATERAL KNEES ASTHMA NORMAL SPIROMETRY AT PULMONARY 11/2017 HYPERLIPIDEMIA DEPRESSION GENERALIZED ANXIETY DISORDER HYPERTENSION DM II LEFT PULMONARY NODULE - CT 2009 AND 2013 WITH NO CHANGE - NO FURTHER WORK UP NEEDED PER [facility]. (FOLLOWED BY PULMONARY) VARICOSE VEINS OSTEOPOROSIS - LAST DEXA 04/21, NORMAL - AP SPINE T-SCORE -0.4. NORMAL BONE DENSITY - REPEAT 2019 SMOKER VITAMIN D DEFICIENCY ADALGISA DIAGNOSED 07/2015 - ON CPAP LUMBAR FACET ARTHROPATHY LUMBAR SPONDYLOSIS ADMITTED 11/2016 FOR BOWEL OBSTRUCTION SECONDARY TO DIVERTICULITIS - REQUIRED PARTIAL BOWEL RESECTION WITH OSTOMY PLACED. LEFT ANKLE FX S/P FALL ALLERGIES MORPHINE SULFATE: HIVES - ALLERGY ZOLOFT: CONFUSION - LACK OF THERAPEUTIC EFFECT BACTRIM: HIVES - ALLERGY SULFA (FOR ALLERGY USE ONLY): HIVES - ALLERGY SURGICAL HISTORY HYSTERECTOMY (STILL HAS OVARIES) 03/12 CYST REMOVED FROM OVARY 2003 LLE VARICOSE VEIN REMOVAL AND LASER ABLATION OF LEFT GREAT SAPHENOUS VEIN () 09/15 LEFT KNEE ARTHROSCOPY (DR. ALEX RAMIRES) RIGHT TKA - ([facility]) 01/2014 REMOVAL OF CYST LEFT ARM 2010 REPAIR HAMMERTOES LEFT FOOT 2010 BOWEL RESECTION 11/20/16 COLOSTOMY REVERSAL 04/2017 COLONOSCOPY _ DR. POON - DIVERTICULOSIS, POLYP RESECTED, BUT NOT RETRIEVED FOR PATHOLOGY 03/2017 FAMILY HISTORY FATHER: 65 YRS, DIAGNOSED WITH OTHER MALIGNANT NEOPLASM OF UNSPECIFIED SITE MOTHER: 74 YRS, OTHER MALIGNANT NEOPLASM OF UNSPECIFIED SITE 2 BROTHER(S) , 2 SISTER(S) - HEALTHY. 2 SON(S) . FATHER-LUNG CA\NMOTHER-LUNG CA\NBROTHER AT 5YRS OLD COLON CANCER\NSON HAS IDDM ON INSULIN PUMP. SOCIAL HISTORY GENERAL: TOBACCO USE ARE YOU A:CURRENT SMOKER ARE YOU INTERESTED IN QUITTING?NOT READY TO QUIT COUNSELED THE PATIENT ON SMOKING EFFECTS, EDUCATION [id number]/19/2019 HOW MANY CIGARETTES A DAY DO YOU SMOKE?6-10 HOW SOON AFTER YOU WAKE UP DO YOU SMOKE YOUR FIRST CIGARETTE?6-30 MIN HOW OFTEN DO YOU SMOKE CIGARETTES?EVERY DAY PATIENT COUNSELED ON THE DANGERS OF TOBACCO USE AND URGED TO QUIT:11/24/2019 SMOKING CESSATION INFORMATION GIVEN08/24/2019 HIV / HEP-C SCREENING HIV TEST OFFERED TO PATIENT:YES DATE OFFERED:08/17/2017 TEST ACCEPTED:NO HEP-C TEST OFFERED TO PATIENT:YES DATE OFFERED:08/17/2017 REASON:PATIENT DECLINED TEST ACCEPTED:NO REASON:PATIENT DECLINED EDUCATION LEVEL OF EDUCATION:NOT FINISHED HIGH SCHOOL COMPLETED 11TH GRADE DIET: REGULAR. LANGUAGE LANGUAGES SPOKEN:LATVIAN DOMESTIC VIOLENCE DO YOU FEEL SAFE IN YOUR ENVIRONMENT?YES NEW PATIENT PAIN DIARY TODAY'S VISITNOTES BMI CARE GOAL FOLLOW-UP ABOVE NORMAL BMI FOLLOW-UPDIETARY MANAGEMENT EDUCATION, GUIDANCE, AND COUNSELING RECREATIONAL DRUG USE DRUG USE?NO LEARNING BARRIERS / SPECIAL NEEDS CHANGE FROM LAST VISIT?NO BARRIERS TO LEARNING?NO HEARING IMPAIRED?NO VISION IMPAIRED?YES COGNITIVELY IMPAIRED?NO :CORRECTIVE LENSES READINESS TO LEARN?YES LEARNING PREFERENCES?NO LEARNING CAPABILITIES PRESENT?YES EMOTIONAL BARRIERS?NO SPECIAL DEVICES?NO HOUSEHOLD CHORES NEEDED?NO LUNG CANCER SCREENING SMOKING STATUS:CURRENT SMOKER IS THE PATIENT BETWEEN THE AGE OF 56 AND 78?NO PAIN CLINIC PFS, CLERGY, PUBLIC HEALTH REFERRALS WAS THE PROVIDER NOTIFIED OF ANY PERTINENT INFO?YES HAS THE PATIENT BEEN EDUCATED REGARDING HIS/HER PLAN OF CARE?YES HAS THE PATIENT BEEN EDUCATED REGARDING PAIN, THE RISK FOR PAIN, THE IMPORTANCE OF EFFECTIVE PAIN MANAGEMENT, AND THE PAIN ASSESSMENT PROCESS?YES LATEX QUESTIONNAIRE LATEX ALLERGY : HAVE YOU EVER DEVELOPED ANY TYPE OF REACTION AFTER HANDLING LATEX PRODUCTS SUCH RUBBER GLOVES, CONDOMS, DIAPHRAGMS, BALLOONS, SOCKS, OR UNDERWEAR?NO LATEX ALLERGY : HAVE YOU EVER DEVELOPED ANY TYPE OF REACTION DURING OR AFTER DENTAL APPOINTMENT, VAGINAL/RECTAL EXAMINATION, SURGICAL PROCEDURE, OR ANY OTHER EXPOSURE?NO LATEX RISK : HAVE YOU EVER HAD ANY DIFFICULTY BREATHING OR HIVES AFTER EATING OR HANDLING ANY FRUITS, OR VEGETABLES; SUCH KIWI, BANANAS, STONE FRUITS, OR CHESTNUTSNO LATEX RISK : DO YOU HAVE A PREVIOUS PERSONAL HISTORY OF MORE THAN NINE SURGERIES, SPINA BIFIDA, OR REPEATED CATHERIZATIONS? NO LATEX RISK : ARE YOU FREQUENTLY EXPOSED TO LATEX PRODUCTS IN YOUR OCCUPATION?NO DATE ASKED : 11/24/2019 CAFFEINE CAFFEINE USE?YES HOW OFTEN AND HOW MUCH? 4 CUPS DAILY ADVANCE DIRECTIVE ADVANCE DIRECTIVE DISCUSSED WITH PATIENT:YES HCP ANNALISA DAVID [phone] WORSHIP [id number] YARSANISM NO EPISCOPAL BELIEFS THAT WOULD IMPACT HEALTH CARE. MARITAL STATUS: . ALCOHOL SCREENING DID YOU HAVE A DRINK CONTAINING ALCOHOL IN THE PAST YEAR?NO POINTS0 INTERPRETATIONNEGATIVE SEXUAL HX HAD SEX IN THE LAST 12 MONTHS (VAGINAL, ORAL, OR ANAL)?YES WITHMEN ONLY USE PROTECTION?NO LMP:HYSTER HAVE YOU EVER HAD AN STD?NO DR. SHEA FOR ROUTINE [facility] AND SCREENINGS. REVIEWED WITH PT 07/25/18 BVREVIEWED WITH PT 08/18/18 1522 LAS10/06/18 1510 REVIEWED WITH PT. ADYEVIEWED WITH PATIENT 03/14/19 1417 JSREVIEWED WITH PATIENT 08/08/19 LASREVIEWED WITH PATIENT 07/27/19 1104 JSREVIEWED WITH PATIENT 08/24/19 1026 NLJREVIEWED BY PATIENT 11/24/19 DS. HOSPITALIZATION/MAJOR DIAGNOSTIC PROCEDURE SURGERIES BOWEL BLOCKAGE 11/03/16-11/28/16 REVIEW OF SYSTEMS REVIEWED BY: PROVIDER: DIANA TAN . CONSTITUTIONAL: ANY CHANGE IN YOUR MEDICAL CONDITION? NO . CHILLS NO . FEVER NO . INFECTION: DO YOU HAVE NEW INFECTIONS? NO . DO YOU HAVE HISTORY OF MRSA? NO . MUSCULOSKELETAL: ANY NEW PATTERNS OF PAIN OR NUMBNESS? NO . GASTROENTEROLOGY: ANY NEW CHANGE IN BOWEL CONTROL? NO . GENITOURINARY: ANY NEW CHANGE IN BLADDER CONTROL? NO . IS THERE A CHANCE YOU COULD BE ? NO . HEMATOLOGY/LYMPH: DO YOU TAKE ANY BLOOD THINNERS? (FOR EXAMPLE- COUMADIN, PLAVIX, AGGRENOX, PLATEL, PRADAXA, OR XARELTO) NO . WHEN WAS YOUR LAST DOSE? DATE: TIME: . NEUROLOGY: HAVE YOU FALLEN IN THE PAST 12 MONTHS? NO . ANY NEW EXTREMITY NUMBNESS OR WEAKNESS? NO . CARDIOLOGY: DO YOU HAVE A PACEMAKER OR DEFIBRILLATOR? NO . RESPIRATORY: HAVE YOU BEEN SICK IN THE PAST WEEK? NO . FEVER NO . FLU LIKE SYMPTOMS? NO . COUGH NO . INTEGUMENTARY: DO YOU HAVE ANY RASHES OR OPEN SORES? NO . ALLERGIC/IMMUNO: ARE YOU ALLERGIC TO IV DYE? NO . ANY NEW ALLERGIES? NO . PSYCHIATRIC: DO YOU HAVE THOUGHTS OF HURTING YOURSELF OR SOMEONE ELSE? NO . ARE YOU ABUSED, NEGLECTED, OR IN AN UNSAFE ENVIRONMENT? NO . ENDOCRINOLOGY: ARE YOU DIABETIC? YES, TYPE 2, MANAGED WITH ORAL MEDS . OTHER: DO YOU NEED ANY PRESCRIPTIONS? NO . IF YES, PLEASE LIST: ____ . ANY NEW PROBLEMS WITH YOUR MEDICATIONS? NO . WHEN DID YOU LAST EAT? ____ . WHEN DID YOU LAST DRINK? ____ . WHAT DID YOU LAST DRINK? ____ . NAME OF PERSON DRIVING YOU HOME? ____ . DO YOU HAVE ANY OTHER QUESTIONS OR CONCERNS NO . VITAL SIGNS WT 202.4 LBS, HT 61 IN, BMI 38.24 INDEX, BP 131/73 MM HG, HR 74 /MIN, RR 18 /MIN, TEMP 97.2 F, OXYGEN SAT % 95, SAFE IN ENV? (Y/N) Y, REVIEWED BY: LUANN. EXAMINATION GENERAL EXAMINATION: GENERAL ALERT,NO DISTRESS . PSYCH AFFECT NORMAL . LUNGS: LUNG SOUNDS ARE CLEAR . HEART: HEART RATE REGULAR . MUSCULOSKELETAL: MST 5/5 BILAT. LOWER EXTREMITIES . LUMBAR:TENDERNESS RIGHT. SIJ .POSITIVE PATRICKS TESTING RIGHT LEG. DIAGNOSTIC TESTS REVIEWED CT L/S [id number] . ASSESSMENTS SACROILIITIS, NOT ELSEWHERE CLASSIFIED - M46.1 TREATMENT OTHERS NOTES: RIGHT SIJ. PREVENTIVE MEDICINE PAIN CLINIC TEACHING: THE PATIENT HAS BEEN EDUCATED REGARDING PAIN, THE RISK FOR PAIN, THE IMPORTANCE OF EFFECTIVE PAIN MANAGEMENT, AND THE PAIN ASSESSMENT PROCESS. : REVIEWED AND DISCUSSED TREATMENT PLAN, REVIEWED PRE-PROCEDURE TEACHING, PT ACKNOWLEDGED UNDERSTANDING. LUANN PROCEDURE CODES FA211 ESTABILISHED PATIENT [facility] CHARGE DISPOSITION & COMMUNICATION FOLLOW UP POST (REASON: RIGHT SIJ) ELECTRONICALLY SIGNED BY DOMINCIK ZAPATA ON 12/11/2019 AT 04:34 PM EST DISCLAIMER : THIS IS A VISIT SUMMARY EXTRACTED FROM THE [address] CHART. IT IS NOT A COPY OF THE [employer] PROGRESS NOTE. [place]
== END ==
LOC: M PAIN 13:00
PROVIDERS: ATTEND Nurse Practitioner Family
DX: M46.1 Sacroiliitis, not elsewhere classified (principal); G89.29 Other chronic pain; E78.5 Hyperlipidemia, unspecified; Z86.59 Personal history of other mental and behavioral disorders; I10 Essential (primary) hypertension; E11.9 Type 2 diabetes mellitus without complications; E55.9 Vitamin D deficiency, unspecified; G47.33 Obstructive sleep apnea (adult) (pediatric); F17.210 Nicotine dependence, cigarettes, uncomplicated; Z88.1 Allergy status to other antibiotic agents; Z88.2 Allergy status to sulfonamides; Z88.5 Allergy status to narcotic agent; Z88.8 Allergy status to other drugs, medicaments and biological substances; Z79.84 Long term (current) use of oral hypoglycemic drugs; Z79.891 Long term (current) use of opiate analgesic; Z79.899 Other long term (current) drug therapy

== ENCOUNTER → 2019-12-21 | Outpatient (CLI) | payer BC ==
[~2019-12-21] MED LIST changes: +BUPIVACAINE HCL 0.25% 30 ML VIAL As Ordered ONE; +ISOVUE-M 300 61% 15ML VIAL (Q9967) As Ordered ONE; +LIDOCAINE 1% SDV INJ 30 ML VIAL As Ordered ONE; +TRIAMCINOLONE ACETONIDE SUSP 40 MG/ML VIAL (J3301) As Ordered ONE
--- NOTE | 2019-12-21 15:47 | REP ---
Partial SI joint series: Two views. History: Right SI joint injection for pain. 13 seconds of fluoroscopy time is reported. Findings: A series of two last image hold fluoroscopically obtained spot radiographs of the right SI joint document needle position and contrast injection associated with SI joint injection procedure. Electronically Signed by Raj Layton MD 12/21/2019 03:38 P
--- NOTE | 2020-01-09 05:13 | ECWPNPC ---
PATIENT NAME: IVON DAVID : 1965 GENDER: FEMALE VISIT DATE: 12/21/2019 DISCHARGE DATE: 12/21/19 1640 VISIT LOCKED DATE TIME: PHYSICIAN: MOHAMUD RIGGINS MD RESOURCE: MOHAMUD RIGGINS MD REASON FOR APPOINTMENT 1. R SIJ HISTORY OF PRESENT ILLNESS HISTORY OF PRESENT ILLNESS: PAIN THE PATIENT DESCRIBES THE PAIN... FALL RISK SCREENING: SCREENING :NO FALLS REPORTED IN THE LAST YEAR CURRENT MEDICATIONS TAKING ADVAIR DISKUS 250-50 MCG/DOSE AEROSOL POWDER BREATH ACTIVATED 1 PUFF INHALATION TWICE A DAY, NOTES: 12-21-19899 TAKING VITAMIN D (ERGOCALCIFEROL) 09799 UNIT CAPSULE TAKE 1 CAPSULE BY MOUTH WEEKLY ORALLY WEEKLY, NOTES: 12-20-19 TAKING PROTONIX 40 MG TABLET DELAYED RELEASE 1 TABLET ORALLY ONCE A DAY, NOTES: 12-21-19729 TAKING PAXIL 40 MG TABLET 1 TABLET IN THE MORNING ORALLY ONCE A DAY, NOTES: 12-21-19729 TAKING ALBUTEROL SULFATE HFA 108 (90 BASE) MCG/ACT AEROSOL SOLUTION 2 PUFFS NEEDED INHALATION EVERY 6 HRS, NOTES: NEEDED TAKING ZYRTEC ALLERGY 10 MG TABLET 1 TABLET ORALLY ONCE A DAY, NOTES: 12-21-19699 TAKING TIZANIDINE HCL 4 MG TABLET 1/2 - 1 TABLET ORALLY TAKE 1/2 TAB Q AM AND MIDDAY TAKE 1 TAB AT HS, NOTES: 12-20-192099 TAKING METFORMIN HCL 1000 MG TABLET 1 TABLET WITH MEALS ORALLY TWICE A DAY, NOTES: 12-20-19 TAKING HYDROCHLOROTHIAZIDE 25MG TABLET TAKE 1 TABLET DAILY , NOTES: 12-21-19 08 TAKING ATORVASTATIN CALCIUM 80MG TABLET TAKE 1 TABLET DAILY , NOTES: 12-20-192199 TAKING IRBESARTAN 150 MG TABLET 1 TABLET ORALLY ONCE A DAY, NOTES: 12-20-192099 TAKING PERCOCET 5-325 MG TABLET 1-2 ORALLY Q 4-6H PRN PAIN MDD6, NOTES: 12-21-19 1000 TAKING HYDROXYZINE HCL 50 MG TABLET TAKE 1 TABLET TWICE A DAY , NOTES: 12-20-19989 TAKING PREMARIN 0.3 MG TABLET 1 TABLET ORALLY ONCE A DAY, NOTES: 12-21-19699 UNKNOWN FLUTICASONE PROPIONATE 50 MCG/ACT SUSPENSION 1 SPRAY IN EACH NOSTRIL NASALLY ONCE A DAY MEDICATION LIST REVIEWED AND RECONCILED WITH THE PATIENT PAST MEDICAL HISTORY CHRONIC LOW BACK PAIN - FOLLOWED BY [facility] PAIN [facility]IC OSTEOARTHRITIS BILATERAL KNEES ASTHMA NORMAL SPIROMETRY AT PULMONARY 11/2017 HYPERLIPIDEMIA DEPRESSION GENERALIZED ANXIETY DISORDER HYPERTENSION DM II LEFT PULMONARY NODULE - CT 2009 AND 2013 WITH NO CHANGE - NO FURTHER WORK UP NEEDED PER [facility] CRITER[facility]. (FOLLOWED BY PULMONARY) VARICOSE VEINS OSTEOPOROSIS - LAST DEXA 04/21, NORMAL - AP SPINE T-SCORE -0.4. NORMAL BONE DENSITY - REPEAT 2018 SMOKER VITAMIN D DEFICIENCY ADALGISA DIAGNOSED 07/2015 - ON CPAP LUMBAR FACET ARTHROPATHY LUMBAR SPONDYLOSIS ADMITTED 11/2016 FOR BOWEL OBSTRUCTION SECONDARY TO DIVERTICULITIS - REQUIRED PARTIAL BOWEL RESECTION WITH OSTOMY PLACED. LEFT ANKLE FX S/P FALL ALLERGIES MORPHINE SULFATE: HIVES - ALLERGY ZOLOFT: CONFUSION - LACK OF THERAPEUTIC EFFECT BACTRIM: HIVES - ALLERGY SULFA (FOR ALLERGY USE ONLY): HIVES - ALLERGY SURGICAL HISTORY HYSTERECTOMY (STILL HAS OVARIES) 03/12 CYST REMOVED FROM OVARY 2003 LLE VARICOSE VEIN REMOVAL AND LASER ABLATION OF LEFT GREAT SAPHENOUS VEIN () 09/15 LEFT KNEE ARTHROSCOPY (DR. ALEX RAMIRES) RIGHT TKA - ([facility]) 01/2014 REMOVAL OF CYST LEFT ARM 2010 REPAIR HAMMERTOES LEFT FOOT 2010 BOWEL RESECTION 11/20/16 COLOSTOMY REVERSAL 04/2017 COLONOSCOPY _ DR. POON - DIVERTICULOSIS, POLYP RESECTED, BUT NOT RETRIEVED FOR PATHOLOGY 03/2017 FAMILY HISTORY FATHER: 65 YRS, DIAGNOSED WITH OTHER MALIGNANT NEOPLASM OF UNSPECIFIED SITE MOTHER: 74 YRS, OTHER MALIGNANT NEOPLASM OF UNSPECIFIED SITE 2 BROTHER(S) , 2 SISTER(S) - HEALTHY. 2 SON(S) . FATHER-LUNG CA\NMOTHER-LUNG CA\NBROTHER AT 5YRS OLD COLON CANCER\NSON HAS IDDM ON INSULIN PUMP. SOCIAL HISTORY GENERAL: TOBACCO USE ARE YOU A:CURRENT SMOKER HOW OFTEN DO YOU SMOKE CIGARETTES?EVERY DAY HOW SOON AFTER YOU WAKE UP DO YOU SMOKE YOUR FIRST CIGARETTE?6-30 MIN HOW MANY CIGARETTES A DAY DO YOU SMOKE?6-10 ARE YOU INTERESTED IN QUITTING?NOT READY TO QUIT PATIENT COUNSELED ON THE DANGERS OF TOBACCO USE AND URGED TO QUIT:11/24/2019 COUNSELED THE PATIENT ON SMOKING EFFECTS, EDUCATION [id number]/19/2019 SMOKING CESSATION INFORMATION GIVEN08/24/2019 HIV / HEP-C SCREENING HIV TEST OFFERED TO PATIENT:YES DATE OFFERED:08/17/2017 TEST ACCEPTED:NO HEP-C TEST OFFERED TO PATIENT:YES DATE OFFERED:08/17/2017 REASON:PATIENT DECLINED TEST ACCEPTED:NO REASON:PATIENT DECLINED EDUCATION LEVEL OF EDUCATION:NOT FINISHED HIGH SCHOOL COMPLETED 11TH GRADE DIET: REGULAR. LANGUAGE LANGUAGES SPOKEN:STATELESS DOMESTIC VIOLENCE DO YOU FEEL SAFE IN YOUR ENVIRONMENT?YES NEW PATIENT PAIN DIARY TODAY'S VISITNOTES BMI CARE GOAL FOLLOW-UP ABOVE NORMAL BMI FOLLOW-UPDIETARY MANAGEMENT EDUCATION, GUIDANCE, AND COUNSELING RECREATIONAL DRUG USE DRUG USE?NO LEARNING BARRIERS / SPECIAL NEEDS CHANGE FROM LAST VISIT?NO BARRIERS TO LEARNING?NO HEARING IMPAIRED?NO VISION IMPAIRED?YES COGNITIVELY IMPAIRED?NO :CORRECTIVE LENSES READINESS TO LEARN?YES LEARNING PREFERENCES?NO LEARNING CAPABILITIES PRESENT?YES EMOTIONAL BARRIERS?NO SPECIAL DEVICES?NO AUTO HEATER MECHANIC NEEDED?NO LUNG CANCER SCREENING SMOKING STATUS:CURRENT SMOKER IS THE PATIENT BETWEEN THE AGE OF 56 AND 78?NO PAIN CLINIC PFS, CLERGY, PUBLIC HEALTH REFERRALS WAS THE PROVIDER NOTIFIED OF ANY PERTINENT INFO?YES HAS THE PATIENT BEEN EDUCATED REGARDING HIS/HER PLAN OF CARE?YES HAS THE PATIENT BEEN EDUCATED REGARDING PAIN, THE RISK FOR PAIN, THE IMPORTANCE OF EFFECTIVE PAIN MANAGEMENT, AND THE PAIN ASSESSMENT PROCESS?YES LATEX QUESTIONNAIRE LATEX ALLERGY : HAVE YOU EVER DEVELOPED ANY TYPE OF REACTION AFTER HANDLING LATEX PRODUCTS SUCH RUBBER GLOVES, CONDOMS, DIAPHRAGMS, BALLOONS, SOCKS, OR UNDERWEAR?NO LATEX ALLERGY : HAVE YOU EVER DEVELOPED ANY TYPE OF REACTION DURING OR AFTER DENTAL APPOINTMENT, VAGINAL/RECTAL EXAMINATION, SURGICAL PROCEDURE, OR ANY OTHER EXPOSURE?NO DATE ASKED : 11/24/2019 LATEX RISK : HAVE YOU EVER HAD ANY DIFFICULTY BREATHING OR HIVES AFTER EATING OR HANDLING ANY FRUITS, OR VEGETABLES; SUCH KIWI, BANANAS, STONE FRUITS, OR CHESTNUTSNO LATEX RISK : DO YOU HAVE A PREVIOUS PERSONAL HISTORY OF MORE THAN NINE SURGERIES, SPINA BIFIDA, OR REPEATED CATHERIZATIONS? NO LATEX RISK : ARE YOU FREQUENTLY EXPOSED TO LATEX PRODUCTS IN YOUR OCCUPATION?NO CAFFEINE CAFFEINE USE?YES HOW OFTEN AND HOW MUCH? 4 CUPS DAILY ADVANCE DIRECTIVE ADVANCE DIRECTIVE DISCUSSED WITH PATIENT:YES HCP ANNALISA DAVID [phone] SCIENTOLOGIST [id number] SIKH NO CONGREGATION BELIEFS THAT WOULD IMPACT HEALTH CARE. MARITAL STATUS: . ALCOHOL SCREENING DID YOU HAVE A DRINK CONTAINING ALCOHOL IN THE PAST YEAR?NO POINTS0 INTERPRETATIONNEGATIVE SEXUAL HX HAD SEX IN THE LAST 12 MONTHS (VAGINAL, ORAL, OR ANAL)?YES WITHMEN ONLY USE PROTECTION?NO LMP:HYSTER HAVE YOU EVER HAD AN STD?NO DR. SHEA FOR ROUTINE ENTREPRENEURIAL FINANCE PROFESSOR CARE AND SCREENINGS. REVIEWED WITH PT 07/25/18 BVREVIEWED WITH PT 08/18/18 1522 LAS10/06/18 1510 REVIEWED WITH PT. ADREVIEWED WITH PATIENT 03/14/19 1417 JSREVIEWED WITH PATIENT 08/08/19 LASREVIEWED WITH PATIENT 07/27/19 1104 JSREVIEWED WITH PATIENT 08/24/19 1026 NLJREVIEWED BY PATIENT 11/24/19 DS. HOSPITALIZATION/MAJOR DIAGNOSTIC PROCEDURE SURGERIES BOWEL BLOCKAGE 11/03/16-11/28/16 REVIEW OF SYSTEMS REVIEWED BY: PROVIDER: . CONSTITUTIONAL: ANY CHANGE IN YOUR MEDICAL CONDITION? NO . CHILLS NO . FEVER NO . INFECTION: DO YOU HAVE NEW INFECTIONS? NO . DO YOU HAVE HISTORY OF MRSA? NO . MUSCULOSKELETAL: ANY NEW PATTERNS OF PAIN OR NUMBNESS? NO . GASTROENTEROLOGY: ANY NEW CHANGE IN BOWEL CONTROL? NO . GENITOURINARY: ANY NEW CHANGE IN BLADDER CONTROL? NO . IS THERE A CHANCE YOU COULD BE ? NO . HEMATOLOGY/LYMPH: DO YOU TAKE ANY BLOOD THINNERS? (FOR EXAMPLE- COUMADIN, PLAVIX, AGGRENOX, PLATEL, PRADAXA, OR XARELTO) NO . WHEN WAS YOUR LAST DOSE? DATE: TIME: . NEUROLOGY: HAVE YOU FALLEN IN THE PAST 12 MONTHS? NO . ANY NEW EXTREMITY NUMBNESS OR WEAKNESS? NO . CARDIOLOGY: DO YOU HAVE A PACEMAKER OR DEFIBRILLATOR? NO . RESPIRATORY: HAVE YOU BEEN SICK IN THE PAST WEEK? NO . FEVER NO . FLU LIKE SYMPTOMS? NO . COUGH NO . INTEGUMENTARY: DO YOU HAVE ANY RASHES OR OPEN SORES? NO . ALLERGIC/IMMUNO: ARE YOU ALLERGIC TO IV DYE? NO . ANY NEW ALLERGIES? NO . PSYCHIATRIC: DO YOU HAVE THOUGHTS OF HURTING YOURSELF OR SOMEONE ELSE? NO . ARE YOU ABUSED, NEGLECTED, OR IN AN UNSAFE ENVIRONMENT? NO . ENDOCRINOLOGY: ARE YOU DIABETIC? NO . OTHER: DO YOU NEED ANY PRESCRIPTIONS? NO . IF YES, PLEASE LIST: ____ . ANY NEW PROBLEMS WITH YOUR MEDICATIONS? NO . WHEN DID YOU LAST EAT? ____12-20-19 7 PM . WHEN DID YOU LAST DRINK? ____30-95-80 7 AM . WHAT DID YOU LAST DRINK? ____COFFEE /WATER COFFEE BLACK . NAME OF PERSON DRIVING YOU HOME? ____RON -BROTHER . DO YOU HAVE ANY OTHER QUESTIONS OR CONCERNS NO . VITAL SIGNS WT 204.0 LBS, HT 61 IN, BMI 38.54 INDEX, BP 144/82 MM HG, HR 63 /MIN, RR 20 /MIN, TEMP 97.4 F, OXYGEN SAT % 95%, NA INITIALS MS 1355. ASSESSMENTS SACROILIITIS, NOT ELSEWHERE CLASSIFIED - M46.1 (PRIMARY) TREATMENT SACROILIITIS, NOT ELSEWHERE CLASSIFIED [facility] FLUORO GUIDANCE (PAIN)[id number] PROCEDURES PN SI PRE PROCEDURE DIAGNOSIS SACROILIITIS, SACROILIAC JOINT DYSFUNCTION POST PROCEDURE DIAGNOSIS SACROILIITIS, SACROILIAC JOINT DYSFUNCTION PROCEDURE RIGHT SACROILIAC JOINT BLOCK SURGEON DR. MOHAMUD RIGGINS ELECTRONICS ENGINEERING MANAGER NONE ANESTHESIA LOCAL PRE PROCEDURE NOTE PATIENT WITH HISTORY OF CHRONIC LOW BACK PAIN. I EVALUATED THE PATIENT AND REVIEWED THE CHART. I WENT OVER THE RISKS, ALTERNATIVES, AND BENEFITS ASSOCIATED WITH THIS PROCEDURE. THE PATIENT WOULD LIKE TO PROCEED AND GAVE CONSENT TO PERFORM THE PROCEDURE. THE PATIENT DENIES UNEXPLAINABLE WEIGHT LOSS, FEVER, CHILLS, OR NEW CHANGES IN URINARY OR BOWEL CONTROL DESCRIPTION OF PROCEDURE THE PATIENT WAS BROUGHT TO THE PROCEDURE ROOM AND PLACED IN THE PRONE POSITION. THE LUMBOSACRAL AREA WAS CLEANED WITH CHLORAPREP SOLUTION AND DRAPED ASEPTICALLY. THE PROCEDURE WAS DONE UNDER STERILE CONDITIONS. I CHECKED LATERALITY AND THE LEVEL WHERE THE PROCEDURE WAS GOING TO BE PERFORMED WITH THE PATIENT AND THE SUPPORTING STAFF AT THE MOMENT OF THE TIME OUT IN THE PROCEDURE ROOM. UNDER FLUOROSCOPIC GUIDANCE, TARGET POINT WAS SELECTED AT THE LOWER BORDER OF THE RIGHT SACROILIAC JOINT. TARGET POINT WAS SELECTED AFTER MEDIAL ROTATION AND TILT OF THE MAGNIFIER OF THE C-ARM. LIDOCAINE WAS USED TO NUMB THE SKIN AND SUBCUTANEOUS TISSUE BELOW IT. A SPINAL NEEDLE, 22-GAUGE, WAS ADVANCED UNDER FLUOROSCOPIC GUIDANCE AND FOLLOWING PATIENT FEEDBACK UNTIL THE TARGET AREA WAS TOUCHED. THE POSITION OF THE NEEDLE WAS VERIFIED WITH AP AND LATERAL VIEWS. AFTER PROPER POSITION OF THE NEEDLE WAS ACHIEVED, ISOVUE M DYE 30%, 0.25 ML, WAS INJECTED SHOWING SPREAD OF THE DYE. THEN, A SOLUTION OF 40 MG OF KENALOG WAS INJECTED IN RIGHT JOINT WITH 3 ML OF BUPIVACAINE 0.125%. THERE WAS NO EVIDENCE OF BLOOD, PARESTHESIA OR CEREBROSPINAL FLUID DURING THE PROCEDURE. THE PATIENT WAS SENT TO THE RECOVERY ROOM. THE PATIENT WAS MOVING THE EXTREMITIES AND DOING WELL. THERE WAS NO COMPLICATION DURING THE PROCEDURE. FLUOROSCOPY TIME WAS 13 SECONDS POST PROCEDURE NOTE THE PATIENT WILL BE SEEN IN A FOLLOW UP IN THE NEXT FEW WEEKS. INSTRUCTIONS WERE GIVEN, QUESTIONS WERE ANSWERED, AND THE PATIENT EXPRESSED UNDERSTANDING AND AGREED WITH THE PLAN. I, ИВАН BRAXTON, DOCUMENTED THE ABOVE INFORMATION ACTING A SCRIBE FOR DR. RIGGINS. I HAVE REVIEWED THE ABOVE DOCUMENT, WRITTEN BY ИВАН BRAXTON SCRIBE AND I VERIFY THAT IT IS ACCURATE. PROCEDURE CODES 65156 INJECT SACROILIAC JOINT, MODIFIERS: RT [id number] RADXPS IN END [id number] PXD DISPOSITION & COMMUNICATION FOLLOW UP 3 WEEKS ELECTRONICALLY SIGNED BY MOHAMUD RIGGINS MD, MD ON 01/08/2020 AT 10:58 AM EST DISCLAIMER : THIS IS A VISIT SUMMARY EXTRACTED FROM THE [employer] CHART. IT IS NOT A COPY OF THE [employer] PROGRESS NOTE. [place]
== END ==
LOC: M PAIN 13:45
PROVIDERS: ATTEND Anesthesiology
DX: M46.1 Sacroiliitis, not elsewhere classified (principal)
CPT/HCPCS: G0260; J3301; Q9967

== ENCOUNTER → 2020-01-16 | Outpatient (CLI) | payer BC ==
[~2020-01-16] MED LIST changes: -BUPIVACAINE HCL 0.25% 30 ML VIAL As Ordered ONE; -ISOVUE-M 300 61% 15ML VIAL (Q9967) As Ordered ONE; -LIDOCAINE 1% SDV INJ 30 ML VIAL As Ordered ONE; -TRIAMCINOLONE ACETONIDE SUSP 40 MG/ML VIAL (J3301) As Ordered ONE
--- NOTE | 2020-01-31 02:54 | ECWPNPC ---
PATIENT NAME: IVON DAVID : 1965 GENDER: FEMALE VISIT DATE: 01/16/2020 DISCHARGE DATE: 01/16/20 1112 VISIT LOCKED DATE TIME: PHYSICIAN: DIANA COREA RESOURCE: DIANA COREA REASON FOR APPOINTMENT 1. [employer]- POST SIJ HISTORY OF PRESENT ILLNESS HISTORY OF PRESENT ILLNESS: HERE FOR POST PROCEDURE FOLLOW-UP. HAD, RIGHT SIJ ON 12/21/2019 . REPORTING MINIMAL IMPROVEMENT FOR A FEW DAYS POSTPROCEDURE. CHIEF AREA OF PAIN IS RIGHT HIP AND THIGH. REPORTING RIGHT ANTERIOR THIGH NUMBNESS. PAIN IS CONTINUOUS, SHARP AND ACHING. RATING PAIN LEVEL A 5/10 VAS. PAIN THE PATIENT DESCRIBES THE PAIN... FALL RISK SCREENING: SCREENING :NO FALLS REPORTED IN THE LAST YEAR CURRENT MEDICATIONS TAKING ADVAIR DISKUS 250-50 MCG/DOSE AEROSOL POWDER BREATH ACTIVATED 1 PUFF INHALATION TWICE A DAY TAKING VITAMIN D (ERGOCALCIFEROL) 54000 UNIT CAPSULE TAKE 1 CAPSULE BY MOUTH WEEKLY ORALLY WEEKLY TAKING PROTONIX 40 MG TABLET DELAYED RELEASE 1 TABLET ORALLY ONCE A DAY TAKING PAXIL 40 MG TABLET 1 TABLET IN THE MORNING ORALLY ONCE A DAY TAKING ALBUTEROL SULFATE HFA 108 (90 BASE) MCG/ACT AEROSOL SOLUTION 2 PUFFS NEEDED INHALATION EVERY 6 HRS TAKING ZYRTEC ALLERGY 10 MG TABLET 1 TABLET ORALLY ONCE A DAY TAKING METFORMIN HCL 1000 MG TABLET 1 TABLET WITH MEALS ORALLY TWICE A DAY TAKING IRBESARTAN 150 MG TABLET 1 TABLET ORALLY ONCE A DAY TAKING HYDROXYZINE HCL 50 MG TABLET TAKE 1 TABLET TWICE A DAY TAKING PREMARIN 0.3 MG TABLET 1 TABLET ORALLY ONCE A DAY TAKING TIZANIDINE HCL 4 MG TABLET 1/2 - 1 TABLET ORALLY TAKE 1/2 TAB Q AM AND MIDDAY TAKE 1 TAB AT HS TAKING PAROXETINE HCL 40 MG TABLET TAKE 1 TABLET DAILY IN THE MORNING TAKING ATORVASTATIN CALCIUM 80 MG TABLET TAKE 1 TABLET DAILY TAKING HYDROCHLOROTHIAZIDE 25 MG TABLET TAKE 1 TABLET DAILY TAKING PANTOPRAZOLE SODIUM 40 MG TABLET DELAYED RELEASE TAKE 1 TABLET DAILY TAKING VITAMIN D (ERGOCALCIFEROL) 50,000U CAPSULE TAKE 1 CAPSULE WEEKLY TAKING PERCOCET 5-325 MG TABLET 1-2 ORALLY Q 4-6H PRN PAIN MDD6 NOT-TAKING FLUTICASONE PROPIONATE 50 MCG/ACT SUSPENSION 1 SPRAY IN EACH NOSTRIL NASALLY ONCE A DAY MEDICATION LIST REVIEWED AND RECONCILED WITH THE PATIENT PAST MEDICAL HISTORY CHRONIC LOW BACK PAIN - FOLLOWED BY [facility] OSTEOARTHRITIS BILATERAL KNEES ASTHMA NORMAL SPIROMETRY AT PULMONARY 11/2017 HYPERLIPIDEMIA DEPRESSION GENERALIZED ANXIETY DISORDER HYPERTENSION DM II LEFT PULMONARY NODULE - CT 2009 AND 2013 WITH NO CHANGE - NO FURTHER WORK UP NEEDED PER [facility]. (FOLLOWED BY PULMONARY) VARICOSE VEINS OSTEOPOROSIS - LAST DEXA 04/21, NORMAL - AP SPINE T-SCORE -0.4. NORMAL BONE DENSITY - REPEAT 2018 SMOKER VITAMIN D DEFICIENCY ADALGISA DIAGNOSED 07/2015 - ON CPAP LUMBAR FACET ARTHROPATHY LUMBAR SPONDYLOSIS ADMITTED 11/2016 FOR BOWEL OBSTRUCTION SECONDARY TO DIVERTICULITIS - REQUIRED PARTIAL BOWEL RESECTION WITH OSTOMY PLACED. LEFT ANKLE FX S/P FALL ALLERGIES MORPHINE SULFATE: HIVES - ALLERGY ZOLOFT: CONFUSION - LACK OF THERAPEUTIC EFFECT BACTRIM: HIVES - ALLERGY SULFA (FOR ALLERGY USE ONLY): HIVES - ALLERGY SURGICAL HISTORY HYSTERECTOMY (STILL HAS OVARIES) 03/12 CYST REMOVED FROM OVARY 2003 LLE VARICOSE VEIN REMOVAL AND LASER ABLATION OF LEFT GREAT SAPHENOUS VEIN () 09/15 LEFT KNEE ARTHROSCOPY (DR. ALEX RAMIRES) RIGHT TKA - ([facility]) 01/2014 REMOVAL OF CYST LEFT ARM 2010 REPAIR HAMMERTOES LEFT FOOT 2010 BOWEL RESECTION 11/20/16 COLOSTOMY REVERSAL 04/2017 COLONOSCOPY _ DR. POON - DIVERTICULOSIS, POLYP RESECTED, BUT NOT RETRIEVED FOR PATHOLOGY 03/2017 FAMILY HISTORY FATHER: 65 YRS, DIAGNOSED WITH OTHER MALIGNANT NEOPLASM OF UNSPECIFIED SITE MOTHER: 74 YRS, OTHER MALIGNANT NEOPLASM OF UNSPECIFIED SITE 2 BROTHER(S) , 2 SISTER(S) - HEALTHY. 2 SON(S) . FATHER-LUNG CA\NMOTHER-LUNG CA\NBROTHER AT 5YRS OLD COLON CANCER\NSON HAS IDDM ON INSULIN PUMP. SOCIAL HISTORY GENERAL: TOBACCO USE ARE YOU A:CURRENT SMOKER ARE YOU INTERESTED IN QUITTING?NOT READY TO QUIT COUNSELED THE PATIENT ON SMOKING EFFECTS, EDUCATION [id number]/10/2020 HOW MANY CIGARETTES A DAY DO YOU SMOKE?6-10 HOW SOON AFTER YOU WAKE UP DO YOU SMOKE YOUR FIRST CIGARETTE?6-30 MIN HOW OFTEN DO YOU SMOKE CIGARETTES?EVERY DAY PATIENT COUNSELED ON THE DANGERS OF TOBACCO USE AND URGED TO QUIT:11/24/2019 SMOKING CESSATION INFORMATION GIVEN08/24/2019 HIV / HEP-C SCREENING HIV TEST OFFERED TO PATIENT:YES DATE OFFERED:08/17/2017 TEST ACCEPTED:NO HEP-C TEST OFFERED TO PATIENT:YES DATE OFFERED:08/17/2017 REASON:PATIENT DECLINED TEST ACCEPTED:NO REASON:PATIENT DECLINED EDUCATION LEVEL OF EDUCATION:NOT FINISHED HIGH SCHOOL COMPLETED 11TH GRADE DIET: REGULAR. LANGUAGE LANGUAGES SPOKEN:UGANDAN DOMESTIC VIOLENCE DO YOU FEEL SAFE IN YOUR ENVIRONMENT?YES NEW PATIENT PAIN DIARY TODAY'S VISITNOTES BMI CARE GOAL FOLLOW-UP ABOVE NORMAL BMI FOLLOW-UPDIETARY MANAGEMENT EDUCATION, GUIDANCE, AND COUNSELING RECREATIONAL DRUG USE DRUG USE?NO LEARNING BARRIERS / SPECIAL NEEDS CHANGE FROM LAST VISIT?NO BARRIERS TO LEARNING?NO HEARING IMPAIRED?NO VISION IMPAIRED?YES COGNITIVELY IMPAIRED?NO :CORRECTIVE LENSES READINESS TO LEARN?YES LEARNING PREFERENCES?NO LEARNING CAPABILITIES PRESENT?YES EMOTIONAL BARRIERS?NO SPECIAL DEVICES?NO EMERGENCY SPECIALIST NEEDED?NO LUNG CANCER SCREENING SMOKING STATUS:CURRENT SMOKER IS THE PATIENT BETWEEN THE AGE OF 56 AND 78?NO PAIN CLINIC PFS, CLERGY, PUBLIC HEALTH REFERRALS WAS THE PROVIDER NOTIFIED OF ANY PERTINENT INFO?YES HAS THE PATIENT BEEN EDUCATED REGARDING HIS/HER PLAN OF CARE?YES HAS THE PATIENT BEEN EDUCATED REGARDING PAIN, THE RISK FOR PAIN, THE IMPORTANCE OF EFFECTIVE PAIN MANAGEMENT, AND THE PAIN ASSESSMENT PROCESS?YES LATEX QUESTIONNAIRE LATEX ALLERGY : HAVE YOU EVER DEVELOPED ANY TYPE OF REACTION AFTER HANDLING LATEX PRODUCTS SUCH RUBBER GLOVES, CONDOMS, DIAPHRAGMS, BALLOONS, SOCKS, OR UNDERWEAR?NO LATEX ALLERGY : HAVE YOU EVER DEVELOPED ANY TYPE OF REACTION DURING OR AFTER DENTAL APPOINTMENT, VAGINAL/RECTAL EXAMINATION, SURGICAL PROCEDURE, OR ANY OTHER EXPOSURE?NO DATE ASKED : 11/24/2019 LATEX RISK : HAVE YOU EVER HAD ANY DIFFICULTY BREATHING OR HIVES AFTER EATING OR HANDLING ANY FRUITS, OR VEGETABLES; SUCH KIWI, BANANAS, STONE FRUITS, OR CHESTNUTSNO LATEX RISK : DO YOU HAVE A PREVIOUS PERSONAL HISTORY OF MORE THAN NINE SURGERIES, SPINA BIFIDA, OR REPEATED CATHERIZATIONS? NO LATEX RISK : ARE YOU FREQUENTLY EXPOSED TO LATEX PRODUCTS IN YOUR OCCUPATION?NO CAFFEINE CAFFEINE USE?YES HOW OFTEN AND HOW MUCH? 4 CUPS DAILY ADVANCE DIRECTIVE ADVANCE DIRECTIVE DISCUSSED WITH PATIENT:YES HCP ANNALISA DAVID [phone] PENTECOSTALISM [id number] PENTECOSTALISM NO ANGLICAN BELIEFS THAT WOULD IMPACT HEALTH CARE. MARITAL STATUS: . ALCOHOL SCREENING DID YOU HAVE A DRINK CONTAINING ALCOHOL IN THE PAST YEAR?NO POINTS0 INTERPRETATIONNEGATIVE SEXUAL HX HAD SEX IN THE LAST 12 MONTHS (VAGINAL, ORAL, OR ANAL)?YES WITHMEN ONLY USE PROTECTION?NO LMP:HYSTER HAVE YOU EVER HAD AN STD?NO DR. SHEA FOR ROUTINE ONLINE ADVERTISING DIRECTOR CARE AND SCREENINGS. REVIEWED WITH PT 07/25/18 BVREVIEWED WITH PT 08/18/18 1522 LAS10/06/18 1510 REVIEWED WITH PT. ADREVIEWED WITH PATIENT 03/14/19 1417 JSREVIEWED WITH PATIENT 08/08/19 LASREVIEWED WITH PATIENT 07/27/19 1104 JSREVIEWED WITH PATIENT 08/24/19 1026 NLJREVIEWED BY PATIENT 11/24/19 DS. HOSPITALIZATION/MAJOR DIAGNOSTIC PROCEDURE SURGERIES BOWEL BLOCKAGE 11/03/16-11/28/16 REVIEW OF SYSTEMS REVIEWED BY: PROVIDER: DIANA TAN . CONSTITUTIONAL: ANY CHANGE IN YOUR MEDICAL CONDITION? NO . CHILLS NO . FEVER NO . INFECTION: DO YOU HAVE NEW INFECTIONS? NO . DO YOU HAVE HISTORY OF MRSA? NO . MUSCULOSKELETAL: ANY NEW PATTERNS OF PAIN OR NUMBNESS? YES, PAIN DOWN RIGHT LEG . GASTROENTEROLOGY: ANY NEW CHANGE IN BOWEL CONTROL? NO . GENITOURINARY: ANY NEW CHANGE IN BLADDER CONTROL? NO . IS THERE A CHANCE YOU COULD BE ? NO . HEMATOLOGY/LYMPH: DO YOU TAKE ANY BLOOD THINNERS? (FOR EXAMPLE- COUMADIN, PLAVIX, AGGRENOX, PLATEL, PRADAXA, OR XARELTO) NO . WHEN WAS YOUR LAST DOSE? DATE: TIME: . NEUROLOGY: HAVE YOU FALLEN IN THE PAST 12 MONTHS? NO . ANY NEW EXTREMITY NUMBNESS OR WEAKNESS? YES, RIGHT LEG . CARDIOLOGY: DO YOU HAVE A PACEMAKER OR DEFIBRILLATOR? NO . RESPIRATORY: HAVE YOU BEEN SICK IN THE PAST WEEK? NO . FEVER NO . FLU LIKE SYMPTOMS? NO . COUGH NO . INTEGUMENTARY: DO YOU HAVE ANY RASHES OR OPEN SORES? NO . ALLERGIC/IMMUNO: ARE YOU ALLERGIC TO IV DYE? NO . ANY NEW ALLERGIES? NO . PSYCHIATRIC: DO YOU HAVE THOUGHTS OF HURTING YOURSELF OR SOMEONE ELSE? NO . ARE YOU ABUSED, NEGLECTED, OR IN AN UNSAFE ENVIRONMENT? NO . ENDOCRINOLOGY: ARE YOU DIABETIC? YES . OTHER: DO YOU NEED ANY PRESCRIPTIONS? NO . IF YES, PLEASE LIST: ____ . ANY NEW PROBLEMS WITH YOUR MEDICATIONS? NO . WHEN DID YOU LAST EAT? ____ . WHEN DID YOU LAST DRINK? ____ . WHAT DID YOU LAST DRINK? ____ . NAME OF PERSON DRIVING YOU HOME? ____ . DO YOU HAVE ANY OTHER QUESTIONS OR CONCERNS NO . VITAL SIGNS WT 202 LBS,0 LBS, HT 61 IN, BMI 381.63 INDEX, BP 138/73 MM HG, HR 73 /MIN, RR 18 /MIN, TEMP 97.6 F, OXYGEN SAT % 96%, SAFE IN ENV? (Y/N) Y, NA INITIALS [id number], REVIEWED BY: EM. EXAMINATION GENERAL EXAMINATION: GENERAL ALERT,NO DISTRESS . PSYCH AFFECT NORMAL . LUNGS: LUNG SOUNDS ARE CLEAR . HEART: HEART RATE REGULAR . MUSCULOSKELETAL: MST 5/5 BILAT. LOWER EXTREMITIES . LUMBAR:TENDERNESS RIGHT. SIJ .POSITIVE PATRICKS TESTING RIGHT LEG. DIAGNOSTIC TESTS REVIEWED CT L/S [id number] . ASSESSMENTS SACROILIITIS, NOT ELSEWHERE CLASSIFIED - M46.1 (PRIMARY) LUMBAR FACET ARTHROPATHY - M46.96 TREATMENT SACROILIITIS, NOT ELSEWHERE CLASSIFIED [facility] MRI LUMBAR W/O CONTRAST (CPT [id number],NICOLE 01/17/2020 2:04:33 PM > AUTH # [id number] GOOD FROM 01/17/20-03/02/20 PROCEDURE CODES FA211 ESTABILISHED PATIENT [facility] FACILITY CHARGE DISPOSITION & COMMUNICATION FOLLOW UP 4 WEEKS (REASON: MRI L/S SPINE REVIEW) ELECTRONICALLY SIGNED BY DOMINICK ZAPATA ON 01/30/2020 AT 04:01 PM EDT DISCLAIMER : THIS IS A VISIT SUMMARY EXTRACTED FROM THE [employer] CHART. IT IS NOT A COPY OF THE [employer] PROGRESS NOTE. TESSA
== END ==
LOC: M PAIN 09:45
PROVIDERS: ATTEND Nurse Practitioner Family
DX: M46.1 Sacroiliitis, not elsewhere classified (principal)

== ENCOUNTER → 2020-02-01 | Outpatient (CLI) | payer BC ==
--- NOTE | 2020-02-02 00:34 | ECWPNPC ---
PATIENT NAME: IVON DAVID : 1965 GENDER: FEMALE VISIT DATE: 02/01/2020 DISCHARGE DATE: 02/01/20938 VISIT LOCKED DATE TIME: PHYSICIAN: DIANA COREA RESOURCE: DIANA COREA REASON FOR APPOINTMENT 1. REVIEW MRI HISTORY OF PRESENT ILLNESS HISTORY OF PRESENT ILLNESS: CONFIRMED WITH PATIENT THAT TELEPHONE OFFICE VISIT WAS OKAY WITH HER. CONTINUES WITH SIGNIFICANT INCREASE IN RIGHT LOW BACK PAIN THAT RADIATES INTO HER RIGHT LEG. RATING PAIN LEVEL A 7/10 VAS. PAIN IS DESCRIBED CONSTANT. REVIEWED MRI OF THE LUMBAR SPINE THAT WAS DONE ON 01/26/2020. THIS IS SHOWING PROGRESSION OF DEGENERATIVE CHANGES/FACET ARTHROPATHY MOST PRONOUNCED AT L5-S1. REVIEWED TREATMENT OPTIONS WITH PATIENT. PAIN THE PATIENT DESCRIBES THE PAIN... FALL RISK SCREENING: SCREENING :NO FALLS REPORTED IN THE LAST YEAR CURRENT MEDICATIONS TAKING ADVAIR DISKUS 250-50 MCG/DOSE AEROSOL POWDER BREATH ACTIVATED 1 PUFF INHALATION TWICE A DAY TAKING VITAMIN D (ERGOCALCIFEROL) 87414 UNIT CAPSULE TAKE 1 CAPSULE BY MOUTH WEEKLY ORALLY WEEKLY TAKING ALBUTEROL SULFATE HFA 108 (90 BASE) MCG/ACT AEROSOL SOLUTION 2 PUFFS NEEDED INHALATION EVERY 6 HRS TAKING ZYRTEC ALLERGY 10 MG TABLET 1 TABLET ORALLY ONCE A DAY TAKING METFORMIN HCL 1000 MG TABLET 1 TABLET WITH MEALS ORALLY TWICE A DAY TAKING IRBESARTAN 150 MG TABLET 1 TABLET ORALLY ONCE A DAY TAKING HYDROXYZINE HCL 50 MG TABLET TAKE 1 TABLET TWICE A DAY TAKING PREMARIN 0.3 MG TABLET 1 TABLET ORALLY ONCE A DAY TAKING TIZANIDINE HCL 4 MG TABLET 1/2 - 1 TABLET ORALLY TAKE 1/2 TAB Q AM AND MIDDAY TAKE 1 TAB AT HS TAKING PAROXETINE HCL 40 MG TABLET TAKE 1 TABLET DAILY IN THE MORNING TAKING ATORVASTATIN CALCIUM 80 MG TABLET TAKE 1 TABLET DAILY TAKING HYDROCHLOROTHIAZIDE 25 MG TABLET TAKE 1 TABLET DAILY TAKING PANTOPRAZOLE SODIUM 40 MG TABLET DELAYED RELEASE TAKE 1 TABLET DAILY TAKING PERCOCET 5-325 MG TABLET 1-2 ORALLY Q 4-6H PRN PAIN MDD6 NOT-TAKING VITAMIN D (ERGOCALCIFEROL) 50,000U CAPSULE TAKE 1 CAPSULE WEEKLY NOT-TAKING FLUTICASONE PROPIONATE 50 MCG/ACT SUSPENSION 1 SPRAY IN EACH NOSTRIL NASALLY ONCE A DAY MEDICATION LIST REVIEWED AND RECONCILED WITH THE PATIENT PAST MEDICAL HISTORY CHRONIC LOW BACK PAIN - FOLLOWED BY [facility] OSTEOARTHRITIS BILATERAL KNEES ASTHMA NORMAL SPIROMETRY AT PULMONARY 11/2017 HYPERLIPIDEMIA DEPRESSION GENERALIZED ANXIETY DISORDER HYPERTENSION DM II LEFT PULMONARY NODULE - CT 2009 AND 2013 WITH NO CHANGE - NO FURTHER WORK UP NEEDED PER [facility] CR[facility]. (FOLLOWED BY PULMONARY) VARICOSE VEINS OSTEOPOROSIS - LAST DEXA 04/21, NORMAL - AP SPINE T-SCORE -0.4. NORMAL BONE DENSITY - REPEAT 2018 SMOKER VITAMIN D DEFICIENCY ADALGISA DIAGNOSED 07/2015 - ON CPAP LUMBAR FACET ARTHROPATHY LUMBAR SPONDYLOSIS ADMITTED 11/2016 FOR BOWEL OBSTRUCTION SECONDARY TO DIVERTICULITIS - REQUIRED PARTIAL BOWEL RESECTION WITH OSTOMY PLACED. LEFT ANKLE FX S/P FALL RLS 01/25, ? FROM PAROXETINE ALLERGIES MORPHINE SULFATE: HIVES - ALLERGY ZOLOFT: CONFUSION - LACK OF THERAPEUTIC EFFECT BACTRIM: HIVES - ALLERGY SULFA (FOR ALLERGY USE ONLY): HIVES - ALLERGY SURGICAL HISTORY HYSTERECTOMY (STILL HAS OVARIES) 03/12 CYST REMOVED FROM OVARY 2003 LLE VARICOSE VEIN REMOVAL AND LASER ABLATION OF LEFT GREAT SAPHENOUS VEIN () 09/15 LEFT KNEE ARTHROSCOPY (DR. ALEX RAMIRES) RIGHT TKA - ([facility]) 01/2014 REMOVAL OF CYST LEFT ARM 2010 REPAIR HAMMERTOES LEFT FOOT 2010 BOWEL RESECTION 11/20/16 COLOSTOMY REVERSAL 04/2017 COLONOSCOPY _ DR. POON - DIVERTICULOSIS, POLYP RESECTED, BUT NOT RETRIEVED FOR PATHOLOGY 03/2017 FAMILY HISTORY FATHER: 65 YRS, DIAGNOSED WITH OTHER MALIGNANT NEOPLASM OF UNSPECIFIED SITE MOTHER: 74 YRS, OTHER MALIGNANT NEOPLASM OF UNSPECIFIED SITE 2 BROTHER(S) , 2 SISTER(S) - HEALTHY. 2 SON(S) . FATHER-LUNG CA\NMOTHER-LUNG CA\NBROTHER AT 5YRS OLD COLON CANCER\NSON HAS IDDM ON INSULIN PUMP. SOCIAL HISTORY GENERAL: TOBACCO USE ARE YOU A:CURRENT SMOKER ARE YOU INTERESTED IN QUITTING?NOT READY TO QUIT COUNSELED THE PATIENT ON SMOKING EFFECTS, EDUCATION TADMATSB00/26/2020 HOW MANY CIGARETTES A DAY DO YOU SMOKE?6-10 HOW SOON AFTER YOU WAKE UP DO YOU SMOKE YOUR FIRST CIGARETTE?6-30 MIN HOW OFTEN DO YOU SMOKE CIGARETTES?EVERY DAY PATIENT COUNSELED ON THE DANGERS OF TOBACCO USE AND URGED TO QUIT:02/01/2020 SMOKING CESSATION INFORMATION GIVEN08/24/2019 HIV / HEP-C SCREENING HIV TEST OFFERED TO PATIENT:YES DATE OFFERED:08/17/2017 TEST ACCEPTED:NO HEP-C TEST OFFERED TO PATIENT:YES DATE OFFERED:08/17/2017 REASON:PATIENT DECLINED TEST ACCEPTED:NO REASON:PATIENT DECLINED EDUCATION LEVEL OF EDUCATION:NOT FINISHED HIGH SCHOOL COMPLETED 11TH GRADE DIET: REGULAR. LANGUAGE LANGUAGES SPOKEN:ERITREAN DOMESTIC VIOLENCE DO YOU FEEL SAFE IN YOUR ENVIRONMENT?YES NEW PATIENT PAIN DIARY TODAY'S VISITNOTES 02/01/2020 PATIENT DESCRIBES PAIN :STABBING, SHOOTING FROM 0-10, WHAT LEVEL IS YOUR PAIN TODAY?8 BMI CARE GOAL FOLLOW-UP ABOVE NORMAL BMI FOLLOW-UPDIETARY MANAGEMENT EDUCATION, GUIDANCE, AND COUNSELING RECREATIONAL DRUG USE DRUG USE?NO LEARNING BARRIERS / SPECIAL NEEDS CHANGE FROM LAST VISIT?NO BARRIERS TO LEARNING?NO HEARING IMPAIRED?NO VISION IMPAIRED?YES COGNITIVELY IMPAIRED?NO :CORRECTIVE LENSES READINESS TO LEARN?YES LEARNING PREFERENCES?NO LEARNING CAPABILITIES PRESENT?YES EMOTIONAL BARRIERS?NO SPECIAL DEVICES?NO TAR POT MAN NEEDED?NO LUNG CANCER SCREENING SMOKING STATUS:CURRENT SMOKER IS THE PATIENT BETWEEN THE AGE OF 56 AND 78?NO PAIN CLINIC PFS, CLERGY, PUBLIC HEALTH REFERRALS WAS THE PROVIDER NOTIFIED OF ANY PERTINENT INFO?YES HAS THE PATIENT BEEN EDUCATED REGARDING HIS/HER PLAN OF CARE?YES HAS THE PATIENT BEEN EDUCATED REGARDING PAIN, THE RISK FOR PAIN, THE IMPORTANCE OF EFFECTIVE PAIN MANAGEMENT, AND THE PAIN ASSESSMENT PROCESS?YES LATEX QUESTIONNAIRE LATEX ALLERGY : HAVE YOU EVER DEVELOPED ANY TYPE OF REACTION AFTER HANDLING LATEX PRODUCTS SUCH RUBBER GLOVES, CONDOMS, DIAPHRAGMS, BALLOONS, SOCKS, OR UNDERWEAR?NO LATEX ALLERGY : HAVE YOU EVER DEVELOPED ANY TYPE OF REACTION DURING OR AFTER DENTAL APPOINTMENT, VAGINAL/RECTAL EXAMINATION, SURGICAL PROCEDURE, OR ANY OTHER EXPOSURE?NO LATEX RISK : HAVE YOU EVER HAD ANY DIFFICULTY BREATHING OR HIVES AFTER EATING OR HANDLING ANY FRUITS, OR VEGETABLES; SUCH KIWI, BANANAS, STONE FRUITS, OR CHESTNUTSNO LATEX RISK : DO YOU HAVE A PREVIOUS PERSONAL HISTORY OF MORE THAN NINE SURGERIES, SPINA BIFIDA, OR REPEATED CATHERIZATIONS? NO LATEX RISK : ARE YOU FREQUENTLY EXPOSED TO LATEX PRODUCTS IN YOUR OCCUPATION?NO DATE ASKED : 02/01/2020 CAFFEINE CAFFEINE USE?YES HOW OFTEN AND HOW MUCH? 4 CUPS DAILY ADVANCE DIRECTIVE ADVANCE DIRECTIVE DISCUSSED WITH PATIENT:YES HCP ANNALISA DAVID [phone] YAZIDI [id number] JAINISM NO JAIN BELIEFS THAT WOULD IMPACT HEALTH CARE. MARITAL STATUS: . ALCOHOL SCREENING DID YOU HAVE A DRINK CONTAINING ALCOHOL IN THE PAST YEAR?NO POINTS0 INTERPRETATIONNEGATIVE SEXUAL HX HAD SEX IN THE LAST 12 MONTHS (VAGINAL, ORAL, OR ANAL)?YES WITHMEN ONLY USE PROTECTION?NO LMP:HYSTER HAVE YOU EVER HAD AN STD?NO DR. SHEA FOR ROUTINE TICKET MANAGER CARE AND SCREENINGS. HOSPITALIZATION/MAJOR DIAGNOSTIC PROCEDURE SURGERIES BOWEL BLOCKAGE 11/03/16-11/28/16 REVIEW OF SYSTEMS REVIEWED BY: PROVIDER: DIANA TAN . CONSTITUTIONAL: ANY CHANGE IN YOUR MEDICAL CONDITION? NO . CHILLS NO . FEVER NO . INFECTION: DO YOU HAVE NEW INFECTIONS? NO . DO YOU HAVE HISTORY OF MRSA? NO . MUSCULOSKELETAL: ANY NEW PATTERNS OF PAIN OR NUMBNESS? YES, NEW THROBBING PAIN TO RIGHT ARM . GASTROENTEROLOGY: ANY NEW CHANGE IN BOWEL CONTROL? NO . GENITOURINARY: ANY NEW CHANGE IN BLADDER CONTROL? NO . IS THERE A CHANCE YOU COULD BE ? NO . HEMATOLOGY/LYMPH: DO YOU TAKE ANY BLOOD THINNERS? (FOR EXAMPLE- COUMADIN, PLAVIX, AGGRENOX, PLATEL, PRADAXA, OR XARELTO) NO . WHEN WAS YOUR LAST DOSE? DATE: TIME: . NEUROLOGY: HAVE YOU FALLEN IN THE PAST 12 MONTHS? NO . ANY NEW EXTREMITY NUMBNESS OR WEAKNESS? NO . CARDIOLOGY: DO YOU HAVE A PACEMAKER OR DEFIBRILLATOR? NO . RESPIRATORY: HAVE YOU BEEN SICK IN THE PAST WEEK? NO . FEVER NO . FLU LIKE SYMPTOMS? NO . COUGH NO . INTEGUMENTARY: DO YOU HAVE ANY RASHES OR OPEN SORES? NO . ALLERGIC/IMMUNO: ARE YOU ALLERGIC TO IV DYE? NO . ANY NEW ALLERGIES? NO . PSYCHIATRIC: DO YOU HAVE THOUGHTS OF HURTING YOURSELF OR SOMEONE ELSE? NO . ARE YOU ABUSED, NEGLECTED, OR IN AN UNSAFE ENVIRONMENT? NO . ENDOCRINOLOGY: ARE YOU DIABETIC? YES, TYPE II . OTHER: DO YOU NEED ANY PRESCRIPTIONS? NO . IF YES, PLEASE LIST: ____ . ANY NEW PROBLEMS WITH YOUR MEDICATIONS? NO . WHEN DID YOU LAST EAT? ____ . WHEN DID YOU LAST DRINK? ____ . WHAT DID YOU LAST DRINK? ____ . NAME OF PERSON DRIVING YOU HOME? ____ . DO YOU HAVE ANY OTHER QUESTIONS OR CONCERNS NO . ASSESSMENTS LUMBAR FACET ARTHROPATHY - M46.96 (PRIMARY) TREATMENT LUMBAR FACET ARTHROPATHY CONTINUE TIZANIDINE HCL TABLET, 4 MG, 1/2 - 1 TABLET, ORALLY, TAKE 1/2 TAB Q AM AND MIDDAY TAKE 1 TAB AT HS CONTINUE PERCOCET TABLET, 5-325 MG, 1-2, ORALLY, Q 4-6H PRN PAIN MDD6 NOTES: WE WILL HAVE PATIENT COME TO OFFICE FOR A PREPROCEDURE PHYSICAL EXAM IN 1-2 WEEKS. WE WILL CONSIDER RIGHT L4-5, L5-S1, THERAPEUTIC FACET BLOCK. DISPOSITION & COMMUNICATION FOLLOW UP 1-2 WEEKS PRE PROCEDURE VISIT ELECTRONICALLY SIGNED BY DOMINICK ZAPATA ON 02/01/2020 AT 09:44 AM EDT DISCLAIMER : THIS IS A VISIT SUMMARY EXTRACTED FROM THE [employer] CHART. IT IS NOT A COPY OF THE [employer] PROGRESS NOTE. DEBBIED
== END ==
LOC: M PAIN 08:45
PROVIDERS: ATTEND Nurse Practitioner Family
DX: M46.96 Unspecified inflammatory spondylopathy, lumbar region (principal)

== ENCOUNTER → 2020-02-02 | Outpatient (REF) | payer BC ==
[2020-02-02 13:20] LABS: BASO # 0.1 10^3/uL (0.0-0.2); BASO % 0.6 % (0.0-1.0); EOS # 0.3 10^3/uL (0.0-0.5); EOS % 2.1 % (0.0-3.0); HEMATOCRIT 44.3 % (36.0-47.0); LYMPH # 2.6 10^3/uL (1.5-5.0); LYMPH % 20.3 % (24.0-44.0); MEAN CORPUSCULAR HEMOGLOBIN 30.4 pg (27.0-33.0); MEAN CORPUSCULAR HGB CONC 33.9 g/dl (32.0-36.5); MEAN CORPUSCULAR VOLUME 89.7 fl (80.0-96.0); MONO # 0.8 10^3/uL (0.0-0.8); MONO % 5.9 % (0.0-5.0); NEUTROPHILS % 70.7 % (36.0-66.0); PLATELET COUNT, AUTOMATED 368 10^3/uL (150-450); RED BLOOD COUNT 4.94 10^6/uL (4.00-5.40); WHITE BLOOD COUNT 12.6 10^3/uL (4.0-10.0)
[2020-02-02 13:55] LABS: ERYTHROCYTE SEDIMENTATION RATE 31 mm/hr (0-30)
== END ==
LOC: M SFHCADAM 10:49
PROVIDERS: ATTEND Physician Assistant
DX: M77.9 Enthesopathy, unspecified (principal)

== ENCOUNTER → 2020-02-02 | Outpatient (CLI) | payer BC ==
--- NOTE | 2020-02-02 11:53 | REP ---
RIGHT SHOULDER, THREE VIEWS: There is no evidence of an acute fracture, dislocation or intrinsic bone disease. IMPRESSION: No fracture or dislocation. Electronically Signed by Jaleel Keys MD 02/02/2020 12:09 P
== END ==
LOC: M ADAMS 10:51
PROVIDERS: ATTEND Physician Assistant
DX: M77.9 Enthesopathy, unspecified (principal); M25.511 Pain in right shoulder

== ENCOUNTER → 2020-02-06 | Outpatient (CLI) | payer BC ==
--- NOTE | 2020-02-10 00:21 | ECWPNPC ---
PATIENT NAME: IVON DAVID : 1965 GENDER: FEMALE VISIT DATE: 02/06/2020 DISCHARGE DATE: 02/06/20 1007 VISIT LOCKED DATE TIME: PHYSICIAN: DIANA COREA RESOURCE: DIANA COREA REASON FOR APPOINTMENT 1. 1-2 WEEKS PRE PROCEDURE VISIT HISTORY OF PRESENT ILLNESS HISTORY OF PRESENT ILLNESS: HERE FOR PREPROCEDURE VISIT. CONTINUES TO SUFFER FROM PERSISTENT RIGHT-SIDED LOW BACK PAIN. HAS RESPONDED WELL TO FACET THERAPEUTIC BLOCKS IN THE PAST. RATING PAIN LEVEL VIII/X VAS. PAIN IS AGGRAVATED BY PROLONGED SITTING OR EXTENSION OF SPINE. MEDICATIONS ARE SOMEWHAT HELPFUL FOR PAIN. REVIEWED MRI AND DISCUSSED TREATMENT OPTIONS. PAIN THE PATIENT DESCRIBES THE PAIN... FALL RISK SCREENING: SCREENING :NO FALLS REPORTED IN THE LAST YEAR CURRENT MEDICATIONS TAKING ADVAIR DISKUS 250-50 MCG/DOSE AEROSOL POWDER BREATH ACTIVATED 1 PUFF INHALATION TWICE A DAY TAKING VITAMIN D (ERGOCALCIFEROL) 58575 UNIT CAPSULE TAKE 1 CAPSULE BY MOUTH WEEKLY ORALLY WEEKLY TAKING ALBUTEROL SULFATE HFA 108 (90 BASE) MCG/ACT AEROSOL SOLUTION 2 PUFFS NEEDED INHALATION EVERY 6 HRS TAKING ZYRTEC ALLERGY 10 MG TABLET 1 TABLET ORALLY ONCE A DAY TAKING METFORMIN HCL 1000 MG TABLET 1 TABLET WITH MEALS ORALLY TWICE A DAY TAKING IRBESARTAN 150 MG TABLET 1 TABLET ORALLY ONCE A DAY TAKING HYDROXYZINE HCL 50 MG TABLET TAKE 1 TABLET TWICE A DAY TAKING PREMARIN 0.3 MG TABLET 1 TABLET ORALLY ONCE A DAY TAKING PAROXETINE HCL 40 MG TABLET TAKE 1 TABLET DAILY IN THE MORNING TAKING ATORVASTATIN CALCIUM 80 MG TABLET TAKE 1 TABLET DAILY TAKING HYDROCHLOROTHIAZIDE 25 MG TABLET TAKE 1 TABLET DAILY TAKING PANTOPRAZOLE SODIUM 40 MG TABLET DELAYED RELEASE TAKE 1 TABLET DAILY TAKING TIZANIDINE HCL 4 MG TABLET 1/2 - 1 TABLET ORALLY TAKE 1/2 TAB Q AM AND MIDDAY TAKE 1 TAB AT HS TAKING PERCOCET 5-325 MG TABLET 1-2 ORALLY Q 4-6H PRN PAIN MDD6 TAKING IBUPROFEN 200 MG TABLET 1 TABLET WITH FOOD OR MILK NEEDED ORALLY THREE TIMES A DAY TAKING MELOXICAM 15 MG TABLET 1 TABLET ORALLY ONCE A DAY NOT-TAKING VITAMIN D (ERGOCALCIFEROL) 50,000U CAPSULE TAKE 1 CAPSULE WEEKLY NOT-TAKING FLUTICASONE PROPIONATE 50 MCG/ACT SUSPENSION 1 SPRAY IN EACH NOSTRIL NASALLY ONCE A DAY MEDICATION LIST REVIEWED AND RECONCILED WITH THE PATIENT PAST MEDICAL HISTORY CHRONIC LOW BACK PAIN - FOLLOWED BY [facility] OSTEOARTHRITIS BILATERAL KNEES ASTHMA NORMAL SPIROMETRY AT PULMONARY 11/2017 HYPERLIPIDEMIA DEPRESSION GENERALIZED ANXIETY DISORDER HYPERTENSION DM II LEFT PULMONARY NODULE - CT 2009 AND 2013 WITH NO CHANGE - NO FURTHER WORK UP NEEDED PER [facility]. (FOLLOWED BY PULMONARY) VARICOSE VEINS OSTEOPOROSIS - LAST DEXA 04/21, NORMAL - AP SPINE T-SCORE -0.4. NORMAL BONE DENSITY - REPEAT 2018 SMOKER VITAMIN D DEFICIENCY ADALGISA DIAGNOSED 07/2015 - ON CPAP LUMBAR FACET ARTHROPATHY LUMBAR SPONDYLOSIS ADMITTED 11/2016 FOR BOWEL OBSTRUCTION SECONDARY TO DIVERTICULITIS - REQUIRED PARTIAL BOWEL RESECTION WITH OSTOMY PLACED. LEFT ANKLE FX S/P FALL RLS 01/25, ? FROM PAROXETINE RIGHT ARM TENDONITIS ALLERGIES MORPHINE SULFATE: HIVES - ALLERGY ZOLOFT: CONFUSION - LACK OF THERAPEUTIC EFFECT BACTRIM: HIVES - ALLERGY SULFA (FOR ALLERGY USE ONLY): HIVES - ALLERGY SURGICAL HISTORY HYSTERECTOMY (STILL HAS OVARIES) 03/12 CYST REMOVED FROM OVARY 2003 LLE VARICOSE VEIN REMOVAL AND LASER ABLATION OF LEFT GREAT SAPHENOUS VEIN () 09/15 LEFT KNEE ARTHROSCOPY (DR. ALEX RAMIRES) RIGHT TKA - ([facility]) 01/2014 REMOVAL OF CYST LEFT ARM 2010 REPAIR HAMMERTOES LEFT FOOT 2010 BOWEL RESECTION 11/20/16 COLOSTOMY REVERSAL 04/2017 COLONOSCOPY _ DR. POON - DIVERTICULOSIS, POLYP RESECTED, BUT NOT RETRIEVED FOR PATHOLOGY 03/2017 FAMILY HISTORY FATHER: 65 YRS, DIAGNOSED WITH OTHER MALIGNANT NEOPLASM OF UNSPECIFIED SITE MOTHER: 74 YRS, OTHER MALIGNANT NEOPLASM OF UNSPECIFIED SITE 2 BROTHER(S) , 2 SISTER(S) - HEALTHY. 2 SON(S) . FATHER-LUNG CA\NMOTHER-LUNG CA\NBROTHER AT 5YRS OLD COLON CANCER\NSON HAS IDDM ON INSULIN PUMP. SOCIAL HISTORY GENERAL: TOBACCO USE ARE YOU A:CURRENT SMOKER ARE YOU INTERESTED IN QUITTING?NOT READY TO QUIT COUNSELED THE PATIENT ON SMOKING EFFECTS, EDUCATION [id number]/31/2020 HOW MANY CIGARETTES A DAY DO YOU SMOKE?6-10 HOW SOON AFTER YOU WAKE UP DO YOU SMOKE YOUR FIRST CIGARETTE?6-30 MIN HOW OFTEN DO YOU SMOKE CIGARETTES?EVERY DAY PATIENT COUNSELED ON THE DANGERS OF TOBACCO USE AND URGED TO QUIT:02/01/2020 SMOKING CESSATION INFORMATION GIVEN08/24/2019 HIV / HEP-C SCREENING HIV TEST OFFERED TO PATIENT:YES DATE OFFERED:08/17/2017 TEST ACCEPTED:NO HEP-C TEST OFFERED TO PATIENT:YES DATE OFFERED:08/17/2017 REASON:PATIENT DECLINED TEST ACCEPTED:NO REASON:PATIENT DECLINED EDUCATION LEVEL OF EDUCATION:NOT FINISHED HIGH SCHOOL COMPLETED 11TH GRADE DIET: REGULAR. LANGUAGE LANGUAGES SPOKEN:[place]ZUEL[place] DOMESTIC VIOLENCE DO YOU FEEL SAFE IN YOUR ENVIRONMENT?YES NEW PATIENT PAIN DIARY TODAY'S VISITNOTES 02/01/2020 PATIENT DESCRIBES PAIN :HAVE IT ALL THE TIME, STABBING, SHOOTING FROM 0-10, WHAT LEVEL IS YOUR PAIN TODAY?7 PRECIPITATING FACTORS ACTIVITY ALLEVIATING FACTORS REST BMI CARE GOAL FOLLOW-UP ABOVE NORMAL BMI FOLLOW-UPDIETARY MANAGEMENT EDUCATION, GUIDANCE, AND COUNSELING RECREATIONAL DRUG USE DRUG USE?NO LEARNING BARRIERS / SPECIAL NEEDS CHANGE FROM LAST VISIT?NO BARRIERS TO LEARNING?NO HEARING IMPAIRED?NO VISION IMPAIRED?YES COGNITIVELY IMPAIRED?NO :CORRECTIVE LENSES READINESS TO LEARN?YES LEARNING PREFERENCES?NO LEARNING CAPABILITIES PRESENT?YES EMOTIONAL BARRIERS?NO SPECIAL DEVICES?NO SERVICES TECH NEEDED?NO LUNG CANCER SCREENING SMOKING STATUS:CURRENT SMOKER IS THE PATIENT BETWEEN THE AGE OF 56 AND 78?NO PAIN CLINIC PFS, CLERGY, PUBLIC HEALTH REFERRALS WAS THE PROVIDER NOTIFIED OF ANY PERTINENT INFO?YES HAS THE PATIENT BEEN EDUCATED REGARDING HIS/HER PLAN OF CARE?YES HAS THE PATIENT BEEN EDUCATED REGARDING PAIN, THE RISK FOR PAIN, THE IMPORTANCE OF EFFECTIVE PAIN MANAGEMENT, AND THE PAIN ASSESSMENT PROCESS?YES LATEX QUESTIONNAIRE LATEX ALLERGY : HAVE YOU EVER DEVELOPED ANY TYPE OF REACTION AFTER HANDLING LATEX PRODUCTS SUCH RUBBER GLOVES, CONDOMS, DIAPHRAGMS, BALLOONS, SOCKS, OR UNDERWEAR?NO LATEX ALLERGY : HAVE YOU EVER DEVELOPED ANY TYPE OF REACTION DURING OR AFTER DENTAL APPOINTMENT, VAGINAL/RECTAL EXAMINATION, SURGICAL PROCEDURE, OR ANY OTHER EXPOSURE?NO DATE ASKED : 02/01/2020 LATEX RISK : HAVE YOU EVER HAD ANY DIFFICULTY BREATHING OR HIVES AFTER EATING OR HANDLING ANY FRUITS, OR VEGETABLES; SUCH KIWI, BANANAS, STONE FRUITS, OR CHESTNUTSNO LATEX RISK : DO YOU HAVE A PREVIOUS PERSONAL HISTORY OF MORE THAN NINE SURGERIES, SPINA BIFIDA, OR REPEATED CATHERIZATIONS? NO LATEX RISK : ARE YOU FREQUENTLY EXPOSED TO LATEX PRODUCTS IN YOUR OCCUPATION?NO CAFFEINE CAFFEINE USE?YES HOW OFTEN AND HOW MUCH? 4 CUPS DAILY ADVANCE DIRECTIVE ADVANCE DIRECTIVE DISCUSSED WITH PATIENT:YES HCP ANNALISA DAVID [phone] GNOSTICIST [id number] NONDENOMINATIONAL NO RASTAFARIAN BELIEFS THAT WOULD IMPACT HEALTH CARE. MARITAL STATUS: . ALCOHOL SCREENING DID YOU HAVE A DRINK CONTAINING ALCOHOL IN THE PAST YEAR?NO POINTS0 INTERPRETATIONNEGATIVE SEXUAL HX HAD SEX IN THE LAST 12 MONTHS (VAGINAL, ORAL, OR ANAL)?YES WITHMEN ONLY USE PROTECTION?NO LMP:HYSTER HAVE YOU EVER HAD AN STD?NO DR. SHEA FOR ROUTINE DYE BECK REEL OPERATOR CARE AND SCREENINGS. HOSPITALIZATION/MAJOR DIAGNOSTIC PROCEDURE SURGERIES BOWEL BLOCKAGE 11/03/16-11/28/16 REVIEW OF SYSTEMS REVIEWED BY: PROVIDER: DIANA TAN . CONSTITUTIONAL: ANY CHANGE IN YOUR MEDICAL CONDITION? YES, RIGHT ARM TENDONITIS . CHILLS NO . FEVER NO . INFECTION: DO YOU HAVE NEW INFECTIONS? NO . DO YOU HAVE HISTORY OF MRSA? NO . MUSCULOSKELETAL: ANY NEW PATTERNS OF PAIN OR NUMBNESS? NO . GASTROENTEROLOGY: ANY NEW CHANGE IN BOWEL CONTROL? NO . GENITOURINARY: ANY NEW CHANGE IN BLADDER CONTROL? NO . IS THERE A CHANCE YOU COULD BE ? NO . HEMATOLOGY/LYMPH: DO YOU TAKE ANY BLOOD THINNERS? (FOR EXAMPLE- COUMADIN, PLAVIX, AGGRENOX, PLATEL, PRADAXA, OR XARELTO) NO . WHEN WAS YOUR LAST DOSE? DATE: TIME: . NEUROLOGY: HAVE YOU FALLEN IN THE PAST 12 MONTHS? NO . ANY NEW EXTREMITY NUMBNESS OR WEAKNESS? NO . CARDIOLOGY: DO YOU HAVE A PACEMAKER OR DEFIBRILLATOR? NO . RESPIRATORY: HAVE YOU BEEN SICK IN THE PAST WEEK? NO . FEVER NO . FLU LIKE SYMPTOMS? NO . COUGH NO . INTEGUMENTARY: DO YOU HAVE ANY RASHES OR OPEN SORES? NO . ALLERGIC/IMMUNO: ARE YOU ALLERGIC TO IV DYE? NO . ANY NEW ALLERGIES? NO . PSYCHIATRIC: DO YOU HAVE THOUGHTS OF HURTING YOURSELF OR SOMEONE ELSE? NO . ARE YOU ABUSED, NEGLECTED, OR IN AN UNSAFE ENVIRONMENT? NO . ENDOCRINOLOGY: ARE YOU DIABETIC? YES . OTHER: DO YOU NEED ANY PRESCRIPTIONS? TIZANIDINE? . IF YES, PLEASE LIST: ____ . ANY NEW PROBLEMS WITH YOUR MEDICATIONS? NO . WHEN DID YOU LAST EAT? ____ . WHEN DID YOU LAST DRINK? ____ . WHAT DID YOU LAST DRINK? ____ . NAME OF PERSON DRIVING YOU HOME? ____ . DO YOU HAVE ANY OTHER QUESTIONS OR CONCERNS NO . VITAL SIGNS WT 200 LBS, HT 61 IN, BMI 37.79 INDEX, BP 121/59 MM HG, HR 73 /MIN, RR 18 /MIN, TEMP 96.6 F, OXYGEN SAT % 96%, SAFE IN ENV? (Y/N) Y, NA INITIALS AW 0855, REVIEWED BY: BING. EXAMINATION GENERAL EXAMINATION: GENERAL AWAKE,ALERT ,PLEASANT . PSYCH AFFECT NORMAL . LUNGS: LUNG MILLER ARE CLEAR TO AUSCULTATION BILATERALLY. GOOD MOVEMENT OF AIR . HEART: S1, S2 IN A REGULAR RATE AND RHYTHM. NO SIGNIFICANT MURMURS, RUBS OR GALLOPS NOTED . LUMBAR: PALPATION: + FOR PAIN OVER L/S SPINE. + FOR PAIN OVER L/S PARASPINALS SPECIFIC POINT TENDERNESS OVER RIGHT L4-5, L5-S1 LUMBAR FACETS WITH FACET LOADING. EXTENSION OF SPINE WITH INCREASED PAIN NOTED.. NEUROLOGIC EXAM: NORMAL SENSATION LIGHT TOUCH BILAT. LOWER EXTREMITIES . ASSESSMENTS LUMBAR FACET ARTHROPATHY - M46.96 (PRIMARY) TREATMENT LUMBAR FACET ARTHROPATHY REFILL TIZANIDINE HCL TABLET, 4 MG, 1/2 - 1 TABLET, ORALLY, TAKE 1/2 TAB Q AM AND MIDDAY TAKE 1 TAB AT HS, 30 DAYS, 60, REFILLS 2 NOTES: RIGHT L4-5, L5-S1, THERAPEUTIC LUMBAR FACET BLOCK. PROCEDURE CODES FA211 ESTABILISHED PATIENT [facility] CHARGE DISPOSITION & COMMUNICATION FOLLOW UP POST (REASON: RIGHT L4-5, L5-S1, THERAPEUTIC LUMBAR FACET BLOCK) ELECTRONICALLY SIGNED BY DOMINICK ZAPATA ON 02/09/2020 AT 04:06 PM EDT DISCLAIMER : THIS IS A VISIT SUMMARY EXTRACTED FROM THE [employer] CHART. IT IS NOT A COPY OF THE [employer] PROGRESS NOTE. [place]
== END ==
LOC: M PAIN 09:00
PROVIDERS: ATTEND Nurse Practitioner Family
DX: M46.96 Unspecified inflammatory spondylopathy, lumbar region (principal); I10 Essential (primary) hypertension; E11.9 Type 2 diabetes mellitus without complications; F17.210 Nicotine dependence, cigarettes, uncomplicated; Z79.84 Long term (current) use of oral hypoglycemic drugs; Z79.891 Long term (current) use of opiate analgesic; Z79.899 Other long term (current) drug therapy; Z88.1 Allergy status to other antibiotic agents; Z88.2 Allergy status to sulfonamides; Z88.5 Allergy status to narcotic agent; Z88.8 Allergy status to other drugs, medicaments and biological substances

== ENCOUNTER → 2020-02-27 | Outpatient (CLI) | payer BC ==
--- NOTE | 2020-03-05 03:19 | ECWPNPC ---
PATIENT NAME: IVON DAVID : 1965 GENDER: FEMALE VISIT DATE: 02/27/2020 DISCHARGE DATE: 02/27/20 1453 VISIT LOCKED DATE TIME: PHYSICIAN: MOHAMUD RIGGINS MD RESOURCE: MOHAMUD RIGGINS MD REASON FOR APPOINTMENT 1. RIGHT L4-5, L5-S1, THERAPEUTIC LUMBAR FACET BLOCK- [phone] 2. DOES NOT HAVE ZOOM. HISTORY OF PRESENT ILLNESS HISTORY OF PRESENT ILLNESS: PAIN THE PATIENT DESCRIBES THE PAIN... PERMISSION FROM PATIENT WAS RECEIVED TO DO TELEPHONE OFFICE VISIT. 54 YEAR OLD FEMALE PATIENT WITH A HISTORY OF CHRONIC LOW BACK AND LEG PAIN. THE PATIENT DESCRIBES HER PAIN INTERMITTENT, SHARP, AND THROBBING WITH A PAIN SCORE OF 4-8/10 DEPENDING ON PHYSICAL ACTIVITY. THE PATIENT RECEIVED LUMBAR FACET BLOCKS IN THE PAST THAT SHE SAYS HAS HELPED WITH HER PAIN. THE PATIENT IS USING PERCOCET 5-325 MG 1-2 TABLETS NEEDED AND MELOXICAM 15 MG 1 TABLET DAILY TO AID IN PAIN RELIEF. THE PATIENT SAYS MELOXICAM IS HELPING WITH HER ARM PAIN, BUT HER MAIN PAIN IS MAINLY IN HER RIGHT LOW BACK AND LEG. THE PATIENT SAYS HER PAIN IS INCREASING OVER THE LAST WEEK AND SHE IS UNABLE TO LAY ON HER RIGHT SIDE. THE PATIENT SAYS THE MEDICATION IS HELPING TO MANAGE HER PAIN AND SHE UNDERSTANDS PROCEDURES ARE CURRENTLY ON HOLD DUE TO THE CURRENT COVID SITUATION. THE PATIENT DENIES UNEXPLAINED WEIGHT LOSS, FEVER, CHILLS, NEW CHANGES IN HER URINARY OR BOWEL CONTROL. FALL RISK SCREENING: SCREENING :NO FALLS REPORTED IN THE LAST YEAR CURRENT MEDICATIONS TAKING ADVAIR DISKUS 250-50 MCG/DOSE AEROSOL POWDER BREATH ACTIVATED 1 PUFF INHALATION TWICE A DAY TAKING VITAMIN D (ERGOCALCIFEROL) 23900 UNIT CAPSULE TAKE 1 CAPSULE BY MOUTH WEEKLY ORALLY WEEKLY TAKING ALBUTEROL SULFATE HFA 108 (90 BASE) MCG/ACT AEROSOL SOLUTION 2 PUFFS NEEDED INHALATION EVERY 6 HRS TAKING ZYRTEC ALLERGY 10 MG TABLET 1 TABLET ORALLY ONCE A DAY TAKING METFORMIN HCL 1000 MG TABLET 1 TABLET WITH MEALS ORALLY TWICE A DAY TAKING IRBESARTAN 150 MG TABLET 1 TABLET ORALLY ONCE A DAY TAKING HYDROXYZINE HCL 50 MG TABLET TAKE 1 TABLET TWICE A DAY TAKING PREMARIN 0.3 MG TABLET 1 TABLET ORALLY ONCE A DAY TAKING PAROXETINE HCL 40 MG TABLET TAKE 1 TABLET DAILY IN THE MORNING TAKING ATORVASTATIN CALCIUM 80 MG TABLET TAKE 1 TABLET DAILY TAKING HYDROCHLOROTHIAZIDE 25 MG TABLET TAKE 1 TABLET DAILY TAKING PANTOPRAZOLE SODIUM 40 MG TABLET DELAYED RELEASE TAKE 1 TABLET DAILY TAKING IBUPROFEN 200 MG TABLET 1 TABLET WITH FOOD OR MILK NEEDED ORALLY THREE TIMES A DAY TAKING MELOXICAM 15 MG TABLET 1 TABLET ORALLY ONCE A DAY TAKING TIZANIDINE HCL 4 MG TABLET 1/2 - 1 TABLET ORALLY TAKE 1/2 TAB Q AM AND MIDDAY TAKE 1 TAB AT HS TAKING PERCOCET 5-325 MG TABLET 1-2 ORALLY Q 4-6H PRN PAIN MDD6 NOT-TAKING VITAMIN D (ERGOCALCIFEROL) 50,000U CAPSULE TAKE 1 CAPSULE WEEKLY NOT-TAKING FLUTICASONE PROPIONATE 50 MCG/ACT SUSPENSION 1 SPRAY IN EACH NOSTRIL NASALLY ONCE A DAY MEDICATION LIST REVIEWED AND RECONCILED WITH THE PATIENT PAST MEDICAL HISTORY CHRONIC LOW BACK PAIN - FOLLOWED BY [facility] PAIN CL[facility] OSTEOARTHRITIS BILATERAL KNEES ASTHMA NORMAL SPIROMETRY AT PULMONARY 11/2017 HYPERLIPIDEMIA DEPRESSION GENERALIZED ANXIETY DISORDER HYPERTENSION DM II LEFT PULMONARY NODULE - CT 2009 AND 2013 WITH NO CHANGE - NO FURTHER WORK UP NEEDED PER [facility] CR[facility]. (FOLLOWED BY PULMONARY) VARICOSE VEINS OSTEOPOROSIS - LAST DEXA 04/21, NORMAL - AP SPINE T-SCORE -0.4. NORMAL BONE DENSITY - REPEAT 2018 SMOKER VITAMIN D DEFICIENCY ADALGISA DIAGNOSED 07/2015 - ON CPAP LUMBAR FACET ARTHROPATHY LUMBAR SPONDYLOSIS ADMITTED 11/2016 FOR BOWEL OBSTRUCTION SECONDARY TO DIVERTICULITIS - REQUIRED PARTIAL BOWEL RESECTION WITH OSTOMY PLACED. LEFT ANKLE FX S/P FALL RLS 01/25, ? FROM PAROXETINE RIGHT ARM TENDONITIS ALLERGIES MORPHINE SULFATE: HIVES - ALLERGY ZOLOFT: CONFUSION - LACK OF THERAPEUTIC EFFECT BACTRIM: HIVES - ALLERGY SULFA (FOR ALLERGY USE ONLY): HIVES - ALLERGY SURGICAL HISTORY HYSTERECTOMY (STILL HAS OVARIES) 03/12 CYST REMOVED FROM OVARY 2003 LLE VARICOSE VEIN REMOVAL AND LASER ABLATION OF LEFT GREAT SAPHENOUS VEIN () 09/15 LEFT KNEE ARTHROSCOPY (DR. ALEX RAMIRES) RIGHT TKA - ([facility]) 01/2014 REMOVAL OF CYST LEFT ARM 2010 REPAIR HAMMERTOES LEFT FOOT 2010 BOWEL RESECTION 11/20/16 COLOSTOMY REVERSAL 04/2017 COLONOSCOPY _ DR. POON - DIVERTICULOSIS, POLYP RESECTED, BUT NOT RETRIEVED FOR PATHOLOGY 03/2017 FAMILY HISTORY FATHER: 65 YRS, DIAGNOSED WITH OTHER MALIGNANT NEOPLASM OF UNSPECIFIED SITE MOTHER: 74 YRS, OTHER MALIGNANT NEOPLASM OF UNSPECIFIED SITE 2 BROTHER(S) , 2 SISTER(S) - HEALTHY. 2 SON(S) . FATHER-LUNG CA\NMOTHER-LUNG CA\NBROTHER AT 5YRS OLD COLON CANCER\NSON HAS IDDM ON INSULIN PUMP. SOCIAL HISTORY GENERAL: TOBACCO USE ARE YOU A:CURRENT SMOKER ARE YOU INTERESTED IN QUITTING?NOT READY TO QUIT COUNSELED THE PATIENT ON SMOKING EFFECTS, EDUCATION [id number]/31/2020 HOW MANY CIGARETTES A DAY DO YOU SMOKE?6-10 HOW SOON AFTER YOU WAKE UP DO YOU SMOKE YOUR FIRST CIGARETTE?6-30 MIN HOW OFTEN DO YOU SMOKE CIGARETTES?EVERY DAY PATIENT COUNSELED ON THE DANGERS OF TOBACCO USE AND URGED TO QUIT:02/27/2020 SMOKING CESSATION INFORMATION GIVEN08/24/2019 LATEX QUESTIONNAIRE LATEX ALLERGY : HAVE YOU EVER DEVELOPED ANY TYPE OF REACTION AFTER HANDLING LATEX PRODUCTS SUCH RUBBER GLOVES, CONDOMS, DIAPHRAGMS, BALLOONS, SOCKS, OR UNDERWEAR?NO LATEX ALLERGY : HAVE YOU EVER DEVELOPED ANY TYPE OF REACTION DURING OR AFTER DENTAL APPOINTMENT, VAGINAL/RECTAL EXAMINATION, SURGICAL PROCEDURE, OR ANY OTHER EXPOSURE?NO DATE ASKED : 02/01/2020 LATEX RISK : HAVE YOU EVER HAD ANY DIFFICULTY BREATHING OR HIVES AFTER EATING OR HANDLING ANY FRUITS, OR VEGETABLES; SUCH KIWI, BANANAS, STONE FRUITS, OR CHESTNUTSNO LATEX RISK : DO YOU HAVE A PREVIOUS PERSONAL HISTORY OF MORE THAN NINE SURGERIES, SPINA BIFIDA, OR REPEATED CATHERIZATIONS? NO LATEX RISK : ARE YOU FREQUENTLY EXPOSED TO LATEX PRODUCTS IN YOUR OCCUPATION?NO LUNG CANCER SCREENING SMOKING STATUS:CURRENT SMOKER IS THE PATIENT BETWEEN THE AGE OF 56 AND 78?NO BMI CARE GOAL FOLLOW-UP ABOVE NORMAL BMI FOLLOW-UPDIETARY MANAGEMENT EDUCATION, GUIDANCE, AND COUNSELING ALCOHOL SCREENING DID YOU HAVE A DRINK CONTAINING ALCOHOL IN THE PAST YEAR?NO POINTS0 INTERPRETATIONNEGATIVE RECREATIONAL DRUG USE DRUG USE?NO CAFFEINE CAFFEINE USE?YES HOW OFTEN AND HOW MUCH? 4 CUPS DAILY SEXUAL HX HAD SEX IN THE LAST 12 MONTHS (VAGINAL, ORAL, OR ANAL)?YES WITHMEN ONLY USE PROTECTION?NO LMP:HYSTER HAVE YOU EVER HAD AN STD?NO HIV / HEP-C SCREENING HIV TEST OFFERED TO PATIENT:YES DATE OFFERED:08/17/2017 TEST ACCEPTED:NO HEP-C TEST OFFERED TO PATIENT:YES DATE OFFERED:08/17/2017 REASON:PATIENT DECLINED TEST ACCEPTED:NO REASON:PATIENT DECLINED ORTHODOX [id number] SCIENTOLOGIST NO MUSLIM BELIEFS THAT WOULD IMPACT HEALTH CARE. LANGUAGE LANGUAGES SPOKEN:THAI EDUCATION LEVEL OF EDUCATION:NOT FINISHED HIGH SCHOOL COMPLETED 11TH GRADE LEARNING BARRIERS / SPECIAL NEEDS CHANGE FROM LAST VISIT?NO BARRIERS TO LEARNING?NO HEARING IMPAIRED?NO VISION IMPAIRED?YES COGNITIVELY IMPAIRED?NO :CORRECTIVE LENSES READINESS TO LEARN?YES LEARNING PREFERENCES?NO LEARNING CAPABILITIES PRESENT?YES EMOTIONAL BARRIERS?NO SPECIAL DEVICES?NO EMPLOYMENT TRAINING SPECIALIST NEEDED?NO DOMESTIC VIOLENCE DO YOU FEEL SAFE IN YOUR ENVIRONMENT?YES DIET: REGULAR. MARITAL STATUS: . NEW PATIENT PAIN DIARY TODAY'S VISITNOTES 02/27/2020 PATIENT DESCRIBES PAIN :IT COMES AND GOES, SHARP, THROBBING FROM 0-10, WHAT LEVEL IS YOUR PAIN TODAY?5 PRECIPITATING FACTORS ACTIVITY ALLEVIATING FACTORS REST PAIN CLINIC PFS, CLERGY, PUBLIC HEALTH REFERRALS WAS THE PROVIDER NOTIFIED OF ANY PERTINENT INFO?YES HAS THE PATIENT BEEN EDUCATED REGARDING HIS/HER PLAN OF CARE?YES HAS THE PATIENT BEEN EDUCATED REGARDING PAIN, THE RISK FOR PAIN, THE IMPORTANCE OF EFFECTIVE PAIN MANAGEMENT, AND THE PAIN ASSESSMENT PROCESS?YES ADVANCE DIRECTIVE ADVANCE DIRECTIVE DISCUSSED WITH PATIENT:YES HCP ANNALISA DAVID [phone] DR. SHEA FOR ROUTINE NATIONAL GUARD MEMBER CARE AND SCREENINGS. HOSPITALIZATION/MAJOR DIAGNOSTIC PROCEDURE SURGERIES BOWEL BLOCKAGE 11/03/16-11/28/16 REVIEW OF SYSTEMS REVIEWED BY: PROVIDER: MOHAMUD RIGGINS MD . CONSTITUTIONAL: ANY CHANGE IN YOUR MEDICAL CONDITION? NO . CHILLS YES, NOT ASSOCIATED WITH FEVER, GET CHILLS AT NIGHT , INTERMITTENTLY . FEVER NO- UNSURE OF FEVER HAS NOT TAKEN HER TEMPERATURE . INFECTION: DO YOU HAVE NEW INFECTIONS? NO . DO YOU HAVE HISTORY OF MRSA? NO . MUSCULOSKELETAL: ANY NEW PATTERNS OF PAIN OR NUMBNESS? NO- PT STATES THAT SHE HAS LOW BACK PAIN WHICH RADIATES TO THE FRONT OF HER THIGH ON HER RIGHT LOWER EXTEMITY, STATES PAIN IS NOT NEW FOR HER . GASTROENTEROLOGY: ANY NEW CHANGE IN BOWEL CONTROL? NO . GENITOURINARY: ANY NEW CHANGE IN BLADDER CONTROL? NO . IS THERE A CHANCE YOU COULD BE ? NO . HEMATOLOGY/LYMPH: DO YOU TAKE ANY BLOOD THINNERS? (FOR EXAMPLE- COUMADIN, PLAVIX, AGGRENOX, PLATEL, PRADAXA, OR XARELTO) NO . WHEN WAS YOUR LAST DOSE? DATE: TIME: . NEUROLOGY: HAVE YOU FALLEN IN THE PAST 12 MONTHS? NO . ANY NEW EXTREMITY NUMBNESS OR WEAKNESS? NO . CARDIOLOGY: DO YOU HAVE A PACEMAKER OR DEFIBRILLATOR? NO . RESPIRATORY: HAVE YOU BEEN SICK IN THE PAST WEEK? NO . FEVER NO- UNSURE, STATES SHE HAS NOT TAKEN HER TEMPERATURE . FLU LIKE SYMPTOMS? NO . COUGH YES- STATES DRY COUGH . INTEGUMENTARY: DO YOU HAVE ANY RASHES OR OPEN SORES? NO . ALLERGIC/IMMUNO: ARE YOU ALLERGIC TO IV DYE? NO . ANY NEW ALLERGIES? NO . PSYCHIATRIC: DO YOU HAVE THOUGHTS OF HURTING YOURSELF OR SOMEONE ELSE? NO . ARE YOU ABUSED, NEGLECTED, OR IN AN UNSAFE ENVIRONMENT? NO . ENDOCRINOLOGY: ARE YOU DIABETIC? YES . OTHER: DO YOU NEED ANY PRESCRIPTIONS? NO . IF YES, PLEASE LIST: ____ . ANY NEW PROBLEMS WITH YOUR MEDICATIONS? NO . WHEN DID YOU LAST EAT? ____ . WHEN DID YOU LAST DRINK? ____ . WHAT DID YOU LAST DRINK? ____ . NAME OF PERSON DRIVING YOU HOME? ____ . DO YOU HAVE ANY OTHER QUESTIONS OR CONCERNS NO . EXAMINATION GENERAL EXAMINATION: TELEPHONE ENCOUNTER. PATIENT IS ALERT O X 3 AND COOPERATIVE. MRI OF THE LUMBAR SPINE DONE ON 01/26/2020 SHOWS FACET ARTHROPATHY CHANGES. ASSESSMENTS SPONDYLOSIS WITHOUT MYELOPATHY OR RADICULOPATHY, LUMBAR REGION - M47.816 (PRIMARY) TREATMENT SPONDYLOSIS WITHOUT MYELOPATHY OR RADICULOPATHY, LUMBAR REGION CLINICAL NOTES: WE DISCUSSED SEVERAL ISSUES WITH MS. DAVID'S PAIN MANAGEMENT CASE. I DISCUSSED WITH THE PATIENT ABOUT THE OPTION OF A DIAGNOSTIC FACET BLOCK IN THE FUTURE. THE PATIENT UNDERSTANDS THAT PROCEDURES ARE BEING POSTPONED DUE TO OUR CURRENT SITUATION WITH COVID-19 AND IS WILLING TO WAIT UNTIL WE CAN RESUME. WE DISCUSSED THE CONCERNS OF STEROIDS CAUSING IMMUNOSUPPRESSION SHORT-TERM. I WILL START THE PATIENT ON TORADOL 10 MG UP TO 3 TABLETS DAILY NEEDED, 15 TABLETS FOR THE WEEK TO AID IN PAIN RELIEF. I EXPLAINED TO THE PATIENT THE RISKS ALTERNATIVES AND BENEFITS ASSOCIATED WITH THE USE OF NSAID'S. THE PATIENT UNDERSTOOD THAT THE USE OF NSAID'S MAY BE ASSOCIATED WITH THE DEVELOPMENT OF GASTRIC IRRITATION AND ULCERS, WITH THE DEVELOPMENT OF KIDNEY PROBLEMS AND WITH THE POSSIBILITY OF DEVELOPING CARDIAC EVENTS SUCH STOKE OR CARDIAC DISEASES. THE PATIENT AGREES ON USING THE PRESCRIBED NSAID. THE PATIENT UNDERSTAND THE TORADOL IS TO BE USED SHORT-TERM AND WITH FOOD TO AVOID GASTRIC ISSUES. I AM ALSO STARTING THE PATIENT ON SOMA 350 MG 1-2 TABLETS DAILY, BUT ADVISED THE PATIENT TO USE AT NIGHT IF IT CAUSES SLEEPINESS DURING THE DAY. I ADVISED THE PATIENT NOT TO USE MELOXICAM WITH TORADOL AND NOT USE TIZANIDINE WITH THE SOMA. THE PATIENT WILL FOLLOW UP WITH SPAGHETTI MACHINE OPERATOR DIANA COREA IN 2 WEEKS. THE TOTAL TIME FOR TODAY'S TELEMEDICINE VISIT WAS 21 MINUTES. INSTRUCTIONS WERE GIVEN, QUESTIONS WERE ANSWERED, PATIENT REPORTS UNDERSTANDING AND AGREES WITH THE PLAN. I, ИВАН BRAXTON, DOCUMENTED THE ABOVE INFORMATION ACTING A SCRIBE FOR DR. RIGGINS. I HAVE REVIEWED THE ABOVE DOCUMENT, WRITTEN BY ИВАН BRAXTON SCRIBAngeles AND I VERIFY THAT IT IS ACCURATE. . OTHERS START KETOROLAC TROMETHAMINE TABLET, 10 MG, 1 TABLET WITH FOOD OR MILK NEEDED, ORALLY, EVERY 8 HRS PRN FOR PAIN MDD3, 5 DAY(S), 15, REFILLS 0 START CARISOPRODOL TABLET, 350 MG, 1 TABLET NEEDED, ORALLY, EVERY 8 HOURS NEEDED MDD2, 7 DAYS, 14, REFILLS 0 NOTES: PATIENT CONSENTS TO TELEPHONE VISIT. VITAL SIGNS NOT OBTAINED DUE TO TELEPHONE VISIT. PT C/O DRY COUGH, CHILLS MOSTLY AT NIGHT, BODY ACHES AND IS UNSURE IF SHE HAS HAD A FEVER, STATES SHE HAS NOT TAKEN HER TEMPERATURE. PT STATES HER PCP IS [facility]. THIS PULLING UNIT OPERATOR ENCOURAGED PT TO CALL [facility] AND NOTIFY HER OF HER SYMPTOMS AND TO SEEK MEDICAL CARE OR CALL 911 IF SYMPTOMS WORSEN OR SHE EXPERIENCES SOB. PATIENT VERBALIZES UNDERSTANDING AND STATED SHE WOULD CALL [facility] TO LET HER KNOW OF HER SYMPTOMS. 02/27/2020 1341 NLJ. DISPOSITION & COMMUNICATION FOLLOW UP 2 WEEKS (REASON: F/UP WITH DIANA (SCHEDULED)) ELECTRONICALLY SIGNED BY MOHAMUD RIGGINS MD, MD ON 03/04/2020 AT 04:53 PM EDT DISCLAIMER : THIS IS A VISIT SUMMARY EXTRACTED FROM THE [employer] CHART. IT IS NOT A COPY OF THE [employer] PROGRESS NOTE. MTDD
== END ==
LOC: M PAIN 13:00
PROVIDERS: ATTEND Anesthesiology
DX: M47.816 Spondylosis without myelopathy or radiculopathy, lumbar region (principal); F17.210 Nicotine dependence, cigarettes, uncomplicated; I10 Essential (primary) hypertension; E11.9 Type 2 diabetes mellitus without complications; Z79.84 Long term (current) use of oral hypoglycemic drugs; Z79.891 Long term (current) use of opiate analgesic; Z79.899 Other long term (current) drug therapy; Z88.5 Allergy status to narcotic agent; Z88.1 Allergy status to other antibiotic agents; Z88.2 Allergy status to sulfonamides; Z88.8 Allergy status to other drugs, medicaments and biological substances

== ENCOUNTER → 2020-03-11 | Outpatient (CLI) | payer BC | LOC: M LABSMTC 09:47 | PROVIDERS: ATTEND Family Medicine | DX: Z11.59 Encounter for screening for other viral diseases (principal) ==

== ENCOUNTER → 2020-03-13 | Outpatient (CLI) | payer BC ==
[~2020-03-13] MED LIST changes: +BUPIVACAINE HCL 0.25% 30ML VIAL As Ordered ONE; +ISOVUE-M 300 61% 15ML VIAL As Ordered ONE; +LIDOCAINE 1% SDV 30ML VIAL As Ordered ONE; +dexameTHASONE 10MG/1ML VIAL PRES.FREE (J1100 PER 1MG) As Ordered ONE
--- NOTE | 2020-03-13 16:13 | REP ---
C-ARM VIEWS LOWER LUMBAR SPINE: CLINICAL HISTORY: Pain. A C-arm view of the lower lumbar spine is performed during right lumbar facet injection performed by Dr. Watson. Two needles are seen along the right lower lumbar facets. 20 seconds fluoroscopy time utilized. Electronically Signed by Jaleel Keys MD 03/13/2020 04:17 P
--- NOTE | 2020-03-14 00:13 | ECWPNPC ---
PATIENT NAME: IVON DAVID : 1965 GENDER: FEMALE VISIT DATE: 03/13/2020 DISCHARGE DATE: 03/13/20 153 VISIT LOCKED DATE TIME: PHYSICIAN: MOHAMUD RIGGINS MD RESOURCE: MOHAMUD RIGGINS MD REASON FOR APPOINTMENT 1. RIGHT L4-5, L5-S1, THERAPEUTIC LUMBAR FACET BLOCK PAT DONE HISTORY OF PRESENT ILLNESS HISTORY OF PRESENT ILLNESS: PAIN THE PATIENT DESCRIBES THE PAIN... FALL RISK SCREENING: SCREENING :NO FALLS REPORTED IN THE LAST YEAR CURRENT MEDICATIONS TAKING ADVAIR DISKUS 250-50 MCG/DOSE AEROSOL POWDER BREATH ACTIVATED 1 PUFF INHALATION TWICE A DAY, NOTES: 03/13/2020 0800 TAKING VITAMIN D (ERGOCALCIFEROL) 19604 UNIT CAPSULE TAKE 1 CAPSULE BY MOUTH WEEKLY ORALLY WEEKLY, NOTES: 03/13/2020 0800 TAKING ALBUTEROL SULFATE HFA 108 (90 BASE) MCG/ACT AEROSOL SOLUTION 2 PUFFS NEEDED INHALATION EVERY 6 HRS, NOTES: PRN TAKING ZYRTEC ALLERGY 10 MG TABLET 1 TABLET ORALLY ONCE A DAY, NOTES: 03/13/2020 0800 TAKING METFORMIN HCL 1000 MG TABLET 1 TABLET WITH MEALS ORALLY TWICE A DAY, NOTES: 03/12/2020 1800 TAKING IRBESARTAN 150 MG TABLET 1 TABLET ORALLY ONCE A DAY, NOTES: 03/13/2020 0800 TAKING HYDROXYZINE HCL 50 MG TABLET TAKE 1 TABLET TWICE A DAY , NOTES: 03/12/2020 1800 TAKING PREMARIN 0.3 MG TABLET 1 TABLET ORALLY ONCE A DAY, NOTES: 03/13/2020 0800 TAKING PAROXETINE HCL 40 MG TABLET TAKE 1 TABLET DAILY IN THE MORNING , NOTES: 03/13/2020 0800 TAKING ATORVASTATIN CALCIUM 80 MG TABLET TAKE 1 TABLET DAILY , NOTES: 03/13/2020 0800 TAKING HYDROCHLOROTHIAZIDE 25 MG TABLET TAKE 1 TABLET DAILY , NOTES: 03/13/2020 08 TAKING PANTOPRAZOLE SODIUM 40 MG TABLET DELAYED RELEASE TAKE 1 TABLET DAILY , NOTES: 03/13/2020 0800 TAKING IBUPROFEN 200 MG TABLET 1 TABLET WITH FOOD OR MILK NEEDED ORALLY THREE TIMES A DAY, NOTES: PRN TAKING PERCOCET 5-325 MG TABLET 1-2 ORALLY Q 4-6H PRN PAIN MDD6, NOTES: 03/13/2020 1000 TAKING KETOROLAC TROMETHAMINE 10 MG TABLET 1 TABLET WITH FOOD OR MILK NEEDED ORALLY EVERY 8 HRS PRN FOR PAIN MDD3, NOTES: PRN TAKING CARISOPRODOL 350 MG TABLET 1 TABLET NEEDED ORALLY EVERY 8 HOURS NEEDED MDD2, NOTES: 03/13/2020 2100 NOT-TAKING MELOXICAM 15 MG TABLET 1 TABLET ORALLY ONCE A DAY NOT-TAKING TIZANIDINE HCL 4 MG TABLET 1/2 - 1 TABLET ORALLY TAKE 1/2 TAB Q AM AND MIDDAY TAKE 1 TAB AT HS NOT-TAKING AMOXICILLIN 875 MG TABLET 1 TABLET ORALLY EVERY 12 HRS, NOTES: STOPPED 1 WEEK AGO NOT-TAKING VITAMIN D (ERGOCALCIFEROL) 50,000U CAPSULE TAKE 1 CAPSULE WEEKLY NOT-TAKING FLUTICASONE PROPIONATE 50 MCG/ACT SUSPENSION 1 SPRAY IN EACH NOSTRIL NASALLY ONCE A DAY MEDICATION LIST REVIEWED AND RECONCILED WITH THE PATIENT PAST MEDICAL HISTORY CHRONIC LOW BACK PAIN - FOLLOWED BY [facility] OSTEOARTHRITIS BILATERAL KNEES ASTHMA NORMAL SPIROMETRY AT PULMONARY 11/2017 HYPERLIPIDEMIA DEPRESSION GENERALIZED ANXIETY DISORDER HYPERTENSION DM II LEFT PULMONARY NODULE - CT 2009 AND 2013 WITH NO CHANGE - NO FURTHER WORK UP NEEDED PER [facility]. (FOLLOWED BY PULMONARY) VARICOSE VEINS OSTEOPOROSIS - LAST DEXA 04/21, NORMAL - AP SPINE T-SCORE -0.4. NORMAL BONE DENSITY - REPEAT 2018 SMOKER VITAMIN D DEFICIENCY ADALGISA DIAGNOSED 07/2015 - ON CPAP LUMBAR FACET ARTHROPATHY LUMBAR SPONDYLOSIS ADMITTED 11/2016 FOR BOWEL OBSTRUCTION SECONDARY TO DIVERTICULITIS - REQUIRED PARTIAL BOWEL RESECTION WITH OSTOMY PLACED. LEFT ANKLE FX S/P FALL RLS 01/25, ? FROM PAROXETINE RIGHT ARM TENDONITIS ALLERGIES MORPHINE SULFATE: HIVES - ALLERGY ZOLOFT: CONFUSION - LACK OF THERAPEUTIC EFFECT BACTRIM: HIVES - ALLERGY SULFA (FOR ALLERGY USE ONLY): HIVES - ALLERGY SURGICAL HISTORY HYSTERECTOMY (STILL HAS OVARIES) 03/12 CYST REMOVED FROM OVARY 2003 LLE VARICOSE VEIN REMOVAL AND LASER ABLATION OF LEFT GREAT SAPHENOUS VEIN () 09/15 LEFT KNEE ARTHROSCOPY (DR. ALEX RAMIRES) RIGHT TKA - ([facility]) 01/2014 REMOVAL OF CYST LEFT ARM 2010 REPAIR HAMMERTOES LEFT FOOT 2009 BOWEL RESECTION 11/20/16 COLOSTOMY REVERSAL 04/2017 COLONOSCOPY _ DR. POON - DIVERTICULOSIS, POLYP RESECTED, BUT NOT RETRIEVED FOR PATHOLOGY 03/2017 FAMILY HISTORY FATHER: 65 YRS, DIAGNOSED WITH OTHER MALIGNANT NEOPLASM OF UNSPECIFIED SITE MOTHER: 74 YRS, OTHER MALIGNANT NEOPLASM OF UNSPECIFIED SITE 2 BROTHER(S) , 2 SISTER(S) - HEALTHY. 2 SON(S) . FATHER-LUNG CA\NMOTHER-LUNG CA\NBROTHER AT 5YRS OLD COLON CANCER\NSON HAS IDDM ON INSULIN PUMP. SOCIAL HISTORY GENERAL: TOBACCO USE ARE YOU A:CURRENT SMOKER ARE YOU INTERESTED IN QUITTING?NOT READY TO QUIT COUNSELED THE PATIENT ON SMOKING EFFECTS, EDUCATION [id number]/31/2020 HOW MANY CIGARETTES A DAY DO YOU SMOKE?6-10 HOW SOON AFTER YOU WAKE UP DO YOU SMOKE YOUR FIRST CIGARETTE?6-30 MIN HOW OFTEN DO YOU SMOKE CIGARETTES?EVERY DAY PATIENT COUNSELED ON THE DANGERS OF TOBACCO USE AND URGED TO QUIT:03/12/2020 SMOKING CESSATION INFORMATION GIVEN08/24/2019 LATEX QUESTIONNAIRE LATEX ALLERGY : HAVE YOU EVER DEVELOPED ANY TYPE OF REACTION AFTER HANDLING LATEX PRODUCTS SUCH RUBBER GLOVES, CONDOMS, DIAPHRAGMS, BALLOONS, SOCKS, OR UNDERWEAR?NO LATEX ALLERGY : HAVE YOU EVER DEVELOPED ANY TYPE OF REACTION DURING OR AFTER DENTAL APPOINTMENT, VAGINAL/RECTAL EXAMINATION, SURGICAL PROCEDURE, OR ANY OTHER EXPOSURE?NO LATEX RISK : HAVE YOU EVER HAD ANY DIFFICULTY BREATHING OR HIVES AFTER EATING OR HANDLING ANY FRUITS, OR VEGETABLES; SUCH KIWI, BANANAS, STONE FRUITS, OR CHESTNUTSNO LATEX RISK : DO YOU HAVE A PREVIOUS PERSONAL HISTORY OF MORE THAN NINE SURGERIES, SPINA BIFIDA, OR REPEATED CATHERIZATIONS? NO LATEX RISK : ARE YOU FREQUENTLY EXPOSED TO LATEX PRODUCTS IN YOUR OCCUPATION?NO DATE ASKED : 03/12/2020 LUNG CANCER SCREENING SMOKING STATUS:CURRENT SMOKER IS THE PATIENT BETWEEN THE AGE OF 56 AND 78?NO BMI CARE GOAL FOLLOW-UP ABOVE NORMAL BMI FOLLOW-UPDIETARY MANAGEMENT EDUCATION, GUIDANCE, AND COUNSELING ALCOHOL SCREENING DID YOU HAVE A DRINK CONTAINING ALCOHOL IN THE PAST YEAR?NO POINTS0 INTERPRETATIONNEGATIVE RECREATIONAL DRUG USE DRUG USE?NO CAFFEINE CAFFEINE USE?YES HOW OFTEN AND HOW MUCH? 4 CUPS DAILY SEXUAL HX HAD SEX IN THE LAST 12 MONTHS (VAGINAL, ORAL, OR ANAL)?YES WITHMEN ONLY USE PROTECTION?NO LMP:HYSTER HAVE YOU EVER HAD AN STD?NO HIV / HEP-C SCREENING HIV TEST OFFERED TO PATIENT:YES DATE OFFERED:08/17/2017 TEST ACCEPTED:NO HEP-C TEST OFFERED TO PATIENT:YES DATE OFFERED:08/17/2017 REASON:PATIENT DECLINED TEST ACCEPTED:NO REASON:PATIENT DECLINED A[employer] [id number] MANDAEN NO CATHOLIC BELIEFS THAT WOULD IMPACT HEALTH CARE. LANGUAGE LANGUAGES SPOKEN:FINNISH EDUCATION LEVEL OF EDUCATION:NOT FINISHED HIGH SCHOOL COMPLETED 11TH GRADE LEARNING BARRIERS / SPECIAL NEEDS CHANGE FROM LAST VISIT?NO BARRIERS TO LEARNING?NO HEARING IMPAIRED?NO VISION IMPAIRED?YES COGNITIVELY IMPAIRED?NO :CORRECTIVE LENSES READINESS TO LEARN?YES LEARNING PREFERENCES?NO LEARNING CAPABILITIES PRESENT?YES EMOTIONAL BARRIERS?NO SPECIAL DEVICES?NO GREASE MAKER HEAD NEEDED?NO DOMESTIC VIOLENCE DO YOU FEEL SAFE IN YOUR ENVIRONMENT?YES DIET: REGULAR. MARITAL STATUS: . NEW PATIENT PAIN DIARY TODAY'S VISITNOTES 03/13/2020 PATIENT DESCRIBES PAIN :ACHING, IT COMES AND GOES, SHARP, THROBBING FROM 0-10, WHAT LEVEL IS YOUR PAIN TODAY?6 PRECIPITATING FACTORS ACTIVITY ALLEVIATING FACTORS REST PAIN CLINIC PFS, CLERGY, PUBLIC HEALTH REFERRALS WAS THE PROVIDER NOTIFIED OF ANY PERTINENT INFO?YES HAS THE PATIENT BEEN EDUCATED REGARDING HIS/HER PLAN OF CARE?YES HAS THE PATIENT BEEN EDUCATED REGARDING PAIN, THE RISK FOR PAIN, THE IMPORTANCE OF EFFECTIVE PAIN MANAGEMENT, AND THE PAIN ASSESSMENT PROCESS?YES ADVANCE DIRECTIVE ADVANCE DIRECTIVE DISCUSSED WITH PATIENT:YES HCP ANNALISA DAVID [phone] DR. SHEA FOR ROUTINE PIPELINE TECHNICIAN CARE AND SCREENINGS. PAT DONE 03/12/2020. HOSPITALIZATION/MAJOR DIAGNOSTIC PROCEDURE SURGERIES BOWEL BLOCKAGE 11/03/16-11/28/16 REVIEW OF SYSTEMS REVIEWED BY: PROVIDER: MOHAMUD RIGGINS MD . CONSTITUTIONAL: ANY CHANGE IN YOUR MEDICAL CONDITION? NO . CHILLS NO . FEVER NO . INFECTION: DO YOU HAVE NEW INFECTIONS? NO . DO YOU HAVE HISTORY OF MRSA? NO . MUSCULOSKELETAL: ANY NEW PATTERNS OF PAIN OR NUMBNESS? NO . GASTROENTEROLOGY: ANY NEW CHANGE IN BOWEL CONTROL? NO . GENITOURINARY: ANY NEW CHANGE IN BLADDER CONTROL? NO . IS THERE A CHANCE YOU COULD BE ? NO . HEMATOLOGY/LYMPH: DO YOU TAKE ANY BLOOD THINNERS? (FOR EXAMPLE- COUMADIN, PLAVIX, AGGRENOX, PLATEL, PRADAXA, OR XARELTO) NO . WHEN WAS YOUR LAST DOSE? DATE: TIME: . NEUROLOGY: HAVE YOU FALLEN IN THE PAST 12 MONTHS? NO . ANY NEW EXTREMITY NUMBNESS OR WEAKNESS? NO . CARDIOLOGY: DO YOU HAVE A PACEMAKER OR DEFIBRILLATOR? NO . RESPIRATORY: HAVE YOU BEEN SICK IN THE PAST WEEK? NO . FEVER NO . FLU LIKE SYMPTOMS? NO . COUGH NO . INTEGUMENTARY: DO YOU HAVE ANY RASHES OR OPEN SORES? NO . ALLERGIC/IMMUNO: ARE YOU ALLERGIC TO IV DYE? NO . ANY NEW ALLERGIES? NO . PSYCHIATRIC: DO YOU HAVE THOUGHTS OF HURTING YOURSELF OR SOMEONE ELSE? NO . ARE YOU ABUSED, NEGLECTED, OR IN AN UNSAFE ENVIRONMENT? NO . ENDOCRINOLOGY: ARE YOU DIABETIC? YES, PT STATES SHE WILL NOT TAKE METFORMIN 106 FSBS THIS AM . OTHER: DO YOU NEED ANY PRESCRIPTIONS? NO . IF YES, PLEASE LIST: ____ . ANY NEW PROBLEMS WITH YOUR MEDICATIONS? NO . WHEN DID YOU LAST EAT? 03/12/2020 1930 . WHEN DID YOU LAST DRINK? 03/13/2020 1030 . WHAT DID YOU LAST DRINK? WATER . NAME OF PERSON DRIVING YOU HOME? DARRELL-BROTHER . DO YOU HAVE ANY OTHER QUESTIONS OR CONCERNS NO . VITAL SIGNS WT 203.2 LBS, HT 61 IN, BMI 38.39 INDEX, BP 167/75 MM HG, HR 86 /MIN, RR 18 /MIN, TEMP 98.4 F, OXYGEN SAT % 96%, SAFE IN ENV? (Y/N) YES, NA INITIALS AW 1310, REVIEWED BY: HÉCTOR. ASSESSMENTS SPONDYLOSIS WITHOUT MYELOPATHY OR RADICULOPATHY, LUMBAR REGION - M47.816 SPONDYLOSIS WITHOUT MYELOPATHY OR RADICULOPATHY, LUMBOSACRAL REGION - M47.817 TREATMENT SPONDYLOSIS WITHOUT MYELOPATHY OR RADICULOPATHY, LUMBAR REGION SMC FACET BLOCK (PAIN)[id number] PROCEDURES PN LUMBAR FACET BLOCK THERAPEUTIC PRE PROCEDURE DIAGNOSIS LUMBAR SPONDYLOSIS, LUMBOSACRAL SPONDYLOSIS POST PROCEDURE DIAGNOSIS LUMBAR SPONDYLOSIS, LUMBOSACRAL SPONDYLOSIS PROCEDURE RIGHT L4-L5 AND RIGHT L5-S1 LUMBAR FACET THERAPUTIC BLOCK SURGEON DR. MOHAMUD RIGGINS VEGETABLE PICKER NONE ANESTHESIA LOCAL PRE PROCEDURE NOTE THE PATIENT HAS A HISTORY OF CHRONIC LOW BACK PAIN. I EVALUATED THE PATIENT AND REVIEWED THE CHART. I WENT OVER THE RISKS, ALTERNATIVES, AND BENEFITS ASSOCIATED WITH THIS PROCEDURE. I DISCUSSED WITH THE PATIENT THAT THE USE OF STEROIDS MAY CONTRIBUTE TO IMMUNOSUPPRESSION OF HER BODY AGAINST INFECTIONS SUCH THE COLÓN VIRUS, COVID-19. SHE IS AWARE OF THE POTENTIAL COMPLICATIONS ASSOCIATED WITH AN INFECTION OF THIS VIRUS INCLUDING . THE PATIENT WOULD LIKE TO PROCEED AND GIVES CONSENT TO PERFORM THE PROCEDURE. THE PATIENT DENIES UNEXPLAINABLE WEIGHT LOSS, FEVER, CHILLS, OR NEW CHANGES IN URINARY OR BOWEL CONTROL. THE PATIENT IS COVID-19 NEGATIVE DESCRIPTION OF PROCEDURE THE PATIENT WAS BROUGHT TO THE PROCEDURE ROOM AND PLACED IN THE PRONE POSITION. THE LUMBOSACRAL AREA WAS CLEANED WITH CHLORAPREP SOLUTION AND DRAPED ASEPTICALLY. THE PROCEDURE WAS DONE UNDER STERILE CONDITIONS. I CHECKED LATERALITY AND THE LEVEL WHERE THE PROCEDURE WAS GOING TO BE PERFORMED WITH THE PATIENT AND THE SUPPORTING STAFF AT THE MOMENT OF THE TIME OUT IN THE PROCEDURE ROOM. UNDER FLUOROSCOPIC GUIDANCE, THE TARGET POINT WAS SELECTED AT THE RIGHT L4-L5 AND RIGHT L5-S1 FACET JOINT. TARGET POINT WAS SELECTED AFTER LATERAL ROTATION AND TILT OF THE MAGNIFIER OF THE C-ARM. LIDOCAINE 0.5% WAS USED TO NUMB THE SKIN AND THE SUBCUTANEOUS TISSUE BELOW IT. SPINAL NEEDLES, 22-GAUGE, WERE ADVANCED UNDER FLUOROSCOPIC GUIDANCE AND FOLLOWING PATIENT FEEDBACK UNTIL THE TARGETS WERE TOUCHED. THE POSITION OF THE NEEDLES WAS VERIFIED WITH AP AND LATERAL VIEWS. AFTER PROPER POSITION OF THE NEEDLES WAS ACHIEVED, ISOVUE-M DYE 30% 0.1 ML WAS INJECTED SHOWING ADEQUATE SPREAD OF THE DYE. THEN A SOLUTION OF 1.0 ML OF BUPIVACAINE 0.125% OF DEXAMETHASONE 5 MG WAS INJECTED AT EACH SITE. THERE WAS NO EVIDENCE OF BLOOD, PARESTHESIA OR CEREBROSPINAL FLUID DURING THE PROCEDURE. THE PATIENT WAS SENT TO THE RECOVERY ROOM. THE PATIENT WAS MOVING THE EXTREMITIES AND DOING WELL. THERE WAS NO COMPLICATION DURING THE PROCEDURE. FLUOROSCOPY TIME WAS 20 SECONDS POST PROCEDURE NOTE THE PATIENT WILL BE SEEN IN A FOLLOW UP IN THE NEXT FEW WEEKS. I AM LOOKING FOR LONG LASTING PAIN RELIEF FOR THE PATIENT WITH THIS INJECTION. INSTRUCTIONS WERE GIVEN, QUESTIONS WERE ANSWERED, AND THE PATIENT EXPRESSED UNDERSTANDING AND AGREES WITH THE PLAN. I INSTRUCTED THE PATIENT TO STAY HOME, IF POSSIBLE, FOR A WEEK DUE TO COVID-19. I, CONNIE HAINES, DOCUMENTED THE ABOVE INFORMATION ACTING A SCRIBE FOR DR. RIGGINS. 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 IT IS NOT A COPY OF THE [employer] PROGRESS NOTE. [place]
== END ==
LOC: M PAIN 13:15
PROVIDERS: ATTEND Anesthesiology
DX: M47.816 Spondylosis without myelopathy or radiculopathy, lumbar region (principal); M47.817 Spondylosis without myelopathy or radiculopathy, lumbosacral region; Z86.59 Personal history of other mental and behavioral disorders; I10 Essential (primary) hypertension; E11.9 Type 2 diabetes mellitus without complications; E55.9 Vitamin D deficiency, unspecified; G47.33 Obstructive sleep apnea (adult) (pediatric); F17.210 Nicotine dependence, cigarettes, uncomplicated; Z88.1 Allergy status to other antibiotic agents; Z88.2 Allergy status to sulfonamides; Z88.5 Allergy status to narcotic agent; Z88.8 Allergy status to other drugs, medicaments and biological substances; Z79.84 Long term (current) use of oral hypoglycemic drugs; Z79.891 Long term (current) use of opiate analgesic; Z79.899 Other long term (current) drug therapy
CPT/HCPCS: 64493; 64494; J1100; Q9967

== ENCOUNTER → 2020-06-18 | Outpatient (POV) | payer BC ==
[~2020-06-18] MED LIST changes: +BUPIVACAINE HCL 0.25% 30ML VIAL ONE; +ISOVUE-M 300 61% 15ML VIAL ONE; +LIDOCAINE 1% SDV 30ML VIAL ONE; +TRIAMCINOLONE ACETONIDE SUSP 40 MG/ML VIAL (J3301) As Ordered ONE; +TRIAMCINOLONE ACETONIDE SUSP 40 MG/ML VIAL (J3301) ONE; -dexameTHASONE 10MG/1ML VIAL PRES.FREE (J1100 PER 1MG) As Ordered ONE
--- NOTE | 2020-07-31 07:28 | REP ---
SI JOINT: SINGLE VIEW HISTORY: Injection procedure for pain. 26 seconds of fluoroscopy time is reported. FINDINGS: A single last image hold fluoroscopically obtained spot radiograph documents needle position for SI joint injection procedure. No laterality marker is visible. MTDD
== END ==
LOC: M PAIN 11:15
PROVIDERS: ATTEND Anesthesiology
DX: M46.1 Sacroiliitis, not elsewhere classified (principal)

== ENCOUNTER → 2020-07-02 | Outpatient (CLI) | payer BC ==
[~2020-07-02] MED LIST changes: -BUPIVACAINE HCL 0.25% 30ML VIAL As Ordered ONE; -BUPIVACAINE HCL 0.25% 30ML VIAL ONE; -ISOVUE-M 300 61% 15ML VIAL As Ordered ONE; -ISOVUE-M 300 61% 15ML VIAL ONE; -LIDOCAINE 1% SDV 30ML VIAL As Ordered ONE; -LIDOCAINE 1% SDV 30ML VIAL ONE; -TRIAMCINOLONE ACETONIDE SUSP 40 MG/ML VIAL (J3301) As Ordered ONE; -TRIAMCINOLONE ACETONIDE SUSP 40 MG/ML VIAL (J3301) ONE
== END ==
LOC: M PAIN 13:42
PROVIDERS: ATTEND Nurse Practitioner Family
DX: M46.1 Sacroiliitis, not elsewhere classified (principal); Z79.891 Long term (current) use of opiate analgesic

== ENCOUNTER → 2020-08-13 | Outpatient (REF) | payer BC ==
[2020-08-13 16:44] LABS: HEMATOCRIT 43.8 % (36.0-47.0); HEMOGLOBIN 14.4 g/dl (12.0-15.5); MEAN CORPUSCULAR HEMOGLOBIN 30.6 pg (27.0-33.0); MEAN CORPUSCULAR HGB CONC 32.9 g/dl (32.0-36.5); MEAN CORPUSCULAR VOLUME 93.2 fl (80.0-96.0); PLATELET COUNT, AUTOMATED 374 10^3/uL (150-450); WHITE BLOOD COUNT 12.5 10^3/uL (4.0-10.0)
[2020-08-13 17:10] LABS: HEMOGLOBIN A1c 6.2 %
[2020-08-13 17:13] LABS: ALBUMIN 3.4 GM/DL (3.2-5.2); ALT/SGPT 9 U/L (12-78); BILIRUBIN,TOTAL 0.2 MG/DL (0.2-1.0); BLOOD UREA NITROGEN 15 MG/DL (7-18); CALCIUM LEVEL 10.1 MG/DL (8.5-10.1); CARBON DIOXIDE LEVEL 29 MEQ/L (21-32); CHLORIDE LEVEL 103 MEQ/L (98-107); CHOLESTEROL LEVEL 177 MG/DL (<200); CHOLESTEROL RISK RATIO 3.105 (<5); CREATININE FOR GFR 0.91 MG/DL (0.55-1.30); FERRITIN 32 NG/ML (8-252); GLOMERULAR FILTRATION RATE > 60.0 (>51); GLUCOSE, FASTING 90 MG/DL (70-100); HDL CHOLESTEROL 57 MG/DL (>40); LDL CHOLESTEROL 90 MG/DL (<100); NON-HDL-C 120 MG/DL; POTASSIUM SERUM 4.4 MEQ/L (3.5-5.1); SODIUM LEVEL 138 MEQ/L (136-145); THYROID STIMULATING HORMONE 0.929 uIU/ML (0.358-3.740); TOTAL PROTEIN 7.5 GM/DL (6.4-8.2); TRIGLYCERIDES LEVEL 149 MG/DL (<150)
[2020-08-13 17:17] LABS: MALB URINE SIEMENS 12.8 MG/L
== END ==
LOC: M SFHCADAM 13:13
PROVIDERS: ATTEND Physician Assistant
DX: F32.9 Major depressive disorder, single episode, unspecified (principal); E78.5 Hyperlipidemia, unspecified; G25.81 Restless legs syndrome; E11.9 Type 2 diabetes mellitus without complications

== ENCOUNTER → 2020-09-04 | Outpatient (CLI) | payer BC ==
--- NOTE | 2020-09-04 16:34 | REPMRS ---
Patient History The patient states she has not had a clinical breast exam in over a year. No known family history of cancer. Taking unspecified hormones for 2 years 11 months. 3D TOMOSYNTHESIS WAS PERFORMED. [facility]%. Volpara breast density b. Digital Woman Screen Mammo: September 04, 2020 - Exam #: [id number] Bilateral CC and MLO view(s) were taken. Technologist: Tammy Lainez, Technologist Prior study comparison: August 22, 2019, bilateral digital woman screen mammo performed at [facility]. September 10, 2017, digital woman screen mammo performed at [facility]. FINDINGS: There are scattered fibroglandular densities. There is a fairly symmetric fibroglandular pattern in both breasts. There has been no interval development of masses, areas of architectural distortion or clusters of microcalcifications typical of malignancy. Bilateral nodular opacities and scattered tiny calcifications are stable. No significant changes when compared with prior studies. Assessment: BI-RADS/ACR category 2 mammogram. Benign Findings. Recommendation Routine screening mammogram of both breasts in 1 year (for women over age 40). This mammogram was interpreted with the aid of an FDA-approved computer-aided dectection system. Electronically Signed By: Jaleel Keys MD 09/04/20 7703
== END ==
LOC: M WHC 12:16
PROVIDERS: ATTEND Physician Assistant
DX: Z12.31 Encounter for screening mammogram for malignant neoplasm of breast (principal); Z92.29 Personal history of other drug therapy

== ENCOUNTER → 2020-09-19 | Outpatient (CLI) | payer BC ==
--- NOTE | 2020-09-20 23:35 | ECWPNPC ---
PATIENT NAME: IVON DAVID : 1965 GENDER: FEMALE VISIT DATE: 09/19/2020 DISCHARGE DATE: 09/19/20 1154 VISIT LOCKED DATE TIME: PHYSICIAN: DIANA COREA PHYSICIAN PAGER NO: ACTIVE RESOURCE: DIANA COREA REASON FOR APPOINTMENT 1. LBP/MED MANAGEMENT HISTORY OF PRESENT ILLNESS GENERAL: HERE FOR POST PROCEDURE FOLLOW-UP. HAD RIGHT SIJ IN JUNE 2020. REPORTED MARKED REDUCTION IN PAIN UNTIL A FEW WEEKS AGO. CHIEF AREA OF PAIN IS RIGHT LOW BACK. PAIN IS AGGRAVATED IN THIS AREA WITH PROLONGED SITTING OR STANDING. REVIEWED MRI OF THE LS-SPINE AND DISCUSSED TREATMENT OPTIONS. FINDS CURRENT CHRONIC PAIN MEDICATION HELPFUL AT REDUCING PAIN AND KEEPING HER FUNCTIONAL. DENIES ADVERSE SIDE EFFECTS. -. FALL RISK SCREENING: SCREENING :NO FALLS REPORTED IN THE LAST YEAR PAIN SCREENING: PATIENT HAS A COMPLAINT OF ACUTE OR CHRONIC PAIN :YES LOCATION OF PAIN:LOW BACK, KNEES, ANKLE(S) INTENSITY OF PAIN (SCALE OF 1 TO 10):6 WHAT DOES YOUR PAIN FEEL LIKE:ACHING, TENDER, SHOOTING DURATION:INTERMITTENT PAIN IS INCREASED BY:ACTIVITIES PAIN IS DECREASED BY:USE OF PAIN MEDICATIONS, OTHERS HEAT TREATMENT/MEDICATIONS USED TO MANAGE PAIN:OPIOIDS LEVEL OF RELIEF FROM PAIN TREATMENTS IN THE PAST:75% PAIN HAS INTERFERED WITH THE FOLLOWING:BATHING/DRESSING, WALKING ABILITY, HOUSEWORK, TRANSPORTATION, TOILETING NURSING NOTE: -. PAIN CENTER INTAKE QUESTIONS: DO YOU HAVE A HISTORY OF MRSA? :NO DO YOU TAKE A BLOOD THINNERS? :NO DO YOU HAVE ANY BLEEDING DISORDERS? :NO ANY NEW NUMBNESS OR WEAKNESS IN YOUR LEGS OR ARMS? :NO ANY PACEMAKER,DEFIBRILLATOR, OR DORSAL COLUMN STIMULATOR? :NO DO YOU HAVE ANY RASHES OR OPEN SORES? :NO ARE YOU ALLERGIC TO IV DYE? :NO ARE YOU DIABETIC? :YES ANY NEW PROBLEMS WITH YOUR MEDICATIONS? :NO HAVE YOU RECEIVED A VACCINE IN THE PAST 30 DAYS? :YES IF SO WHAT VACCINE AND WHEN? FLU VACCINE 2 WEEKS AGO DO YOU PLAN TO RECEIVE A VACCINE IN THE NEXT 21 DAYS? :NO DO YOU NEED ANY PRESCRIPTION? :NO DO YOU TAKE ANY IMMUNOSUPPRESSIVE MEDICATIONS? :NO IS THERE A CHANCE YOU COULD BE ? :NO ARE YOU BREAST FEEDING? :NO CURRENT MEDICATIONS TAKING ADVAIR DISKUS 250-50 MCG/DOSE AEROSOL POWDER BREATH ACTIVATED 1 PUFF INHALATION TWICE A DAY TAKING VITAMIN D (ERGOCALCIFEROL) 77201 UNIT CAPSULE TAKE 1 CAPSULE BY MOUTH WEEKLY ORALLY WEEKLY TAKING ALBUTEROL SULFATE HFA 108 (90 BASE) MCG/ACT AEROSOL SOLUTION 2 PUFFS NEEDED INHALATION EVERY 6 HRS TAKING ZYRTEC ALLERGY 10 MG TABLET 1 TABLET ORALLY ONCE A DAY TAKING PREMARIN 0.3 MG TABLET 1 TABLET ORALLY ONCE A DAY TAKING IBUPROFEN 200 MG TABLET 1 TABLET WITH FOOD OR MILK NEEDED ORALLY THREE TIMES A DAY TAKING PANTOPRAZOLE SODIUM 40 MG TABLET DELAYED RELEASE TAKE 1 TABLET DAILY ORALLY ONCE DAILY TAKING IRBESARTAN 150 MG TABLET 1 TABLET ORALLY ONCE A DAY TAKING ATORVASTATIN CALCIUM 80 MG TABLET TAKE 1 TABLET DAILY TAKING HYDROXYZINE HCL 50 MG TABLET TAKE 1 TABLET TWICE A DAY TAKING PAROXETINE HCL 40 MG TABLET TAKE 1 TABLET DAILY IN THE MORNING ORALLY ONCE A DAY TAKING METFORMIN HCL 1000 MG TABLET 1 TABLET WITH MEALS ORALLY TWICE A DAY TAKING HYDROCHLOROTHIAZIDE 25 MG TABLET TAKE 1 TABLET DAILY TAKING PERCOCET 5-325 MG TABLET 1-2 ORALLY Q 4-6H PRN PAIN MDD6 TAKING TIZANIDINE HCL 4 MG TABLET 1 TABLET NEEDED ORALLY THREE TIMES A DAY MEDICATION LIST REVIEWED AND RECONCILED WITH THE PATIENT PAST MEDICAL HISTORY CHRONIC LOW BACK PAIN - FOLLOWED BY [facility] OSTEOARTHRITIS BILATERAL KNEES ASTHMA NORMAL SPIROMETRY AT PULMONARY 11/2017 HYPERLIPIDEMIA DEPRESSION GENERALIZED ANXIETY DISORDER HYPERTENSION DM II LEFT PULMONARY NODULE - CT 2009 AND 2013 WITH NO CHANGE - NO FURTHER WORK UP NEEDED PER [facility] CRITER[facility]. (FOLLOWED BY PULMONARY) VARICOSE VEINS OSTEOPOROSIS - LAST DEXA 04/21, NORMAL - AP SPINE T-SCORE -0.4. NORMAL BONE DENSITY - REPEAT 2018 SMOKER VITAMIN D DEFICIENCY ADALGISA DIAGNOSED 07/2015 - ON CPAP LUMBAR FACET ARTHROPATHY LUMBAR SPONDYLOSIS ADMITTED 11/2016 FOR BOWEL OBSTRUCTION SECONDARY TO DIVERTICULITIS - REQUIRED PARTIAL BOWEL RESECTION WITH OSTOMY PLACED. LEFT ANKLE FX S/P FALL RLS 01/25, ? FROM PAROXETINE RIGHT ARM TENDONITIS ALLERGIES MORPHINE SULFATE: HIVES - ALLERGY ZOLOFT: CONFUSION - LACK OF THERAPEUTIC EFFECT BACTRIM: HIVES - ALLERGY SULFA (FOR ALLERGY USE ONLY): HIVES - ALLERGY SURGICAL HISTORY HYSTERECTOMY & BSO 03/12 CYST REMOVED FROM OVARY 2003 LLE VARICOSE VEIN REMOVAL AND LASER ABLATION OF LEFT GREAT SAPHENOUS VEIN () 09/15 LEFT KNEE ARTHROSCOPY (DR. ALEX RAMIRES) RIGHT TKA - ([facility]) 01/2014 REMOVAL OF CYST LEFT ARM 2010 REPAIR HAMMERTOES LEFT FOOT 2009 BOWEL RESECTION 11/20/16 COLOSTOMY REVERSAL 04/2017 COLONOSCOPY _ DR. POON - DIVERTICULOSIS, POLYP RESECTED, BUT NOT RETRIEVED FOR PATHOLOGY 03/2017 FAMILY HISTORY FATHER: 65 YRS, DIAGNOSED WITH OTHER MALIGNANT NEOPLASM OF UNSPECIFIED SITE MOTHER: 74 YRS, OTHER MALIGNANT NEOPLASM OF UNSPECIFIED SITE 2 BROTHER(S) , 2 SISTER(S) - HEALTHY. 2 SON(S) . FATHER-LUNG CA\NMOTHER-LUNG CA\NBROTHER AT 5YRS OLD COLON CANCER\NSON HAS IDDM ON INSULIN PUMP. SOCIAL HISTORY GENERAL: TOBACCO USE ARE YOU A:CURRENT SMOKER ARE YOU INTERESTED IN QUITTING?NOT READY TO QUIT COUNSELED THE PATIENT ON SMOKING EFFECTS, EDUCATION NUSYOPMV78/12/2020 HOW MANY CIGARETTES A DAY DO YOU SMOKE?6-10 HOW SOON AFTER YOU WAKE UP DO YOU SMOKE YOUR FIRST CIGARETTE?6-30 MIN HOW OFTEN DO YOU SMOKE CIGARETTES?EVERY DAY PATIENT COUNSELED ON THE DANGERS OF TOBACCO USE AND URGED TO QUIT:03/26/2020 SMOKING CESSATION INFORMATION GIVEN08/24/2019 LATEX QUESTIONNAIRE LATEX ALLERGY : HAVE YOU EVER DEVELOPED ANY TYPE OF REACTION AFTER HANDLING LATEX PRODUCTS SUCH RUBBER GLOVES, CONDOMS, DIAPHRAGMS, BALLOONS, SOCKS, OR UNDERWEAR?NO LATEX ALLERGY : HAVE YOU EVER DEVELOPED ANY TYPE OF REACTION DURING OR AFTER DENTAL APPOINTMENT, VAGINAL/RECTAL EXAMINATION, SURGICAL PROCEDURE, OR ANY OTHER EXPOSURE?NO LATEX RISK : HAVE YOU EVER HAD ANY DIFFICULTY BREATHING OR HIVES AFTER EATING OR HANDLING ANY FRUITS, OR VEGETABLES; SUCH KIWI, BANANAS, STONE FRUITS, OR CHESTNUTSNO LATEX RISK : DO YOU HAVE A PREVIOUS PERSONAL HISTORY OF MORE THAN NINE SURGERIES, SPINA BIFIDA, OR REPEATED CATHERIZATIONS? NO LATEX RISK : ARE YOU FREQUENTLY EXPOSED TO LATEX PRODUCTS IN YOUR OCCUPATION?NO DATE ASKED : 05/29/2020 LUNG CANCER SCREENING SMOKING STATUS:CURRENT SMOKER IS THE PATIENT BETWEEN THE AGE OF 56 AND 78?NO BMI CARE GOAL FOLLOW-UP ABOVE NORMAL BMI FOLLOW-UPDIETARY MANAGEMENT EDUCATION, GUIDANCE, AND COUNSELING ALCOHOL SCREENING DID YOU HAVE A DRINK CONTAINING ALCOHOL IN THE PAST YEAR?NO POINTS0 INTERPRETATIONNEGATIVE RECREATIONAL DRUG USE DRUG USE?NO CAFFEINE CAFFEINE USE?YES HOW OFTEN AND HOW MUCH? 4 CUPS DAILY SEXUAL HX HAD SEX IN THE LAST 12 MONTHS (VAGINAL, ORAL, OR ANAL)?YES WITHMEN ONLY USE PROTECTION?NO LMP:HYSTER HAVE YOU EVER HAD AN STD?NO HIV / HEP-C SCREENING HIV TEST OFFERED TO PATIENT:YES DATE OFFERED:08/17/2017 TEST ACCEPTED:NO HEP-C TEST OFFERED TO PATIENT:YES DATE OFFERED:08/17/2017 REASON:PATIENT DECLINED TEST ACCEPTED:NO REASON:PATIENT DECLINED YAZIDISM [id number] CONGREGATIONAL NO YAZIDI BELIEFS THAT WOULD IMPACT HEALTH CARE. LANGUAGE LANGUAGES SPOKEN:BHUTANESE EDUCATION LEVEL OF EDUCATION:NOT FINISHED HIGH SCHOOL COMPLETED 11TH GRADE LEARNING BARRIERS / SPECIAL NEEDS CHANGE FROM LAST VISIT?NO BARRIERS TO LEARNING?NO HEARING IMPAIRED?NO VISION IMPAIRED?YES COGNITIVELY IMPAIRED?NO :CORRECTIVE LENSES READINESS TO LEARN?YES LEARNING PREFERENCES?NO LEARNING CAPABILITIES PRESENT?YES EMOTIONAL BARRIERS?NO SPECIAL DEVICES?NO AUTOMATION CONTROLS EXPERT NEEDED?NO DOMESTIC VIOLENCE DO YOU FEEL SAFE IN YOUR ENVIRONMENT?YES DIET: REGULAR. MARITAL STATUS: . TODAY'S VISITNOTES 03/27/2020 PATIENT DESCRIBES PAIN :ACHING, IT COMES AND GOES, SHARP, THROBBING FROM 0-10, WHAT LEVEL IS YOUR PAIN TODAY?2 PRECIPITATING FACTORS ACTIVITY ALLEVIATING FACTORS REST PAIN CLINIC PFS, CLERGY, PUBLIC HEALTH REFERRALS WAS THE PROVIDER NOTIFIED OF ANY PERTINENT INFO?YES HAS THE PATIENT BEEN EDUCATED REGARDING HIS/HER PLAN OF CARE?YES HAS THE PATIENT BEEN EDUCATED REGARDING PAIN, THE RISK FOR PAIN, THE IMPORTANCE OF EFFECTIVE PAIN MANAGEMENT, AND THE PAIN ASSESSMENT PROCESS?YES ADVANCE DIRECTIVE ADVANCE DIRECTIVE DISCUSSED WITH PATIENT:YES HCP ANNALISA DAVID [phone] DR. SHEA FOR ROUTINE RIG SUPERINTENDENT CARE AND SCREENINGS. HOSPITALIZATION/MAJOR DIAGNOSTIC PROCEDURE SURGERIES BOWEL BLOCKAGE 11/03/16-11/28/16 REVIEW OF SYSTEMS CONSTITUTIONAL: ANY RECENT FEVER NO . CHILLS NO . WEIGHT CHANGE OF UNKNOWN REASONS NO . GASTROENTEROLOGY: NEW UNEXPLAINABLE CHANGES IN BOWEL CONTROL NO . CONSTIPATION NO . GENITOURINARY: ANY NEW CHANGE IN BLADDER CONTROL? NO . NEUROLOGY: NEW ONSET DIZZINESS OR NEUROLOGICAL CHANGES NOT MENTIONED NO . NEW NUMBNESS OR PAIN PATTERNS NOT MENTIONED AND PERTINENT TO TODAY'S VISIT NO . CARDIOLOGY: NEW CHEST PRESSURE NO . NEW CHEST PAIN NO . RESPIRATORY: UNEXPLAINABLE COUGH NO . NEW SHORTNESS OF BREATH NO . VITAL SIGNS WT 201.8 LBS, HT 61 IN, BMI 38.13 INDEX, BP 124/83 MM HG, HR 80 /MIN, RR 18 /MIN, TEMP 97.2 F, OXYGEN SAT % 98%, SAFE IN ENV? (Y/N) Y, NA INITIALS AW 1128, REVIEWED BY: EM. EXAMINATION GENERAL EXAMINATION: GENERAL ALERT,NO DISTRESS . PSYCH AFFECT NORMAL . LUNGS: LUNG SOUNDS ARE CLEAR . HEART: HEART RATE REGULAR . MUSCULOSKELETAL: MST 5/5 BILAT. LOWER EXTREMITIES . LUMBAR: TENDERNESS RIGHT SIJ . DIAGNOSTIC TESTS [id number]/20/2020. ASSESSMENTS OTHER CHRONIC PAIN - G89.29 (PRIMARY) SACROILIITIS, NOT ELSEWHERE CLASSIFIED - M46.1 TREATMENT OTHER CHRONIC PAIN PAIN PROCEDURE LOGDATE OF PROCEDURE06/18/20PROCEDURE:RIGHT SACROILIAC BLOCKAMOUNT OF PRE SEDATE0/0RESULT:MARKED REDUCTION IN PAIN UNTIL 2 WEEKS AGO NOTES: RIGHT SIJ. PROCEDURE CODES FA211 ESTABILISHED PATIENT THE [facility] FACILITY CHARGE DISPOSITION & COMMUNICATION FOLLOW UP POST PROCEDURE (REASON: RIGHT SIJ) ELECTRONICALLY SIGNED BY DOMINICK ZAPATA ON 09/20/2020 AT 01:35 PM EST DISCLAIMER : THIS IS A VISIT SUMMARY EXTRACTED FROM THE [employer] CHART. IT IS NOT A COPY OF THE [employer] PROGRESS NOTE. DEBBIED
== END ==
LOC: M PAIN 11:30
PROVIDERS: ATTEND Nurse Practitioner Family
DX: M46.1 Sacroiliitis, not elsewhere classified (principal); G89.29 Other chronic pain; E11.9 Type 2 diabetes mellitus without complications; J45.909 Unspecified asthma, uncomplicated; E78.5 Hyperlipidemia, unspecified; I10 Essential (primary) hypertension; E55.9 Vitamin D deficiency, unspecified; G47.33 Obstructive sleep apnea (adult) (pediatric); F17.210 Nicotine dependence, cigarettes, uncomplicated; Z86.59 Personal history of other mental and behavioral disorders; Z96.651 Presence of right artificial knee joint; Z88.1 Allergy status to other antibiotic agents; Z88.2 Allergy status to sulfonamides; Z88.5 Allergy status to narcotic agent; Z88.8 Allergy status to other drugs, medicaments and biological substances; Z79.84 Long term (current) use of oral hypoglycemic drugs; Z79.891 Long term (current) use of opiate analgesic; Z79.899 Other long term (current) drug therapy

== ENCOUNTER → 2020-10-10 | Outpatient (CLI) | payer BC, OTHER, SELFPAY ==
[~2020-10-10] MED LIST changes: +HYDR-3490 PO; -HYDR25TAB PO
== END ==
LOC: M LABSMTC 10:08
PROVIDERS: ATTEND Anesthesiology
DX: Z20.828 Contact with and (suspected) exposure to other viral communicable diseases (principal)

== ENCOUNTER → 2021-01-23 | Outpatient (CLI) | payer SELFPAY ==
--- NOTE | 2021-01-28 00:30 | ECWPNPC ---
PATIENT NAME: IVON DAVID : 1965 GENDER: FEMALE VISIT DATE: 01/23/2021 DISCHARGE DATE: 01/23/21 1118 VISIT LOCKED DATE TIME: PHYSICIAN: DIANA COREA PHYSICIAN PAGER NO: ACTIVE RESOURCE: DIANA COREA REASON FOR APPOINTMENT 1. BACK HISTORY OF PRESENT ILLNESS DEPRESSION SCREENING: PHQ-9 LITTLE INTEREST OR PLEASURE IN DOING THINGSMORE THAN HALF THE DAYS FEELING DOWN, DEPRESSED, OR HOPELESSMORE THAN HALF THE DAYS TROUBLE FALLING OR STAYING ASLEEP, OR SLEEPING TOO MUCHSEVERAL DAYS FEELING TIRED OR HAVING LITTLE ENERGYNOT AT ALL POOR APPETITE OR OVEREATING NOT AT ALL FEELING BAD ABOUT YOURSELF-OR THAT YOU ARE A FAILURE OR HAVE LET YOURSELF OR YOUR FAMILY DOWN NOT AT ALL TROUBLE CONCENTRATING ON THINGS, SUCH READING THE NEWSPAPER OR WATCHING TELEVISION NOT AT ALL MOVING OR SPEAKING SO SLOWLY THAT OTHER PEOPLE COULD HAVE NOTICED. OR THE OPPOSITE- BEING SO FIDGETY OR RESTLESS THAT YOU HAVE BEEN MOVING AROUND A LOT MORE THAN USUALNOT AT ALL THOUGHTS THAT YOU WOULD BE BETTER OFF , OR OF HURTING YOURSELF IN SOME WAY?NOT AT ALL TOTAL SCORE:5 INTERPRETATIONMILD DEPRESSION PHQ-2 (2015 EDITION) LITTLE INTEREST OR PLEASURE IN DOING THINGS?MORE THAN HALF THE DAYS FEELING DOWN, DEPRESSED, OR HOPELESS?MORE THAN HALF THE DAYS TOTAL SCORE4 GENERAL: HERE FOR FOLLOW-UP AND MEDICATION MANAGEMENT OF CHRONIC LOW BACK PAIN. PAIN HAS INCREASED ACROSS HER LOWER BACK AREA. RESPONDS WELL TO LUMBAR THERAPEUTIC FACET BLOCK. CURRENTLY DOES NOT HAVE INSURANCE. SHE WILL BE GETTING INSURANCE IN FEBRUARY. FINDS CURRENT MEDICATION HELPFUL AT REDUCING PAIN AND KEEPING HER FUNCTIONAL. DENIES ADVERSE SIDE EFFECTS.-. FALL RISK SCREENING: SCREENING : NO FALLS REPORTED IN THE LAST YEAR. PAIN SCREENING: PATIENT HAS A COMPLAINT OF ACUTE OR CHRONIC PAIN :YES LOCATION OF PAIN:LOW BACK INTENSITY OF PAIN (SCALE OF 1 TO 10):5 WHAT DOES YOUR PAIN FEEL LIKE:ACHING, TENDER, SORE DURATION:CONTINOUS, CONSTANT, ALL DAY PAIN IS INCREASED BY:ACTIVITIES PAIN IS DECREASED BY:USE OF PAIN MEDICATIONS NURSING NOTE: -. PAIN CENTER INTAKE QUESTIONS: DO YOU HAVE A HISTORY OF MRSA? :NO DO YOU TAKE A BLOOD THINNERS? :NO DO YOU HAVE ANY BLEEDING DISORDERS? :NO ANY NEW NUMBNESS OR WEAKNESS IN YOUR LEGS OR ARMS? :NO ANY PACEMAKER,DEFIBRILLATOR, OR DORSAL COLUMN STIMULATOR? :NO DO YOU HAVE ANY RASHES OR OPEN SORES? :NO ARE YOU ALLERGIC TO IV DYE? :NO ARE YOU DIABETIC? :YES ANY NEW PROBLEMS WITH YOUR MEDICATIONS? :NO HAVE YOU RECEIVED A VACCINE IN THE PAST 30 DAYS? :NO DO YOU PLAN TO RECEIVE A VACCINE IN THE NEXT 21 DAYS? :NO DO YOU NEED ANY PRESCRIPTION? :NO DO YOU TAKE ANY IMMUNOSUPPRESSIVE MEDICATIONS? :NO IS THERE A CHANCE YOU COULD BE ? :NO ARE YOU BREAST FEEDING? :NO CURRENT MEDICATIONS TAKING ADVAIR DISKUS 250-50 MCG/DOSE AEROSOL POWDER BREATH ACTIVATED 1 PUFF INHALATION TWICE A DAY TAKING VITAMIN D (ERGOCALCIFEROL) 11356 UNIT CAPSULE TAKE 1 CAPSULE BY MOUTH WEEKLY ORALLY WEEKLY TAKING ALBUTEROL SULFATE HFA 108 (90 BASE) MCG/ACT AEROSOL SOLUTION 2 PUFFS NEEDED INHALATION EVERY 6 HRS TAKING ZYRTEC ALLERGY 10 MG TABLET 1 TABLET ORALLY ONCE A DAY TAKING IBUPROFEN 200 MG TABLET 1 TABLET WITH FOOD OR MILK NEEDED ORALLY THREE TIMES A DAY TAKING ATORVASTATIN CALCIUM 80 MG TABLET TAKE 1 TABLET DAILY TAKING HYDROXYZINE HCL 50 MG TABLET TAKE 1 TABLET TWICE A DAY TAKING METFORMIN HCL 1000 MG TABLET 1 TABLET WITH MEALS ORALLY TWICE A DAY TAKING TIZANIDINE HCL 4 MG TABLET 1 TABLET NEEDED ORALLY THREE TIMES A DAY TAKING IRBESARTAN 150 MG TABLET 1 TABLET ORALLY ONCE A DAY TAKING PANTOPRAZOLE SODIUM 40 MG TABLET DELAYED RELEASE TAKE 1 TABLET DAILY ORALLY ONCE DAILY TAKING PAROXETINE HCL 40 MG TABLET TAKE 1 TABLET DAILY IN THE MORNING ORALLY ONCE A DAY TAKING HYDROCHLOROTHIAZIDE 25 MG TABLET 1 TAB ORALLY DAILY TAKING PERCOCET 5-325 MG TABLET 1-2 ORALLY Q 4-6H PRN PAIN MDD6 NOT-TAKING PREMARIN 0.3 MG TABLET 1 TABLET ORALLY ONCE A DAY MEDICATION LIST REVIEWED AND RECONCILED WITH THE PATIENT PAST MEDICAL HISTORY CHRONIC LOW BACK PAIN - FOLLOWED BY [facility] OSTEOARTHRITIS BILATERAL KNEES ASTHMA NORMAL SPIROMETRY AT PULMONARY 11/2017 HYPERLIPIDEMIA DEPRESSION GENERALIZED ANXIETY DISORDER HYPERTENSION DM II LEFT PULMONARY NODULE - CT 2009 AND 2013 WITH NO CHANGE - NO FURTHER WORK UP NEEDED PER [facility] CRITER[facility]. (FOLLOWED BY PULMONARY) VARICOSE VEINS OSTEOPOROSIS - LAST DEXA 04/21, NORMAL - AP SPINE T-SCORE -0.4. NORMAL BONE DENSITY - REPEAT 2019 SMOKER VITAMIN D DEFICIENCY ADALGISA DIAGNOSED 07/2015 - ON CPAP LUMBAR FACET ARTHROPATHY LUMBAR SPONDYLOSIS ADMITTED 11/2016 FOR BOWEL OBSTRUCTION SECONDARY TO DIVERTICULITIS - REQUIRED PARTIAL BOWEL RESECTION WITH OSTOMY PLACED. LEFT ANKLE FX S/P FALL RLS 01/25, ? FROM PAROXETINE RIGHT ARM TENDONITIS ALLERGIES MORPHINE SULFATE: HIVES - ALLERGY ZOLOFT: CONFUSION - LACK OF THERAPEUTIC EFFECT BACTRIM: HIVES - ALLERGY SULFA (FOR ALLERGY USE ONLY): HIVES - ALLERGY SOCIAL HISTORY GENERAL: TOBACCO USE ARE YOU A:CURRENT SMOKER ARE YOU INTERESTED IN QUITTING?NOT READY TO QUIT COUNSELED THE PATIENT ON SMOKING EFFECTS, EDUCATION NTFEDIFZ48/18/2021 HOW MANY CIGARETTES A DAY DO YOU SMOKE?6-10 HOW SOON AFTER YOU WAKE UP DO YOU SMOKE YOUR FIRST CIGARETTE?6-30 MIN HOW OFTEN DO YOU SMOKE CIGARETTES?EVERY DAY PATIENT COUNSELED ON THE DANGERS OF TOBACCO USE AND URGED TO QUIT:03/26/2020 SMOKING CESSATION INFORMATION GIVEN08/24/2019 LATEX QUESTIONNAIRE LATEX ALLERGY : HAVE YOU EVER DEVELOPED ANY TYPE OF REACTION AFTER HANDLING LATEX PRODUCTS SUCH RUBBER GLOVES, CONDOMS, DIAPHRAGMS, BALLOONS, SOCKS, OR UNDERWEAR?NO LATEX ALLERGY : HAVE YOU EVER DEVELOPED ANY TYPE OF REACTION DURING OR AFTER DENTAL APPOINTMENT, VAGINAL/RECTAL EXAMINATION, SURGICAL PROCEDURE, OR ANY OTHER EXPOSURE?NO LATEX RISK : HAVE YOU EVER HAD ANY DIFFICULTY BREATHING OR HIVES AFTER EATING OR HANDLING ANY FRUITS, OR VEGETABLES; SUCH KIWI, BANANAS, STONE FRUITS, OR CHESTNUTSNO LATEX RISK : DO YOU HAVE A PREVIOUS PERSONAL HISTORY OF MORE THAN NINE SURGERIES, SPINA BIFIDA, OR REPEATED CATHERIZATIONS? NO LATEX RISK : ARE YOU FREQUENTLY EXPOSED TO LATEX PRODUCTS IN YOUR OCCUPATION?NO DATE ASKED : 01/23/2021 ALCOHOL USE: NO. LUNG CANCER SCREENING SMOKING STATUS:CURRENT SMOKER IS THE PATIENT BETWEEN THE AGE OF 56 AND 78?NO BMI CARE GOAL FOLLOW-UP ABOVE NORMAL BMI FOLLOW-UPDIETARY MANAGEMENT EDUCATION, GUIDANCE, AND COUNSELING ALCOHOL SCREENING DID YOU HAVE A DRINK CONTAINING ALCOHOL IN THE PAST YEAR?NO POINTS0 INTERPRETATIONNEGATIVE RECREATIONAL DRUG USE DRUG USE?NO CAFFEINE CAFFEINE USE?YES HOW OFTEN AND HOW MUCH? 4 CUPS DAILY SEXUAL HX HAD SEX IN THE LAST 12 MONTHS (VAGINAL, ORAL, OR ANAL)?YES WITHMEN ONLY USE PROTECTION?NO LMP:HYSTER HAVE YOU EVER HAD AN STD?NO HIV / HEP-C SCREENING HIV TEST OFFERED TO PATIENT:YES DATE OFFERED:08/17/2017 TEST ACCEPTED:NO HEP-C TEST OFFERED TO PATIENT:YES DATE OFFERED:08/17/2017 REASON:PATIENT DECLINED TEST ACCEPTED:NO REASON:PATIENT DECLINED CONFUCIANIST [id number] SABIANISM NO ANABAPTISM BELIEFS THAT WOULD IMPACT HEALTH CARE. LANGUAGE LANGUAGES SPOKEN:LATVIAN EDUCATION LEVEL OF EDUCATION:NOT FINISHED HIGH SCHOOL COMPLETED 11TH GRADE LEARNING BARRIERS / SPECIAL NEEDS CHANGE FROM LAST VISIT?NO BARRIERS TO LEARNING?NO HEARING IMPAIRED?NO VISION IMPAIRED?YES :CORRECTIVE LENSES COGNITIVELY IMPAIRED?NO READINESS TO LEARN?YES LEARNING PREFERENCES?NO LEARNING CAPABILITIES PRESENT?YES EMOTIONAL BARRIERS?NO SPECIAL DEVICES?NO SUPERVISOR FINISHING DEPARTMENT NEEDED?NO DOMESTIC VIOLENCE DO YOU FEEL SAFE IN YOUR ENVIRONMENT?YES DIET: REGULAR. MARITAL STATUS: . TODAY'S VISITNOTES 03/27/2020 PATIENT DESCRIBES PAIN :ACHING, IT COMES AND GOES, SHARP, THROBBING FROM 0-10, WHAT LEVEL IS YOUR PAIN TODAY?2 PRECIPITATING FACTORS ACTIVITY ALLEVIATING FACTORS REST - WAS THE PROVIDER NOTIFIED OF ANY PERTINENT INFO?YES HAS THE PATIENT BEEN EDUCATED REGARDING HIS/HER PLAN OF CARE?YES HAS THE PATIENT BEEN EDUCATED REGARDING PAIN, THE RISK FOR PAIN, THE IMPORTANCE OF EFFECTIVE PAIN MANAGEMENT, AND THE PAIN ASSESSMENT PROCESS?YES ADVANCE DIRECTIVE ADVANCE DIRECTIVE DISCUSSED WITH PATIENT:YES HCP ANNALISA DAVID [phone] DR. SHEA FOR ROUTINE CARBON SEQUESTRATION PLANT ENGINEER CARE AND SCREENINGS. REVIEW OF SYSTEMS CONSTITUTIONAL: ANY RECENT FEVER NO . CHILLS NO . WEIGHT CHANGE OF UNKNOWN REASONS NO . GASTROENTEROLOGY: NEW UNEXPLAINABLE CHANGES IN BOWEL CONTROL NO . CONSTIPATION NO . GENITOURINARY: ANY NEW CHANGE IN BLADDER CONTROL? NO . NEUROLOGY: NEW ONSET DIZZINESS OR NEUROLOGICAL CHANGES NOT MENTIONED NO . NEW NUMBNESS OR PAIN PATTERNS NOT MENTIONED AND PERTINENT TO TODAY'S VISIT NO . CARDIOLOGY: NEW CHEST PRESSURE NO . PATIENT DENIES NO . RESPIRATORY: UNEXPLAINABLE COUGH NO . NEW SHORTNESS OF BREATH NO . VITAL SIGNS WT 198 LBS, HT 61 IN, BMI 37.41 INDEX, BP 120/69 MM HG, HR 84 /MIN, RR 18 /MIN, TEMP 97.8 F, OXYGEN SAT % 95%, SAFE IN ENV? (Y/N) YEST.MARY CARMEN RUFF. EXAMINATION GENERAL EXAMINATION: GENERALAWAKE,ALERT ,PLEASANT . PSYCHAFFECT NORMAL . LUNGS:LUNG MILLER ARE CLEAR TO AUSCULTATION BILATERALLY. GOOD MOVEMENT OF AIR . HEART:S1, S2 IN A REGULAR RATE AND RHYTHM. NO SIGNIFICANT MURMURS, RUBS OR GALLOPS NOTED . ASSESSMENTS USE OF OPIATES FOR THERAPEUTIC PURPOSES - Z79.891 (PRIMARY) LUMBAR FACET ARTHROPATHY - M46.96 TREATMENT USE OF OPIATES FOR THERAPEUTIC PURPOSES LAB: URINE TEST GROUP MICHELLE LENTZ 01/23/2021 11:16:26 AM > LAST DOSE: PERCOCET 01/23/2021 @8AM NOTES: ISTOP REGISTRY REVIEWED AND DEMONSTRATES COMPLLIANCE. BRING IN MEDICATIONS TO ALL PAIN CLINIC APPOINTMENTS , RISKS OF NARCOTIC/OPIOD MEDICATIONS INCLUDES BUT IS NOT LIMITED TO RISK OF DEPENDANCE/DEVELOPMENT OF ADDICTION, MOOD DISTURBANCE AND DEPRESSION, OSTEOPOROSIS, HORMONAL AND LABIDAL CHANGES, RESPIRATORY DEPRESSION AND . PATIENT IS ADVISED NOT TO DRIVE OR DRINK ALCOHOL WHILE ON THESE MEDICATIONS. PROCEDURE CODES FA211 ESTABILISHED PATIENT [facility] CHARGE DISPOSITION & COMMUNICATION FOLLOW UP 2 MONTHS (REASON: MEDICATION MANAGEMENT/REVIEW URINE TOXICOLOGY) ELECTRONICALLY SIGNED BY DOMINICK ZAPATA ON 01/27/2021 AT 03:28 PM EDT DISCLAIMER : THIS IS A VISIT SUMMARY EXTRACTED FROM THE [facility] CHART. IT IS NOT A COPY OF THE [employer] PROGRESS NOTE. [employer]
== END ==
LOC: M PAIN 10:30
PROVIDERS: ATTEND Nurse Practitioner Family
DX: M46.96 Unspecified inflammatory spondylopathy, lumbar region (principal); G89.29 Other chronic pain; E11.9 Type 2 diabetes mellitus without complications; E55.9 Vitamin D deficiency, unspecified; G47.33 Obstructive sleep apnea (adult) (pediatric); F17.210 Nicotine dependence, cigarettes, uncomplicated; Z86.59 Personal history of other mental and behavioral disorders; Z88.1 Allergy status to other antibiotic agents; Z88.2 Allergy status to sulfonamides; Z88.5 Allergy status to narcotic agent; Z88.8 Allergy status to other drugs, medicaments and biological substances; Z79.84 Long term (current) use of oral hypoglycemic drugs; Z79.891 Long term (current) use of opiate analgesic; Z79.899 Other long term (current) drug therapy

== ENCOUNTER → 2021-04-23 | Outpatient (CLI) | payer SELFPAY ==
--- NOTE | 2021-04-29 01:51 | ECWPNPC ---
PATIENT NAME: IVON DAVID : 1965 GENDER: FEMALE VISIT DATE: 04/23/2021 DISCHARGE DATE: 04/23/21 1131 VISIT LOCKED DATE TIME: PHYSICIAN: DIANA COREA PHYSICIAN PAGER NO: ACTIVE RESOURCE: DIANA COREA REASON FOR APPOINTMENT 1. BACK HISTORY OF PRESENT ILLNESS GENERAL: HERE FOR FOLLOW-UP OF PERSISTENT LEFT LOW BACK PAIN. PAIN HAS INCREASED OVER THE PAST FEW MONTHS. PAIN IS AGGRAVATED BY RANGE OF JOINT MOTION OF THE SPINE. REVIEWED MRI OF THE LS-SPINE AND DISCUSSED TREATMENT PLAN. -. FALL RISK SCREENING: SCREENING : NO FALLS REPORTED IN THE LAST YEAR. PAIN SCREENING: PATIENT HAS A COMPLAINT OF ACUTE OR CHRONIC PAIN :YES LOCATION OF PAIN:LOW BACK LEFT, LOW BACK INTENSITY OF PAIN (SCALE OF 1 TO 10):7 WHAT DOES YOUR PAIN FEEL LIKE:ACHING, CONTINOUS, STABBING DURATION:CONTINOUS, CONSTANT, ALL DAY PAIN IS INCREASED BY:ACTIVITIES PAIN IS DECREASED BY:USE OF PAIN MEDICATIONS NURSING NOTE: -. PAIN CENTER INTAKE QUESTIONS: DO YOU HAVE A HISTORY OF MRSA? :NO DO YOU TAKE A BLOOD THINNERS? :NO DO YOU HAVE ANY BLEEDING DISORDERS? :NO ANY NEW NUMBNESS OR WEAKNESS IN YOUR LEGS OR ARMS? :NO ARTHR IS IN BOTH HAND MORE ON THE LEFT THEN THE RIGHT ANY PACEMAKER,DEFIBRILLATOR, OR DORSAL COLUMN STIMULATOR? :NO DO YOU HAVE ANY RASHES OR OPEN SORES? :NO ARE YOU ALLERGIC TO IV DYE? :NO ARE YOU DIABETIC? :YES ANY NEW PROBLEMS WITH YOUR MEDICATIONS? :NO HAVE YOU RECEIVED A VACCINE IN THE PAST 30 DAYS? :NO DO YOU PLAN TO RECEIVE A VACCINE IN THE NEXT 21 DAYS? :NO DO YOU NEED ANY PRESCRIPTION? :NO DO YOU TAKE ANY IMMUNOSUPPRESSIVE MEDICATIONS? :NO IS THERE A CHANCE YOU COULD BE ? :NO ARE YOU BREAST FEEDING? :NO CURRENT MEDICATIONS TAKING ADVAIR DISKUS 250-50 MCG/DOSE AEROSOL POWDER BREATH ACTIVATED 1 PUFF INHALATION TWICE A DAY TAKING VITAMIN D (ERGOCALCIFEROL) 26028 UNIT CAPSULE TAKE 1 CAPSULE BY MOUTH WEEKLY ORALLY WEEKLY TAKING ALBUTEROL SULFATE HFA 108 (90 BASE) MCG/ACT AEROSOL SOLUTION 2 PUFFS NEEDED INHALATION EVERY 6 HRS TAKING ZYRTEC ALLERGY 10 MG TABLET 1 TABLET ORALLY ONCE A DAY TAKING IBUPROFEN 200 MG TABLET 1 TABLET WITH FOOD OR MILK NEEDED ORALLY THREE TIMES A DAY TAKING ATORVASTATIN CALCIUM 80 MG TABLET TAKE 1 TABLET DAILY TAKING HYDROXYZINE HCL 50 MG TABLET TAKE 1 TABLET TWICE A DAY TAKING METFORMIN HCL 1000 MG TABLET 1 TABLET WITH MEALS ORALLY TWICE A DAY TAKING HYDROCHLOROTHIAZIDE 25 MG TABLET 1 TAB ORALLY DAILY TAKING TIZANIDINE HCL 4 MG TABLET 1 TABLET NEEDED ORALLY THREE TIMES A DAY TAKING IRBESARTAN 150 MG TABLET 1 TABLET ORALLY ONCE A DAY TAKING PERCOCET 5-325 MG TABLET 1-2 ORALLY Q 4-6H PRN PAIN MDD6 TAKING PANTOPRAZOLE SODIUM 40 MG TABLET DELAYED RELEASE TAKE 1 TABLET DAILY ORALLY ONCE DAILY TAKING PAROXETINE HCL 40 MG TABLET TAKE 1 TABLET DAILY IN THE MORNING ORALLY ONCE A DAY NOT-TAKING PREMARIN 0.3 MG TABLET 1 TABLET ORALLY ONCE A DAY MEDICATION LIST REVIEWED AND RECONCILED WITH THE PATIENT PAST MEDICAL HISTORY CHRONIC LOW BACK PAIN - FOLLOWED BY [facility] OSTEOARTHRITIS BILATERAL KNEES ASTHMA NORMAL SPIROMETRY AT PULMONARY 11/2017 HYPERLIPIDEMIA DEPRESSION GENERALIZED ANXIETY DISORDER HYPERTENSION DM II LEFT PULMONARY NODULE - CT 2009 AND 2013 WITH NO CHANGE - NO FURTHER WORK UP NEEDED PER [facility]. (FOLLOWED BY PULMONARY) VARICOSE VEINS OSTEOPOROSIS - LAST DEXA 04/21, NORMAL - AP SPINE T-SCORE -0.4. NORMAL BONE DENSITY - REPEAT 2018 SMOKER VITAMIN D DEFICIENCY ADALGISA DIAGNOSED 07/2015 - ON CPAP LUMBAR FACET ARTHROPATHY LUMBAR SPONDYLOSIS ADMITTED 11/2016 FOR BOWEL OBSTRUCTION SECONDARY TO DIVERTICULITIS - REQUIRED PARTIAL BOWEL RESECTION WITH OSTOMY PLACED. LEFT ANKLE FX S/P FALL RLS 01/25, ? FROM PAROXETINE RIGHT ARM TENDONITIS ALLERGIES MORPHINE SULFATE: HIVES - ALLERGY ZOLOFT: CONFUSION - LACK OF THERAPEUTIC EFFECT BACTRIM: HIVES - ALLERGY SULFA (FOR ALLERGY USE ONLY): HIVES - ALLERGY SOCIAL HISTORY GENERAL: TOBACCO USE ARE YOU A:CURRENT SMOKER ARE YOU INTERESTED IN QUITTING?NOT READY TO QUIT COUNSELED THE PATIENT ON SMOKING EFFECTS, EDUCATION [id number]/16/2021 HOW MANY CIGARETTES A DAY DO YOU SMOKE?6-10 HOW SOON AFTER YOU WAKE UP DO YOU SMOKE YOUR FIRST CIGARETTE?6-30 MIN HOW OFTEN DO YOU SMOKE CIGARETTES?EVERY DAY PATIENT COUNSELED ON THE DANGERS OF TOBACCO USE AND URGED TO QUIT:03/26/2020 SMOKING CESSATION INFORMATION GIVEN08/24/2019 LATEX QUESTIONNAIRE LATEX ALLERGY : HAVE YOU EVER DEVELOPED ANY TYPE OF REACTION AFTER HANDLING LATEX PRODUCTS SUCH RUBBER GLOVES, CONDOMS, DIAPHRAGMS, BALLOONS, SOCKS, OR UNDERWEAR?NO LATEX ALLERGY : HAVE YOU EVER DEVELOPED ANY TYPE OF REACTION DURING OR AFTER DENTAL APPOINTMENT, VAGINAL/RECTAL EXAMINATION, SURGICAL PROCEDURE, OR ANY OTHER EXPOSURE?NO LATEX RISK : HAVE YOU EVER HAD ANY DIFFICULTY BREATHING OR HIVES AFTER EATING OR HANDLING ANY FRUITS, OR VEGETABLES; SUCH KIWI, BANANAS, STONE FRUITS, OR CHESTNUTSNO LATEX RISK : DO YOU HAVE A PREVIOUS PERSONAL HISTORY OF MORE THAN NINE SURGERIES, SPINA BIFIDA, OR REPEATED CATHERIZATIONS? NO LATEX RISK : ARE YOU FREQUENTLY EXPOSED TO LATEX PRODUCTS IN YOUR OCCUPATION?NO DATE ASKED : 04/23/2021 ALCOHOL USE: NO. LUNG CANCER SCREENING SMOKING STATUS:CURRENT SMOKER IS THE PATIENT BETWEEN THE AGE OF 56 AND 78?NO BMI CARE GOAL FOLLOW-UP ABOVE NORMAL BMI FOLLOW-UPDIETARY MANAGEMENT EDUCATION, GUIDANCE, AND COUNSELING ALCOHOL SCREENING DID YOU HAVE A DRINK CONTAINING ALCOHOL IN THE PAST YEAR?NO POINTS0 INTERPRETATIONNEGATIVE RECREATIONAL DRUG USE DRUG USE?NO CAFFEINE CAFFEINE USE?YES HOW OFTEN AND HOW MUCH? 4 CUPS DAILY SEXUAL HX HAD SEX IN THE LAST 12 MONTHS (VAGINAL, ORAL, OR ANAL)?YES WITHMEN ONLY USE PROTECTION?NO LMP:HYSTER HAVE YOU EVER HAD AN STD?NO HIV / HEP-C SCREENING HIV TEST OFFERED TO PATIENT:YES DATE OFFERED:08/17/2017 TEST ACCEPTED:NO HEP-C TEST OFFERED TO PATIENT:YES DATE OFFERED:08/17/2017 REASON:PATIENT DECLINED TEST ACCEPTED:NO REASON:PATIENT DECLINED VOODOO [id number] EPISCOPAL NO EVANGELICAL BELIEFS THAT WOULD IMPACT HEALTH CARE. LANGUAGE LANGUAGES SPOKEN:YI EDUCATION LEVEL OF EDUCATION:NOT FINISHED HIGH SCHOOL COMPLETED 11TH GRADE LEARNING BARRIERS / SPECIAL NEEDS CHANGE FROM LAST VISIT?NO BARRIERS TO LEARNING?NO HEARING IMPAIRED?NO VISION IMPAIRED?YES :CORRECTIVE LENSES COGNITIVELY IMPAIRED?NO READINESS TO LEARN?YES LEARNING PREFERENCES?NO LEARNING CAPABILITIES PRESENT?YES EMOTIONAL BARRIERS?NO SPECIAL DEVICES?NO SMOKE JUMPER NEEDED?NO DOMESTIC VIOLENCE DO YOU FEEL SAFE IN YOUR ENVIRONMENT?YES DIET: REGULAR. MARITAL STATUS: . TODAY'S VISITNOTES 03/27/2020 PATIENT DESCRIBES PAIN :ACHING, IT COMES AND GOES, SHARP, THROBBING FROM 0-10, WHAT LEVEL IS YOUR PAIN TODAY?2 PRECIPITATING FACTORS ACTIVITY ALLEVIATING FACTORS REST - WAS THE PROVIDER NOTIFIED OF ANY PERTINENT INFO?YES HAS THE PATIENT BEEN EDUCATED REGARDING HIS/HER PLAN OF CARE?YES HAS THE PATIENT BEEN EDUCATED REGARDING PAIN, THE RISK FOR PAIN, THE IMPORTANCE OF EFFECTIVE PAIN MANAGEMENT, AND THE PAIN ASSESSMENT PROCESS?YES ADVANCE DIRECTIVE ADVANCE DIRECTIVE DISCUSSED WITH PATIENT:YES HCP ANNALISA DAVID [phone] DR. SHEA FOR ROUTINE RN TELEPHONE TRIAGE CARE AND SCREENINGS. REVIEW OF SYSTEMS CONSTITUTIONAL: ANY RECENT FEVER NO . CHILLS NO . WEIGHT CHANGE OF UNKNOWN REASONS NO . GASTROENTEROLOGY: NEW UNEXPLAINABLE CHANGES IN BOWEL CONTROL NO . CONSTIPATION NO . GENITOURINARY: ANY NEW CHANGE IN BLADDER CONTROL? NO . NEUROLOGY: NEW ONSET DIZZINESS OR NEUROLOGICAL CHANGES NOT MENTIONED NO . NEW NUMBNESS OR PAIN PATTERNS NOT MENTIONED AND PERTINENT TO TODAY'S VISIT NO . CARDIOLOGY: NEW CHEST PRESSURE NO . PATIENT DENIES NO . RESPIRATORY: UNEXPLAINABLE COUGH NO . NEW SHORTNESS OF BREATH NO . VITAL SIGNS WT 202.8 LBS, HT 61 IN, BMI 38.31 INDEX, BP 149/79 MM HG, HR 80 /MIN, RR 18 /MIN, TEMP 97.6 F, OXYGEN SAT % 99%, SAFE IN ENV? (Y/N) YES, NA INITIALS SC 11:03T.MARY CARMEN, PATIENT IS DRINKING COFFEE AT HER APPOINTMENT THIS MORNING, AND STATE SHE SHE IS UNDER ALOT OF STRESS. EXAMINATION GENERAL EXAMINATION: LUNGS: LUNG SOUNDS ARE CLEAR . HEART: HEART RATE REGULAR . MUSCULOSKELETAL:*, MUSCLE STRENGTH TESTING 5/5 BILATERAL LOWER EXTREMITIES., ,PALPATION: POSITIVE FOR PAIN OVER L/S SPINE. POSITIVE FOR PAIN OVER L/S PARSPINALS.SPECIFIC POINT TENDERNESS OVER LEFT L4/5-L5/S1 LUMBR FACETS WITH FACET LOADING . DIAGNOSTIC TESTS REVIEWED MRI L/S SPINE-01/26/2020. DIAGNOSTIC:MRI L/S SPINE . 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 CAMELIA RUFF. PROCEDURE CODES FA211 ESTABILISHED PATIENT [facility] FACILITY CHARGE DISPOSITION & COMMUNICATION FOLLOW UP POST (REASON: LEFT DIAGNOSTIC LUMBAR FACET BLOCK #1 L4-5,L5-S1) ELECTRONICALLY SIGNED BY DOMINICK ZAPATA ON 04/28/2021 AT 08:20 PM EDT DISCLAIMER : THIS IS A VISIT SUMMARY EXTRACTED FROM THE code[employer]abor[employer]IC[employer] CHART. IT IS NOT A COPY OF THE code[employer] PROGRESS NOTE. T[place]
== END ==
LOC: M PAIN 11:00
PROVIDERS: ATTEND Nurse Practitioner Family
DX: M47.817 Spondylosis without myelopathy or radiculopathy, lumbosacral region (principal); M46.96 Unspecified inflammatory spondylopathy, lumbar region; E11.9 Type 2 diabetes mellitus without complications; E55.9 Vitamin D deficiency, unspecified; G47.33 Obstructive sleep apnea (adult) (pediatric); F17.210 Nicotine dependence, cigarettes, uncomplicated; Z86.59 Personal history of other mental and behavioral disorders; Z88.1 Allergy status to other antibiotic agents; Z88.2 Allergy status to sulfonamides; Z88.5 Allergy status to narcotic agent; Z88.8 Allergy status to other drugs, medicaments and biological substances; Z79.84 Long term (current) use of oral hypoglycemic drugs; Z79.891 Long term (current) use of opiate analgesic; Z79.899 Other long term (current) drug therapy

== ENCOUNTER → 2021-06-07 | Outpatient (CLI) | payer MEDICAID, SELFPAY | LOC: M LABSMTC 11:24 | PROVIDERS: ATTEND Anesthesiology | DX: Z20.828 Contact with and (suspected) exposure to other viral communicable diseases (principal); Z11.59 Encounter for screening for other viral diseases ==

== ENCOUNTER → 2021-06-12 | Outpatient (CLI) | payer MEDICAID ==
[~2021-06-12] MED LIST changes: +BUPIVACAINE HCL 0.25% 30ML VIAL As Ordered ONE; +ISOVUE-M 300 61% 15ML VIAL As Ordered ONE; +LIDOCAINE 1% SDV 30ML VIAL As Ordered ONE
--- NOTE | 2021-06-12 13:33 | REP ---
INDICATION: LEFT DIAGNOSTIC LUMBAR FACET BLOCK #1. COMPARISON: None. TECHNIQUE: Two C-arm views lower lumbar spine. FINDINGS: [place] are seen along the left lower lumbar facet joints. A small amount of contrast is injected. IMPRESSION: 24 seconds of fluoroscopy time was utilized. <Electronically signed by Jaleel Keys > 06/12/21 [id number]
--- NOTE | 2021-06-19 01:09 | ECWPNPC ---
PATIENT NAME: IVON DAVID : 1965 GENDER: FEMALE VISIT DATE: 06/12/2021 DISCHARGE DATE: 06/12/21 1302 VISIT LOCKED DATE TIME: PHYSICIAN: MOHAMUD RIGGINS MD PHYSICIAN PAGER NO: ACTIVE RESOURCE: MOHAMUD RIGGINS MD REASON FOR APPOINTMENT 1. LEFT DIAGNOSTIC LUMBAR FACET BLOCK #1 L4-5,L5-S1 HISTORY OF PRESENT ILLNESS GENERAL: -. FALL RISK SCREENING: SCREENING : NO FALLS REPORTED IN THE LAST YEAR. PAIN SCREENING: PATIENT HAS A COMPLAINT OF ACUTE OR CHRONIC PAIN :YES LOCATION OF PAIN:LOW BACK DOWN LEFT LEG TO KNEE INTENSITY OF PAIN (SCALE OF 1 TO 10):7 WHAT DOES YOUR PAIN FEEL LIKE:ACHING, STABBING DURATION:INTERMITTENT PAIN IS INCREASED BY:ACTIVITIES BENDING, PROLONGED SITTING PAIN IS DECREASED BY:USE OF PAIN MEDICATIONS NURSING NOTE: -. PAIN CENTER INTAKE QUESTIONS: DO YOU HAVE A HISTORY OF MRSA? :NO DO YOU TAKE A BLOOD THINNERS? :NO DO YOU HAVE ANY BLEEDING DISORDERS? :NO ANY NEW NUMBNESS OR WEAKNESS IN YOUR LEGS OR ARMS? :NO ANY PACEMAKER,DEFIBRILLATOR, OR DORSAL COLUMN STIMULATOR? :NO DO YOU HAVE ANY RASHES OR OPEN SORES? :NO ARE YOU ALLERGIC TO IV DYE? :NO ARE YOU DIABETIC? :YES 111 ANY NEW PROBLEMS WITH YOUR MEDICATIONS? :NO HAVE YOU RECEIVED A VACCINE IN THE PAST 30 DAYS? :NO DO YOU PLAN TO RECEIVE A VACCINE IN THE NEXT 21 DAYS? :NO DO YOU TAKE ANY IMMUNOSUPPRESSIVE MEDICATIONS? :NO ANY HISTORY OF SEIZURES? :NO ANY HISTORY OF CARDIAC ISSUES OR EVENTS? :NO DO YOU HAVE ANY KIDNEY OR LIVER DISEASE? :NO DO YOU HAVE SLEEP APNEA? :NO ANY RECENT HEAD INJURY? :NO DO YOU HAVE ANY NEW INFECTIONS? :NO IS THERE A CHANCE YOU COULD BE ? :NO ARE YOU BREAST FEEDING? :NO WHEN DID YOU LAST EAT? : 06/11/21 1830 WHEN DID YOU LAST DRINK? : 629 WHAT DID YOU LAST DRINK? : BLACK COFFEE NAME OF PERSON DRIVING YOU HOME? : BROTHER DO YOU HAVE ANY OTHER QUESTIONS OR CONCERNS? : NO CURRENT MEDICATIONS TAKING ADVAIR DISKUS 250-50 MCG/DOSE AEROSOL POWDER BREATH ACTIVATED 1 PUFF INHALATION TWICE A DAY TAKING VITAMIN D (ERGOCALCIFEROL) 29564 UNIT CAPSULE TAKE 1 CAPSULE BY MOUTH WEEKLY ORALLY WEEKLY TAKING ALBUTEROL SULFATE HFA 108 (90 BASE) MCG/ACT AEROSOL SOLUTION 2 PUFFS NEEDED INHALATION EVERY 6 HRS TAKING ZYRTEC ALLERGY 10 MG TABLET 1 TABLET ORALLY ONCE A DAY TAKING IBUPROFEN 200 MG TABLET 1 TABLET WITH FOOD OR MILK NEEDED ORALLY THREE TIMES A DAY, NOTES: NONE RECENTLY TAKING MELOXICAM 7.5 MG TABLET 1 TABLET ORALLY BID, NOTES: 0600 TAKING TIZANIDINE HCL 4 MG TABLET 1 TABLET NEEDED ORALLY THREE TIMES A DAY, NOTES: 06/11/212029 TAKING HYDROCHLOROTHIAZIDE 25 MG TABLET 1 TAB ORALLY DAILY, NOTES: 06/11/212029 TAKING HYDROXYZINE HCL 50 MG TABLET TAKE 1 TABLET TWICE A DAY ORALLY BID TAKING PERCOCET 5-325 MG TABLET 1-2 ORALLY Q 4-6H PRN PAIN MDD6, NOTES: 06/11/21 1700 TAKING PREMARIN 0.3 MG TABLET 1 TABLET ORALLY ONCE A DAY TAKING NICODERM CQ 21 MG/24HR PATCH 24 HOUR 1 PATCH TO SKIN TRANSDERMAL ONCE A DAY TAKING METFORMIN HCL 1000 MG TABLET 1 TABLET WITH MEALS ORALLY TWICE A DAY, NOTES: 06/11/21 0900 TAKING PANTOPRAZOLE SODIUM 40 MG TABLET DELAYED RELEASE TAKE 1 TABLET DAILY ORALLY ONCE DAILY TAKING PAROXETINE HCL 40 MG TABLET TAKE 1 TABLET DAILY IN THE MORNING ORALLY ONCE A DAY TAKING ATORVASTATIN CALCIUM 80 MG TABLET TAKE 1 TABLET DAILY ORALLY DAILY TAKING IRBESARTAN 150 MG TABLET 1 TABLET ORALLY ONCE A DAY, NOTES: 0600 MEDICATION LIST REVIEWED AND RECONCILED WITH THE PATIENT PAST MEDICAL HISTORY CHRONIC LOW BACK PAIN - FOLLOWED BY [facility] OSTEOARTHRITIS BILATERAL KNEES ASTHMA NORMAL SPIROMETRY AT PULMONARY 11/2017 HYPERLIPIDEMIA DEPRESSION GENERALIZED ANXIETY DISORDER HYPERTENSION DM II LEFT PULMONARY NODULE - CT 2009 AND 2013 WITH NO CHANGE - NO FURTHER WORK UP NEEDED PER [facility]. (FOLLOWED BY PULMONARY) VARICOSE VEINS OSTEOPOROSIS - LAST DEXA 04/21, NORMAL - AP SPINE T-SCORE -0.4. NORMAL BONE DENSITY - REPEAT 2018 SMOKER VITAMIN D DEFICIENCY ADALGISA DIAGNOSED 07/2015 - ON CPAP LUMBAR FACET ARTHROPATHY LUMBAR SPONDYLOSIS ADMITTED 11/2016 FOR BOWEL OBSTRUCTION SECONDARY TO DIVERTICULITIS - REQUIRED PARTIAL BOWEL RESECTION WITH OSTOMY PLACED. LEFT ANKLE FX S/P FALL RLS 01/25, ? FROM PAROXETINE RIGHT ARM TENDONITIS ALLERGIES MORPHINE SULFATE: HIVES - ALLERGY ZOLOFT: CONFUSION - LACK OF THERAPEUTIC EFFECT BACTRIM: HIVES - ALLERGY SULFA (FOR ALLERGY USE ONLY): HIVES - ALLERGY SOCIAL HISTORY GENERAL: TOBACCO USE ARE YOU A:CURRENT SMOKER ARE YOU INTERESTED IN QUITTING?NOT READY TO QUIT COUNSELED THE PATIENT ON SMOKING EFFECTS, EDUCATION [id number]/16/2021 HOW MANY CIGARETTES A DAY DO YOU SMOKE?6-10 HOW SOON AFTER YOU WAKE UP DO YOU SMOKE YOUR FIRST CIGARETTE?6-30 MIN HOW OFTEN DO YOU SMOKE CIGARETTES?EVERY DAY PATIENT COUNSELED ON THE DANGERS OF TOBACCO USE AND URGED TO QUIT:03/26/2020 SMOKING CESSATION INFORMATION GIVEN08/24/2019 LATEX QUESTIONNAIRE LATEX ALLERGY : HAVE YOU EVER DEVELOPED ANY TYPE OF REACTION AFTER HANDLING LATEX PRODUCTS SUCH RUBBER GLOVES, CONDOMS, DIAPHRAGMS, BALLOONS, SOCKS, OR UNDERWEAR?NO LATEX ALLERGY : HAVE YOU EVER DEVELOPED ANY TYPE OF REACTION DURING OR AFTER DENTAL APPOINTMENT, VAGINAL/RECTAL EXAMINATION, SURGICAL PROCEDURE, OR ANY OTHER EXPOSURE?NO LATEX RISK : HAVE YOU EVER HAD ANY DIFFICULTY BREATHING OR HIVES AFTER EATING OR HANDLING ANY FRUITS, OR VEGETABLES; SUCH KIWI, BANANAS, STONE FRUITS, OR CHESTNUTSNO LATEX RISK : DO YOU HAVE A PREVIOUS PERSONAL HISTORY OF MORE THAN NINE SURGERIES, SPINA BIFIDA, OR REPEATED CATHERIZATIONS? NO LATEX RISK : ARE YOU FREQUENTLY EXPOSED TO LATEX PRODUCTS IN YOUR OCCUPATION?NO DATE ASKED : 04/23/2021 ALCOHOL USE: NO. LUNG CANCER SCREENING SMOKING STATUS:CURRENT SMOKER IS THE PATIENT BETWEEN THE AGE OF 56 AND 78?NO BMI CARE GOAL FOLLOW-UP ABOVE NORMAL BMI FOLLOW-UPDIETARY MANAGEMENT EDUCATION, GUIDANCE, AND COUNSELING ALCOHOL SCREENING DID YOU HAVE A DRINK CONTAINING ALCOHOL IN THE PAST YEAR?NO POINTS0 INTERPRETATIONNEGATIVE RECREATIONAL DRUG USE DRUG USE?NO CAFFEINE CAFFEINE USE?YES HOW OFTEN AND HOW MUCH? 4 CUPS DAILY SEXUAL HX HAD SEX IN THE LAST 12 MONTHS (VAGINAL, ORAL, OR ANAL)?YES WITHMEN ONLY USE PROTECTION?NO HAVE YOU EVER HAD AN STD?NO LMP:HYSTER HIV / HEP-C SCREENING HIV TEST OFFERED TO PATIENT:YES DATE OFFERED:08/17/2017 TEST ACCEPTED:NO REASON:PATIENT DECLINED HEP-C TEST OFFERED TO PATIENT:YES DATE OFFERED:08/17/2017 TEST ACCEPTED:NO REASON:PATIENT DECLINED JAINISM [id number] LUTHERAN NO DRUZE BELIEFS THAT WOULD IMPACT HEALTH CARE. LANGUAGE LANGUAGES SPOKEN:TURKISH EDUCATION LEVEL OF EDUCATION:NOT FINISHED HIGH SCHOOL COMPLETED 11TH GRADE LEARNING BARRIERS / SPECIAL NEEDS CHANGE FROM LAST VISIT?NO BARRIERS TO LEARNING?NO HEARING IMPAIRED?NO VISION IMPAIRED?YES :CORRECTIVE LENSES COGNITIVELY IMPAIRED?NO READINESS TO LEARN?YES LEARNING PREFERENCES?NO LEARNING CAPABILITIES PRESENT?YES EMOTIONAL BARRIERS?NO SPECIAL DEVICES?NO DIRECTOR CENTER NEEDED?NO DOMESTIC VIOLENCE DO YOU FEEL SAFE IN YOUR ENVIRONMENT?YES DIET: REGULAR. MARITAL STATUS: . TODAY'S VISITNOTES 03/27/2020 PATIENT DESCRIBES PAIN :ACHING, IT COMES AND GOES, SHARP, THROBBING FROM 0-10, WHAT LEVEL IS YOUR PAIN TODAY?2 PRECIPITATING FACTORS ACTIVITY ALLEVIATING FACTORS REST - WAS THE PROVIDER NOTIFIED OF ANY PERTINENT INFO?YES HAS THE PATIENT BEEN EDUCATED REGARDING HIS/HER PLAN OF CARE?YES HAS THE PATIENT BEEN EDUCATED REGARDING PAIN, THE RISK FOR PAIN, THE IMPORTANCE OF EFFECTIVE PAIN MANAGEMENT, AND THE PAIN ASSESSMENT PROCESS?YES ADVANCE DIRECTIVE ADVANCE DIRECTIVE DISCUSSED WITH PATIENT:YES HCP ANNALISA DAVID [phone] DR. SHEA FOR ROUTINE HR REPRESENTATIVE CARE AND SCREENINGS. VITAL SIGNS WT 201.2 LBS, WT-KG 91.26 KG, HT 61 IN, BMI 38.01 INDEX, BP 138/87 MM HG, HR 75 /MIN, RR 18 /MIN, TEMP 97.1 F, OXYGEN SAT % 97%, BLOOD GLUCOSE LEVEL 111, SAFE IN ENV? (Y/N) YES, NA INITIALS SC 11:41, REVIEWED BY: APA. JADIEL RN. EXAMINATION GENERAL: THE PATIENT IS ALERT, ORIENTED TIMES THREE AND COOPERATIVE. HEART SHOWS REGULAR RHYTHM, NO MURMURS AND NO GALLOPS. LUNGS HAVE SOME CRACKLES OVER THE RIGHT LUNG. SHE IS GOING TO TALK TO HER PRIMARY CARE ABOUT THIS. ASSESSMENTS SPONDYLOSIS WITHOUT MYELOPATHY OR RADICULOPATHY, LUMBAR REGION - M47.816 (PRIMARY) SPONDYLOSIS WITHOUT MYELOPATHY OR RADICULOPATHY, LUMBOSACRAL REGION - M47.817 TREATMENT SPONDYLOSIS WITHOUT MYELOPATHY OR RADICULOPATHY, LUMBAR REGION [facility] FACET BLOCK (PAIN)[id number] COMPLETION OF PROCEDURAL VISIT WHEN MEETS [id number],ABIGAIL R 06/12/2021 1:01:19 PM > CRITERIA MET PROCEDURES PAIN NURSING RECORD PROCEDURE IN ROOM 1223, PHYSICIAN IN ROOM 1242, START 1245, FINISH 1249, PHYSICIAN OUT OF ROOM 1250, OUT OF ROOM 1254, ECG NORMAL SINUS, PATIENT SHIELDED YES, SAFETY STRAP YES, PREP CHLOROPREP Adilia DUVALL RN, DRESSING TEGADERM DR. GILSON GOODMAN: VISHAL DUVALL R 06/12/2021 12:46:18 PM > 1. ALERT, ORIENTED RESP: VISHAL DUVALL R 06/12/2021 12:46:21 PM > 1. REGULAR, NO DYSPNEA COLOR: SIVAKUMAR DUVALLIL R 06/12/2021 12:46:24 PM > 1. PINK SKIN: SIVAKUMAR DUVALLIL R 06/12/2021 12:46:28 PM > 1. WARM, DRY POSITION: SIVAKUMAR DUVALLIL R 06/12/2021 12:46:30 PM > 1. PRONE VITALS: SIVAKUMAR DUVALLIL R 06/12/2021 12:26:44 PM > 135/75, 78, 18, 96% PETRCYNTHIAVISHAL R 06/12/2021 12:36:51 PM > 127/79, 73, 18, 95% PETRCYNTHIAVISHAL R 06/12/2021 12:53:16 PM > 143/75, 70, 18, 95% PETRCYNTHIAVISHAL R 06/12/2021 12:58:57 PM > 169/89, 69, 18, 95% COMPLETION OF PROCEDURE APPOINTMENT: POST PAIN 4, DRESSING SITE DRY AND INTACT, IV N/A, GAIT STEADY, TEACHING COMPLETED, PATIENT ACKNOWLEDGES UNDERSTANDING YES, PROCEDURE APPOINTMENT COMPLETED AT 1301 BY: Adilia DUVALL RN PN LUMBAR FACET BLOCK DIAGNOSTIC PRE PROCEDURE DIAGNOSIS LUMBAR SPONDYLOSIS, LUMBOSACRAL SPONDYLOSIS POST PROCEDURE DIAGNOSIS LUMBAR SPONDYLOSIS, LUMBOSACRAL SPONDYLOSIS PROCEDURE LEFT L4-L5 AND LEFT L5-S1 FACET BLOCK DIAGNOSTIC NUMBER [address] MOHAMUD RIGGINS HIDE DROPPER NONE ANESTHESIA LOCAL PRE PROCEDURE NOTE THE PATIENT WITH HISTORY OF CHRONIC LOW BACK PAIN. I EVALUATED THE PATIENT AND REVIEWED THE CHART. I WENT OVER THE RISKS, ALTERNATIVES, AND BENEFITS ASSOCIATED WITH THIS PROCEDURE. THE PATIENT WOULD LIKE TO PROCEED AND GAVE CONSENT TO PERFORM THE PROCEDURE. AGREED WITH THE PATIENT, WE ARE DOING THIS PROCEDURE TO DETERMINE IF THE PATIENT IS A CANDIDATE FOR A RADIOFREQUENCY ABLATION OF THE FACETS JOINTS. THE PATIENT DENIES UNEXPLAINABLE WEIGHT LOSS, FEVER, CHILLS, OR NEW CHANGES IN URINARY OR BOWEL CONTROL. THE PATIENT IS COVID-19 NEGATIVE DESCRIPTION OF PROCEDURE THE PATIENT WAS BROUGHT TO THE PROCEDURE ROOM AND PLACED IN THE PRONE POSITION. THE LUMBOSACRAL AREA WAS CLEANED WITH CHLORAPREP SOLUTION AND DRAPED ASEPTICALLY. THE PROCEDURE WAS DONE UNDER STERILE CONDITIONS. A TIMEOUT WAS PERFORMED WHERE THE CONSENTED SITE WAS VERIFIED WITH EVERYONE IN THE ROOM. UNDER FLUOROSCOPIC GUIDANCE, TARGETS WERE SELECTED AT THE INTERSECTION OF THE LEFT TRANSVERSE PROCESS OF L4, L5 AND ALA OF S1 WITH ITS RESPECTIVE SUPERIOR ARTICULAR PROCESS WITH A TARGET OF THE MEDIAN BRANCHES OF L3, L4 AND THE DORSAL RAMI OF L5. I CONFIRMED AGAIN THE SITE OF TARGET. LIDOCAINE WAS USED TO NUMB THE SKIN AND THE SUBCUTANEOUS TISSUE BELOW IT. SPINAL NEEDLE, 22-GAUGE, WAS ADVANCED UNDER FLUOROSCOPIC GUIDANCE AND FOLLOWING PATIENT FEEDBACK UNTIL THE TARGETS WERE REACHED. POSITION OF THE NEEDLES WAS VERIFIED WITH AP AND LATERAL VIEWS. AFTER PROPER POSITION OF THE NEEDLES WAS ACHIEVED, ISOVUE-M DYE 30%, 0.1 ML, WAS INJECTED AT EACH SITE SHOWING ADEQUATE SPREAD OF THE DYE. THEN, A SOLUTION OF 0.4 ML OF BUPIVACAINE 0.25% WAS INJECTED AT EACH SITE. THE MEDICATIONS WERE VERIFIED WITH THE NURSE. THERE WAS NO EVIDENCE OF BLOOD, PARESTHESIA OR CEREBROSPINAL FLUID DURING THE PROCEDURE. THE PATIENT WAS SENT TO THE RECOVERY ROOM. THE PATIENT WAS MOVING THE EXTREMITIES AND DOING WELL. THERE WERE NO COMPLICATIONS DURING THE PROCEDURE. ESTIMATED BLOOD LOSS WAS LESS THAN 5 ML. FLUOROSCOPY TIME WAS 23 SECONDS POST PROCEDURE NOTE THE PATIENT WILL DOCUMENT THE PAIN LEVEL AND RESPONSE TO THIS PROCEDURE PER PAIN DIARY. THE PATIENT WILL BE SEEN IN A FOLLOW UP IN THE NEXT FEW WEEKS. FURTHER DETERMINATION FOR THE PATIENT'S CASE WILL BE DONE AT THE NEXT VISIT. INSTRUCTIONS WERE GIVEN, QUESTIONS WERE ANSWERED, AND THE PATIENT EXPRESSED UNDERSTANDING AND AGREED WITH THE PLAN. I, CONNIE HAINES, DOCUMENTED THE ABOVE INFORMATION ACTING A SCRIBE FOR DR. RIGGINS. I HAVE REVIEWED THE ABOVE DOCUMENT, WRITTEN BY CONNIE HAINES, ELECTRIC RANGE SERVICER, AND I VERIFY THAT IT IS ACCURATE VISIT CODES PROCEDURE CODES 05902 INJ PARAVERT F JNT L/S 1 LEV, MODIFIERS: [place] 75893 INJ PARAVERT F JNT L/S 2 LEV, MODIFIERS: LT DISPOSITION & COMMUNICATION FOLLOW UP FOLLOW UP WITH [employer]ER (REASON: POST LEFT DIAGNOSTIC LUMBAR FACET BLOCK L4-L5, L5-S1 #1) ELECTRONICALLY SIGNED BY MOHAMUD RIGGINS MD, MD ON 06/18/2021 AT 04:41 PM EDT DISCLAIMER : THIS IS A VISIT SUMMARY EXTRACTED FROM THE [employer] CHART. IT IS NOT A COPY OF THE [employer] PROGRESS NOTE. MTDD
== END ==
LOC: M PAIN 11:20
PROVIDERS: ATTEND Anesthesiology
DX: M47.816 Spondylosis without myelopathy or radiculopathy, lumbar region (principal); M47.817 Spondylosis without myelopathy or radiculopathy, lumbosacral region; E11.9 Type 2 diabetes mellitus without complications; G47.33 Obstructive sleep apnea (adult) (pediatric); E55.9 Vitamin D deficiency, unspecified; F17.210 Nicotine dependence, cigarettes, uncomplicated; Z86.59 Personal history of other mental and behavioral disorders; Z88.1 Allergy status to other antibiotic agents; Z88.2 Allergy status to sulfonamides; Z88.5 Allergy status to narcotic agent; Z88.8 Allergy status to other drugs, medicaments and biological substances; Z79.84 Long term (current) use of oral hypoglycemic drugs; Z79.891 Long term (current) use of opiate analgesic; Z79.899 Other long term (current) drug therapy
CPT/HCPCS: 64493; 64494; Q9967

== ENCOUNTER → 2021-06-18 | Outpatient (CLI) | payer MEDICAID ==
[~2021-06-18] MED LIST changes: -BUPIVACAINE HCL 0.25% 30ML VIAL As Ordered ONE; -ISOVUE-M 300 61% 15ML VIAL As Ordered ONE; -LIDOCAINE 1% SDV 30ML VIAL As Ordered ONE
== END ==
LOC: M PAIN 14:45
PROVIDERS: ATTEND Anesthesiology
DX: M47.816 Spondylosis without myelopathy or radiculopathy, lumbar region (principal); G89.29 Other chronic pain; E11.9 Type 2 diabetes mellitus without complications; E55.9 Vitamin D deficiency, unspecified; G47.33 Obstructive sleep apnea (adult) (pediatric); F17.210 Nicotine dependence, cigarettes, uncomplicated; Z86.59 Personal history of other mental and behavioral disorders; Z88.1 Allergy status to other antibiotic agents; Z88.2 Allergy status to sulfonamides; Z88.5 Allergy status to narcotic agent; Z88.8 Allergy status to other drugs, medicaments and biological substances; Z79.84 Long term (current) use of oral hypoglycemic drugs; Z79.891 Long term (current) use of opiate analgesic; Z79.899 Other long term (current) drug therapy

== ENCOUNTER → 2021-07-10 | Outpatient (CLI) | payer MEDICAID | LOC: M LABSMTC 10:34 | PROVIDERS: ATTEND Anesthesiology | DX: Z20.822 Contact with and (suspected) exposure to COVID-19 (principal) ==

== ENCOUNTER → 2021-07-15 | Outpatient (CLI) | payer MEDICAID ==
[~2021-07-15] MED LIST changes: +BUPIVACAINE HCL 0.25% 30ML VIAL As Ordered ONE; +ISOVUE-M 300 61% 15ML VIAL As Ordered ONE; +LIDOCAINE 1% SDV 30ML VIAL As Ordered ONE
--- NOTE | 2021-07-15 12:03 | REP ---
INDICATION: DIAGNOSTIC #2 LUMBAR. COMPARISON: 06/12/2021. TECHNIQUE: Single C-arm view lower lumbar spine. FINDINGS: [place] are seen at the lower lumbar facet joints and a small amount of contrast is injected. IMPRESSION: 22 seconds of fluoroscopy time is utilized. <Electronically signed by Jaleel Keys > 07/15/21 [id number]
== END ==
LOC: M PAIN 09:20
PROVIDERS: ATTEND Anesthesiology
DX: M47.816 Spondylosis without myelopathy or radiculopathy, lumbar region (principal); M47.817 Spondylosis without myelopathy or radiculopathy, lumbosacral region; E11.9 Type 2 diabetes mellitus without complications; E55.9 Vitamin D deficiency, unspecified; G47.33 Obstructive sleep apnea (adult) (pediatric); F17.210 Nicotine dependence, cigarettes, uncomplicated; Z86.59 Personal history of other mental and behavioral disorders; Z88.1 Allergy status to other antibiotic agents; Z88.2 Allergy status to sulfonamides; Z88.5 Allergy status to narcotic agent; Z88.8 Allergy status to other drugs, medicaments and biological substances; Z79.84 Long term (current) use of oral hypoglycemic drugs; Z79.891 Long term (current) use of opiate analgesic; Z79.899 Other long term (current) drug therapy
CPT/HCPCS: 64493; 64494; Q9967

== ENCOUNTER → 2021-08-22 | Outpatient (CLI) | payer MEDICAID ==
[~2021-08-22] MED LIST changes: -BUPIVACAINE HCL 0.25% 30ML VIAL As Ordered ONE; -ISOVUE-M 300 61% 15ML VIAL As Ordered ONE; -LIDOCAINE 1% SDV 30ML VIAL As Ordered ONE
== END ==
LOC: M PAIN 14:30
PROVIDERS: ATTEND Nurse Practitioner Family
DX: M47.816 Spondylosis without myelopathy or radiculopathy, lumbar region (principal); M47.817 Spondylosis without myelopathy or radiculopathy, lumbosacral region; G89.29 Other chronic pain; E11.9 Type 2 diabetes mellitus without complications; E55.9 Vitamin D deficiency, unspecified; G47.33 Obstructive sleep apnea (adult) (pediatric); F17.210 Nicotine dependence, cigarettes, uncomplicated; Z86.59 Personal history of other mental and behavioral disorders; Z88.1 Allergy status to other antibiotic agents; Z88.2 Allergy status to sulfonamides; Z88.5 Allergy status to narcotic agent; Z88.8 Allergy status to other drugs, medicaments and biological substances; Z79.84 Long term (current) use of oral hypoglycemic drugs; Z79.891 Long term (current) use of opiate analgesic; Z79.899 Other long term (current) drug therapy

== ENCOUNTER → 2021-08-26 | Outpatient (REF) | payer MEDICAID ==
[2021-08-26 13:27] LABS: ALBUMIN 3.5 GM/DL (3.2-5.2); BILIRUBIN,TOTAL 0.3 MG/DL (0.2-1.0); CALCIUM LEVEL 9.7 MG/DL (8.5-10.1); CREATININE FOR GFR 1.26 MG/DL (0.55-1.30); GLOMERULAR FILTRATION RATE 46.9 (>51); TOTAL PROTEIN 7.1 GM/DL (6.4-8.2)
[2021-08-26 13:42] LABS: HEMOGLOBIN A1c 6.1 %
== END ==
LOC: M SFHCADAM 10:26
PROVIDERS: ATTEND Physician Assistant
DX: E11.9 Type 2 diabetes mellitus without complications (principal)

== ENCOUNTER → 2021-09-11 | Outpatient (CLI) | payer MEDICAID ==
--- NOTE | 2021-09-11 13:14 | REP ---
INDICATION: OBSTRUCTIVE SLEEP APNEA (ADULT) (PEDIATRIC). COMPARISON: Multiple the latest 08/16/2020 FINDINGS: The superior mediastinal structures are midline. The cardiac silhouette is unremarkable in size, shape, and position. The diaphragmatic surfaces of the lungs are regular, and the costophrenic angles are clear. The pulmonary yoder are clear. The imaged osseous structures are intact. IMPRESSION: There is no acute cardiopulmonary disease. No significant change from the prior exam. <Electronically signed by Santi Costello > 09/11/21 [id number]
== END ==
LOC: M PLAIMG 11:27
PROVIDERS: ATTEND Internal Medicine Pulmonary Disease
DX: G47.33 Obstructive sleep apnea (adult) (pediatric) (principal)

== ENCOUNTER → 2021-10-09 | Outpatient (CLI) | payer MEDICAID | LOC: M LABSMTC 11:34 | PROVIDERS: ATTEND Anesthesiology | DX: Z01.812 Encounter for preprocedural laboratory examination (principal); Z20.822 Contact with and (suspected) exposure to COVID-19 ==

== ENCOUNTER → 2021-10-14 | Outpatient (CLI) | payer MEDICAID ==
[~2021-10-14] MED LIST changes: +BUPIVACAINE HCL 0.25% 30ML VIAL As Ordered ONE; +LIDOCAINE 1% SDV 30ML VIAL As Ordered ONE; +dexameTHASONE 10MG/1ML VIAL PRES.FREE (J1100 PER 1MG) As Ordered ONE
== END ==
LOC: M PAIN 13:00
PROVIDERS: ATTEND Anesthesiology
DX: M47.816 Spondylosis without myelopathy or radiculopathy, lumbar region (principal); M47.817 Spondylosis without myelopathy or radiculopathy, lumbosacral region; E11.9 Type 2 diabetes mellitus without complications; E55.9 Vitamin D deficiency, unspecified; G47.33 Obstructive sleep apnea (adult) (pediatric); F17.210 Nicotine dependence, cigarettes, uncomplicated; Z86.59 Personal history of other mental and behavioral disorders; Z88.1 Allergy status to other antibiotic agents; Z88.2 Allergy status to sulfonamides; Z88.5 Allergy status to narcotic agent; Z88.8 Allergy status to other drugs, medicaments and biological substances; Z79.84 Long term (current) use of oral hypoglycemic drugs; Z79.891 Long term (current) use of opiate analgesic; Z79.899 Other long term (current) drug therapy
CPT/HCPCS: 64635; 64636; J1100

== ENCOUNTER → 2021-10-17 | Outpatient (CLI) | payer MEDICAID ==
[~2021-10-17] MED LIST changes: -BUPIVACAINE HCL 0.25% 30ML VIAL As Ordered ONE; -LIDOCAINE 1% SDV 30ML VIAL As Ordered ONE; -dexameTHASONE 10MG/1ML VIAL PRES.FREE (J1100 PER 1MG) As Ordered ONE
== END ==
LOC: M WHC 14:31
PROVIDERS: ATTEND Family Medicine
DX: Z12.31 Encounter for screening mammogram for malignant neoplasm of breast (principal)

== ENCOUNTER → 2021-11-12 | Outpatient (CLI) | payer MEDICAID ==
--- NOTE | 2021-11-12 13:53 | REP ---
INDICATION: GANGLION LT WRIST. COMPARISON: None. TECHNIQUE: Real-time sonographic evaluation of a palpable abnormality left wrist medial aspect with Doppler. FINDINGS: A 1.1 x 1.1 x 0.6 cm sized mixed echo structure is identified over the area of interest. IMPRESSION: Mixed but predominantly cystic appearing structure as described above. Etiology is uncertain. MRI is recommended. <Electronically signed by Santi Costello > 11/12/21 [id number]
== END ==
LOC: M RAD 13:21
PROVIDERS: ATTEND Orthopaedic Surgery Sports Medicine
DX: M67.432 Ganglion, left wrist (principal)

== ENCOUNTER → 2022-02-13 | Outpatient (CLI) | payer MEDICAID, SELFPAY | LOC: M PAIN 14:30 | PROVIDERS: ATTEND Anesthesiology | DX: M79.18 Myalgia, other site (principal); E11.9 Type 2 diabetes mellitus without complications; E55.9 Vitamin D deficiency, unspecified; G47.33 Obstructive sleep apnea (adult) (pediatric); F17.210 Nicotine dependence, cigarettes, uncomplicated; Z86.59 Personal history of other mental and behavioral disorders; Z88.1 Allergy status to other antibiotic agents; Z88.2 Allergy status to sulfonamides; Z88.5 Allergy status to narcotic agent; Z88.8 Allergy status to other drugs, medicaments and biological substances; Z79.84 Long term (current) use of oral hypoglycemic drugs; Z79.891 Long term (current) use of opiate analgesic; Z79.899 Other long term (current) drug therapy ==

== ENCOUNTER → 2022-08-28 | Outpatient (CLI) | payer OTHER | LOC: M PAIN 09:45 | PROVIDERS: ATTEND Anesthesiology | DX: M48.061 Spinal stenosis, lumbar region without neurogenic claudication (principal); M51.16 Intervertebral disc disorders with radiculopathy, lumbar region; G89.29 Other chronic pain; M71.9 Bursopathy, unspecified; E11.9 Type 2 diabetes mellitus without complications; I10 Essential (primary) hypertension; E55.9 Vitamin D deficiency, unspecified; G47.33 Obstructive sleep apnea (adult) (pediatric); F17.210 Nicotine dependence, cigarettes, uncomplicated; Z86.59 Personal history of other mental and behavioral disorders; Z88.1 Allergy status to other antibiotic agents; Z88.2 Allergy status to sulfonamides; Z88.5 Allergy status to narcotic agent; Z88.8 Allergy status to other drugs, medicaments and biological substances; Z79.84 Long term (current) use of oral hypoglycemic drugs; Z79.899 Other long term (current) drug therapy ==

== ENCOUNTER → 2023-01-05 | Outpatient (REF) | payer MEDICARE, MEDICAID ==
[~2023-01-05] MED LIST changes: -PAXI40TA10 PO; +PAXI40TA12 PO
[2023-01-05 16:11] LABS: HEMATOCRIT 37.7 % (36.0-47.0); HEMOGLOBIN 12.4 g/dl (12.0-15.5); MEAN CORPUSCULAR HEMOGLOBIN 31.8 pg (27.0-33.0); MEAN CORPUSCULAR HGB CONC 32.9 g/dl (32.0-36.5); MEAN CORPUSCULAR VOLUME 96.7 fl (80.0-96.0); PLATELET COUNT, AUTOMATED 305 10^3/uL (150-450); WHITE BLOOD COUNT 12.7 10^3/uL (4.0-10.0)
[2023-01-05 16:39] LABS: ALKALINE PHOSPHATASE 126 U/L (46-116); ALT/SGPT < 9 U/L (7.0-40); AST/SGOT 14 U/L (<34); BILIRUBIN,TOTAL 0.4 MG/DL (0.3-1.2); BLOOD UREA NITROGEN 31 MG/DL (9-23); CALCIUM LEVEL 9.7 MG/DL (8.5-10.1); CARBON DIOXIDE LEVEL 29 MMOL/L (20-31); CHLORIDE LEVEL 107 MMOL/L (98-107); CHOLESTEROL LEVEL 187 MG/DL (<200); CHOLESTEROL RISK RATIO 4.75 (<5); CREATININE FOR GFR 2.02 MG/DL (0.55-1.30); GLOMERULAR FILTRATION RATE 27.1 (>51); GLUCOSE, FASTING 79 MG/DL (60-100); HDL CHOLESTEROL 39.3 MG/DL (>40); LDL CHOLESTEROL 104.3 MG/DL (<100); NON-HDL-C 148 MG/DL; POTASSIUM SERUM 4.6 MMOL/L (3.5-5.1); SODIUM LEVEL 140 MMOL/L (136-145); TOTAL PROTEIN 7.4 G/DL (5.7-8.2); TRIGLYCERIDES LEVEL 217 MG/DL (<150)
[2023-01-05 16:42] LABS: THYROID STIMULATING HORMONE 1.334 uIU/ML (0.55-4.78)
[2023-01-05 16:43] LABS: FREE T4 1.21 NG/DL (0.89-1.76); VITAMIN B12 LEVEL 560 PG/ML (211-911)
[2023-01-05 16:45] LABS: FOLATE 5.1 NG/ML (>5.4)
[2023-01-05 17:31] LABS: HEMOGLOBIN A1c 5.6 % (4.0-6.0)
== END ==
LOC: M SFHCADAM 11:56
PROVIDERS: ATTEND Physician Assistant
DX: E78.5 Hyperlipidemia, unspecified (principal); F43.9 Reaction to severe stress, unspecified; E11.9 Type 2 diabetes mellitus without complications; I10 Essential (primary) hypertension; F17.218 Nicotine dependence, cigarettes, with other nicotine-induced disorders; R23.2 Flushing; F41.9 Anxiety disorder, unspecified; L30.9 Dermatitis, unspecified

== ENCOUNTER → 2023-01-11 | Outpatient (CLI) | payer MEDICARE, MEDICAID | LOC: M PAIN 16:00 | PROVIDERS: ATTEND Anesthesiology | DX: M47.816 Spondylosis without myelopathy or radiculopathy, lumbar region (principal); G89.29 Other chronic pain; M46.96 Unspecified inflammatory spondylopathy, lumbar region; E11.9 Type 2 diabetes mellitus without complications; J45.909 Unspecified asthma, uncomplicated; I10 Essential (primary) hypertension; E55.9 Vitamin D deficiency, unspecified; G47.33 Obstructive sleep apnea (adult) (pediatric); F17.210 Nicotine dependence, cigarettes, uncomplicated; Z86.59 Personal history of other mental and behavioral disorders; Z88.1 Allergy status to other antibiotic agents; Z88.2 Allergy status to sulfonamides; Z88.5 Allergy status to narcotic agent; Z88.8 Allergy status to other drugs, medicaments and biological substances; Z79.84 Long term (current) use of oral hypoglycemic drugs; Z79.899 Other long term (current) drug therapy ==

== ENCOUNTER → 2023-01-19 | Outpatient (REF) | payer MEDICARE, MEDICAID ==
[2023-01-19 14:03] LABS: AMORPHOUS SEDIMENT SMALL (NEGATIVE); APPEARANCE, URINE CLOUDY (CLEAR); BACTERIA, URINE AUTO NEGATIVE (NEGATIVE); BILIRUBIN, URINE AUTO NEGATIVE (NEGATIVE); BLOOD, URINE BLOOD NEGATIVE (NEGATIVE); COLOR, URINE AMBER (YELLOW); GLUCOSE, URINE (UA) AUTO NEGATIVE (NEGATIVE); KETONE, URINE AUTO TRACE mg/dL (NEGATIVE); LEUKOCYTE ESTERASE, URINE AUTO 1+ (NEGATIVE); MUCUS, URINE SMALL (NEGATIVE); NITRITE, URINE AUTO NEGATIVE (NEGATIVE); PROTEIN, URINE AUTO NEGATIVE (NEGATIVE); RBC, URINE AUTO 4 /HPF (0-3); SPECIFIC GRAVITY URINE AUTO 1.018 (1.002-1.035); SQUAMOUS EPITHELIAL CELL UR AU 23 /HPF (0-6); UROBILINOGEN, URINE AUTO 0.2 mg/dL (0.0-2.0); WBC, URINE AUTO 6 /HPF (0-3)
[2023-01-19 14:18] LABS: ALBUMIN 3.7 G/DL (3.2-5.2); CALCIUM LEVEL 9.8 MG/DL (8.5-10.1); CREATININE FOR GFR 1.94 MG/DL (0.55-1.30); GLOMERULAR FILTRATION RATE 28.4 (>51); POTASSIUM SERUM 4.1 MMOL/L (3.5-5.1)
== END ==
LOC: M SFHCADAM 10:03
PROVIDERS: ATTEND Physician Assistant
DX: N17.9 Acute kidney failure, unspecified (principal); E53.8 Deficiency of other specified B group vitamins

== ENCOUNTER → 2023-02-04 | Outpatient (CLI) | payer MEDICAID, MEDICARE ==
[~2023-02-04] MED LIST changes: +ISOVUE-370 76% 100ML VIAL As Ordered ONE
== END ==
LOC: M RAD 11:18
PROVIDERS: ATTEND Physician Assistant
DX: N17.9 Acute kidney failure, unspecified (principal)
CPT/HCPCS: 76775; Q9967

== ENCOUNTER → 2023-02-08 | Outpatient (CLI) | payer BC, MEDICAID, MEDICARE ==
[~2023-02-08] MED LIST changes: -ISOVUE-370 76% 100ML VIAL As Ordered ONE
== END ==
LOC: M RAD 15:40
PROVIDERS: ATTEND Physician Assistant
DX: R91.8 Other nonspecific abnormal finding of lung field (principal); F17.218 Nicotine dependence, cigarettes, with other nicotine-induced disorders

== ENCOUNTER → 2023-02-22 | Outpatient (REF) | payer MEDICARE, MEDICAID ==
[2023-02-22 13:21] LABS: CALCIUM LEVEL 9.7 MG/DL (8.5-10.1); CREATININE FOR GFR 1.67 MG/DL (0.55-1.30); GLOMERULAR FILTRATION RATE 33.8 (>51)
== END ==
LOC: M SFHCADAM 10:56
PROVIDERS: ATTEND Physician Assistant
DX: E11.9 Type 2 diabetes mellitus without complications (principal)

== ENCOUNTER → 2023-02-26 | Outpatient (CLI) | payer MEDICARE, MEDICAID ==
[~2023-02-26] MED LIST changes: +BUPIVACAINE HCL 0.25% 30ML VIAL As Ordered ONE; +ISOVUE-M 300 61% 15ML VIAL As Ordered ONE; +LIDOCAINE 1% SDV 30ML VIAL As Ordered ONE
== END ==
LOC: M PAIN 09:00
PROVIDERS: ATTEND Anesthesiology
DX: M47.816 Spondylosis without myelopathy or radiculopathy, lumbar region (principal); M17.0 Bilateral primary osteoarthritis of knee; M54.50 Low back pain, unspecified; E78.5 Hyperlipidemia, unspecified; F32.A Depression, unspecified; F41.1 Generalized anxiety disorder; I10 Essential (primary) hypertension; E11.9 Type 2 diabetes mellitus without complications; M81.0 Age-related osteoporosis without current pathological fracture; G47.33 Obstructive sleep apnea (adult) (pediatric); F17.210 Nicotine dependence, cigarettes, uncomplicated; Z79.891 Long term (current) use of opiate analgesic; Z79.899 Other long term (current) drug therapy; Z88.5 Allergy status to narcotic agent; Z88.2 Allergy status to sulfonamides; Z88.8 Allergy status to other drugs, medicaments and biological substances
CPT/HCPCS: 64493; 64494; Q9967

== ENCOUNTER → 2023-06-01 | Outpatient (CLI) | payer MEDICARE, MEDICAID ==
[~2023-06-01] MED LIST changes: -BUPIVACAINE HCL 0.25% 30ML VIAL As Ordered ONE; -ISOVUE-M 300 61% 15ML VIAL As Ordered ONE; -LIDOCAINE 1% SDV 30ML VIAL As Ordered ONE
== END ==
LOC: M PAIN 09:45
PROVIDERS: ATTEND Nurse Practitioner Family
DX: M47.816 Spondylosis without myelopathy or radiculopathy, lumbar region (principal); M47.817 Spondylosis without myelopathy or radiculopathy, lumbosacral region; G89.29 Other chronic pain; I10 Essential (primary) hypertension; E55.9 Vitamin D deficiency, unspecified; G47.33 Obstructive sleep apnea (adult) (pediatric); F17.210 Nicotine dependence, cigarettes, uncomplicated; Z86.59 Personal history of other mental and behavioral disorders; Z88.1 Allergy status to other antibiotic agents; Z88.2 Allergy status to sulfonamides; Z88.5 Allergy status to narcotic agent; Z88.8 Allergy status to other drugs, medicaments and biological substances; Z79.899 Other long term (current) drug therapy

== ENCOUNTER → 2023-08-20 | Outpatient (REF) | payer MEDICARE, MEDICAID | LOC: M SFHCADAM 15:12 | PROVIDERS: ATTEND Physician Assistant | DX: N18.31 Chronic kidney disease, stage 3a (principal); E11.22 Type 2 diabetes mellitus with diabetic chronic kidney disease; F17.218 Nicotine dependence, cigarettes, with other nicotine-induced disorders; E78.5 Hyperlipidemia, unspecified; E53.8 Deficiency of other specified B group vitamins; Z12.31 Encounter for screening mammogram for malignant neoplasm of breast ==

== ENCOUNTER → 2023-09-21 | Outpatient (CLI) | payer MEDICARE, MEDICAID | LOC: M PAIN 16:00 | PROVIDERS: ATTEND Nurse Practitioner Family | DX: M47.816 Spondylosis without myelopathy or radiculopathy, lumbar region (principal); G89.29 Other chronic pain; F17.210 Nicotine dependence, cigarettes, uncomplicated; Z88.1 Allergy status to other antibiotic agents; Z88.2 Allergy status to sulfonamides; Z88.5 Allergy status to narcotic agent; Z88.8 Allergy status to other drugs, medicaments and biological substances; Z79.899 Other long term (current) drug therapy ==

== ENCOUNTER → 2024-01-06 | Outpatient (CLI) | payer MEDICARE ==
[2024-01-06 12:52] LABS: BASO # 0.1 10^3/uL (0.0-0.2); BASO % 0.5 % (0.0-1.0); EOS # 0.1 10^3/uL (0.0-0.5); EOS % 0.7 % (0.0-3.0); HEMATOCRIT 42.7 % (36.0-47.0); LYMPH % 14.8 % (24.0-44.0); MEAN CORPUSCULAR HEMOGLOBIN 30.6 pg (27.0-33.0); MEAN CORPUSCULAR HGB CONC 32.8 g/dl (32.0-36.5); MEAN CORPUSCULAR VOLUME 93.4 fl (80.0-96.0); MONO # 0.8 10^3/uL (0.0-0.8); MONO % 5.9 % (2.0-8.0); NEUTROPHILS # 10.4 10^3/uL (1.5-8.5); NEUTROPHILS % 77.7 % (36.0-66.0); PLATELET COUNT, AUTOMATED 329 10^3/uL (150-450); RED BLOOD COUNT 4.57 10^6/uL (4.00-5.40); WHITE BLOOD COUNT 13.4 10^3/uL (4.0-10.0)
[2024-01-06 12:57] LABS: ALBUMIN 4.1 G/DL (3.2-5.2); BILIRUBIN,TOTAL 0.3 MG/DL (0.3-1.2); CALCIUM LEVEL 10.2 MG/DL (8.5-10.1); CHOLESTEROL RISK RATIO 4.42 (<5); CREATININE FOR GFR 1.31 MG/DL (0.55-1.30); GLOMERULAR FILTRATION RATE 44.6 (>51); HDL CHOLESTEROL 45.4 MG/DL (>40); NON-HDL-C 155.6 MG/DL; POTASSIUM SERUM 4.7 MMOL/L (3.5-5.1); TOTAL PROTEIN 7.7 G/DL (5.7-8.2)
[2024-01-06 13:00] LABS: FREE T4 1.04 NG/DL (0.89-1.76); THYROID STIMULATING HORMONE 0.623 uIU/ML (0.55-4.78)
[2024-01-06 13:01] LABS: FOLATE 21.3 NG/ML (>5.4); TOTAL 25(OH) VITAMIN D 35.3 NG/ML (20.0-100.0)
[2024-01-06 13:05] LABS: HEMOGLOBIN A1c 5.7 % (4.0-6.0)
[2024-01-06 13:18] LABS: CREATININE, URINE 80.2 MG/DL
[2024-01-06 13:19] LABS: MAU/CREAT RATIO 47.3 MCG/MG (0.0-30.0)
== END ==
LOC: M RAD 10:23
PROVIDERS: ATTEND Physician Assistant
DX: E55.9 Vitamin D deficiency, unspecified (principal); E78.5 Hyperlipidemia, unspecified; F32.9 Major depressive disorder, single episode, unspecified; F17.218 Nicotine dependence, cigarettes, with other nicotine-induced disorders; E11.22 Type 2 diabetes mellitus with diabetic chronic kidney disease; N18.32 Chronic kidney disease, stage 3b; I12.9 Hypertensive chronic kidney disease with stage 1 through stage 4 chronic kidney disease, or unspecified chronic kidney disease; E53.8 Deficiency of other specified B group vitamins

== ENCOUNTER → 2024-01-20 | Outpatient (CLI) | payer MEDICARE, MEDICAID | LOC: M PAIN 15:30 | PROVIDERS: ATTEND Nurse Practitioner Family | DX: M47.816 Spondylosis without myelopathy or radiculopathy, lumbar region (principal); Z79.891 Long term (current) use of opiate analgesic; I10 Essential (primary) hypertension; E11.9 Type 2 diabetes mellitus without complications; F17.200 Nicotine dependence, unspecified, uncomplicated; Z79.02 Long term (current) use of antithrombotics/antiplatelets; Z79.51 Long term (current) use of inhaled steroids; Z79.899 Other long term (current) drug therapy; Z88.1 Allergy status to other antibiotic agents; Z88.2 Allergy status to sulfonamides; Z88.5 Allergy status to narcotic agent; Z88.8 Allergy status to other drugs, medicaments and biological substances ==

== ENCOUNTER → 2024-08-03 | Outpatient (CLI) | payer SELFPAY | LOC: M PAIN 16:30 | PROVIDERS: ATTEND Nurse Practitioner Family | DX: M47.816 Spondylosis without myelopathy or radiculopathy, lumbar region (principal); G89.29 Other chronic pain; M54.50 Low back pain, unspecified; M17.0 Bilateral primary osteoarthritis of knee; J45.909 Unspecified asthma, uncomplicated; E78.5 Hyperlipidemia, unspecified; F32.A Depression, unspecified; I10 Essential (primary) hypertension; E11.9 Type 2 diabetes mellitus without complications; M81.0 Age-related osteoporosis without current pathological fracture; E55.9 Vitamin D deficiency, unspecified; G47.33 Obstructive sleep apnea (adult) (pediatric); F17.210 Nicotine dependence, cigarettes, uncomplicated; Z79.891 Long term (current) use of opiate analgesic; Z79.899 Other long term (current) drug therapy; Z88.5 Allergy status to narcotic agent; Z88.2 Allergy status to sulfonamides; Z88.8 Allergy status to other drugs, medicaments and biological substances ==

== ENCOUNTER → 2024-12-21 | Outpatient (CLI) | payer MEDICARE ==
[~2024-12-21] MED LIST changes: -ADV250INH INH; +ADVA1AER9 INH
== END ==
LOC: M PAIN 11:15
PROVIDERS: ATTEND Nurse Practitioner Family
DX: M47.816 Spondylosis without myelopathy or radiculopathy, lumbar region (principal); G89.29 Other chronic pain; M54.50 Low back pain, unspecified; E78.5 Hyperlipidemia, unspecified; M17.0 Bilateral primary osteoarthritis of knee; I12.9 Hypertensive chronic kidney disease with stage 1 through stage 4 chronic kidney disease, or unspecified chronic kidney disease; E11.22 Type 2 diabetes mellitus with diabetic chronic kidney disease; N18.31 Chronic kidney disease, stage 3a; F17.210 Nicotine dependence, cigarettes, uncomplicated; Z79.891 Long term (current) use of opiate analgesic; Z79.899 Other long term (current) drug therapy; Z88.5 Allergy status to narcotic agent; Z88.2 Allergy status to sulfonamides; Z88.8 Allergy status to other drugs, medicaments and biological substances

== ENCOUNTER → 2025-01-03 | Outpatient (REF) | payer MEDICARE ==
[2025-01-03 13:20] LABS: BASO # 0.1 10^3/uL (0.0-0.2); BASO % 0.8 % (0.0-1.0); EOS # 0.1 10^3/uL (0.0-0.5); EOS % 1.2 % (0.0-3.0); HEMATOCRIT 45.8 % (36.0-47.0); LYMPH # 1.7 10^3/uL (1.5-5.0); LYMPH % 16.9 % (24.0-44.0); MEAN CORPUSCULAR HEMOGLOBIN 30.6 pg (27.0-33.0); MEAN CORPUSCULAR HGB CONC 32.8 g/dl (32.0-36.5); MEAN CORPUSCULAR VOLUME 93.5 fl (80.0-96.0); MONO # 0.8 10^3/uL (0.0-0.8); MONO % 8.4 % (2.0-8.0); NEUTROPHILS # 7.3 10^3/uL (1.5-8.5); NEUTROPHILS % 72.5 % (36.0-66.0); PLATELET COUNT, AUTOMATED 334 10^3/uL (150-450)
[2025-01-03 13:36] LABS: HEMOGLOBIN A1c 5.6 % (4.0-6.0)
[2025-01-03 13:43] LABS: CREATININE, URINE 82.6 MG/DL; MAU/CREAT RATIO 90.7 MCG/MG (0.0-30.0)
[2025-01-03 13:44] LABS: BILIRUBIN,TOTAL 0.3 MG/DL (0.3-1.2); CALCIUM LEVEL 9.6 MG/DL (8.5-10.1); CHOLESTEROL RISK RATIO 6.65 (<5); CREATININE FOR GFR 1.26 MG/DL (0.55-1.30); GLOMERULAR FILTRATION RATE 46.4 (>51); LDL CHOLESTEROL 240.8 MG/DL (<100); POTASSIUM SERUM 4.5 MMOL/L (3.5-5.1); TOTAL PROTEIN 7.9 G/DL (5.7-8.2)
[2025-01-03 13:47] LABS: FREE T4 1.32 NG/DL (0.89-1.76); THYROID STIMULATING HORMONE 1.303 uIU/ML (0.55-4.78)
[2025-01-03 13:48] LABS: FOLATE 9.8 NG/ML (>5.4)
== END ==
LOC: M SFHCADAM 10:50
PROVIDERS: ATTEND Physician Assistant
DX: Z00.00 Encounter for general adult medical examination without abnormal findings (principal); Z12.31 Encounter for screening mammogram for malignant neoplasm of breast; F17.218 Nicotine dependence, cigarettes, with other nicotine-induced disorders; E11.22 Type 2 diabetes mellitus with diabetic chronic kidney disease; I12.9 Hypertensive chronic kidney disease with stage 1 through stage 4 chronic kidney disease, or unspecified chronic kidney disease; E78.00 Pure hypercholesterolemia, unspecified; Z79.899 Other long term (current) drug therapy